=== PATIENT | male | born 1940 | race Caucasian/White ===

== ENCOUNTER 2021-06-11 15:38 | Inpatient (IN) | payer MEDICARE, OTHER ==
[~2021-06-11] VITALS: Ht 167.6 cm; Wt 88.3 kg
[~2021-06-11 15:38] MED LIST: ASPI-886 PO; ATOR40TA59 PO; CARV12.511 PO; FURO40TA4 PO; INSU100C4 SQ; INSU100I13 SQ; LEVO88TA4 PO; LISI5TAB15 PO; SPIR25TA5 PO
[2021-06-11 17:36] LABS: INFLUENZA A PATIENT NEGATIVE (NEGATIVE); INFLUENZA B PATIENT NEGATIVE (NEGATIVE)
--- NOTE | 2021-06-11 18:02 | PHYS DOC ---
Past Medical History Past Medical History: CAD, Diabetes-Type II Additional Past Medical Histor: POOR HISTORIAN (SOULEYMANE MONTERO) Past Surgical History: Coronary Bypass Surgery, Tonsillectomy, Other Additional Past Surgical Histo: OPEN HEART SURGERY (CABG) (SOULEYMANE MONTERO) Smoking Status: Never Smoker Alcohol Use: None (SOULEYMANE MONTERO) General Adult EDM: Chief Complaint: WEAKNESS/GENERALIZED HPI: HPI: Patient is a 81 year old male who presents with 4-day history of weakness, nausea, vomiting and confusion. Patient is a poor historian, but his family member at bedside aids in providing history. Patient has reportedly fallen twice today without any head trauma or loss of consciousness. He fell once earlier today and was able to get up on his own, but the second time he was unable to get up and family had to help him. Patient is not vaccinated against COVID-19. Patient and family member deny fever, chills, chest pain, palpitations, shortness of breath, cough, constipation, abdominal pain, diarrh ea. Patient has no other complaints at this time. (SOULEYMANE MONTERO) Review of Systems: Review of Systems: Unable to obtain secondary to patient mental status. (SOULEYMANE MONTERO) Heart Score: C/O Chest Pain: N/A (SOULEYMANE MONTERO) Allergies: Allergies: Allergies Coded Allergies Type Severity Reaction Last Updated Verified Sulfa (Sulfonamide Antibiotics) Adverse Reaction Intermediate UNKNOWN 06/01/20 Yes Penicillins Adverse Reaction Unknown UNKNOWN 06/01/20 Yes (SOULEYMANE MONTERO) Physical Exam: PE: Constitutional: Well developed, well nourished. Patient appears to have increased work of breathing and is somnolent. HENT: Normocephalic, atraumatic, bilateral external ears normal, oropharynx moist, nose normal. Eyes: Conjunctiva normal, no discharge. Neck: Normal range of motion, no tenderness, supple, no stridor. Cardiovascular: Heart rate regular rhythm, no murmur. Lungs & Thorax: Diminished breath sounds diffusely, increased work of breathing with mild retraction. Abdomen: Bowel sounds normal, soft, no tenderness, no masses, no pulsatile masses. Skin: Warm, dry, no erythema, no rash. Back: No step-offs, no tenderness, no CVA tenderness. Extremities: No tenderness, no cyanosis, no clubbing, ROM intact, no edema. Neurologic: Alert and oriented x3 but extremely fatigued, no focal deficits noted. (SOULEYMANE MONTERO) Current Patient Data: Labs: Laboratory Tests Test 06/11/21 16:55 Influenza Type A Antigen Negative (NEGATIVE) Influenza Type B Antigen Negative (NEGATIVE) SARS-CoV-2 Antigen (Rapid) Positive (NEGATIVE) *A Vital Signs: Vital Signs Date Time Temp Pulse Resp B/P (MAP) Pulse Ox O2 Delivery O2 Flow Rate FiO2 06/11/21 18:37 73 18 102/51 (68) 98 Nasal Cannula 4.0 06/11/21 17:02 99.1 78 16 124/59 (80) 83 Room Air 99.1 (SOULEYMANE MONTERO) EKG: EKG: EKG Interpreted by Dr. Boswell at 1733: Regular rate 71 bpm with first-degree AV block and nonspecific intraventricular conduction delay. No ectopic beats. No STEMI. (SOULEYMANE MONTERO) Radiology/Procedures: Radiology/Procedures: PROCEDURE: PORTABLE CHEST 1V XR CHEST 1V CLINICAL INDICATIONS: Reason: confusion, fall / Spl. Instructions: / History: COMPARISON: None available. Findings: Bilateral perihilar lung infiltrates or pulmonary edema are seen. There is a peripheral lung infiltrate within the lateral left midlung zone. No pleural effusion or pneumothorax is seen. Heart size is enlarged. Sternotomy is evident. Pulmonary vasculature is unremarkable. IMPRESSION: Bilateral lung infiltrates or pulmonary edema. Cardiomegaly. Electronically signed by: Terrence Fong MD (06/11/2021 6:12 PM) [id number] (SOULEYMANE MONTERO) Course & Med Decision Making: Course & Med Decision Making Pertinent Labs and Imaging studies reviewed. (See chart for details) Patient's rapid Covid swab came back positive. Patient has new oxygen requirement of 4 L NC. Chest x-ray shows significant pneumonia. Patient will be admitted to Dr. Nice. He has requested to start 6 dexamethasone, an albuterol inhaler as well as remdesivir. (SOULEYMANE MONTERO) Course & Med Decision Making I have participated in the care of this patient and I have reviewed and agree with all pertinent clinical information above including history, exam, and recommendations. Kenrick Delatorre DO (KENRICK DELATORRE DO) Vanessa Disclaimer: Vanessa Disclaimer: This electronic medical record was generated, in whole or in part, using a voice recognition dictation system. (SOULEYMANE MONTERO) Departure Departure Impression: Primary Impression: Pneumonia due to COVID-19 virus Additional Impression: Fall in elderly patient Disposition: 09 ADMITTED INPATIENT Admitting Physician: SEAN Sethi) (SOULEYMANE MONTERO) Condition: GUARDED Referrals: NO PCP (PCP) SOULEYMANE MONTERO Jun 11, 2021 18:02 KENRICK DELATORRE DO Jun 11, 2021 21:15
--- NOTE | 2021-06-11 18:15 | RAD ---
XR CHEST 1V CLINICAL INDICATIONS: Reason: confusion, fall / Spl. Instructions: / History: COMPARISON: None available. Findings: Bilateral perihilar lung infiltrates or pulmonary edema are seen. There is a peripheral misael g infiltrate within the lateral left midlung zone. No pleural effusion or pneumothorax is seen. Heart size is enlarged. Sternotomy is evident. Pulmonary vasculature is unremarkable. IMPRESSION: Bilateral lung infiltrates or pulmonary edema. Cardiomegaly. Electronically signed by: Terrence Fong MD (06/11/2021 6:12 PM) [id number]
[2021-06-11 18:17] LABS: BASO % 0 % (0-3); EOS % 0 % (0-3); HEMOGLOBIN 12.1 g/dL (13.0-17.5); LYMPH # 1.1 x10^3/uL (1.0-4.8); LYMPH % 20 % (24-48); MEAN CORPUSCULAR HEMOGLOBIN 32 pg (25-35); MEAN CORPUSCULAR HGB CONC 34 g/dL (31-37); MEAN CORPUSCULAR VOLUME 94 fL (79-100); MONO # 0.4 x10^3/uL (0.0-1.1); MONO % 7 % (0-9); NEUT # 4.1 x10^3/uL (1.8-7.7); NEUT % 73 % (31-73); PLATELET COUNT 109 x10^3/uL (140-400); RED BLOOD COUNT 3.81 x10^6/uL (4.30-5.70); RED CELL DISTRIBUTION WIDTH 14.4 % (11.5-14.5); WHITE BLOOD COUNT 5.7 x10^3/uL (4.0-11.0)
[2021-06-11 18:26] LABS: CALCIUM 8.1 mg/dL (8.5-10.1); CREATININE 3.1 mg/dL (0.7-1.3); GFR 19.5; POTASSIUM 4.5 mmol/L (3.5-5.1)
[2021-06-11 18:31] LABS: ALBUMIN 3.2 g/dL (3.4-5.0); ALBUMIN/GLOBULIN RATIO 0.8 (1.0-1.7); TOTAL BILIRUBIN 0.4 mg/dL (0.2-1.0)
[2021-06-11 18:52] LABS: BILIRUBIN,URINE NEGATIVE (NEG); CLARITY,URINE CLOUDY; COLOR,URINE YELLOW; NITRITE,URINE NEGATIVE (NEG); PROTEIN,URINE 30 mg/dL (NEG-TRACE); UROBILINOGEN,URINE 0.2 mg/dL (0.2 mg/dL)
[2021-06-11 19:00] LABS: AMORPHOUS SEDIMENT,UR PRESENT /HPF; BACTERIA,URINE 0 /HPF (0-FEW); GRANULAR CASTS,URINE MODERATE /HPF; HYALINE CASTS, URINE OCCASIONAL /HPF; RBC,URINE 0 /HPF (0-2)
[2021-06-11] MEDS ORDERED: DEXAMETHASONE SOD PHOS 4 MG/ML VIAL IVP ONE (19:00)
[2021-06-11] MEDS ORDERED: ALBUTEROL SULFATE 8GM INHALER. INH PRN (19:00)
[2021-06-11 19:50] VITALS: BP 110/48
[2021-06-11] MEDS ORDERED: REMDESIVIR LOAD in IV NORMAL SALINE 250ML TV IV ONE (20:00)
[2021-06-11] MEDS ORDERED: DEXTROSE 50% 25 GM / 50ML DISP.SYRIN. IV PRN (20:00)
[2021-06-11] MEDS ORDERED: guaiFENesin/CODEINE 100mg/10mg 5 ML LIQUID PO PRN (20:00)
[2021-06-11] MEDS ORDERED: ACETAMINOPHEN 325 MG TABLET. PO PRN (20:30)
[2021-06-11] MEDS ORDERED: ONDANSETRON PF 4 MG/2 ML VIAL. IVP PRN (20:30)
[2021-06-11] MEDS ORDERED: oxyCODONE IR 5 MG TABLET PO PRN (20:30)
[2021-06-11] MEDS ORDERED: oxyCODONE/APAP 5/325 1 TAB TABLET PO PRN ×2 (20:30)
[2021-06-11] MEDS ORDERED: CALCIUM CARBONATE 500 MG TAB.CHEW PO PRN (20:30)
[2021-06-11] MEDS ORDERED: ELECTROLYTE (NON-ICU) PROTOCOL. MC PRN (20:30)
[2021-06-11] MEDS: DOXYCYCLINE HYCLATE 100 MG TABLET PO SCH (20:31)
[2021-06-11] MEDS: ATORVASTATIN CALCIUM 40 MG TABLET. PO SCH (20:31)
--- NOTE | 2021-06-11 20:31 | PDOC1 ---
History and Physical Date of Service: DOS: DATE: 06/11/21 TIME: 20:31 Chief Complaint: Problems: (1) Pneumonia due to COVID-19 virus Chief Complain: Shortness of breath, confusion History of Present Illness: HPI: Patient really too altered to obtain history H&P from emergency room below Patient is a 81 year old male who presents with 4-day history of weakness, nausea, vomiting and confusion. Patient is a poor historian, but his family member at bedside aids in providing history. Patient has reportedly fallen twice today without any head trauma or loss of consciousness. He fell once earlier today and was able to get up on his own, but the second time he was unable to get up and family had to help him. Patient is not vaccinated against COVID-19. Patient and family member deny fever, chills, chest pain, palpitations, shortness of breath, cough, constipation, abdominal pain, diarrhea. Patient has no other complaints at this time Allergies: Allergies: Coded Allergies: No Known Medication Allergies (Verified Allergy, Unknown, 06/11/21) Sulfa (Sulfonamide Antibiotics) (Verified Adverse Reaction, Intermediate, UNKNOWN, 06/01/20) Penicillins (Verified Adverse Reaction, Unknown, UNKNOWN, 06/01/20) Family History: Family History: Reviewed from chart review none none Social History: Social History: No alcohol tobacco or drug use Current Medications: Current Medications Current Medications Albuterol Sulfate (Ventolin Hfa) 2 puff PRN Q4HRS PRN INH SHORTNESS OF BREATH; Start 06/11/21 at 19:00 Remdesivir 200 mg/ Sodium Chloride 210 ml @ 210 mls/hr 1X ONCE IV ; Start 06/11/21 at 20:00; Stop 06/11/21 at 20:59 Remdesivir 100 mg/ Sodium Chloride 230 ml @ 460 mls/hr Q24H IV ; Start 06/12/21 at 20:00; Stop 06/15/21 at 20:29 Dexamethasone Sodium Phosphate (Decadron) 6 mg 1X ONCE IVP ; Start 06/11/21 at 19:00; Stop 06/11/21 at 19:01; Status DC Dexamethasone Sodium Phosphate (Decadron) 6 mg DAILY IVP ; Start 06/12/21 at 09:00 Guaifenesin/ Codeine Phosphate (Robitussin Ac) 5 ml PRN Q6HRS PRN PO COUGH; Start 06/11/21 at 20:00 Ceftriaxone Sodium (Rocephin) 1 gm Q24H IVP ; Start 06/11/21 at 21:00 Doxycycline Hyclate (Vibra-Tab) 100 mg BID PO ; Start 06/11/21 at 21:00 Furosemide (Lasix) 40 mg 1X ONCE IVP ; Start 06/11/21 at 21:00; Stop 06/11/21 at 21:01 Aspirin (Ecotrin) 81 mg DAILYWBKFT PO ; Start 06/12/21 at 08:00 Atorvastatin Calcium (Lipitor) 40 mg QHS PO ; Start 06/11/21 at 21:00 Levothyroxine Sodium (Synthroid) 88 mcg DAILY06 PO ; Start 06/12/21 at 06:00 Insulin Glargine (Lantus Syringe) 10 unit QHS SQ ; Start 06/11/21 at 21:00 Insulin Human Lispro (HumaLOG) 0-7 UNITS TIDWMEALS SQ ; Start 06/11/21 at 21:00 Dextrose (Dextrose 50%-Water Syringe) 12.5 gm PRN Q15MIN PRN IV SEE COMMENTS; Start 06/11/21 at 20:00 Ondansetron HCl (Zofran) 4 mg PRN Q6HRS PRN IVP NAUSEA/VOMITING; Start 06/11/21 at 20:30; Status UNV Calcium Carbonate/ Glycine (Tums) 500 mg PRN Q3HRS PRN PO UPSET STOMACH; Start 06/11/21 at 20:30; Status UNV Info (Non-Icu Electrolyte Protocol) 1 ea PRN DAILY PRN MC SEE COMMENTS; Start 06/11/21 at 20:30; Status UNV Oxycodone HCl (Roxicodone) 5 mg PRN Q3HRS PRN PO BREAKTHROUGH PAIN; Start 06/11/21 at 20:30; Status UNV Oxycodone/ Acetaminophen (Percocet 5/325) 1 tab PRN Q4HRS PRN PO MILD PAIN, 1ST CHOICE; Start 06/11/21 at 20:30; Status UNV Oxycodone/ Acetaminophen (Percocet 5/325) 2 tab PRN Q4HRS PRN PO MODERATE PAIN, SEVERE PAIN; Start 06/11/21 at 20:30; Status UNV Acetaminophen (Tylenol) 650 mg PRN Q6HRS PRN PO Headaches, Temp > 101.5F; Start 06/11/21 at 20:30; Status UNV Senna/Docusate Sodium (Senna Plus) 1 tab BID PO ; Start 06/11/21 at 21:00; Status UNV Active Scripts Active Lantus Solostar (Insulin Glargine,Hum.rec.anlog) 100 Unit/1 Ml Insuln.pen 15 Unit SQ QHS 30 Days If glucose > 200 on 2 or more readings, can add 2u for the night Aspirin Ec (Aspirin) 81 Mg Tablet. 81 Mg PO DAILYWBKFT 90 Days Atorvastatin Calcium 40 Mg Tablet 40 Mg PO QHS 90 Days Novolog (Insulin Aspart) 100 Unit/1 Ml Cartridge 0-9 Unit SQ QID 30 Days Glucose - Insulin >150mg/dL - 3u 151-200 - 5u 201-250 - 6u 251-300 - 7u 301-350 - 9u >350 - Contact MD Reported Furosemide 40 Mg Tablet 1 Tab PO DAILY Spironolactone 25 Mg Tablet 1 Tab PO DAILY Levothyroxine Sodium 88 Mcg Tablet 1 Tab PO DAILY Lisinopril 5 Mg Tablet 1 Tab PO DAILY Carvedilol (Carvedilol) 12.5 Mg Tablet 12.5 Mg PO BIDWMEALS ROS: Review of Systems Review of System Cannot obtain due to mental status Physical Exam: Vital Signs: Vital Signs Date Time Temp Pulse Resp B/P (MAP) Pulse Ox O2 Delivery O2 Flow Rate FiO2 06/11/21 19:30 80 18 105/68 (80) 98 Nasal Cannula 4.0 06/11/21 17:02 99.1 99.1 Physcial Exam: GEN: No apparent distress. Altered HEENT: Normal cephalic, atraumatic, external auditory canals are patent EYES: Extraocular muscles are intact, pupil are equally round and reactive to light and accommodation MUSCULOSKELETAL: Very limited range of motion pretty frail ENDOCRINE: No thyromegaly was palpated LYMPHATICS: No cervical chain or axillary nodes were noted HEMATOPOIETIC: No bruising NECK: Supple, no JVD, no thyromegaly was noted LUNGS: Decreased air entry throughout HEART: RRR, S1, S2 present. Peripheral pulses intact, no obvious murmurs noted ABDOMEN: Soft, nontender. Positive bowel sounds, no organomegaly, normal bowel sounds EXTREMITIES: Without clubbing, cyanosis, or edema. Pedal pulses intact. Negative Homans sign NEUROLOGIC: Altered PSYCHIATRIC: Normal affect, normal mood. Stable SKIN: No ulcerations or rashes, good skin turgor, no jaundice VASCULAR: Good capillary refill, neurovascular bundle appears to be intact Labs: Labs: Laboratory Tests Test 06/11/21 16:55 06/11/21 17:50 06/11/21 18:45 Influenza Type A Antigen Negative (NEGATIVE) Influenza Type B Antigen Negative (NEGATIVE) SARS-CoV-2 Antigen (Rapid) Positive (NEGATIVE) White Blood Count 5.7 x10^3/uL (4.0-11.0) Red Blood Count 3.81 x10^6/uL (4.30-5.70) Hemoglobin 12.1 g/dL (13.0-17.5) Hematocrit 36.0 % (39.0-53.0) Mean Corpuscular Volume 94 fL (79-100) Mean Corpuscular Hemoglobin 32 pg (25-35) Mean Corpuscular Hemoglobin Concent 34 g/dL (31-37) Red Cell Distribution Width 14.4 % (11.5-14.5) Platelet Count 109 x10^3/uL (140-400) Neutrophils (%) (Auto) 73 % (31-73) Lymphocytes (%) (Auto) 20 % (24-48) Monocytes (%) (Auto) 7 % (0-9) Eosinophils (%) (Auto) 0 % (0-3) Basophils (%) (Auto) 0 % (0-3) Neutrophils # (Auto) 4.1 x10^3/uL (1.8-7.7) Lymphocytes # (Auto) 1.1 x10^3/uL (1.0-4.8) Monocytes # (Auto) 0.4 x10^3/uL (0.0-1.1) Eosinophils # (Auto) 0.0 x10^3/uL (0.0-0.7) Basophils # (Auto) 0.0 x10^3/uL (0.0-0.2) Sodium Level 131 mmol/L (136-145) Potassium Level 4.5 mmol/L (3.5-5.1) Chloride Level 96 mmol/L (98-107) Carbon Dioxide Level 24 mmol/L (21-32) Anion Gap 11 (6-14) Blood Urea Nitrogen 62 mg/dL (8-26) Creatinine 3.1 mg/dL (0.7-1.3) Estimated GFR (Cockcroft-Gault) 19.5 BUN/Creatinine Ratio 20 (6-20) Glucose Level 209 mg/dL (70-99) Lactic Acid Level 0.7 mmol/L (0.4-2.0) Calcium Level 8.1 mg/dL (8.5-10.1) Total Bilirubin 0.4 mg/dL (0.2-1.0) Aspartate Amino Transf (AST/SGOT) 46 U/L (15-37) Alanine Aminotransferase (ALT/SGPT) 18 U/L (16-63) Alkaline Phosphatase 64 U/L (46-116) Total Protein 7.0 g/dL (6.4-8.2) Albumin 3.2 g/dL (3.4-5.0) Albumin/Globulin Ratio 0.8 (1.0-1.7) Urine Collection Type U cath Urine Color Yellow Urine Clarity Cloudy Urine pH 5.0 (<5.0-8.0) Urine Specific Bridger 1.020 (1.000-1.030) Urine Protein 30 mg/dL (NEG-TRACE) Urine Glucose (UA) >=1000 mg/dL (NEG) Urine Ketones (Stick) Negative mg/dL (NEG) Urine Blood Negative (NEG) Urine Nitrite Negative (NEG) Urine Bilirubin Negative (NEG) Urine Urobilinogen Dipstick 0.2 mg/dL (0.2 mg/dL) Urine Leukocyte Esterase Negative (NEG) Urine RBC 0 /HPF (0-2) Urine WBC 5-10 /HPF (0-4) Urine Squamous Epithelial Cells Mod /LPF Urine Amorphous Sediment Present /HPF Urine Bacteria 0 /HPF (0-FEW) Urine Hyaline Casts Occasional /HPF Urine Granular Casts Moderate /HPF Urine Mucus Mod /LPF Laboratory Tests Test 06/11/21 16:55 06/11/21 17:50 06/11/21 18:45 Influenza Type A Antigen Negative (NEGATIVE) Influenza Type B Antigen Negative (NEGATIVE) SARS-CoV-2 Antigen (Rapid) Positive (NEGATIVE) White Blood Count 5.7 x10^3/uL (4.0-11.0) Red Blood Count 3.81 x10^6/uL (4.30-5.70) Hemoglobin 12.1 g/dL (13.0-17.5) Hematocrit 36.0 % (39.0-53.0) Mean Corpuscular Volume 94 fL (79-100) Mean Corpuscular Hemoglobin 32 pg (25-35) Mean Corpuscular Hemoglobin Concent 34 g/dL (31-37) Red Cell Distribution Width 14.4 % (11.5-14.5) Platelet Count 109 x10^3/uL (140-400) Neutrophils (%) (Auto) 73 % (31-73) Lymphocytes (%) (Auto) 20 % (24-48) Monocytes (%) (Auto) 7 % (0-9) Eosinophils (%) (Auto) 0 % (0-3) Basophils (%) (Auto) 0 % (0-3) Neutrophils # (Auto) 4.1 x10^3/uL (1.8-7.7) Lymphocytes # (Auto) 1.1 x10^3/uL (1.0-4.8) Monocytes # (Auto) 0.4 x10^3/uL (0.0-1.1) Eosinophils # (Auto) 0.0 x10^3/uL (0.0-0.7) Basophils # (Auto) 0.0 x10^3/uL (0.0-0.2) Sodium Level 131 mmol/L (136-145) Potassium Level 4.5 mmol/L (3.5-5.1) Chloride Level 96 mmol/L (98-107) Carbon Dioxide Level 24 mmol/L (21-32) Anion Gap 11 (6-14) Blood Urea Nitrogen 62 mg/dL (8-26) Creatinine 3.1 mg/dL (0.7-1.3) Estimated GFR (Cockcroft-Gault) 19.5 BUN/Creatinine Ratio 20 (6-20) Glucose Level 209 mg/dL (70-99) Lactic Acid Level 0.7 mmol/L (0.4-2.0) Calcium Level 8.1 mg/dL (8.5-10.1) Total Bilirubin 0.4 mg/dL (0.2-1.0) Aspartate Amino Transf (AST/SGOT) 46 U/L (15-37) Alanine Aminotransferase (ALT/SGPT) 18 U/L (16-63) Alkaline Phosphatase 64 U/L (46-116) Total Protein 7.0 g/dL (6.4-8.2) Albumin 3.2 g/dL (3.4-5.0) Albumin/Globulin Ratio 0.8 (1.0-1.7) Urine Collection Type U cath Urine Color Yellow Urine Clarity Cloudy Urine pH 5.0 (<5.0-8.0) Urine Specific Bridger 1.020 (1.000-1.030) Urine Protein 30 mg/dL (NEG-TRACE) Urine Glucose (UA) >=1000 mg/dL (NEG) Urine Ketones (Stick) Negative mg/dL (NEG) Urine Blood Negative (NEG) Urine Nitrite Negative (NEG) Urine Bilirubin Negative (NEG) Urine Urobilinogen Dipstick 0.2 mg/dL (0.2 mg/dL) Urine Leukocyte Esterase Negative (NEG) Urine RBC 0 /HPF (0-2) Urine WBC 5-10 /HPF (0-4) Urine Squamous Epithelial Cells Mod /LPF Urine Amorphous Sediment Present /HPF Urine Bacteria 0 /HPF (0-FEW) Urine Hyaline Casts Occasional /HPF Urine Granular Casts Moderate /HPF Urine Mucus Mod /LPF Assessment/Plan Assessment/Plan Acute hypoxic respiratory failure secondary to COVID-19 pneumonia, history of hypertension and hyperlipidemia -4 to 5-day history of worsening shortness of breath nausea vomiting confusion. Not Covid vaccinated presented emergency room with Covid positive oxygen requirement as well -Start remdesivir dexamethasone -Penicillin allergy. We will do Rocephin doxy -As needed inhaler and cough medicine -DVT prophylaxis -Home meds resumed as indicated -Cardiac diet Justifications for Admission Other Justification ROSALIA LIN MD Jun 11, 2021 20:31
[2021-06-11] MEDS: cefTRIAXone IV Push 1 GM VIAL. IVP SCH (20:33)
[2021-06-11] MEDS: INSULIN LISPRO 300 UNITS/3 ML VIAL. SQ SCH (20:58)
[2021-06-11] MEDS ORDERED: FUROSEMIDE 40 MG/4 ML VIAL. IVP ONE (21:00)
[2021-06-11] MEDS: SENNOSIDES/DOCUSATE 8.6/50MG TABLET. PO SCH (21:00)
[2021-06-11] MEDS: INSULIN GLARGINE SYRINGE. SQ SCH (21:04)
[2021-06-11 21:23] VITALS: BP 107/51
[2021-06-11 23:36] VITALS: BP 99/47
[2021-06-12] VITALS (41 sets, daily range): BP systolic 65–139; BP diastolic 30–87
--- NOTE | 2021-06-12 01:09 | EKG ---
[facility] [address] [place] [address] Test Date: 2021-06-11 Test Time: 17:31:54 Pat Name: KAYLA QUESADA Department: Room: [facility] [place] Gender: M Architect Marine: : 1940 Requested By: SOULEYMANE MONTERO Order Number: [id number] Reading MD: Donny Mckenzie MD Measurements Intervals [place] Rate: 71 P: -7 MD: 232 QRS: -45 QRSD: 148 T: 128 QT: 380 QTc: 413 Interpretive Statements SINUS RHYTHM PROLONGED MD INTERVAL LBBB POOR R WAVE PROGRESSION LVH Electronically Signed On 06-12-2021 8:47:06 CDT by Donny Mckenzie MD
[2021-06-12] MEDS: LEVOTHYROXINE 88 MCG TABLET PO SCH ×2 (06:00→06:19)
[2021-06-12] MEDS: DOXYCYCLINE HYCLATE 100 MG TABLET PO SCH ×2 (09:05→20:37)
[2021-06-12] MEDS: THIAMINE 100 MG TABLET. PO SCH (09:05)
[2021-06-12] MEDS: SENNOSIDES/DOCUSATE 8.6/50MG TABLET. PO SCH ×2 (09:05→20:37)
[2021-06-12] MEDS: ZINC SULFATE 220 MG CAPSULE. PO SCH (09:05)
[2021-06-12] MEDS: ASCORBIC ACID 500 MG TABLET PO SCH (09:05)
[2021-06-12] MEDS: ASPIRIN ENTERIC COATED 81 MG TABLET.DR. PO SCH (09:05)
[2021-06-12] MEDS: DEXAMETHASONE SOD PHOS 4 MG/ML VIAL IVP SCH (09:06)
[2021-06-12] MEDS: INSULIN LISPRO 300 UNITS/3 ML VIAL. SQ SCH ×3 (09:09→18:05)
[2021-06-12 09:39] LABS: ALBUMIN 2.8 g/dL (3.4-5.0); ALBUMIN/GLOBULIN RATIO 0.7 (1.0-1.7); C-REACTIVE PROTEIN 155.1 mg/L (0-3.3); CALCIUM 7.8 mg/dL (8.5-10.1); GFR 20.3; POTASSIUM 4.9 mmol/L (3.5-5.1); TOTAL BILIRUBIN 0.3 mg/dL (0.2-1.0); TOTAL PROTEIN 6.7 g/dL (6.4-8.2)
--- NOTE | 2021-06-12 09:52 | PDOC2 ---
SALONI DAVIS [employer] 06/12/21 0952: CARDIAC CONSULT DATE OF CONSULT Date of Consult DATE: 06/12/21 TIME: 09:33 REASON FOR CONSULT Reason for Consult: CHF REFERRING PHYSICIAN Referring Physician: Dr. Nice SOURCE Source: Chart review, Patient HISTORY OF PRESENT ILLNESS HISTORY OF PRESENT ILLNESS This is a 81 yo male who presented secondary to nausea/vomiting and altered mental status. Has been more weak recently and had two falls the day of arrival. He did not hit hit head or lose consciousness. No reports of chest pain, palpitations, dizziness, diaphoresis, or shortness of breath. CXR with bilateral infiltrates, which prompted this consult. Rapid COVID is +. Patient is not vaccinated against COVID 19. PAST MEDICAL HISTORY Past Medical History Cardiovascular: CAD, CHF, ICM. HTN, [place] (1986 and 2008), Hyperlipidemia Pulmonary: Other (REFUGIO) CENTRAL NERVOUS SYSTEM: Other (No pertinent history) GI: GERD Heme/Onc: No pertinent hx Hepatobiliary: No pertinent hx Psych: No pertinent hx Musculoskeletal: Osteoarthritis Rheumatologic: No pertinent hx Infectious disease: No pertinent hx ENT: Allergic Rhinitis Renal/: Benign prostatic enlarg., Other (testicular hypofunction) Endocrine: Diabetes (2), Hypothyroidism Dermatology: No pertinent hx PAST SURGICAL HISTORY Past Surgical History: CABG FAMILY HISTORY Family History: Heart Disease SOCIAL HISTORY Social History Smoke: Quit ALCOHOL: none Drugs: None Lives: with Family CURRENT MEDICATIONS CURRENT MEDICATIONS Current Medications Medications (Trade) Dose Ordered Sig/Raj Route PRN Reason Start Time Stop Time Status Last Admin Dose Admin Albuterol Sulfate (Ventolin Hfa) 2 puff PRN Q4HRS PRN INH SHORTNESS OF BREATH 06/11/21 19:00 06/11/21 21:22 Remdesivir 200 mg/ Sodium Chloride 210 ml @ 210 mls/hr 1X ONCE IV 06/11/21 20:00 06/11/21 20:59 DC 06/11/21 20:33 Dexamethasone Sodium Phosphate (Decadron) 6 mg 1X ONCE IVP 06/11/21 19:00 06/11/21 19:01 DC 06/11/21 20:32 Dexamethasone Sodium Phosphate (Decadron) 6 mg DAILY IVP 06/12/21 09:00 06/12/21 09:06 Ceftriaxone Sodium (Rocephin) 1 gm Q24H IVP 06/11/21 21:00 06/11/21 20:33 Doxycycline Hyclate (Vibra-Tab) 100 mg BID PO 06/11/21 21:00 06/12/21 09:05 Furosemide (Lasix) 40 mg 1X ONCE IVP 06/11/21 21:00 06/11/21 21:01 DC 06/11/21 21:23 Aspirin (Ecotrin) 81 mg DAILYWBKFT PO 06/12/21 08:00 06/12/21 09:05 Atorvastatin Calcium (Lipitor) 40 mg QHS PO 06/11/21 21:00 06/11/21 20:31 Insulin Glargine (Lantus Syringe) 10 unit QHS SQ 06/11/21 21:00 06/11/21 21:04 Insulin Human Lispro (HumaLOG) 0-7 UNITS TIDWMEALS SQ 06/11/21 21:00 06/12/21 09:09 Acetaminophen (Tylenol) 650 mg PRN Q6HRS PRN PO Headaches, Temp > 101.5F 06/11/21 20:30 06/12/21 09:04 Senna/Docusate Sodium (Senna Plus) 1 tab BID PO 06/11/21 21:00 06/12/21 09:05 Zinc Sulfate (Orazinc) 220 mg DAILY PO 06/12/21 09:00 06/12/21 09:05 Thiamine Mononitrate (Vitamin B-1) 100 mg DAILY PO 06/12/21 09:00 06/12/21 09:05 Ascorbic Acid (Vitamin C) 500 mg DAILY PO 06/12/21 09:00 06/12/21 09:05 ALLERGIES ALLERGIES: Coded Allergies: Penicillins (Verified Adverse Reaction, Intermediate, 06/12/21) Sulfa (Sulfonamide Antibiotics) (Verified Adverse Reaction, Intermediate, 06/12/21) ROS Review of System 14 point ROS conducted, although limited due to current condition PHYSICAL EXAM General: Alert, No acute distress HEENT: Atraumatic Lungs: Other (on NRB) Heart: Regular rate (with LBBB) Extremities: No edema Skin: No significant lesion Neuro: Other (calm, cooperative ) MUSCULOSKELETAL: Osteoarthritic changes both hands VITALS/I&O VITALS/I&O: Vital Signs Date Time Temp Pulse Resp B/P (MAP) Pulse Ox O2 Delivery O2 Flow Rate FiO2 06/12/21 07:00 101.3 77 20 92/44 (60) 92 NonRebreather Mask 12.0 101.3 I & O 06/11/21 06/11/21 06/12/21 15:00 23:00 07:00 Intake Total 120 ml Output Total 1200 ml Balance -1080 ml LABS Lab: Laboratory Tests Test 06/11/21 16:55 06/11/21 17:50 06/11/21 18:45 06/11/21 20:43 Influenza Type A Antigen Negative (NEGATIVE) Influenza Type B Antigen Negative (NEGATIVE) SARS-CoV-2 Antigen (Rapid) Positive (NEGATIVE) *A White Blood Count 5.7 x10^3/uL (4.0-11.0) Red Blood Count 3.81 x10^6/uL (4.30-5.70) L Hemoglobin 12.1 g/dL (13.0-17.5) L Hematocrit 36.0 % (39.0-53.0) L Mean Corpuscular Volume 94 fL (79-100) Mean Corpuscular Hemoglobin 32 pg (25-35) Mean Corpuscular Hemoglobin Concent 34 g/dL (31-37) Red Cell Distribution Width 14.4 % (11.5-14.5) Platelet Count 109 x10^3/uL (140-400) L Neutrophils (%) (Auto) 73 % (31-73) Lymphocytes (%) (Auto) 20 % (24-48) L Monocytes (%) (Auto) 7 % (0-9) Eosinophils (%) (Auto) 0 % (0-3) Basophils (%) (Auto) 0 % (0-3) Neutrophils # (Auto) 4.1 x10^3/uL (1.8-7.7) Lymphocytes # (Auto) 1.1 x10^3/uL (1.0-4.8) Monocytes # (Auto) 0.4 x10^3/uL (0.0-1.1) Eosinophils # (Auto) 0.0 x10^3/uL (0.0-0.7) Basophils # (Auto) 0.0 x10^3/uL (0.0-0.2) Sodium Level 131 mmol/L (136-145) L Potassium Level 4.5 mmol/L (3.5-5.1) Chloride Level 96 mmol/L (98-107) L Carbon Dioxide Level 24 mmol/L (21-32) Anion Gap 11 (6-14) Blood Urea Nitrogen 62 mg/dL (8-26) H Creatinine 3.1 mg/dL (0.7-1.3) H Estimated GFR (Cockcroft-Gault) 19.5 BUN/Creatinine Ratio 20 (6-20) Glucose Level 209 mg/dL (70-99) H Lactic Acid Level 0.7 mmol/L (0.4-2.0) Calcium Level 8.1 mg/dL (8.5-10.1) L Total Bilirubin 0.4 mg/dL (0.2-1.0) Aspartate Amino Transferase (AST) 46 U/L (15-37) H Alanine Aminotransferase (ALT) 18 U/L (16-63) Alkaline Phosphatase 64 U/L (46-116) Total Protein 7.0 g/dL (6.4-8.2) Albumin 3.2 g/dL (3.4-5.0) L Albumin/Globulin Ratio 0.8 (1.0-1.7) L Urine Collection Type U cath Urine Color Yellow Urine Clarity Cloudy Urine pH 5.0 (<5.0-8.0) Urine Specific [place] 1.020 (1.000-1.030) Urine Protein 30 mg/dL (NEG-TRACE) Urine Glucose (UA) >=1000 mg/dL (NEG) Urine Ketones (Stick) Negative mg/dL (NEG) Urine Blood Negative (NEG) Urine Nitrite Negative (NEG) Urine Bilirubin Negative (NEG) Urine Urobilinogen Dipstick 0.2 mg/dL (0.2 mg/dL) Urine Leukocyte Esterase Negative (NEG) Urine RBC 0 /HPF (0-2) Urine WBC 5-10 /HPF (0-4) Urine Squamous Epithelial Cells Mod /LPF Urine Amorphous Sediment Present /HPF Urine Bacteria 0 /HPF (0-FEW) Urine Hyaline Casts Occasional /HPF Urine Granular Casts Moderate /HPF Urine Mucus Mod /LPF Glucose (Fingerstick) 161 mg/dL (70-99) H Test 06/12/21 08:00 Glucose (Fingerstick) 245 mg/dL (70-99) H Laboratory Tests 06/11/21 17:50 Laboratory Tests 06/11/21 17:50 ECHOCARDIOGRAM ECHOCARDIOGRAM <Conclusion> The Left Ventricle is borderline dilated. The systolic function is severely impaired. The Ejection Fraction is 25-30%. There is global hypokinesis of the left ventricle. The mid to distal septal wall through the apex is akinetic. Doppler and Color Flow revealed trace aortic regurgitation. There is no significant aortic valvular stenosis. Doppler and Color-flow revealed mild mitral regurgitation. Doppler and Color Flow revealed trace tricuspid regurgitation with an estimated PAP of 33 mmHg. DATE: 06/02/20 1404 ASSESSMENT/PLAN ASSESSMENT/PLAN 1. Weakness, falls 2. Acute respiratory failure secondary to COVID PNA, CHF. Febrile. 3. Acute on chronic systolic CHF; s/p IV Lasix 4. Ischemic cardiomyopathy; Echo 06/07 with LVEF 25-30% 5. Chronic LBBB 6. CAD s/p CABG 2008 7. H/o hypertension with present hypotension. on low dose Levophed 8. Hyperlipidemia 9. Diabetes, II 10. LUCÍA; Cr 3.0 11. Hypothyroidism 12. Thrombocytopenia Recommendations Secondary prevention as able Hold Coreg, lisinopril Will start inotropic support with dobutamine infusion given severe CMP and renal failure Avoid nephrotoxins Lung optimization as per pulmonary Supportive care REGINALD MAGALLON MD 06/13/21 1150: CARDIAC CONSULT ASSESSMENT/PLAN ASSESSMENT/PLAN Patient seen and examined 06/12/2021. Agree with MERCHANDISE APPRAISER's assessment and plan. Acute respiratory failure secondary to combination of Covid pneumonia and acute on chronic systolic heart failure 2D echo showed LVEF 35% Agree with dobutamine infusion for inotropic support and continue gentle diuresis CAD status clinically stable Continue treatment of Covid pneumonia per pulmonary team Thank you for your consultation SALONI DAVIS APRN Jun 12, 2021 09:52 REGINALD MAGALLON MD Jun 13, 2021 11:50
--- NOTE | 2021-06-12 10:00 | PDOC2 ---
CONSULT Date of Consult Date of Consult DATE: 06/12/21 TIME: 09:59 Reason for Consult Reason for Consult: LUCÍA Source Source: Chart review History of Present Illness Reason for Visit: Patient is a 81 year old male who presents with 4-day history of weakness, nausea, vomiting and confusion. Patient is a poor historian, Oriented x 2 , still confused , history Obtained from Chart Review and NURSING He reportedly had fallen twice yesterday without any head trauma or loss of consciousness. He was able to get up on his own the 1 st time but the second time he was unable to get up and family had to help him. No reported fever, chills, chest pain, palpitations, shortness of breath, cough, constipation, abdominal pain, diarrhea. No urinary complaints Currently Up to 12 L facemask O2 overnight with O2 saturations 91% . C/O some nausea and diarrhea. No vomiting currently. Rapid COVID 19 Positive , he is not Vaccinated . BP's Low . Plan to transfer to ICU . He spiked temp today. Has Jonas in place . Recd Lasix in the ER Past Medical History Cardiovascular: CAD, CHF, HTN, Hyperlipidemia Pulmonary: Other CENTRAL NERVOUS SYSTEM: Other GI: GERD Heme/Onc: No pertinent hx Hepatobiliary: No pertinent hx Psych: No pertinent hx Musculoskeletal: Osteoarthritis Rheumatologic: No pertinent hx Infectious disease: No pertinent hx Renal/: Benign prostatic enlarg., Other Endocrine: Diabetes Past Surgical History Past Surgical History: CABG Family History Family History: Heart Disease Social History ALCOHOL: none Drugs: None Lives: with Family Current Problem List Problem List Problems Medical Problems: (1) Fall in elderly patient Status: Acute (2) Pneumonia due to COVID-19 virus Status: Acute Current Medications Current Medications Current Medications Albuterol Sulfate (Ventolin Hfa) 2 puff PRN Q4HRS PRN INH SHORTNESS OF BREATH Last administered on 06/11/21at 21:22; Start 06/11/21 at 19:00 Remdesivir 200 mg/ Sodium Chloride 210 ml @ 210 mls/hr 1X ONCE IV Last administered on 06/11/21at 20:33; Start 06/11/21 at 20:00; Stop 06/11/21 at 20:59; Status DC Remdesivir 100 mg/ Sodium Chloride 230 ml @ 460 mls/hr Q24H IV ; Start 06/12/21 at 20:00; Stop 06/15/21 at 20:29 Dexamethasone Sodium Phosphate (Decadron) 6 mg 1X ONCE IVP Last administered on 06/11/21at 20:32; Start 06/11/21 at 19:00; Stop 06/11/21 at 19:01; Status DC Dexamethasone Sodium Phosphate (Decadron) 6 mg DAILY IVP Last administered on 06/12/21at 09:06; Start 06/12/21 at 09:00 Guaifenesin/ Codeine Phosphate (Robitussin Ac) 5 ml PRN Q6HRS PRN PO COUGH; Start 06/11/21 at 20:00 Ceftriaxone Sodium (Rocephin) 1 gm Q24H IVP Last administered on 06/11/21at 20:33; Start 06/11/21 at 21:00 Doxycycline Hyclate (Vibra-Tab) 100 mg BID PO Last administered on 06/12/21at 09:05; Start 06/11/21 at 21:00 Furosemide (Lasix) 40 mg 1X ONCE IVP Last administered on 06/11/21at 21:23; Start 06/11/21 at 21:00; Stop 06/11/21 at 21:01; Status DC Aspirin (Ecotrin) 81 mg DAILYWBKFT PO Last administered on 06/12/21at 09:05; Start 06/12/21 at 08:00 Atorvastatin Calcium (Lipitor) 40 mg QHS PO Last administered on 06/11/21at 20:31; Start 06/11/21 at 21:00 Levothyroxine Sodium (Synthroid) 88 mcg DAILY06 PO ; Start 06/12/21 at 06:00 Insulin Glargine (Lantus Syringe) 10 unit QHS SQ Last administered on at 21:04; Start 06/11/21 at 21:00 Insulin Human Lispro (HumaLOG) 0-7 UNITS TIDWMEALS SQ Last administered on 06/12/21at 09:09; Start 06/11/21 at 21:00 Dextrose (Dextrose 50%-Water Syringe) 12.5 gm PRN Q15MIN PRN IV SEE COMMENTS; Start 06/11/21 at 20:00 Ondansetron HCl (Zofran) 4 mg PRN Q6HRS PRN IVP NAUSEA/VOMITING; Start 06/11/21 at 20:30 Calcium Carbonate/ Glycine (Tums) 500 mg PRN Q3HRS PRN PO UPSET STOMACH; Start 06/11/21 at 20:30 Info (Non-Icu Electrolyte Protocol) 1 ea PRN DAILY PRN MC SEE COMMENTS; Start 06/11/21 at 20:30 Oxycodone HCl (Roxicodone) 5 mg PRN Q3HRS PRN PO BREAKTHROUGH PAIN; Start 06/11/21 at 20:30 Oxycodone/ Acetaminophen (Percocet 5/325) 1 tab PRN Q4HRS PRN PO MILD PAIN, 1ST CHOICE; Start 06/11/21 at 20:30 Oxycodone/ Acetaminophen (Percocet 5/325) 2 tab PRN Q4HRS PRN PO MODERATE PAIN, SEVERE PAIN; Start 06/11/21 at 20:30 Acetaminophen (Tylenol) 650 mg PRN Q6HRS PRN PO Headaches, Temp > 101.5F Last administered on 06/12/21at 09:04; Start 06/11/21 at 20:30 Senna/Docusate Sodium (Senna Plus) 1 tab BID PO Last administered on 06/12/21at 09:05; Start 06/11/21 at 21:00 Zinc Sulfate (Orazinc) 220 mg DAILY PO Last administered on 06/12/21at 09:05; Start 06/12/21 at 09:00 Thiamine Mononitrate (Vitamin B-1) 100 mg DAILY PO Last administered on 06/12/21at 09:05; Start 06/12/21 at 09:00 Ascorbic Acid (Vitamin C) 500 mg DAILY PO Last administered on 06/12/21at 09:05; Start 06/12/21 at 09:00 Active Scripts Active Lantus Solostar (Insulin Glargine,Hum.rec.anlog) 100 Unit/1 Ml Insuln.pen 15 Unit SQ QHS 30 Days If glucose > 200 on 2 or more readings, can add 2u for the night Aspirin Ec (Aspirin) 81 Mg Tablet.dr 81 Mg PO DAILYWBKFT 90 Days Atorvastatin Calcium 40 Mg Tablet 40 Mg PO QHS 90 Days Novolog (Insulin Aspart) 100 Unit/1 Ml Cartridge 0-9 Unit SQ QID 30 Days Glucose - Insulin >150mg/dL - 3u 151-200 - 5u 201-250 - 6u 251-300 - 7u 301-350 - 9u >350 - Contact Reported Furosemide 40 Mg Tablet 1 Tab PO DAILY Spironolactone 25 Mg Tablet 1 Tab PO DAILY Levothyroxine Sodium 88 Mcg Tablet 1 Tab PO DAILY Lisinopril 5 Mg Tablet 1 Tab PO DAILY Carvedilol (Carvedilol) 12.5 Mg Tablet 12.5 Mg PO BIDWMEALS Allergies Allergies: Coded Allergies: No Known Medication Allergies (Verified Allergy, Unknown, 06/11/21) Penicillins (Verified Adverse Reaction, Intermediate, 06/12/21) Sulfa (Sulfonamide Antibiotics) (Verified Adverse Reaction, Intermediate, 06/12/21) ROS Review of System As per HPI, rest of the ROS is negative. Unable to Obtain details 2/2 his MS Physical Exam Physical Exam General NAD, HEEN On Non Rebreather Neck Supple Lungs Decreased at bases, Heart S1S2 Abd Soft, NT, BS + Neuro AXO x2 , confused some,No focal deficit Ext No LE edema Jonas + Derm No Rash Vital Signs Vital Signs Date Time Temp Pulse Resp B/P (MAP) Pulse Ox O2 Delivery O2 Flow Rate FiO2 06/12/21 07:00 101.3 77 20 92/44 (60) 92 NonRebreather Mask 12.0 101.3 Assessment & Plan LUCÍA - ATN , Non Oliguric . Currently Not on IVF , Recd Lasix IV x1 , BP's low . E-Lytes stable, UA Glucosuria . No imaging done . Check CK with Hx of falls . Currently No emergent indication for dialysis . Supportive care, Maintain fluid balance (Per cardiology/ Pulmonary) , Avoid Nephrotoxins, Strict I/O HypoNatremia Na normal after Correcting for HyperGlycemia CKD stage 2 - Baseline Creat 0.9-1.May per [facility] records, No interval labs available to me Acute respiratory failure with hypoxia - secondary to COVID PNA Febrile. COVID 19 Pneumonia - Rapid positive ; He is Unvaccinated Falls at home Chronic systolic CHF Cardiology consulted H/o Ischemic cardiomyopathy LBBB - chronic CAD s/p CABG 2009 Diabetes, II Thrombocytopenia Labs Labs Laboratory Tests Test 06/11/21 16:55 06/11/21 17:50 06/11/21 18:45 06/11/21 20:43 Influenza Type A Antigen Negative (NEGATIVE) Influenza Type B Antigen Negative (NEGATIVE) SARS-CoV-2 Antigen (Rapid) Positive (NEGATIVE) White Blood Count 5.7 x10^3/uL (4.0-11.0) Red Blood Count 3.81 x10^6/uL (4.30-5.70) Hemoglobin 12.1 g/dL (13.0-17.5) Hematocrit 36.0 % (39.0-53.0) Mean Corpuscular Volume 94 fL (79-100) Mean Corpuscular Hemoglobin 32 pg (25-35) Mean Corpuscular Hemoglobin Concent 34 g/dL (31-37) Red Cell Distribution Width 14.4 % (11.5-14.5) Platelet Count 109 x10^3/uL (140-400) Neutrophils (%) (Auto) 73 % (31-73) Lymphocytes (%) (Auto) 20 % (24-48) Monocytes (%) (Auto) 7 % (0-9) Eosinophils (%) (Auto) 0 % (0-3) Basophils (%) (Auto) 0 % (0-3) Neutrophils # (Auto) 4.1 x10^3/uL (1.8-7.7) Lymphocytes # (Auto) 1.1 x10^3/uL (1.0-4.8) Monocytes # (Auto) 0.4 x10^3/uL (0.0-1.1) Eosinophils # (Auto) 0.0 x10^3/uL (0.0-0.7) Basophils # (Auto) 0.0 x10^3/uL (0.0-0.2) Sodium Level 131 mmol/L (136-145) Potassium Level 4.5 mmol/L (3.5-5.1) Chloride Level 96 mmol/L (98-107) Carbon Dioxide Level 24 mmol/L (21-32) Anion Gap 11 (6-14) Blood Urea Nitrogen 62 mg/dL (8-26) Creatinine 3.1 mg/dL (0.7-1.3) Estimated GFR (Cockcroft-Gault) 19.5 BUN/Creatinine Ratio 20 (6-20) Glucose Level 209 mg/dL (70-99) Lactic Acid Level 0.7 mmol/L (0.4-2.0) Calcium Level 8.1 mg/dL (8.5-10.1) Total Bilirubin 0.4 mg/dL (0.2-1.0) Aspartate Amino Transf (AST/SGOT) 46 U/L (15-37) Alanine Aminotransferase (ALT/SGPT) 18 U/L (16-63) Alkaline Phosphatase 64 U/L (46-116) Total Protein 7.0 g/dL (6.4-8.2) Albumin 3.2 g/dL (3.4-5.0) Albumin/Globulin Ratio 0.8 (1.0-1.7) Urine Collection Type U cath Urine Color Yellow Urine Clarity Cloudy Urine pH 5.0 (<5.0-8.0) Urine Specific [place] 1.020 (1.000-1.030) Urine Protein 30 mg/dL (NEG-TRACE) Urine Glucose (UA) >=1000 mg/dL (NEG) Urine Ketones (Stick) Negative mg/dL (NEG) Urine Blood Negative (NEG) Urine Nitrite Negative (NEG) Urine Bilirubin Negative (NEG) Urine Urobilinogen Dipstick 0.2 mg/dL (0.2 mg/dL) Urine Leukocyte Esterase Negative (NEG) Urine RBC 0 /HPF (0-2) Urine WBC 5-10 /HPF (0-4) Urine Squamous Epithelial Cells Mod /LPF Urine Amorphous Sediment Present /HPF Urine Bacteria 0 /HPF (0-FEW) Urine Hyaline Casts Occasional /HPF Urine Granular Casts Moderate /HPF Urine Mucus Mod /LPF Glucose (Fingerstick) 161 mg/dL (70-99) Test 06/12/21 08:00 06/12/21 08:40 Glucose (Fingerstick) 245 mg/dL (70-99) Sodium Level 133 mmol/L (136-145) Potassium Level 4.9 mmol/L (3.5-5.1) Chloride Level 97 mmol/L (98-107) Carbon Dioxide Level 21 mmol/L (21-32) Anion Gap 15 (6-14) Blood Urea Nitrogen 71 mg/dL (8-26) Creatinine 3.0 mg/dL (0.7-1.3) Estimated GFR (Cockcroft-Gault) 20.3 BUN/Creatinine Ratio 24 (6-20) Glucose Level 263 mg/dL (70-99) Calcium Level 7.8 mg/dL (8.5-10.1) Total Bilirubin 0.3 mg/dL (0.2-1.0) Aspartate Amino Transf (AST/SGOT) 60 U/L (15-37) Alanine Aminotransferase (ALT/SGPT) 30 U/L (16-63) Alkaline Phosphatase 60 U/L (46-116) C-Reactive Protein, Quantitative 155.1 mg/L (0-3.3) Total Protein 6.7 g/dL (6.4-8.2) Albumin 2.8 g/dL (3.4-5.0) Albumin/Globulin Ratio 0.7 (1.0-1.7) Laboratory Tests Test 06/11/21 16:55 06/11/21 17:50 06/11/21 18:45 06/11/21 20:43 Influenza Type A Antigen Negative (NEGATIVE) Influenza Type B Antigen Negative (NEGATIVE) SARS-CoV-2 Antigen (Rapid) Positive (NEGATIVE) White Blood Count 5.7 x10^3/uL (4.0-11.0) Red Blood Count 3.81 x10^6/uL (4.30-5.70) Hemoglobin 12.1 g/dL (13.0-17.5) Hematocrit 36.0 % (39.0-53.0) Mean Corpuscular Volume 94 fL (79-100) Mean Corpuscular Hemoglobin 32 pg (25-35) Mean Corpuscular Hemoglobin Concent 34 g/dL (31-37) Red Cell Distribution Width 14.4 % (11.5-14.5) Platelet Count 109 x10^3/uL (140-400) Neutrophils (%) (Auto) 73 % (31-73) Lymphocytes (%) (Auto) 20 % (24-48) Monocytes (%) (Auto) 7 % (0-9) Eosinophils (%) (Auto) 0 % (0-3) Basophils (%) (Auto) 0 % (0-3) Neutrophils # (Auto) 4.1 x10^3/uL (1.8-7.7) Lymphocytes # (Auto) 1.1 x10^3/uL (1.0-4.8) Monocytes # (Auto) 0.4 x10^3/uL (0.0-1.1) Eosinophils # (Auto) 0.0 x10^3/uL (0.0-0.7) Basophils # (Auto) 0.0 x10^3/uL (0.0-0.2) Sodium Level 131 mmol/L (136-145) Potassium Level 4.5 mmol/L (3.5-5.1) Chloride Level 96 mmol/L (98-107) Carbon Dioxide Level 24 mmol/L (21-32) Anion Gap 11 (6-14) Blood Urea Nitrogen 62 mg/dL (8-26) Creatinine 3.1 mg/dL (0.7-1.3) Estimated GFR (Cockcroft-Gault) 19.5 BUN/Creatinine Ratio 20 (6-20) Glucose Level 209 mg/dL (70-99) Lactic Acid Level 0.7 mmol/L (0.4-2.0) Calcium Level 8.1 mg/dL (8.5-10.1) Total Bilirubin 0.4 mg/dL (0.2-1.0) Aspartate Amino Transf (AST/SGOT) 46 U/L (15-37) Alanine Aminotransferase (ALT/SGPT) 18 U/L (16-63) Alkaline Phosphatase 64 U/L (46-116) Total Protein 7.0 g/dL (6.4-8.2) Albumin 3.2 g/dL (3.4-5.0) Albumin/Globulin Ratio 0.8 (1.0-1.7) Urine Collection Type U cath Urine Color Yellow Urine Clarity Cloudy Urine pH 5.0 (<5.0-8.0) Urine Specific [place] 1.020 (1.000-1.030) Urine Protein 30 mg/dL (NEG-TRACE) Urine Glucose (UA) >=1000 mg/dL (NEG) Urine Ketones (Stick) Negative mg/dL (NEG) Urine Blood Negative (NEG) Urine Nitrite Negative (NEG) Urine Bilirubin Negative (NEG) Urine Urobilinogen Dipstick 0.2 mg/dL (0.2 mg/dL) Urine Leukocyte Esterase Negative (NEG) Urine RBC 0 /HPF (0-2) Urine WBC 5-10 /HPF (0-4) Urine Squamous Epithelial Cells Mod /LPF Urine Amorphous Sediment Present /HPF Urine Bacteria 0 /HPF (0-FEW) Urine Hyaline Casts Occasional /HPF Urine Granular Casts Moderate /HPF Urine Mucus Mod /LPF Glucose (Fingerstick) 161 mg/dL (70-99) Test 06/12/21 08:00 06/12/21 08:40 Glucose (Fingerstick) 245 mg/dL (70-99) Sodium Level 133 mmol/L (136-145) Potassium Level 4.9 mmol/L (3.5-5.1) Chloride Level 97 mmol/L (98-107) Carbon Dioxide Level 21 mmol/L (21-32) Anion Gap 15 (6-14) Blood Urea Nitrogen 71 mg/dL (8-26) Creatinine 3.0 mg/dL (0.7-1.3) Estimated GFR (Cockcroft-Gault) 20.3 BUN/Creatinine Ratio 24 (6-20) Glucose Level 263 mg/dL (70-99) Calcium Level 7.8 mg/dL (8.5-10.1) Total Bilirubin 0.3 mg/dL (0.2-1.0) Aspartate Amino Transf (AST/SGOT) 60 U/L (15-37) Alanine Aminotransferase (ALT/SGPT) 30 U/L (16-63) Alkaline Phosphatase 60 U/L (46-116) C-Reactive Protein, Quantitative 155.1 mg/L (0-3.3) Total Protein 6.7 g/dL (6.4-8.2) Albumin 2.8 g/dL (3.4-5.0) Albumin/Globulin Ratio 0.7 (1.0-1.7) Review All relevant outside records, renal labs, imaging studies, telemetry/EKG's were reviewed. Images Images PORTABLE CHEST 1V XR CHEST 1V CLINICAL INDICATIONS: Reason: confusion, fall / Spl. Instructions: / History: COMPARISON: None available. Findings: Bilateral perihilar lung infiltrates or pulmonary edema are seen. There is a peripheral lung infiltrate within the lateral left midlung zone. No pleural effusion or pneumothorax is seen. Heart size is enlarged. Sternotomy is evident. Pulmonary vasculature is unremarkable. IMPRESSION: Bilateral lung infiltrates or pulmonary edema. Cardiomegaly. LUDIVINA MEDLEY MD Jun 12, 2021 10:00
--- NOTE | 2021-06-12 10:41 | CARD ---
MR#: [id number] Date of Study: 06/12/2021 Ordering Physician: ROSALIA LIN, Referring Physician: ROSALIA LIN, Tech: Eduardo Herman [facility] APPROVED REPORT EXAM: Two-dimensional and M-mode echocardiogram with Doppler and color Doppler. Other Information Quality : FairHR: 70bpm Rhythm : NSRTechnically limited study due to body habitus and smoking. INDICATION Congestive Heart Failure Covid Pneumonia RISK FACTORS Covid pneumonia 2D DIMENSIONS Left Atrium(2D)4.6 (1.6-4.0cm)IVSd1.1 (0.7-1.1cm) Aortic Root(2D)3.5 (2.0-3.7cm)LVDd6.0 (3.9-5.9cm) LVOT Diameter2.6 (1.8-2.4cm)PWd1.1 (0.7-1.1cm) LVDs4.4 (2.5-4.0cm)FS (%) 19.0 % SV95.8 mlLVEF(%)38.1 (>50%) Aortic Valve AoV Peak Tigre.104.4cm/sAoV VTI19.7cm AO Peak GR.4.4mmHgLVOT VTI 14.67cm AO Mean GR.3mmHgAI P 1/2 [id number] Mitral Valve MV E Lcpbdqis04.3cm/sMV E Peak Gr.3mmHg MV DECEL [id number] A Rsdkwgwx93.8cm/s MV E Mean Gr.1mmHgE/A Ratio0.8 TDI Lateral E' P. V6.05cm/sMedial E' P. V4.51cm/s E/Lateral E'10.6E/Medial E'14.3 Tricuspid Valve TR P. [id number]/sTR Peak Gr.17mmHg LEFT VENTRICLE The Left Ventricle is mildly dilated. There is normal left ventricular wall thickness. The ejection f raction is moderately to severely impaired. EF 25% The distal half of the LV is severely akinetic to hypokinetic. There is global hypokinesis. Transmitral Doppler flow pattern is Grade I-abnormal relaxa tion pattern. No left ventricle thrombus noted on this study. There is no ventricular septal defect v isualized. There is no left ventricular aneurysm. There is no mass noted in the left ventricle. RIGHT VENTRICLE The right ventricle is normal size. There is normal right ventricular wall thickness. The right ventr icular systolic function is normal. ATRIA The left atrium is moderately dilated. The right atrium is mildly dilated. The interatrial septum is intact with no evidence for an atrial septal defect or patent foramen ovale as noted on 2-D or Dopple r imaging. AORTIC VALVE The aortic valve is not well visualized. Doppler and Color Flow revealed trace aortic regurgitation. There is no significant aortic valvular stenosis. There is no aortic valvular vegetation. MITRAL VALVE The mitral valve is normal in structure and function. There is no evidence of mitral valve prolapse. There is no mitral valve stenosis. Doppler and Color-flow revealed trace mitral regurgitation. TRICUSPID VALVE The tricuspid valve is normal in structure and function. Doppler and Color Flow revealed no tricuspid valve regurgitation noted. There is no tricuspid valve prolapse or vegetation. There is no tricuspid valve stenosis. PULMONIC VALVE The pulmonic valve is not well visualized. Doppler and Color Flow revealed no pulmonic valvular regur gitation. There is no pulmonic valvular stenosis. GREAT VESSELS The aortic root is normal in size. The ascending aorta is normal in size. The IVC is normal in size a nd collapses >50% with inspiration. PERICARDIAL EFFUSION There is no pleural effusion. There is no evidence of significant pericardial effusion. Critical Notification Critical Value: No <Conclusion> The ejection fraction is moderately to severely impaired. EF 25% The distal half of the LV is severely akinetic to hypokinetic. There is global hypokinesis. Signed by : Donny Mckenzie, Electronically Approved : 06/12/2021 10:41:00
--- NOTE | 2021-06-12 10:56 | PDOC ---
[employer] PROGRESS NOTE Date of Service DOS: DATE: 06/12/21 TIME: 10:39 Chief Complaint Chief Complaint A/P: Acute respiratory failure with hypoxia - secondary to COVID PNA. Febrile. Weakness, falls at home - due to hypoxia from COVID 19 Chronic systolic CHF - NT Pro BNP WNL. Cardiology consulted H/o Ischemic cardiomyopathy LBBB - chronic CAD s/p CABG 2008 Hypertension Hyperlipidemia Diabetes, II - sliding scale LUCÍA - likely vasomotor nephropathy. Consulted nephrology Hypothyroidism Thrombocytopenia - likely due to viral illness, will monitor Hyponatremia - likely nutritional FEN - ADA cardiac diet PPX - heparin FULL CODE Dispo - inpatient History of Present Illness History of Present Illness Patient is a 81 year old male w/ PMHx DM2, HTN, CAD s/p CABG, chronic systolic CHF who presents with 4-day history of weakness, nausea, vomiting and confusion. Patient is a poor historian, but his family member at bedside aids in providing history. For 4 days prior to admission has had weakness nausea and vomiting and is followed for twice without strength has had no injury but has been getting more confused. In ED was noted with pulse oximetry 83% on room air. Rapid COVID-19 returned positive. Patient is not vaccinated against COVID-19. Patient and family member deny fever, chills, chest pain, palpitations, shortness of breath, cough, constipation, abdominal pain, diarrhea. Patient has no other complaints at this time Initiated on remdesivir and admitted for further care. Up to 12 L facemask O2 overnight still little confused. O2 saturations 91% on this O2. Na133, Cr 3. Having some nausea and diarrhea. No vomiting currently. Plan: Given deteriorating condition will need higher level of care, transfer to ICU for likely vapotherm therapy, consult Pulm Vitals/I&O Vitals/I&O: Vital Signs Date Time Temp Pulse Resp B/P (MAP) Pulse Ox O2 Delivery O2 Flow Rate FiO2 06/12/21 07:00 101.3 77 20 92/44 (60) 92 NonRebreather Mask 12.0 101.3 I & O 06/11/21 06/11/21 06/12/21 14:59 22:59 06:59 Intake Total 120 ml Output Total 1200 ml Balance -1080 ml Physical Exam General: Alert, Cooperative, moderate distress Heart: Regular rate, Normal S1, Normal S2 Lungs: Crackles Abdomen: Normal bowel sounds, Soft Extremities: No clubbing, No cyanosis Skin: No rashes, No breakdown Labs Labs: Laboratory Tests Test 06/11/21 16:55 06/11/21 17:50 06/11/21 18:45 06/11/21 20:43 Influenza Type A Antigen Negative (NEGATIVE) Influenza Type B Antigen Negative (NEGATIVE) SARS-CoV-2 Antigen (Rapid) Positive (NEGATIVE) White Blood Count 5.7 x10^3/uL (4.0-11.0) Red Blood Count 3.81 x10^6/uL (4.30-5.70) Hemoglobin 12.1 g/dL (13.0-17.5) Hematocrit 36.0 % (39.0-53.0) Mean Corpuscular Volume 94 fL (79-100) Mean Corpuscular Hemoglobin 32 pg (25-35) Mean Corpuscular Hemoglobin Concent 34 g/dL (31-37) Red Cell Distribution Width 14.4 % (11.5-14.5) Platelet Count 109 x10^3/uL (140-400) Neutrophils (%) (Auto) 73 % (31-73) Lymphocytes (%) (Auto) 20 % (24-48) Monocytes (%) (Auto) 7 % (0-9) Eosinophils (%) (Auto) 0 % (0-3) Basophils (%) (Auto) 0 % (0-3) Neutrophils # (Auto) 4.1 x10^3/uL (1.8-7.7) Lymphocytes # (Auto) 1.1 x10^3/uL (1.0-4.8) Monocytes # (Auto) 0.4 x10^3/uL (0.0-1.1) Eosinophils # (Auto) 0.0 x10^3/uL (0.0-0.7) Basophils # (Auto) 0.0 x10^3/uL (0.0-0.2) Sodium Level 131 mmol/L (136-145) Potassium Level 4.5 mmol/L (3.5-5.1) Chloride Level 96 mmol/L (98-107) Carbon Dioxide Level 24 mmol/L (21-32) Anion Gap 11 (6-14) Blood Urea Nitrogen 62 mg/dL (8-26) Creatinine 3.1 mg/dL (0.7-1.3) Estimated GFR (Cockcroft-Gault) 19.5 BUN/Creatinine Ratio 20 (6-20) Glucose Level 209 mg/dL (70-99) Lactic Acid Level 0.7 mmol/L (0.4-2.0) Calcium Level 8.1 mg/dL (8.5-10.1) Total Bilirubin 0.4 mg/dL (0.2-1.0) Aspartate Amino Transf (AST/SGOT) 46 U/L (15-37) Alanine Aminotransferase (ALT/SGPT) 18 U/L (16-63) Alkaline Phosphatase 64 U/L (46-116) Total Protein 7.0 g/dL (6.4-8.2) Albumin 3.2 g/dL (3.4-5.0) Albumin/Globulin Ratio 0.8 (1.0-1.7) Urine Collection Type U cath Urine Color Yellow Urine Clarity Cloudy Urine pH 5.0 (<5.0-8.0) Urine Specific [place] 1.020 (1.000-1.030) Urine Protein 30 mg/dL (NEG-TRACE) Urine Glucose (UA) >=1000 mg/dL (NEG) Urine Ketones (Stick) Negative mg/dL (NEG) Urine Blood Negative (NEG) Urine Nitrite Negative (NEG) Urine Bilirubin Negative (NEG) Urine Urobilinogen Dipstick 0.2 mg/dL (0.2 mg/dL) Urine Leukocyte Esterase Negative (NEG) Urine RBC 0 /HPF (0-2) Urine WBC 5-10 /HPF (0-4) Urine Squamous Epithelial Cells Mod /LPF Urine Amorphous Sediment Present /HPF Urine Bacteria 0 /HPF (0-FEW) Urine Hyaline Casts Occasional /HPF Urine Granular Casts Moderate /HPF Urine Mucus Mod /LPF Glucose (Fingerstick) 161 mg/dL (70-99) Test 06/12/21 08:00 06/12/21 08:40 Glucose (Fingerstick) 245 mg/dL (70-99) Sodium Level 133 mmol/L (136-145) Potassium Level 4.9 mmol/L (3.5-5.1) Chloride Level 97 mmol/L (98-107) Carbon Dioxide Level 21 mmol/L (21-32) Anion Gap 15 (6-14) Blood Urea Nitrogen 71 mg/dL (8-26) Creatinine 3.0 mg/dL (0.7-1.3) Estimated GFR (Cockcroft-Gault) 20.3 BUN/Creatinine Ratio 24 (6-20) Glucose Level 263 mg/dL (70-99) Calcium Level 7.8 mg/dL (8.5-10.1) Total Bilirubin 0.3 mg/dL (0.2-1.0) Aspartate Amino Transf (AST/SGOT) 60 U/L (15-37) Alanine Aminotransferase (ALT/SGPT) 30 U/L (16-63) Alkaline Phosphatase 60 U/L (46-116) C-Reactive Protein, Quantitative 155.1 mg/L (0-3.3) Total Protein 6.7 g/dL (6.4-8.2) Albumin 2.8 g/dL (3.4-5.0) Albumin/Globulin Ratio 0.7 (1.0-1.7) Assessment and Plan Assessmemt and Plan Problems Medical Problems: (1) Fall in elderly patient Status: Acute (2) Pneumonia due to COVID-19 virus Status: Acute Comment Review of Relevant I have reviewed the following items [place] (where applicable) has been applied. Medications: Current Medications Medications (Trade) Dose Ordered Sig/Raj Route PRN Reason Start Time Stop Time Status Last Admin Dose Admin Albuterol Sulfate (Ventolin Hfa) 2 puff PRN Q4HRS PRN INH SHORTNESS OF BREATH 06/11/21 19:00 06/11/21 21:22 Remdesivir 200 mg/ Sodium Chloride 210 ml @ 210 mls/hr 1X ONCE IV 06/11/21 20:00 06/11/21 20:59 DC 06/11/21 20:33 Dexamethasone Sodium Phosphate (Decadron) 6 mg 1X ONCE IVP 06/11/21 19:00 06/11/21 19:01 DC 06/11/21 20:32 Dexamethasone Sodium Phosphate (Decadron) 6 mg DAILY IVP 06/12/21 09:00 06/12/21 09:06 Ceftriaxone Sodium (Rocephin) 1 gm Q24H IVP 06/11/21 21:00 06/11/21 20:33 Doxycycline Hyclate (Vibra-Tab) 100 mg BID PO 06/11/21 21:00 06/12/21 09:05 Furosemide (Lasix) 40 mg 1X ONCE IVP 06/11/21 21:00 06/11/21 21:01 DC 06/11/21 21:23 Aspirin (Ecotrin) 81 mg DAILYWBKFT PO 06/12/21 08:00 06/12/21 09:05 Atorvastatin Calcium (Lipitor) 40 mg QHS PO 06/11/21 21:00 06/11/21 20:31 Insulin Glargine (Lantus Syringe) 10 unit QHS SQ 06/11/21 21:00 06/11/21 21:04 Insulin Human Lispro (HumaLOG) 0-7 UNITS TIDWMEALS SQ 06/11/21 21:00 06/12/21 09:09 Acetaminophen (Tylenol) 650 mg PRN Q6HRS PRN PO Headaches, Temp > 101.5F 06/11/21 20:30 06/12/21 09:04 Senna/Docusate Sodium (Senna Plus) 1 tab BID PO 06/11/21 21:00 06/12/21 09:05 Zinc Sulfate (Orazinc) 220 mg DAILY PO 06/12/21 09:00 06/12/21 09:05 Thiamine Mononitrate (Vitamin B-1) 100 mg DAILY PO 06/12/21 09:00 06/12/21 09:05 Ascorbic Acid (Vitamin C) 500 mg DAILY PO 06/12/21 09:00 06/12/21 09:05 Justifications for Admission Other Justification ROSALIA ROSAS MD Jun 12, 2021 10:56
--- NOTE | 2021-06-12 11:05 | NUR ---
PATIENT SLEEPING BUT EASILY AROUSED, ANSWERS QUESTIONS READILY, COMFORT MEASURES GIVEN, HOB ELEVATED FOR EASIER BREATHING, PATIENT ON NON REBREATHER AT 12 LITERS AT THIS TIME, 02 SATS 90-93%, PATIENT DESATS WHEN O2 REMOVED FOR MEDS OR MEALS.
--- NOTE | 2021-06-12 11:42 | NUR ---
PATIENT TRANSFERRED TO THE ICU PER DR. ROSAS REQUEST, SUGGESTING THAT PATIENT WILL NEED HIGHER LEVEL OF CARE AND LIKELY VAPOTHERM THERAPY.
--- NOTE | 2021-06-12 11:49 | NUR ---
INFORMED PATIENTS' THAT HE WAS TRANSFERRED TO . [facility] FOR HIGHER LEVEL OF CARE, QUESTIONS AND CONCERNS ANSWERED.
[2021-06-12] MEDS ORDERED: IV NORMAL SALINE 500ML BAG 500 ML IV ONE (12:00)
--- NOTE | 2021-06-12 12:18 | PDOC ---
PULMONARY PROGRESS NOTES DATE: 06/12/21 TIME: 12:14 Vitals Vital Signs Date Time Temp Pulse Resp B/P (MAP) Pulse Ox O2 Delivery O2 Flow Rate FiO2 06/12/21 12:00 97.9 64 30 65/32 (43) 96 NonRebreather Mask 12.0 97.9 Lungs: Crackles Labs Laboratory Tests Test 06/11/21 16:55 06/11/21 17:50 06/11/21 18:45 06/11/21 20:43 Influenza Type A Antigen Negative (NEGATIVE) Influenza Type B Antigen Negative (NEGATIVE) SARS-CoV-2 Antigen (Rapid) Positive (NEGATIVE) White Blood Count 5.7 x10^3/uL (4.0-11.0) Red Blood Count 3.81 x10^6/uL (4.30-5.70) Hemoglobin 12.1 g/dL (13.0-17.5) Hematocrit 36.0 % (39.0-53.0) Mean Corpuscular Volume 94 fL (79-100) Mean Corpuscular Hemoglobin 32 pg (25-35) Mean Corpuscular Hemoglobin Concent 34 g/dL (31-37) Red Cell Distribution Width 14.4 % (11.5-14.5) Platelet Count 109 x10^3/uL (140-400) Neutrophils (%) (Auto) 73 % (31-73) Lymphocytes (%) (Auto) 20 % (24-48) Monocytes (%) (Auto) 7 % (0-9) Eosinophils (%) (Auto) 0 % (0-3) Basophils (%) (Auto) 0 % (0-3) Neutrophils # (Auto) 4.1 x10^3/uL (1.8-7.7) Lymphocytes # (Auto) 1.1 x10^3/uL (1.0-4.8) Monocytes # (Auto) 0.4 x10^3/uL (0.0-1.1) Eosinophils # (Auto) 0.0 x10^3/uL (0.0-0.7) Basophils # (Auto) 0.0 x10^3/uL (0.0-0.2) Sodium Level 131 mmol/L (136-145) Potassium Level 4.5 mmol/L (3.5-5.1) Chloride Level 96 mmol/L (98-107) Carbon Dioxide Level 24 mmol/L (21-32) Anion Gap 11 (6-14) Blood Urea Nitrogen 62 mg/dL (8-26) Creatinine 3.1 mg/dL (0.7-1.3) Estimated GFR (Cockcroft-Gault) 19.5 BUN/Creatinine Ratio 20 (6-20) Glucose Level 209 mg/dL (70-99) Lactic Acid Level 0.7 mmol/L (0.4-2.0) Calcium Level 8.1 mg/dL (8.5-10.1) Total Bilirubin 0.4 mg/dL (0.2-1.0) Aspartate Amino Transf (AST/SGOT) 46 U/L (15-37) Alanine Aminotransferase (ALT/SGPT) 18 U/L (16-63) Alkaline Phosphatase 64 U/L (46-116) Total Protein 7.0 g/dL (6.4-8.2) Albumin 3.2 g/dL (3.4-5.0) Albumin/Globulin Ratio 0.8 (1.0-1.7) Urine Collection Type U cath Urine Color Yellow Urine Clarity Cloudy Urine pH 5.0 (<5.0-8.0) Urine Specific [place] 1.020 (1.000-1.030) Urine Protein 30 mg/dL (NEG-TRACE) Urine Glucose (UA) >=1000 mg/dL (NEG) Urine Ketones (Stick) Negative mg/dL (NEG) Urine Blood Negative (NEG) Urine Nitrite Negative (NEG) Urine Bilirubin Negative (NEG) Urine Urobilinogen Dipstick 0.2 mg/dL (0.2 mg/dL) Urine Leukocyte Esterase Negative (NEG) Urine RBC 0 /HPF (0-2) Urine WBC 5-10 /HPF (0-4) Urine Squamous Epithelial Cells Mod /LPF Urine Amorphous Sediment Present /HPF Urine Bacteria 0 /HPF (0-FEW) Urine Hyaline Casts Occasional /HPF Urine Granular Casts Moderate /HPF Urine Mucus Mod /LPF Glucose (Fingerstick) 161 mg/dL (70-99) Test 06/12/21 08:00 06/12/21 08:40 Glucose (Fingerstick) 245 mg/dL (70-99) Sodium Level 133 mmol/L (136-145) Potassium Level 4.9 mmol/L (3.5-5.1) Chloride Level 97 mmol/L (98-107) Carbon Dioxide Level 21 mmol/L (21-32) Anion Gap 15 (6-14) Blood Urea Nitrogen 71 mg/dL (8-26) Creatinine 3.0 mg/dL (0.7-1.3) Estimated GFR (Cockcroft-Gault) 20.3 BUN/Creatinine Ratio 24 (6-20) Glucose Level 263 mg/dL (70-99) Calcium Level 7.8 mg/dL (8.5-10.1) Total Bilirubin 0.3 mg/dL (0.2-1.0) Aspartate Amino Transf (AST/SGOT) 60 U/L (15-37) Alanine Aminotransferase (ALT/SGPT) 30 U/L (16-63) Alkaline Phosphatase 60 U/L (46-116) C-Reactive Protein, Quantitative 155.1 mg/L (0-3.3) Total Protein 6.7 g/dL (6.4-8.2) Albumin 2.8 g/dL (3.4-5.0) Albumin/Globulin Ratio 0.7 (1.0-1.7) Laboratory Tests Test 06/11/21 16:55 06/11/21 17:50 06/11/21 18:45 06/11/21 20:43 Influenza Type A Antigen Negative (NEGATIVE) Influenza Type B Antigen Negative (NEGATIVE) SARS-CoV-2 Antigen (Rapid) Positive (NEGATIVE) White Blood Count 5.7 x10^3/uL (4.0-11.0) Red Blood Count 3.81 x10^6/uL (4.30-5.70) Hemoglobin 12.1 g/dL (13.0-17.5) Hematocrit 36.0 % (39.0-53.0) Mean Corpuscular Volume 94 fL (79-100) Mean Corpuscular Hemoglobin 32 pg (25-35) Mean Corpuscular Hemoglobin Concent 34 g/dL (31-37) Red Cell Distribution Width 14.4 % (11.5-14.5) Platelet Count 109 x10^3/uL (140-400) Neutrophils (%) (Auto) 73 % (31-73) Lymphocytes (%) (Auto) 20 % (24-48) Monocytes (%) (Auto) 7 % (0-9) Eosinophils (%) (Auto) 0 % (0-3) Basophils (%) (Auto) 0 % (0-3) Neutrophils # (Auto) 4.1 x10^3/uL (1.8-7.7) Lymphocytes # (Auto) 1.1 x10^3/uL (1.0-4.8) Monocytes # (Auto) 0.4 x10^3/uL (0.0-1.1) Eosinophils # (Auto) 0.0 x10^3/uL (0.0-0.7) Basophils # (Auto) 0.0 x10^3/uL (0.0-0.2) Sodium Level 131 mmol/L (136-145) Potassium Level 4.5 mmol/L (3.5-5.1) Chloride Level 96 mmol/L (98-107) Carbon Dioxide Level 24 mmol/L (21-32) Anion Gap 11 (6-14) Blood Urea Nitrogen 62 mg/dL (8-26) Creatinine 3.1 mg/dL (0.7-1.3) Estimated GFR (Cockcroft-Gault) 19.5 BUN/Creatinine Ratio 20 (6-20) Glucose Level 209 mg/dL (70-99) Lactic Acid Level 0.7 mmol/L (0.4-2.0) Calcium Level 8.1 mg/dL (8.5-10.1) Total Bilirubin 0.4 mg/dL (0.2-1.0) Aspartate Amino Transf (AST/SGOT) 46 U/L (15-37) Alanine Aminotransferase (ALT/SGPT) 18 U/L (16-63) Alkaline Phosphatase 64 U/L (46-116) Total Protein 7.0 g/dL (6.4-8.2) Albumin 3.2 g/dL (3.4-5.0) Albumin/Globulin Ratio 0.8 (1.0-1.7) Urine Collection Type U cath Urine Color Yellow Urine Clarity Cloudy Urine pH 5.0 (<5.0-8.0) Urine Specific [place] 1.020 (1.000-1.030) Urine Protein 30 mg/dL (NEG-TRACE) Urine Glucose (UA) >=1000 mg/dL (NEG) Urine Ketones (Stick) Negative mg/dL (NEG) Urine Blood Negative (NEG) Urine Nitrite Negative (NEG) Urine Bilirubin Negative (NEG) Urine Urobilinogen Dipstick 0.2 mg/dL (0.2 mg/dL) Urine Leukocyte Esterase Negative (NEG) Urine RBC 0 /HPF (0-2) Urine WBC 5-10 /HPF (0-4) Urine Squamous Epithelial Cells Mod /LPF Urine Amorphous Sediment Present /HPF Urine Bacteria 0 /HPF (0-FEW) Urine Hyaline Casts Occasional /HPF Urine Granular Casts Moderate /HPF Urine Mucus Mod /LPF Glucose (Fingerstick) 161 mg/dL (70-99) Test 06/12/21 08:00 06/12/21 08:40 Glucose (Fingerstick) 245 mg/dL (70-99) Sodium Level 133 mmol/L (136-145) Potassium Level 4.9 mmol/L (3.5-5.1) Chloride Level 97 mmol/L (98-107) Carbon Dioxide Level 21 mmol/L (21-32) Anion Gap 15 (6-14) Blood Urea Nitrogen 71 mg/dL (8-26) Creatinine 3.0 mg/dL (0.7-1.3) Estimated GFR (Cockcroft-Gault) 20.3 BUN/Creatinine Ratio 24 (6-20) Glucose Level 263 mg/dL (70-99) Calcium Level 7.8 mg/dL (8.5-10.1) Total Bilirubin 0.3 mg/dL (0.2-1.0) Aspartate Amino Transf (AST/SGOT) 60 U/L (15-37) Alanine Aminotransferase (ALT/SGPT) 30 U/L (16-63) Alkaline Phosphatase 60 U/L (46-116) C-Reactive Protein, Quantitative 155.1 mg/L (0-3.3) Total Protein 6.7 g/dL (6.4-8.2) Albumin 2.8 g/dL (3.4-5.0) Albumin/Globulin Ratio 0.7 (1.0-1.7) Medications Active Scripts Medications Dose Route/Sig Max Daily Dose Days Date Category Dose Instructions Lantus Solostar (Insulin Glargine,Hum.rec.anlog) 100 Unit/1 Ml Insuln.pen 15 Unit SQ QHS 30 06/02/20 Rx If glucose > 200 on 2 or more readings, can add 2u for the night Aspirin Ec (Aspirin) 81 Mg Tablet.dr 81 Mg PO DAILYWBKFT 90 06/02/20 Rx Atorvastatin Calcium 40 Mg Tablet 40 Mg PO QHS 90 06/02/20 Rx Novolog (Insulin Aspart) 100 Unit/1 Ml Cartridge 0-9 Unit SQ QID 30 06/02/20 Rx Glucose - Insulin >150mg/dL - 3u 151-200 - 5u 201-250 - 6u 251-300 - 7u 301-350 - 9u >350 - Contact Furosemide 40 Mg Tablet 1 Tab PO DAILY 06/01/20 Reported Spironolactone 25 Mg Tablet 1 Tab PO DAILY 06/01/20 Reported Levothyroxine Sodium 88 Mcg Tablet 1 Tab PO DAILY 06/01/20 Reported Lisinopril 5 Mg Tablet 1 Tab PO DAILY 06/01/20 Reported Carvedilol (Carvedilol) 12.5 Mg Tablet 12.5 Mg PO BIDWMEALS 06/01/20 Reported Impression . Full consult dictated Acute hypoxemic respiratory failure, suspect mostly CHF COVID-19 positivity, possible pneumonia Hypotension, suspect cardiac in origin KAREN ARAYA MD Jun 12, 2021 12:18
[2021-06-12] MEDS: NOREPINEPHRINE VIAL 8 MG in IV DEXTROSE 5% 250 ML IV PRN ×2 (12:28→21:16)
--- NOTE | 2021-06-12 13:33 | NUR ---
SS following for discharge planning. SS reviewed pt chart and discussed with pt RN. Pt is from home with spouse and is currently requiring non rebreather mask at 12 liters. COVID19 positive. Pt transferred to ICU 105. Pt on IV Remdesivir, IV Decadron, IV Rocephin, and Levophed. SS will continue to follow for discharge planning.
--- NOTE | 2021-06-12 13:55 | NUR ---
Allergies and reactions PCN & Sulfa INR BUN 71 Cr 3 Platelets 109 Blood culture done none blood culture results Order Verified Y Consent signed Y Previous PICC placement N Past Medical/Surgical history and current diagnosis reviewed Y Patient Medical /Surgical History Related to PICC line placement Diabetes History of acute/chronic renal failure Infectious Disease consult Renal consult Special considerations for PICC line placement Infections PICC placement indication Caustic medication class drug usage, watermaster antibiotic usage, Multiple/ Frequent blood draws, Debo Buenrostro RN name of PICC Nurse
--- NOTE | 2021-06-12 14:15 | NUR ---
1245 - Rapid titration of Levophed performed due to hemodynamic instability. Started at 0.1, increased to 0.2.
--- NOTE | 2021-06-12 14:45 | NUR ---
Procedure: Following complete explanation of the PICC procedure including the indications, risks, and potential complications, informed consent was obtained. The possibility for infection was discussed along with signs, symptoms, and prevention. All the questions were answered. Written and verbal patient education was provided. Hand hygiene performed. Standardized central line checklist was utilized. The patient was placed in the supine position, the arm was prepped with chlorhexidine and patient draped with maximum sterile barrier. 5 mL 1% lidocaine was infiltrated into the skin to provide local anesthesia. A thorough assessment of left upper extremity completed. Using real-time ultrasound guidance and standardized micro puncture set, the basilic vein was punctured and a peel away sheath was placed using the modified Seldinger technique. A tip location device was used to ensure adequate catheter placement. The catheter was secured using a securement device and an antimicrobial patch was applied directly on the insertion site followed by a transparent dressing. All ports withdraw blood and flush without resistance. Patient tolerated the procedure without apparent complication(s). Triple Lumen Power PICC placement successful and uncomplicated. Placement verified by EKG tip confirmation system and/or chest x-ray. Tip located in the CAJ Complications: None
--- NOTE | 2021-06-12 15:57 | CONS ---
DATE OF CONSULTATION: 06/12/2021 ATTENDING PHYSICIAN: Mau Nice MD REASON FOR CONSULTATION: The patient is seen in pulmonary consultation at the request of Dr. Houston for acute hypoxemic respiratory failure. HISTORY OF PRESENT ILLNESS: The patient is a 81-year-old that is a very poor historian, came in with a prior history of hypertension, diabetes, coronary artery disease, status post coronary artery bypass grafting, chronic systolic heart failure, presented with a 4-day history of weakness, nausea, vomiting, confusion. Apparently, the patient 4 days prior to admission, had weakness, nausea, vomiting followed by fell twice without any significant injuries. in the Emergency Department, he was found to have an oxygen saturation of 83%. Rapid COVID test was positive. The patient has not been vaccinated for COVID-19. He was admitted. This morning, he required increasing oxygen requirements. He was also hypotensive. He was transferred to the intensive care unit. Upon my evaluation, the patient was on 100% nonrebreather. His systolic pressure was anywhere between 70-80. I gave him 500 bolus of NS, started him on Levophed. The patient was knew his name and date of . He knew he was in the hospital, but outside of that, he was otherwise not oriented. PAST MEDICAL HISTORY: Coronary artery disease, chronic heart failure, ischemic cardiomyopathy, prior myocardial infarction in 1986 and 2008 and has a history of hyperlipidemia, gastroesophageal reflux, osteoarthritis, allergic rhinitis, type 2 diabetes, hypothyroidism, BPH. PAST SURGICAL HISTORY: He has had previous coronary artery bypass grafting. REVIEW OF SYSTEMS: As indicated above, otherwise other systems were reviewed and negative. His echocardiogram last checked his EF was 25-30%. He had a pulmonary artery pressure of 33. ALLERGIES: PENICILLIN AND SULFA. CURRENT MEDICATIONS: List was reviewed. Home medication list was likewise reviewed. On the current medication list, the patient was receiving remdesivir, nebulized treatments, vitamin C, atorvastatin, calcium supplement, ceftriaxone, dexamethasone, doxycycline, furosemide. He was given once yesterday. PHYSICAL EXAMINATION: GENERAL: The patient appeared to be of stated age. He was in no respiratory distress, currently on nonrebreather, saturations were above 90%, blood pressure was low. HEENT: Eyes: The sclerae were nonicteric. NECK: Jugular venous distention was not elevated. No lymphadenopathy. CHEST: Full expansion. LUNGS: He has scattered rhonchi. CARDIOVASCULAR: Regular rate and rhythm with S1, S2, no S3. ABDOMEN: Soft, nontender. EXTREMITIES: No clubbing, cyanosis. Minimal edema. LABORATORY DATA: Chest x-ray was reviewed compatible more with CHF and COVID-19. There was cardiomegaly. White count was normal. He did have a lymphopenia. Electrolytes were noted this morning. Sodium was low. BUN was elevated, creatinine was elevated. AST was elevated. C-reactive protein was markedly elevated. IMPRESSION: 1. Acute hypoxemic respiratory failure secondary to acute on chronic systolic heart failure. 2. Abnormal x-ray, compatible more with congestive heart failure and COVID-19. 3. Tested positive for COVID-19. 4. Possible COVID-19 viral pneumonia. 5. Acute on chronic kidney failure. 6. Elevated liver function tests. 7. Severe protein malnutrition, present upon admission. 9. Hypotension, suspect cardiogenic in nature. PLAN: 1. We will continue support with oxygen supplementation. 2. Continue remdesivir and dexamethasone. 3. The patient is more than likely intravascularly depleted. We will give boluses of NS slowly, reevaluate blood pressure. 4. May require pressors for mean arterial pressure above 60. 5. May require dobutamine, will defer to Cardiology. 6. Noted the patient is a full code, need to address advanced directive, it appears the patient may do poorly. I do appreciate the privilege in sharing the patient's care. KLARISSA/HILARY/LENORA POLLOCK: Valorie TID: [id number]
[2021-06-12] MEDS ORDERED: INSULIN LISPRO 300 UNITS/3 ML VIAL. SQ SCH (18:00)
[2021-06-12] MEDS: ALBUMIN HUMAN 5% 250 ML IV PRN (18:08)
[2021-06-12] MEDS ORDERED: INSULIN LISPRO 300 UNITS/3 ML VIAL. SQ ONE (18:15)
[2021-06-12] MEDS: ATORVASTATIN CALCIUM 40 MG TABLET. PO SCH (20:37)
[2021-06-12] MEDS: cefTRIAXone IV Push 1 GM VIAL. IVP SCH (20:37)
[2021-06-12] MEDS: INSULIN GLARGINE SYRINGE. SQ SCH (20:41)
[2021-06-12] MEDS: REMDESIVIR 100mg in NORMAL SALINE 250ML X 4 DAYS IV SCH (21:13)
[2021-06-13] VITALS (44 sets, daily range): BP systolic 78–120; BP diastolic 51–69
[2021-06-13] MEDS: LEVOTHYROXINE 88 MCG TABLET PO SCH (04:51)
[2021-06-13] MEDS: ALBUMIN HUMAN 5% 250 ML IV PRN (04:52)
[2021-06-13 05:54] LABS: BASO # 0.1 x10^3/uL (0.0-0.2); BASO % 0 % (0-3); EOS % 0 % (0-3); HEMATOCRIT 39.7 % (39.0-53.0); LYMPH # 0.6 x10^3/uL (1.0-4.8); LYMPH % 4 % (24-48); MEAN CORPUSCULAR HEMOGLOBIN 31 pg (25-35); MEAN CORPUSCULAR HGB CONC 33 g/dL (31-37); MEAN CORPUSCULAR VOLUME 95 fL (79-100); MONO # 0.4 x10^3/uL (0.0-1.1); MONO % 3 % (0-9); NEUT # 14.5 x10^3/uL (1.8-7.7); NEUT % 93 % (31-73); PLATELET COUNT 105 x10^3/uL (140-400); RED BLOOD COUNT 4.18 x10^6/uL (4.30-5.70); RED CELL DISTRIBUTION WIDTH 14.8 % (11.5-14.5); WHITE BLOOD COUNT 15.5 x10^3/uL (4.0-11.0)
[2021-06-13 06:13] LABS: ALBUMIN 2.7 g/dL (3.4-5.0); ALBUMIN/GLOBULIN RATIO 0.8 (1.0-1.7); CALCIUM 7.7 mg/dL (8.5-10.1); GFR 20.3; POTASSIUM 4.9 mmol/L (3.5-5.1); TOTAL BILIRUBIN 0.3 mg/dL (0.2-1.0); TOTAL PROTEIN 6.3 g/dL (6.4-8.2)
--- NOTE | 2021-06-13 07:26 | PDOC ---
[employer] PROGRESS NOTE Date of Service DOS: DATE: 06/13/21 TIME: 07:09 Chief Complaint Chief Complaint A/P: Acute respiratory failure with hypoxia - secondary to COVID PNA. Febrile. Weakness, falls at home - due to hypoxia from COVID 19 Chronic systolic CHF - NT Pro BNP WNL. Cardiology consulted H/o Ischemic cardiomyopathy LBBB - chronic CAD s/p CABG 2008 Hypertension Hyperlipidemia Diabetes, II - sliding scale LUCÍA - likely vasomotor nephropathy. Consulted nephrology Hypothyroidism Thrombocytopenia - likely due to viral illness, will monitor Hyponatremia - likely nutritional FEN - ADA cardiac diet PPX - heparin FULL CODE Dispo - inpatient History of Present Illness History of Present Illness Patient is a 81 year old male w/ PMHx DM2, HTN, CAD s/p CABG, chronic systolic CHF who presents with 4-day history of weakness, nausea, vomiting and confusion. Patient is a poor historian, but his family member at bedside aids in providing history. For 4 days prior to admission has had weakness nausea and vomiting and is followed for twice without strength has had no injury but has been getting more confused. In ED was noted with pulse oximetry 83% on room air. Rapid COVID-19 returned positive. Patient is not vaccinated against COVID-19. Patient and family member deny fever, chills, chest pain, palpitations, shortness of breath, cough, constipation, abdominal pain, diarrhea. Patient has no other complaints at this time Initiated on remdesivir and admitted for further care. 06/12: Up to 12 L facemask O2 overnight still little confused. O2 saturations 91% on this O2. Na133, Cr 3. Having some nausea and diarrhea. No vomiting currently. Plan: Given deteriorating condition will need higher level of care, transfer to ICU for likely vapotherm therapy, consult Pulm 06/13: Afebrile. On 15 L nonrebreather. Transferred to ICU overnight due to hypotension and bradycardia. Currently requiring Levophed and dobutamine. Echocardiogram yesterday showed global hypokinesis severely impaired EF 25%. Continue to hold heart failure medications until stable. Continue remdesivir steroids, empiric antibiotics. Critical care time 30 minutes spent reviewing charts, reviewing labs, reviewing imaging, discussion with RN. Vitals/I&O Vitals/I&O: Vital Signs Date Time Temp Pulse Resp B/P (MAP) Pulse Ox O2 Delivery O2 Flow Rate FiO2 06/13/21 06:15 86 18 105/51 91 NonRebreather Mask 15.0 06/13/21 04:00 98.1 98.1 I & O 06/12/21 06/12/21 06/13/21 15:00 23:00 07:00 Intake Total 1301.9 ml 644 ml Output Total 210 ml 625 ml 600 ml Balance -210 ml 676.9 ml 44 ml Physical Exam General: Alert, No acute distress Heart: Regular rate (with LBBB) Lungs: Crackles Abdomen: Normal bowel sounds, Soft Extremities: No edema Skin: No significant lesion Labs Labs: Laboratory Tests Test 06/12/21 08:00 06/12/21 08:40 06/12/21 12:15 06/12/21 17:34 Glucose (Fingerstick) 245 mg/dL (70-99) 281 mg/dL (70-99) 369 mg/dL (70-99) Sodium Level 133 mmol/L (136-145) Potassium Level 4.9 mmol/L (3.5-5.1) Chloride Level 97 mmol/L (98-107) Carbon Dioxide Level 21 mmol/L (21-32) Anion Gap 15 (6-14) Blood Urea Nitrogen 71 mg/dL (8-26) Creatinine 3.0 mg/dL (0.7-1.3) Estimated GFR (Cockcroft-Gault) 20.3 BUN/Creatinine Ratio 24 (6-20) Glucose Level 263 mg/dL (70-99) Calcium Level 7.8 mg/dL (8.5-10.1) Total Bilirubin 0.3 mg/dL (0.2-1.0) Aspartate Amino Transf (AST/SGOT) 60 U/L (15-37) Alanine Aminotransferase (ALT/SGPT) 30 U/L (16-63) Alkaline Phosphatase 60 U/L (46-116) Creatine Kinase 560 U/L (39-308) C-Reactive Protein, Quantitative 155.1 mg/L (0-3.3) HN-Imn-P-Type Natriuretic Peptide 1146 pg/mL (0-449) Total Protein 6.7 g/dL (6.4-8.2) Albumin 2.8 g/dL (3.4-5.0) Albumin/Globulin Ratio 0.7 (1.0-1.7) Test 06/13/21 05:47 White Blood Count 15.5 x10^3/uL (4.0-11.0) Red Blood Count 4.18 x10^6/uL (4.30-5.70) Hemoglobin 13.0 g/dL (13.0-17.5) Hematocrit 39.7 % (39.0-53.0) Mean Corpuscular Volume 95 fL (79-100) Mean Corpuscular Hemoglobin 31 pg (25-35) Mean Corpuscular Hemoglobin Concent 33 g/dL (31-37) Red Cell Distribution Width 14.8 % (11.5-14.5) Platelet Count 105 x10^3/uL (140-400) Neutrophils (%) (Auto) 93 % (31-73) Lymphocytes (%) (Auto) 4 % (24-48) Monocytes (%) (Auto) 3 % (0-9) Eosinophils (%) (Auto) 0 % (0-3) Basophils (%) (Auto) 0 % (0-3) Neutrophils # (Auto) 14.5 x10^3/uL (1.8-7.7) Lymphocytes # (Auto) 0.6 x10^3/uL (1.0-4.8) Monocytes # (Auto) 0.4 x10^3/uL (0.0-1.1) Eosinophils # (Auto) 0.0 x10^3/uL (0.0-0.7) Basophils # (Auto) 0.1 x10^3/uL (0.0-0.2) Sodium Level 134 mmol/L (136-145) Potassium Level 4.9 mmol/L (3.5-5.1) Chloride Level 100 mmol/L (98-107) Carbon Dioxide Level 21 mmol/L (21-32) Anion Gap 13 (6-14) Blood Urea Nitrogen 75 mg/dL (8-26) Creatinine 3.0 mg/dL (0.7-1.3) Estimated GFR (Cockcroft-Gault) 20.3 BUN/Creatinine Ratio 25 (6-20) Glucose Level 289 mg/dL (70-99) Calcium Level 7.7 mg/dL (8.5-10.1) Total Bilirubin 0.3 mg/dL (0.2-1.0) Aspartate Amino Transf (AST/SGOT) 49 U/L (15-37) Alanine Aminotransferase (ALT/SGPT) 24 U/L (16-63) Alkaline Phosphatase 52 U/L (46-116) Total Protein 6.3 g/dL (6.4-8.2) Albumin 2.7 g/dL (3.4-5.0) Albumin/Globulin Ratio 0.8 (1.0-1.7) Assessment and Plan Assessmemt and Plan Problems Medical Problems: (1) Fall in elderly patient Status: Acute (2) Pneumonia due to COVID-19 virus Status: Acute Comment Review of Relevant I have reviewed the following items [place] (where applicable) has been applied. Medications: Current Medications Medications (Trade) Dose Ordered Sig/Raj Route PRN Reason Start Time Stop Time Status Last Admin Dose Admin Remdesivir 100 mg/ Sodium Chloride 230 ml @ 460 mls/hr Q24H IV 06/12/21 20:00 06/15/21 20:29 06/12/21 21:13 Dexamethasone Sodium Phosphate (Decadron) 6 mg DAILY IVP 06/12/21 09:00 06/12/21 09:06 Aspirin (Ecotrin) 81 mg DAILYWBKFT PO 06/12/21 08:00 06/12/21 09:05 Zinc Sulfate (Orazinc) 220 mg DAILY PO 06/12/21 09:00 06/12/21 09:05 Thiamine Mononitrate (Vitamin B-1) 100 mg DAILY PO 06/12/21 09:00 06/12/21 09:05 Ascorbic Acid (Vitamin C) 500 mg DAILY PO 06/12/21 09:00 06/12/21 09:05 Sodium Chloride 500 ml @ 500 mls/hr 1X ONCE IV 06/12/21 12:00 06/12/21 12:59 DC 06/12/21 12:27 Norepinephrine Bitartrate 8 mg/ Dextrose 258 ml @ 17.105 mls/ hr CONT PRN IV PER PROTOCOL 06/12/21 12:00 06/12/21 21:16 Dobutamine HCl/ Dextrose 250 ml @ 13.26 mls/ hr CONT PRN IV SEE I/O RECORD 06/12/21 13:00 06/12/21 13:38 Albumin Human 250 ml @ 62.5 mls/hr PRN DAILY PRN IV hypotension SPB < 90 06/12/21 17:45 06/13/21 04:52 Insulin Human Lispro (HumaLOG) 3 units 1X ONCE SQ 06/12/21 18:15 06/12/21 18:16 DC 06/12/21 18:07 Justifications for Admission Other Justification NANY PARRA MD Jun 13, 2021 07:26
[2021-06-13] MEDS: DOXYCYCLINE HYCLATE 100 MG TABLET PO SCH ×2 (08:06→20:53)
[2021-06-13] MEDS: ZINC SULFATE 220 MG CAPSULE. PO SCH (08:06)
[2021-06-13] MEDS: SENNOSIDES/DOCUSATE 8.6/50MG TABLET. PO SCH ×2 (08:06→21:00)
[2021-06-13] MEDS: ASPIRIN ENTERIC COATED 81 MG TABLET.DR. PO SCH (08:06)
[2021-06-13] MEDS: THIAMINE 100 MG TABLET. PO SCH (08:06)
[2021-06-13] MEDS: ASCORBIC ACID 500 MG TABLET PO SCH (08:06)
[2021-06-13] MEDS: INSULIN LISPRO 300 UNITS/3 ML VIAL. SQ SCH ×3 (08:09→18:00)
--- NOTE | 2021-06-13 08:21 | PDOC ---
PULMONARY PROGRESS NOTES DATE: 06/13/21 TIME: 08:21 Subjective Patient more awake today, no complaints of chest pain no pressure not short of air Vitals Vital Signs Date Time Temp Pulse Resp B/P (MAP) Pulse Ox O2 Delivery O2 Flow Rate FiO2 06/13/21 06:15 86 18 105/51 91 NonRebreather Mask 15.0 06/13/21 04:00 98.1 98.1 ROS: No Nausea, No Abdominal Pain, No Increase Cough General: Alert Lungs: Clear Cardiovascular: S1, S2 Abdomen: Soft Neuro Exam: Alert Extremities: Other (Some edema) Skin: Warm Labs Laboratory Tests Test 06/11/21 16:55 06/11/21 17:50 06/11/21 18:45 06/11/21 20:43 Influenza Type A Antigen Negative (NEGATIVE) Influenza Type B Antigen Negative (NEGATIVE) SARS-CoV-2 Antigen (Rapid) Positive (NEGATIVE) White Blood Count 5.7 x10^3/uL (4.0-11.0) Red Blood Count 3.81 x10^6/uL (4.30-5.70) Hemoglobin 12.1 g/dL (13.0-17.5) Hematocrit 36.0 % (39.0-53.0) Mean Corpuscular Volume 94 fL (79-100) Mean Corpuscular Hemoglobin 32 pg (25-35) Mean Corpuscular Hemoglobin Concent 34 g/dL (31-37) Red Cell Distribution Width 14.4 % (11.5-14.5) Platelet Count 109 x10^3/uL (140-400) Neutrophils (%) (Auto) 73 % (31-73) Lymphocytes (%) (Auto) 20 % (24-48) Monocytes (%) (Auto) 7 % (0-9) Eosinophils (%) (Auto) 0 % (0-3) Basophils (%) (Auto) 0 % (0-3) Neutrophils # (Auto) 4.1 x10^3/uL (1.8-7.7) Lymphocytes # (Auto) 1.1 x10^3/uL (1.0-4.8) Monocytes # (Auto) 0.4 x10^3/uL (0.0-1.1) Eosinophils # (Auto) 0.0 x10^3/uL (0.0-0.7) Basophils # (Auto) 0.0 x10^3/uL (0.0-0.2) Sodium Level 131 mmol/L (136-145) Potassium Level 4.5 mmol/L (3.5-5.1) Chloride Level 96 mmol/L (98-107) Carbon Dioxide Level 24 mmol/L (21-32) Anion Gap 11 (6-14) Blood Urea Nitrogen 62 mg/dL (8-26) Creatinine 3.1 mg/dL (0.7-1.3) Estimated GFR (Cockcroft-Gault) 19.5 BUN/Creatinine Ratio 20 (6-20) Glucose Level 209 mg/dL (70-99) Lactic Acid Level 0.7 mmol/L (0.4-2.0) Calcium Level 8.1 mg/dL (8.5-10.1) Total Bilirubin 0.4 mg/dL (0.2-1.0) Aspartate Amino Transf (AST/SGOT) 46 U/L (15-37) Alanine Aminotransferase (ALT/SGPT) 18 U/L (16-63) Alkaline Phosphatase 64 U/L (46-116) Total Protein 7.0 g/dL (6.4-8.2) Albumin 3.2 g/dL (3.4-5.0) Albumin/Globulin Ratio 0.8 (1.0-1.7) Urine Collection Type U cath Urine Color Yellow Urine Clarity Cloudy Urine pH 5.0 (<5.0-8.0) Urine Specific Urich 1.020 (1.000-1.030) Urine Protein 30 mg/dL (NEG-TRACE) Urine Glucose (UA) >=1000 mg/dL (NEG) Urine Ketones (Stick) Negative mg/dL (NEG) Urine Blood Negative (NEG) Urine Nitrite Negative (NEG) Urine Bilirubin Negative (NEG) Urine Urobilinogen Dipstick 0.2 mg/dL (0.2 mg/dL) Urine Leukocyte Esterase Negative (NEG) Urine RBC 0 /HPF (0-2) Urine WBC 5-10 /HPF (0-4) Urine Squamous Epithelial Cells Mod /LPF Urine Amorphous Sediment Present /HPF Urine Bacteria 0 /HPF (0-FEW) Urine Hyaline Casts Occasional /HPF Urine Granular Casts Moderate /HPF Urine Mucus Mod /LPF Glucose (Fingerstick) 161 mg/dL (70-99) Test 06/12/21 08:00 06/12/21 08:40 06/12/21 12:15 06/12/21 17:34 Glucose (Fingerstick) 245 mg/dL (70-99) 281 mg/dL (70-99) 369 mg/dL (70-99) Sodium Level 133 mmol/L (136-145) Potassium Level 4.9 mmol/L (3.5-5.1) Chloride Level 97 mmol/L (98-107) Carbon Dioxide Level 21 mmol/L (21-32) Anion Gap 15 (6-14) Blood Urea Nitrogen 71 mg/dL (8-26) Creatinine 3.0 mg/dL (0.7-1.3) Estimated GFR (Cockcroft-Gault) 20.3 BUN/Creatinine Ratio 24 (6-20) Glucose Level 263 mg/dL (70-99) Calcium Level 7.8 mg/dL (8.5-10.1) Total Bilirubin 0.3 mg/dL (0.2-1.0) Aspartate Amino Transf (AST/SGOT) 60 U/L (15-37) Alanine Aminotransferase (ALT/SGPT) 30 U/L (16-63) Alkaline Phosphatase 60 U/L (46-116) Creatine Kinase 560 U/L (39-308) C-Reactive Protein, Quantitative 155.1 mg/L (0-3.3) FI-Qby-E-Type Natriuretic Peptide 1146 pg/mL (0-449) Total Protein 6.7 g/dL (6.4-8.2) Albumin 2.8 g/dL (3.4-5.0) Albumin/Globulin Ratio 0.7 (1.0-1.7) Test 06/13/21 05:47 White Blood Count 15.5 x10^3/uL (4.0-11.0) Red Blood Count 4.18 x10^6/uL (4.30-5.70) Hemoglobin 13.0 g/dL (13.0-17.5) Hematocrit 39.7 % (39.0-53.0) Mean Corpuscular Volume 95 fL (79-100) Mean Corpuscular Hemoglobin 31 pg (25-35) Mean Corpuscular Hemoglobin Concent 33 g/dL (31-37) Red Cell Distribution Width 14.8 % (11.5-14.5) Platelet Count 105 x10^3/uL (140-400) Neutrophils (%) (Auto) 93 % (31-73) Lymphocytes (%) (Auto) 4 % (24-48) Monocytes (%) (Auto) 3 % (0-9) Eosinophils (%) (Auto) 0 % (0-3) Basophils (%) (Auto) 0 % (0-3) Neutrophils # (Auto) 14.5 x10^3/uL (1.8-7.7) Lymphocytes # (Auto) 0.6 x10^3/uL (1.0-4.8) Monocytes # (Auto) 0.4 x10^3/uL (0.0-1.1) Eosinophils # (Auto) 0.0 x10^3/uL (0.0-0.7) Basophils # (Auto) 0.1 x10^3/uL (0.0-0.2) Sodium Level 134 mmol/L (136-145) Potassium Level 4.9 mmol/L (3.5-5.1) Chloride Level 100 mmol/L (98-107) Carbon Dioxide Level 21 mmol/L (21-32) Anion Gap 13 (6-14) Blood Urea Nitrogen 75 mg/dL (8-26) Creatinine 3.0 mg/dL (0.7-1.3) Estimated GFR (Cockcroft-Gault) 20.3 BUN/Creatinine Ratio 25 (6-20) Glucose Level 289 mg/dL (70-99) Calcium Level 7.7 mg/dL (8.5-10.1) Total Bilirubin 0.3 mg/dL (0.2-1.0) Aspartate Amino Transf (AST/SGOT) 49 U/L (15-37) Alanine Aminotransferase (ALT/SGPT) 24 U/L (16-63) Alkaline Phosphatase 52 U/L (46-116) Total Protein 6.3 g/dL (6.4-8.2) Albumin 2.7 g/dL (3.4-5.0) Albumin/Globulin Ratio 0.8 (1.0-1.7) Laboratory Tests Test 06/12/21 08:40 06/12/21 12:15 06/12/21 17:34 06/13/21 05:47 Sodium Level 133 mmol/L (136-145) 134 mmol/L (136-145) Potassium Level 4.9 mmol/L (3.5-5.1) 4.9 mmol/L (3.5-5.1) Chloride Level 97 mmol/L (98-107) 100 mmol/L (98-107) Carbon Dioxide Level 21 mmol/L (21-32) 21 mmol/L (21-32) Anion Gap 15 (6-14) 13 (6-14) Blood Urea Nitrogen 71 mg/dL (8-26) 75 mg/dL (8-26) Creatinine 3.0 mg/dL (0.7-1.3) 3.0 mg/dL (0.7-1.3) Estimated GFR (Cockcroft-Gault) 20.3 20.3 BUN/Creatinine Ratio 24 (6-20) 25 (6-20) Glucose Level 263 mg/dL (70-99) 289 mg/dL (70-99) Calcium Level 7.8 mg/dL (8.5-10.1) 7.7 mg/dL (8.5-10.1) Total Bilirubin 0.3 mg/dL (0.2-1.0) 0.3 mg/dL (0.2-1.0) Aspartate Amino Transf (AST/SGOT) 60 U/L (15-37) 49 U/L (15-37) Alanine Aminotransferase (ALT/SGPT) 30 U/L (16-63) 24 U/L (16-63) Alkaline Phosphatase 60 U/L (46-116) 52 U/L (46-116) Creatine Kinase 560 U/L (39-308) C-Reactive Protein, Quantitative 155.1 mg/L (0-3.3) QG-Azr-V-Type Natriuretic Peptide 1146 pg/mL (0-449) Total Protein 6.7 g/dL (6.4-8.2) 6.3 g/dL (6.4-8.2) Albumin 2.8 g/dL (3.4-5.0) 2.7 g/dL (3.4-5.0) Albumin/Globulin Ratio 0.7 (1.0-1.7) 0.8 (1.0-1.7) Glucose (Fingerstick) 281 mg/dL (70-99) 369 mg/dL (70-99) White Blood Count 15.5 x10^3/uL (4.0-11.0) Red Blood Count 4.18 x10^6/uL (4.30-5.70) Hemoglobin 13.0 g/dL (13.0-17.5) Hematocrit 39.7 % (39.0-53.0) Mean Corpuscular Volume 95 fL (79-100) Mean Corpuscular Hemoglobin 31 pg (25-35) Mean Corpuscular Hemoglobin Concent 33 g/dL (31-37) Red Cell Distribution Width 14.8 % (11.5-14.5) Platelet Count 105 x10^3/uL (140-400) Neutrophils (%) (Auto) 93 % (31-73) Lymphocytes (%) (Auto) 4 % (24-48) Monocytes (%) (Auto) 3 % (0-9) Eosinophils (%) (Auto) 0 % (0-3) Basophils (%) (Auto) 0 % (0-3) Neutrophils # (Auto) 14.5 x10^3/uL (1.8-7.7) Lymphocytes # (Auto) 0.6 x10^3/uL (1.0-4.8) Monocytes # (Auto) 0.4 x10^3/uL (0.0-1.1) Eosinophils # (Auto) 0.0 x10^3/uL (0.0-0.7) Basophils # (Auto) 0.1 x10^3/uL (0.0-0.2) Medications Active Scripts Medications Dose Route/Sig Max Daily Dose Days Date Category Dose Instructions Lantus Solostar (Insulin Glargine,Hum.rec.anlog) 100 Unit/1 Ml Insuln.pen 15 Unit SQ QHS 30 06/02/20 Rx If glucose > 200 on 2 or more readings, can add 2u for the night Aspirin Ec (Aspirin) 81 Mg Tablet.dr 81 Mg PO DAILYWBKFT 06/02/20 Rx Atorvastatin Calcium 40 Mg Tablet 40 Mg PO QHS 90 06/02/20 Rx Novolog (Insulin Aspart) 100 Unit/1 Ml Cartridge 0-9 Unit SQ QID 30 06/02/20 Rx Glucose - Insulin >150mg/dL - 3u 151-200 - 5u 201-250 - 6u 251-300 - 7u 301-350 - 9u >350 - Contact Furosemide 40 Mg Tablet 1 Tab PO DAILY 06/01/20 Reported Spironolactone 25 Mg Tablet 1 Tab PO DAILY 06/01/20 Reported Levothyroxine Sodium 88 Mcg Tablet 1 Tab PO DAILY 06/01/20 Reported Lisinopril 5 Mg Tablet 1 Tab PO DAILY 06/01/20 Reported Carvedilol (Carvedilol) 12.5 Mg Tablet 12.5 Mg PO BIDWMEALS 06/01/20 Reported Impression . IMPRESSION: 1. Acute hypoxemic respiratory failure secondary to acute on chronic systolic heart failure. 2. Abnormal x-ray, compatible more with congestive heart failure and COVID-19. 3. Tested positive for COVID-19. 4. Possible COVID-19 viral pneumonia. 5. Acute on chronic kidney failure. 6. Elevated liver function tests. 7. Severe protein malnutrition, present upon admission. 9. Hypotension, suspect cardiogenic in nature. Echo report <Conclusion> The ejection fraction is moderately to severely impaired. EF 25% The distal half of the LV is severely akinetic to hypokinetic. There is global hypokinesis. Plan . Updated 06/13 continue current support On pressors Follow cardiology input Monitor labs Continue remdesivir dexamethasone Nutritional support Anticoagulation 06/12 PLAN: 1. We will continue support with oxygen supplementation. 2. Continue remdesivir and dexamethasone. 3. The patient is more than likely intravascularly depleted. We will give boluses of NS slowly, reevaluate blood pressure. 4. May require pressors for mean arterial pressure above 60. 5. May require dobutamine, will defer to Cardiology. 6. Noted the patient is a full code, need to address advanced directive, it appears the patient may do poorly. I do appreciate the privilege in sharing the patient's care. KAREN ARAYA MD Jun 13, 2021 08:21
[2021-06-13 08:46] LABS: % BANDS 25 % (0-9); % SEGS 67 % (35-66)
[2021-06-13 08:47] LABS: % LYMPHS 5 % (24-48); % MONOS 3 % (0-10)
[2021-06-13 08:49] LABS: OVALOCYTES FEW; PLT ESTIMATE DECREASED (ADEQUATE)
--- NOTE | 2021-06-13 09:04 | NUR ---
SS following up with discharge planning. SS reviewed pt chart and discussed with pt RN. Pt is currently on 15 liters non-rebreather. COVID19 positive. Pt on IV Remdesivir, IV Decadron, IV Rocephin, and PO Doxycycline. Pt on Levophed. SS will continue to follow for discharge planning.
--- NOTE | 2021-06-13 09:34 | PDOC ---
DATE OF SERVICE DATE: 06/13/21 TIME: 09:24 SUBJECTIVE ROS Remains on Non- Rebreather and Pressor support (Levaphed) . Some improvement in MS Dopamine/Dobutamine dced 2/2 Increased heart rate OBJECTIVE Vital Signs Vital Signs Date Time Temp Pulse Resp B/P (MAP) Pulse Ox O2 Delivery O2 Flow Rate FiO2 06/13/21 08:00 Non-Rebreather 15.0 06/13/21 06:15 86 18 105/51 91 06/13/21 04:00 98.1 98.1 I & 0 Intake and Output 06/13/21 07:00 Intake Total 1945.9 ml Output Total 1435 ml Balance 510.9 ml Intake Oral 150 ml IV Total 1795.9 ml Output Urine Total 1435 ml # Bowel Movements 1 PHYSICAL EXAM Physical Exam General NAD, HEEN On Non Rebreather Neck Supple Lungs Decreased at bases, Non labored Heart S1S2 Abd Soft, NT, BS + Neuro AXO x2 , confused some,No focal deficit Ext No LE edema Jonas + Derm No Rash DIAGNOSIS/ASSESSMENT Assessment & Plan LUCÍA - ATN , Non Oliguric . On pressor support E-Lytes stable, UA Glucosuria . CK mildly elevated ; Renal Function stable . Currently No emergent indication for dialysis . Supportive care, Maintain fluid balance , Avoid Nephrotoxins, Strict I/O HypoNatremia Na normal after Correcting for HyperGlycemia Rhabdomyolysis- Mildly elevated CK CKD stage 2 - Baseline Creat 0.9-1.May per [facility] records, No interval labs available to me Acute respiratory failure with hypoxia - secondary to COVID PNA . On Non Rebreather COVID 19 Pneumonia - Rapid positive ; He is Unvaccinated [place] at home Chronic systolic CHF Cardiology consulted H/o Ischemic cardiomyopathy LBBB - chronic CAD s/p CABG 2009 Diabetes, II Thrombocytopenia COMMENT/RELEVANT DATA Meds Current Medications Medications (Trade) Dose Ordered Sig/Raj Start Time Stop Time Status Last Admin Dose Admin Acetaminophen (Tylenol) 650 mg PRN Q6HRS PRN 06/11/21 20:30 06/12/21 09:04 650 MG Albumin Human 250 ml @ 62.5 mls/hr PRN DAILY PRN 06/12/21 17:45 06/13/21 04:52 62.5 MLS/HR Albuterol Sulfate (Ventolin Hfa) 2 puff PRN Q4HRS PRN 06/11/21 19:00 06/11/21 21:22 2 PUFF Ascorbic Acid (Vitamin C) 500 mg DAILY 06/12/21 09:00 06/13/21 08:06 500 MG Aspirin (Ecotrin) 81 mg [id number] 06/12/21 08:00 06/13/21 08:06 81 MG Atorvastatin Calcium (Lipitor) 40 mg QHS 06/11/21 21:00 06/12/21 20:37 40 MG Calcium Carbonate/ Glycine (Tums) 500 mg PRN Q3HRS PRN 06/11/21 20:30 Ceftriaxone Sodium (Rocephin) 1 gm Q24H 06/11/21 21:00 06/12/21 20:37 1 GM Dexamethasone Sodium Phosphate (Decadron) 6 mg DAILY 06/12/21 09:00 06/12/21 09:06 6 MG Dextrose (Dextrose 50%-Water Syringe) 12.5 gm PRN Q15MIN PRN 06/11/21 20:00 Dobutamine HCl/ Dextrose 250 ml @ 13.26 mls/ hr CONT PRN 06/12/21 13:00 06/12/21 13:38 13.26 MLS/HR Doxycycline Hyclate (Vibra-Tab) 100 mg BID 06/11/21 21:00 06/13/21 08:06 100 MG Furosemide (Lasix) 40 mg 1X ONCE 06/11/21 21:00 06/11/21 21:01 DC 06/11/21 21:23 40 MG Guaifenesin/ Codeine Phosphate (Robitussin Ac) 5 ml PRN Q6HRS PRN 06/11/21 20:00 Info (Non-Icu Electrolyte Protocol) 1 ea PRN DAILY PRN 06/11/21 20:30 Insulin Glargine (Lantus Syringe) 15 unit QHS 06/13/21 21:00 Insulin Human Lispro (HumaLOG) 3 units 1X ONCE 06/12/21 18:15 06/12/21 18:16 DC 06/12/21 18:07 3 UNITS Lactobacillus Rhamnosus (Culturelle) 1 cap BID 06/13/21 09:00 Levothyroxine Sodium (Synthroid) 88 mcg DAILY06 06/12/21 06:00 06/13/21 04:51 88 MCG Norepinephrine Bitartrate 8 mg/ Dextrose 258 ml @ 17.105 mls/ hr CONT PRN 06/12/21 12:00 06/12/21 21:16 17.105 MLS/HR Ondansetron HCl (Zofran) 4 mg PRN Q6HRS PRN 06/11/21 20:30 Oxycodone HCl (Roxicodone) 5 mg PRN Q3HRS PRN 06/11/21 20:30 Oxycodone/ Acetaminophen (Percocet 5/325) 2 tab PRN Q4HRS PRN 06/11/21 20:30 Remdesivir 100 mg/ Sodium Chloride 230 ml @ 460 mls/hr Q24H 06/12/21 20:00 06/15/21 20:29 06/12/21 21:13 460 MLS/HR Remdesivir 200 mg/ Sodium Chloride 210 ml @ 210 mls/hr 1X ONCE 06/11/21 20:00 06/11/21 20:59 DC 06/11/21 20:33 210 MLS/HR Senna/Docusate Sodium (Senna Plus) 1 tab BID 06/11/21 21:00 06/13/21 08:06 1 TAB Sodium Chloride 500 ml @ 500 mls/hr 1X ONCE 06/12/21 12:00 06/12/21 12:59 DC 06/12/21 12:27 500 MLS/HR Thiamine Mononitrate (Vitamin B-1) 100 mg DAILY 06/12/21 09:00 06/13/21 08:06 100 MG Zinc Sulfate (Orazinc) 220 mg DAILY 06/12/21 09:00 06/13/21 08:06 220 MG Lab Laboratory Tests Test 06/12/21 12:15 06/12/21 17:34 06/13/21 05:47 Glucose (Fingerstick) 281 mg/dL (70-99) 369 mg/dL (70-99) White Blood Count 15.5 x10^3/uL (4.0-11.0) Red Blood Count 4.18 x10^6/uL (4.30-5.70) Hemoglobin 13.0 g/dL (13.0-17.5) Hematocrit 39.7 % (39.0-53.0) Mean Corpuscular Volume 95 fL (79-100) Mean Corpuscular Hemoglobin 31 pg (25-35) Mean Corpuscular Hemoglobin Concent 33 g/dL (31-37) Red Cell Distribution Width 14.8 % (11.5-14.5) Platelet Count 105 x10^3/uL (140-400) Neutrophils (%) (Auto) 93 % (31-73) Lymphocytes (%) (Auto) 4 % (24-48) Monocytes (%) (Auto) 3 % (0-9) Eosinophils (%) (Auto) 0 % (0-3) Basophils (%) (Auto) 0 % (0-3) Neutrophils # (Auto) 14.5 x10^3/uL (1.8-7.7) Lymphocytes # (Auto) 0.6 x10^3/uL (1.0-4.8) Monocytes # (Auto) 0.4 x10^3/uL (0.0-1.1) Eosinophils # (Auto) 0.0 x10^3/uL (0.0-0.7) Basophils # (Auto) 0.1 x10^3/uL (0.0-0.2) Segmented Neutrophils % 67 % (35-66) Band Neutrophils % 25 % (0-9) Lymphocytes % 5 % (24-48) Monocytes % 3 % (0-10) Platelet Estimate Decreased (ADEQUATE) Ovalocytes Few Crenated Cell Present Sodium Level 134 mmol/L (136-145) Potassium Level 4.9 mmol/L (3.5-5.1) Chloride Level 100 mmol/L (98-107) Carbon Dioxide Level 21 mmol/L (21-32) Anion Gap 13 (6-14) Blood Urea Nitrogen 75 mg/dL (8-26) Creatinine 3.0 mg/dL (0.7-1.3) Estimated GFR (Cockcroft-Gault) 20.3 BUN/Creatinine Ratio 25 (6-20) Glucose Level 289 mg/dL (70-99) Calcium Level 7.7 mg/dL (8.5-10.1) Total Bilirubin 0.3 mg/dL (0.2-1.0) Aspartate Amino Transf (AST/SGOT) 49 U/L (15-37) Alanine Aminotransferase (ALT/SGPT) 24 U/L (16-63) Alkaline Phosphatase 52 U/L (46-116) Total Protein 6.3 g/dL (6.4-8.2) Albumin 2.7 g/dL (3.4-5.0) Albumin/Globulin Ratio 0.8 (1.0-1.7) Results All relevant outside records, renal labs, imaging studies, telemetry/EKG's were reviewed. Justicifation of Admission Dx: Justifications for Admission: Justification of Admission Dx: Yes Altered Mental Status: Altered Mental Status LUDIVINA MEDLEY MD Jun 13, 2021 09:34
[2021-06-13] MEDS: DEXAMETHASONE SOD PHOS 4 MG/ML VIAL IVP SCH (10:16)
[2021-06-13] MEDS: LACTOBACILLUS RHAMNOSUS GG 1 CAPSULE. PO SCH ×2 (10:18→20:53)
[2021-06-13] MEDS: NOREPINEPHRINE VIAL 8 MG in IV DEXTROSE 5% 250 ML IV PRN (11:44)
--- NOTE | 2021-06-13 13:44 | PDOC ---
PROGRESS NOTES Date of Service: DATE: 06/13/21 TIME: 13:44 Subjective Subjective c/o dyspnea Objective Objective Vital Signs Date Time Temp Pulse Resp B/P (MAP) Pulse Ox O2 Delivery O2 Flow Rate FiO2 06/13/21 13:00 108 20 98/65 93 100% NRB + 15L N/C 15.0 06/13/21 11:00 98.7 98.7 Intake and Output 06/13/21 07:00 Intake Total 1945.9 ml Output Total 1435 ml Balance 510.9 ml Intake Oral 150 ml IV Total 1795.9 ml Output Urine Total 1435 ml # Bowel Movements 1 Physical Exam Abdomen: Normal bowel sounds, Soft Heart: Other (tachycardic) Extremities: No edema General: Alert, No acute distress HEENT: Atraumatic Lungs: Other (on NRB) Neuro: Other (calm, cooperative ) Skin: No significant lesion Assessment Assessment 1. Weakness, falls 2. Acute respiratory failure secondary to COVID PNA, CHF. Febrile. 3. Acute on chronic systolic CHF; better compensated s/p IV Lasix. Dobutamine gtt stopped due to tachycardia 4. Ischemic cardiomyopathy; Echo LVEF 25% 5. Chronic LBBB 6. CAD s/p CABG 2008, clinically stable, continue current secondary prevention measures 7. H/o hypertension with present hypotension. on low dose Levophed 8. Hyperlipidemia 9. Diabetes, II: per IM 10. LUCÍA; 11. Hypothyroidism 12. Thrombocytopenia Plan Plan of Care Problems Medical Problems: (1) Fall in elderly patient Status: Acute (2) Pneumonia due to COVID-19 virus Status: Acute Comment Review of Relevant I have reviewed the following items [place] (where applicable) has been applied. Labs Laboratory Tests Test 06/12/21 17:34 06/13/21 05:47 06/13/21 11:50 Glucose (Fingerstick) 369 mg/dL (70-99) 296 mg/dL (70-99) White Blood Count 15.5 x10^3/uL (4.0-11.0) Red Blood Count 4.18 x10^6/uL (4.30-5.70) Hemoglobin 13.0 g/dL (13.0-17.5) Hematocrit 39.7 % (39.0-53.0) Mean Corpuscular Volume 95 fL (79-100) Mean Corpuscular Hemoglobin 31 pg (25-35) Mean Corpuscular Hemoglobin Concent 33 g/dL (31-37) Red Cell Distribution Width 14.8 % (11.5-14.5) Platelet Count 105 x10^3/uL (140-400) Neutrophils (%) (Auto) 93 % (31-73) Lymphocytes (%) (Auto) 4 % (24-48) Monocytes (%) (Auto) 3 % (0-9) Eosinophils (%) (Auto) 0 % (0-3) Basophils (%) (Auto) 0 % (0-3) Neutrophils # (Auto) 14.5 x10^3/uL (1.8-7.7) Lymphocytes # (Auto) 0.6 x10^3/uL (1.0-4.8) Monocytes # (Auto) 0.4 x10^3/uL (0.0-1.1) Eosinophils # (Auto) 0.0 x10^3/uL (0.0-0.7) Basophils # (Auto) 0.1 x10^3/uL (0.0-0.2) Segmented Neutrophils % 67 % (35-66) Band Neutrophils % 25 % (0-9) Lymphocytes % 5 % (24-48) Monocytes % 3 % (0-10) Platelet Estimate Decreased (ADEQUATE) Ovalocytes Few Crenated Cell Present Sodium Level 134 mmol/L (136-145) Potassium Level 4.9 mmol/L (3.5-5.1) Chloride Level 100 mmol/L (98-107) Carbon Dioxide Level 21 mmol/L (21-32) Anion Gap 13 (6-14) Blood Urea Nitrogen 75 mg/dL (8-26) Creatinine 3.0 mg/dL (0.7-1.3) Estimated GFR (Cockcroft-Gault) 20.3 BUN/Creatinine Ratio 25 (6-20) Glucose Level 289 mg/dL (70-99) Calcium Level 7.7 mg/dL (8.5-10.1) Total Bilirubin 0.3 mg/dL (0.2-1.0) Aspartate Amino Transf (AST/SGOT) 49 U/L (15-37) Alanine Aminotransferase (ALT/SGPT) 24 U/L (16-63) Alkaline Phosphatase 52 U/L (46-116) Total Protein 6.3 g/dL (6.4-8.2) Albumin 2.7 g/dL (3.4-5.0) Albumin/Globulin Ratio 0.8 (1.0-1.7) Microbiology 06/11/21 Urine Culture - Final, Complete 06/11/21 Blood Culture - Preliminary, Resulted NO GROWTH AFTER 1 DAY Medications Current Medications Albumin Human 250 ml @ 62.5 mls/hr PRN DAILY PRN IV hypotension SPB < 90 Last administered on 06/13/21at 04:52; Start 06/12/21 at 17:45 Heparin Sodium (Porcine) (Heparin Sodium) 5,000 unit Q12HR SQ ; Start 06/13/21 at 21:00 Insulin Glargine (Lantus Syringe) 15 unit QHS SQ ; Start 06/13/21 at 21:00 Insulin Human Lispro (HumaLOG) 3 units 1X SQ ; Start 06/12/21 at 18:00; Stop 06/12/21 at 18:03; Status DC Insulin Human Lispro (HumaLOG) 3 units 1X ONCE SQ Last administered on 06/12/21at 18:07; Start 06/12/21 at 18:15; Stop 06/12/21 at 18:16; Status DC Lactobacillus Rhamnosus (Culturelle) 1 cap BID PO Last administered on 06/13/21at 10:18; Start 06/13/21 at 09:00 Remdesivir 100 mg/ Sodium Chloride 230 ml @ 460 mls/hr Q24H IV Last administered on 06/12/21at 21:13; Start 06/12/21 at 20:00; Stop 06/15/21 at 20:29 Vitals/I & O Vital Sign - Last 24 Hours 06/12/21 06/12/21 06/12/21 06/12/21 13:45 14:00 14:15 15:00 Pulse 58 60 76 82 Resp 18 20 22 20 B/P (MAP) 135/55 136/63 118/58 93/50 Pulse Ox 95 94 93 90 O2 Delivery NonRebreather Mask NonRebreather Mask NonRebreather Mask NonRebreather Mask O2 Flow Rate 12.0 12.0 12.0 12.0 06/12/21 06/12/21 06/12/21 06/12/21 15:15 15:30 15:45 16:00 Temp 97.6 97.6 Pulse 84 100 90 88 Resp 20 18 18 16 B/P (MAP) 89/46 86/48 115/87 137/62 Pulse Ox 90 92 95 96 O2 Delivery NonRebreather Mask NonRebreather Mask NonRebreather Mask NonRebreather Mask O2 Flow Rate 12.0 12.0 12.0 12.0 06/12/21 06/12/21 06/12/21 06/12/21 16:00 17:00 17:30 17:45 Pulse 110 112 92 Resp 18 20 18 B/P (MAP) 94/58 91/56 139/65 Pulse Ox 97 95 97 O2 Delivery Non-Rebreather NonRebreather Mask NonRebreather Mask NonRebreather Mask O2 Flow Rate 12.0 12.0 12.0 12.0 06/12/21 06/12/21 06/12/21 06/12/21 19:00 19:15 19:30 19:45 Pulse 78 82 84 90 Resp 18 18 18 20 B/P (MAP) 113/56 100/54 112/50 105/53 Pulse Ox 97 98 95 94 O2 Delivery NonRebreather Mask NonRebreather Mask NonRebreather Mask NonRebreather Mask O2 Flow Rate 12.0 12.0 12.0 12.0 06/12/21 06/12/21 06/12/21 06/12/21 20:00 20:00 20:15 20:30 Temp 98.0 98.0 Pulse 94 84 86 Resp 22 20 20 B/P (MAP) 137/68 99/61 108/50 Pulse Ox 92 97 96 O2 Delivery NonRebreather Mask Non-Rebreather NonRebreather Mask NonRebreather Mask O2 Flow Rate 12.0 12.0 12.0 12.0 06/12/21 06/12/21 06/12/21 06/12/21 20:45 21:00 21:15 21:30 Pulse 86 94 116 110 Resp 20 18 18 18 B/P (MAP) 97/54 137/67 105/68 86/56 Pulse Ox 95 91 94 94 O2 Delivery NonRebreather Mask NonRebreather Mask NonRebreather Mask NonRebreather Mask O2 Flow Rate 12.0 12.0 12.0 12.0 06/12/21 06/12/21 06/12/21 06/12/21 21:45 22:00 22:15 22:30 Pulse 102 108 112 112 Resp 18 18 18 20 B/P (MAP) 112/55 99/63 82/57 85/54 Pulse Ox 94 95 96 94 O2 Delivery NonRebreather Mask NonRebreather Mask NonRebreather Mask NonRebreather Mask O2 Flow Rate 12.0 12.0 12.0 12.0 06/12/21 06/12/21 06/12/21 06/12/21 22:45 23:00 23:15 23:30 Pulse 112 112 110 110 Resp 20 20 18 18 B/P (MAP) 87/59 77/54 97/62 106/63 Pulse Ox 94 94 94 94 O2 Delivery NonRebreather Mask NonRebreather Mask NonRebreather Mask NonRebreather Mask O2 Flow Rate 12.0 12.0 12.0 12.0 06/12/21 06/13/21 06/13/21 06/13/21 23:45 00:00 00:00 00:15 Temp 97.8 97.8 Pulse 110 114 116 Resp 18 20 20 B/P (MAP) 113/62 119/61 108/63 Pulse Ox 93 94 92 O2 Delivery NonRebreather Mask Non-Rebreather NonRebreather Mask NonRebreather Mask O2 Flow Rate 12.0 12.0 12.0 12.0 06/13/21 06/13/21 06/13/21 06/13/21 00:30 00:45 01:00 01:15 Pulse 118 118 116 120 Resp 20 20 20 20 B/P (MAP) 101/62 94/62 106/62 100/64 Pulse Ox 92 92 92 91 O2 Delivery NonRebreather Mask NonRebreather Mask NonRebreather Mask NonRebreather Mask O2 Flow Rate 12.0 12.0 12.0 15.0 06/13/21 06/13/21 06/13/21 06/13/21 01:30 01:45 02:00 02:15 Pulse 118 114 112 110 Resp 20 20 20 20 B/P (MAP) 84/53 82/61 90/54 89/57 Pulse Ox 91 91 91 91 O2 Delivery NonRebreather Mask NonRebreather Mask NonRebreather Mask NonRebreather Mask O2 Flow Rate 15.0 15.0 15.0 15.0 06/13/21 06/13/21 06/13/21 06/13/21 02:30 02:45 03:00 03:15 Pulse 108 104 106 116 Resp 20 20 20 20 B/P (MAP) 90/59 85/55 78/53 82/57 Pulse Ox 91 93 92 94 O2 Delivery NonRebreather Mask NonRebreather Mask NonRebreather Mask NonRebreather Mask O2 Flow Rate 15.0 15.0 15.0 15.0 06/13/21 06/13/21 06/13/21 06/13/21 03:30 03:45 04:00 04:00 Temp 98.1 98.1 Pulse 114 112 100 Resp 20 20 20 B/P (MAP) 101/58 97/62 106/57 Pulse Ox 94 93 92 O2 Delivery NonRebreather Mask NonRebreather Mask NonRebreather Mask Non- Rebreather O2 Flow Rate 15.0 15.0 15.0 15.0 06/13/21 06/13/21 06/13/21 06/13/21 04:15 04:30 04:45 05:00 Pulse 112 110 114 112 Resp 20 20 20 20 B/P (MAP) 102/58 84/65 98/58 96/61 Pulse Ox 93 91 87 92 O2 Delivery NonRebreather Mask NonRebreather Mask NonRebreather Mask NonRebreat her Mask O2 Flow Rate 15.0 15.0 15.0 15.0 06/13/21 06/13/21 06/13/21 06/13/21 05:15 05:30 05:45 06:00 Pulse 106 110 98 114 Resp 20 18 18 18 B/P (MAP) 102/55 97/58 93/62 97/56 Pulse Ox 93 95 93 94 O2 Delivery NonRebreather Mask NonRebreather Mask NonRebreather Mask NonRebreather Mask O2 Flow Rate 15.0 15.0 15.0 15.0 06/13/21 06/13/21 06/13/21 06/13/21 06:15 07:00 08:00 08:00 Temp 99.0 99.0 Pulse 86 126 119 Resp 18 20 24 B/P (MAP) 105/51 100/56 91/53 Pulse Ox 91 93 93 O2 Delivery NonRebreather Mask NonRebreather Mask Non-Rebreather NonRebreather Mask O2 Flow Rate 15.0 15.0 15.0 06/13/21 06/13/21 06/13/21 06/13/21 09:00 10:00 11:00 12:00 Temp 98.7 98.7 Pulse 98 98 100 Resp 28 20 20 B/P (MAP) 83/54 109/65 92/62 Pulse Ox 93 95 94 O2 Delivery 100% NRB + 15L N/C 100% NRB + 15L N/C 100% NRB + 15L N/C Non- Rebreather O2 Flow Rate 15.0 15.0 15.0 15.0 06/13/21 06/13/21 12:00 13:00 Pulse 106 108 Resp 20 20 B/P (MAP) 102/59 98/65 Pulse Ox 95 93 O2 Delivery 100% NRB + 15L N/C 100% NRB + 15L N/C O2 Flow Rate 15.0 15.0 Intake and Output 06/12/21 06/12/21 06/13/21 15:00 23:00 07:00 Intake Total 1301.9 ml 644 ml Output Total 210 ml 625 ml 600 ml Balance -210 ml 676.9 ml 44 ml REGINALD MAGALLON MD Jun 13, 2021 13:44
--- NOTE | 2021-06-13 15:45 | NUR ---
Ekg obtained pt in SVT HR 150, Dr Mckenzie paged orders to give IV dig and fluid bolus, pt may need cardioversion if not controlled after.
[2021-06-13] MEDS ORDERED: DIGOXIN IV 500 MCG/2 ML AMPUL. IV ONE (16:00)
[2021-06-13] MEDS ORDERED: IV NORMAL SALINE 500ML BAG 500 ML IV ONE (16:00)
--- NOTE | 2021-06-13 17:16 | NUR ---
Pt HR sustaining regular rate at 120's, BP controlled with Levophed infusing.
[2021-06-13] MEDS ORDERED: ATROPINE 0.5 MG/5 ML DISP.SYRINGE. IV PRN (18:30)
[2021-06-13] MEDS: DEXMEDETOMIDINE 400 MCG in IV NORMAL SALINE 100ML 96 ML IV PRN (19:34)
[2021-06-13] MEDS: REMDESIVIR 100mg in NORMAL SALINE 250ML X 4 DAYS IV SCH (19:34)
[2021-06-13] MEDS: HEPARIN for SUB-Q USE 5,000 UNIT/ML VIAL. SQ SCH (20:52)
[2021-06-13] MEDS: INSULIN GLARGINE SYRINGE. SQ SCH (20:53)
[2021-06-13] MEDS: ATORVASTATIN CALCIUM 40 MG TABLET. PO SCH (20:53)
[2021-06-13] MEDS: cefTRIAXone IV Push 1 GM VIAL. IVP SCH (20:54)
--- NOTE | 2021-06-13 21:19 | NUR ---
patient is very restless- pulling off O@ causing O2 sates to decrease into the 70's. also cont to pull of bp cuff. Started precedex at .2
[2021-06-13] MEDS ORDERED: INSULIN LISPRO 300 UNITS/3 ML VIAL. SQ ONE (22:30)
[2021-06-14] VITALS (41 sets, daily range): BP systolic 86–146; BP diastolic 50–85
[2021-06-14] MEDS: DEXMEDETOMIDINE 400 MCG in IV NORMAL SALINE 100ML 96 ML IV PRN ×2 (00:44→20:07)
[2021-06-14] MEDS: NOREPINEPHRINE VIAL 8 MG in IV DEXTROSE 5% 250 ML IV PRN ×2 (00:44→15:25)
[2021-06-14] MEDS: LEVOTHYROXINE 88 MCG TABLET PO SCH (06:00)
[2021-06-14 06:54] LABS: ALBUMIN 2.3 g/dL (3.4-5.0); ALBUMIN/GLOBULIN RATIO 0.6 (1.0-1.7); CALCIUM 7.8 mg/dL (8.5-10.1); CREATININE 2.5 mg/dL (0.7-1.3); TOTAL BILIRUBIN 0.3 mg/dL (0.2-1.0); TOTAL PROTEIN 6.1 g/dL (6.4-8.2)
--- NOTE | 2021-06-14 07:41 | PDOC ---
[facility] [facility] PROGRESS NOTE Date of Service DOS: DATE: 06/14/21 TIME: 07:35 Chief Complaint Chief Complaint A/P: Acute respiratory failure with hypoxia - secondary to COVID PNA. Febrile. Weakness, falls at home - due to hypoxia from COVID 19 Chronic systolic CHF - NT Pro BNP WNL. Cardiology consulted H/o Ischemic cardiomyopathy LBBB - chronic CAD s/p CABG 2008 Hypertension Hyperlipidemia Diabetes, II - sliding scale LUCÍA - likely vasomotor nephropathy. Consulted nephrology Hypothyroidism Thrombocytopenia - likely due to viral illness, will monitor Hyponatremia - likely nutritional FEN - ADA cardiac diet PPX - heparin FULL CODE Dispo - inpatient History of Present Illness History of Present Illness Patient is a 81 year old male w/ PMHx DM2, HTN, CAD s/p CABG, chronic systolic CHF who presents with 4-day history of weakness, nausea, vomiting and confusion. Patient is a poor historian, but his family member at bedside aids in providing history. For 4 days prior to admission has had weakness nausea and vomiting and is followed for twice without strength has had no injury but has been getting more confused. In ED was noted with pulse oximetry 83% on room air. Rapid COVID-19 returned positive. Patient is not vaccinated against COVID-19. Patient and family member deny fever, chills, chest pain, palpitations, shortness of breath, cough, constipation, abdominal pain, diarrhea. Patient has no other complaints at this time Initiated on remdesivir and admitted for further care. 06/12: Up to 12 L facemask O2 overnight still little confused. O2 saturations 91% on this O2. Na133, Cr 3. Having some nausea and diarrhea. No vomiting currently. Plan: Given deteriorating condition will need higher level of care, transfer to ICU for likely vapotherm therapy, consult Pulm 06/13: Afebrile. On 15 L nonrebreather. Transferred to ICU overnight due to hypotension and bradycardia. Currently requiring Levophed and dobutamine. Echocardiogram yesterday showed global hypokinesis severely impaired EF 25%. Continue to hold heart failure medications until stable. Continue remdesivir steroids, empiric antibiotics. Critical care time 30 minutes spent reviewing charts, reviewing labs, reviewing imaging, discussion with RN. 06/14: Afebrile. 15 L nonrebreather and still hypoxic and mid 80s. Discussed with patient if he would be okay with intubation if necessary, he says that would be fine with him. I have some concerns about underlying dementia; reached out to patient's to confirm if she would be okay with intubation, but no answer x2. Remains on pressor support; dobutamine discontinued due to tachycardia. Continue remdesivir; last dose should be tomorrow. Continue st eroids and empiric antibiotics. Critical care time 30 minutes spent reviewing charts, reviewing labs, reviewing imaging, discussion with RN. Vitals/I&O Vitals/I&O: Vital Signs Date Time Temp Pulse Resp B/P (MAP) Pulse Ox O2 Delivery O2 Flow Rate FiO2 06/14/21 06:00 102 23 117/65 94 NonRebreather Mask 15.0 06/14/21 05:00 99.1 99.1 I & O 06/13/21 06/13/21 06/14/21 14:59 22:59 06:59 Intake Total 400 ml 250 ml 668 ml Output Total 465 ml 325 ml 700 ml Balance -65 ml -75 ml -32 ml Physical Exam General: Alert, Cooperative, No acute distress Heart: Other (tachycardic) Lungs: Clear Abdomen: Normal bowel sounds, Soft Extremities: No edema Skin: No significant lesion Labs Labs: Laboratory Tests Test 06/13/21 11:50 06/13/21 17:57 06/13/21 20:58 06/13/21 23:37 Glucose (Fingerstick) 296 mg/dL (70-99) 329 mg/dL (70-99) 402 mg/dL (70-99) 271 mg/dL (70-99) Test 06/14/21 05:30 Sodium Level 138 mmol/L (136-145) Potassium Level 5.0 mmol/L (3.5-5.1) Chloride Level 107 mmol/L (98-107) Carbon Dioxide Level 20 mmol/L (21-32) Anion Gap 11 (6-14) Blood Urea Nitrogen 78 mg/dL (8-26) Creatinine 2.5 mg/dL (0.7-1.3) Estimated GFR (Cockcroft-Gault) 25.0 BUN/Creatinine Ratio 31 (6-20) Glucose Level 164 mg/dL (70-99) Calcium Level 7.8 mg/dL (8.5-10.1) Total Bilirubin 0.3 mg/dL (0.2-1.0) Aspartate Amino Transf (AST/SGOT) 60 U/L (15-37) Alanine Aminotransferase (ALT/SGPT) 27 U/L (16-63) Alkaline Phosphatase 60 U/L (46-116) Total Protein 6.1 g/dL (6.4-8.2) Albumin 2.3 g/dL (3.4-5.0) Albumin/Globulin Ratio 0.6 (1.0-1.7) Assessment and Plan Assessmemt and Plan Problems Medical Problems: (1) Fall in elderly patient Status: Acute (2) Pneumonia due to COVID-19 virus Status: Acute Comment Review of Relevant I have reviewed the following items [place] (where applicable) has been applied. Medications: Current Medications Medications (Trade) Dose Ordered Sig/Raj Route PRN Reason Start Time Stop Time Status Last Admin Dose Admin Insulin Glargine (Lantus Syringe) 15 unit QHS SQ 06/13/21 21:00 06/13/21 20:53 Lactobacillus Rhamnosus (Culturelle) 1 cap BID PO 06/13/21 09:00 06/13/21 20:53 Heparin Sodium (Porcine) (Heparin Sodium) 5,000 unit Q12HR SQ 06/13/21 21:00 06/13/21 20:52 Digoxin (Lanoxin) 500 mcg 1X ONCE IV 06/13/21 16:00 06/13/21 16:02 DC 06/13/21 16:26 Sodium Chloride 500 ml @ 500 mls/hr 1X ONCE IV 06/13/21 16:00 06/13/21 16:59 DC 06/13/21 16:00 Dexmedetomidine HCl 400 mcg/ Sodium Chloride 100 ml @ 4.555 mls/ hr CONT PRN IV PER PROTOCOL 06/13/21 18:30 06/14/21 00:44 Insulin Human Lispro (HumaLOG) 20 units 1X ONCE SQ 06/13/21 22:30 06/13/21 22:31 DC 06/13/21 22:09 Justifications for Admission Other Justification NANY PARRA MD Jun 14, 2021 07:41
--- NOTE | 2021-06-14 08:07 | PDOC ---
DATE OF SERVICE DATE: 06/14/21 TIME: 08:07 SUBJECTIVE ROS Remains on Non- Rebreather and Pressor support (Levaphed) Still confused some OBJECTIVE Vital Signs Vital Signs Date Time Temp Pulse Resp B/P (MAP) Pulse Ox O2 Delivery O2 Flow Rate FiO2 06/14/21 06:00 102 23 117/65 94 NonRebreather Mask 15.0 06/14/21 05:00 99.1 99.1 I & 0 Intake and Output 06/14/21 07:00 Intake Total 1318 ml Output Total 1490 ml Balance -172 ml Intake Oral 650 ml IV Total 668 ml Output Urine Total 1490 ml PHYSICAL EXAM Physical Exam General NAD, HEEN On Non Rebreather Neck Supple Lungs Decreased at bases, Non labored Heart S1S2 Abd Soft, NT, BS + Neuro AXO x2 , confused some,No focal deficit Ext No LE edema Jonas + Derm No Rash DIAGNOSIS/ASSESSMENT Assessment & Plan LUCÍA - ATN , Non Oliguric . On pressor support E-Lytes stable, UA Glucosuria . CK mildly elevated ; Renal Function stable . Currently No emergent indication for dialysis . Supportive care, Maintain fluid balance , Avoid Nephrotoxins, Strict I/O Rhabdomyolysis- Mildly elevated CK POA CKD stage 2 - Baseline Creat 0.9-1.May per [facility] records, No interval labs available to me Acute hypoxemic respiratory failure - Abnormal x-ray, Tested positive for C OVID-19.On remdesivir dexamethasone, and O2 Support COVID 19 Pneumonia - Rapid positive ; He is Unvaccinated [place] at [place] Chronic systolic CHF- ejection fraction is moderately to severely impaired. EF 25%.The distal half of the LV is severely akinetic to hypokinetic. There is global hypokinesis. H/o Ischemic cardiomyopathy LBBB - chronic CAD s/p CABG 2008 Diabetes, II Thrombocytopenia Patient is a full code COMMENT/RELEVANT DATA Meds Current Medications Medications (Trade) Dose Ordered Sig/Raj Start Time Stop Time Status Last Admin Dose Admin Acetaminophen (Tylenol) 650 mg PRN Q6HRS PRN 06/11/21 20:30 06/12/21 09:04 650 MG Albumin Human 250 ml @ 62.5 mls/hr PRN DAILY PRN 06/12/21 17:45 06/13/21 04:52 62.5 MLS/HR Albuterol Sulfate (Ventolin Hfa) 2 puff PRN Q4HRS PRN 06/11/21 19:00 06/11/21 21:22 2 PUFF Ascorbic Acid (Vitamin C) 500 mg DAILY 06/12/21 09:00 06/13/21 08:06 500 MG Aspirin (Ecotrin) 81 mg DAILYWBKFT 06/12/21 08:00 06/13/21 08:06 81 MG Atorvastatin Calcium (Lipitor) 40 mg QHS 06/11/21 21:00 06/13/21 20:53 40 MG Atropine Sulfate (ATROPINE 0.5mg SYRINGE) 0.5 mg PRN Q5MIN PRN 06/13/21 18:30 Calcium Carbonate/ Glycine (Tums) 500 mg PRN Q3HRS PRN 06/11/21 20:30 Ceftriaxone Sodium (Rocephin) 1 gm Q24H 06/11/21 21:00 06/13/21 20:54 1 GM Dexamethasone Sodium Phosphate (Decadron) 6 mg DAILY 06/12/21 09:00 06/13/21 10:16 6 MG Dexmedetomidine HCl 400 mcg/ Sodium Chloride 100 ml @ 4.555 mls/ hr CONT PRN 06/13/21 18:30 06/14/21 00:44 4.555 MLS/HR Dextrose (Dextrose 50%-Water Syringe) 12.5 gm PRN Q15MIN PRN 06/11/21 20:00 Digoxin (Lanoxin) 500 mcg 1X ONCE 06/13/21 16:00 06/13/21 16:02 DC 06/13/21 16:26 500 MCG Dobutamine HCl/ Dextrose 250 ml @ 13.26 mls/ hr CONT PRN 06/12/21 13:00 06/12/21 13:38 13.26 MLS/HR Doxycycline Hyclate (Vibra-Tab) 100 mg BID 06/11/21 21:00 06/13/21 20:53 100 MG Furosemide (Lasix) 40 mg 1X ONCE 06/11/21 21:00 06/11/21 21:01 DC 06/11/21 21:23 40 MG Guaifenesin/ Codeine Phosphate (Robitussin Ac) 5 ml PRN Q6HRS PRN 06/11/21 20:00 Heparin Sodium (Porcine) (Heparin Sodium) 5,000 unit Q12HR 06/13/21 21:00 06/13/21 20:52 5,000 UNIT Info (Non-Icu Electrolyte Protocol) 1 ea PRN DAILY PRN 06/11/21 20:30 Insulin Glargine (Lantus Syringe) 15 unit QHS 06/13/21 21:00 06/13/21 20:53 15 UNIT Insulin Human Lispro (HumaLOG) 20 units 1X ONCE 06/13/21 22:30 06/13/21 22:31 DC 06/13/21 22:09 20 UNITS Lactobacillus Rhamnosus (Culturelle) 1 cap BID 06/13/21 09:00 06/13/21 20:53 1 CAP Levothyroxine Sodium (Synthroid) 88 mcg DAILY06 06/12/21 06:00 06/14/21 06:00 88 MCG Norepinephrine Bitartrate 8 mg/ Dextrose 258 ml @ 17.105 mls/ hr CONT PRN 06/12/21 12:00 06/14/21 00:44 22.237 MLS/HR Ondansetron HCl (Zofran) 4 mg PRN Q6HRS PRN 06/11/21 20:30 Oxycodone HCl (Roxicodone) 5 mg PRN Q3HRS PRN 06/11/21 20:30 Oxycodone/ Acetaminophen (Percocet 5/325) 2 tab PRN Q4HRS PRN 06/11/21 20:30 Remdesivir 100 mg/ Sodium Chloride 230 ml @ 460 mls/hr Q24H 06/12/21 20:00 06/15/21 20:29 06/13/21 19:34 460 MLS/HR Remdesivir 200 mg/ Sodium Chloride 210 ml @ 210 mls/hr 1X ONCE 06/11/21 20:00 06/11/21 20:59 DC 06/11/21 20:33 210 MLS/HR Senna/Docusate Sodium (Senna Plus) 1 tab BID 06/11/21 21:00 06/13/21 21:00 1 TAB Sodium Chloride 500 ml @ 500 mls/hr 1X PRN PRN 06/13/21 18:30 Thiamine Mononitrate (Vitamin B-1) 100 mg DAILY 06/12/21 09:00 06/13/21 08:06 100 MG Zinc Sulfate (Orazinc) 220 mg DAILY 06/12/21 09:00 06/13/21 08:06 220 MG Lab Laboratory Tests Test 06/13/21 11:50 06/13/21 17:57 06/13/21 20:58 06/13/21 23:37 Glucose (Fingerstick) 296 mg/dL (70-99) 329 mg/dL (70-99) 402 mg/dL (70-99) 271 mg/dL (70-99) Test 06/14/21 05:30 Sodium Level 138 mmol/L (136-145) Potassium Level 5.0 mmol/L (3.5-5.1) Chloride Level 107 mmol/L (98-107) Carbon Dioxide Level 20 mmol/L (21-32) Anion Gap 11 (6-14) Blood Urea Nitrogen 78 mg/dL (8-26) Creatinine 2.5 mg/dL (0.7-1.3) Estimated GFR (Cockcroft-Gault) 25.0 BUN/Creatinine Ratio 31 (6-20) Glucose Level 164 mg/dL (70-99) Calcium Level 7.8 mg/dL (8.5-10.1) Total Bilirubin 0.3 mg/dL (0.2-1.0) Aspartate Amino Transf (AST/SGOT) 60 U/L (15-37) Alanine Aminotransferase (ALT/SGPT) 27 U/L (16-63) Alkaline Phosphatase 60 U/L (46-116) Total Protein 6.1 g/dL (6.4-8.2) Albumin 2.3 g/dL (3.4-5.0) Albumin/Globulin Ratio 0.6 (1.0-1.7) Results All relevant outside records, renal labs, imaging studies, telemetry/EKG's were reviewed. Justicifation of Admission Dx: Justifications for Admission: Justification of Admission Dx: Yes Altered Mental Status: Altered Mental Status LUDIVINA MEDLEY MD Jun 14, 2021 08:07
[2021-06-14] MEDS: DEXAMETHASONE SOD PHOS 4 MG/ML VIAL IVP SCH (08:42)
[2021-06-14] MEDS: ASPIRIN ENTERIC COATED 81 MG TABLET.DR. PO SCH (08:42)
[2021-06-14] MEDS: LACTOBACILLUS RHAMNOSUS GG 1 CAPSULE. PO SCH ×2 (08:43→20:44)
[2021-06-14] MEDS: SENNOSIDES/DOCUSATE 8.6/50MG TABLET. PO SCH ×2 (08:43→20:43)
[2021-06-14] MEDS: ZINC SULFATE 220 MG CAPSULE. PO SCH (08:43)
[2021-06-14] MEDS: DOXYCYCLINE HYCLATE 100 MG TABLET PO SCH ×2 (08:43→20:44)
[2021-06-14] MEDS: THIAMINE 100 MG TABLET. PO SCH (08:43)
[2021-06-14] MEDS: ASCORBIC ACID 500 MG TABLET PO SCH (08:43)
[2021-06-14] MEDS: HEPARIN for SUB-Q USE 5,000 UNIT/ML VIAL. SQ SCH ×2 (08:45→20:45)
[2021-06-14] MEDS: INSULIN LISPRO 300 UNITS/3 ML VIAL. SQ SCH ×3 (08:45→18:01)
[2021-06-14 09:03] LABS: BASE EXCESS ABG -7 mmol/L (-3-3); HCO3 ABG 18 mmol/L (21-28); PCO2 ABG 34 mmHg (35-46); PO2 ABG 51 mmHg (65-108); SAT O2 ABG 83 % (92-99)
[2021-06-14] MEDS ORDERED: STERILE WATER for RESP 2,000 ML BAG. INH PRN (09:15)
--- NOTE | 2021-06-14 09:51 | PDOC ---
PULMONARY PROGRESS NOTES DATE: 06/14/21 TIME: 09:51 Subjective Patient awake alert following commands, Not more short of air Currently on 40 L flow, 100% FiO2 Vitals Vital Signs Date Time Temp Pulse Resp B/P (MAP) Pulse Ox O2 Delivery O2 Flow Rate FiO2 06/14/21 09:34 87 Vapotherm 40.0 06/14/21 06:00 102 23 117/65 06/14/21 05:00 99.1 99.1 ROS: No Nausea, No Abdominal Pain, No Increase Cough General: Alert Lungs: Clear Cardiovascular: S1, S2 Abdomen: Soft Neuro Exam: Alert Extremities: Other (Some edema) Skin: Warm Labs Laboratory Tests Test 06/12/21 12:15 06/12/21 17:34 06/13/21 05:47 06/13/21 11:50 Glucose (Fingerstick) 281 mg/dL (70-99) 369 mg/dL (70-99) 296 mg/dL (70-99) White Blood Count 15.5 x10^3/uL (4.0-11.0) Red Blood Count 4.18 x10^6/uL (4.30-5.70) Hemoglobin 13.0 g/dL (13.0-17.5) Hematocrit 39.7 % (39.0-53.0) Mean Corpuscular Volume 95 fL (79-100) Mean Corpuscular Hemoglobin 31 pg (25-35) Mean Corpuscular Hemoglobin Concent 33 g/dL (31-37) Red Cell Distribution Width 14.8 % (11.5-14.5) Platelet Count 105 x10^3/uL (140-400) Neutrophils (%) (Auto) 93 % (31-73) Lymphocytes (%) (Auto) 4 % (24-48) Monocytes (%) (Auto) 3 % (0-9) Eosinophils (%) (Auto) 0 % (0-3) Basophils (%) (Auto) 0 % (0-3) Neutrophils # (Auto) 14.5 x10^3/uL (1.8-7.7) Lymphocytes # (Auto) 0.6 x10^3/uL (1.0-4.8) Monocytes # (Auto) 0.4 x10^3/uL (0.0-1.1) Eosinophils # (Auto) 0.0 x10^3/uL (0.0-0.7) Basophils # (Auto) 0.1 x10^3/uL (0.0-0.2) Segmented Neutrophils % 67 % (35-66) Band Neutrophils % 25 % (0-9) Lymphocytes % 5 % (24-48) Monocytes % 3 % (0-10) Platelet Estimate Decreased (ADEQUATE) Ovalocytes Few Crenated Cell Present Sodium Level 134 mmol/L (136-145) Potassium Level 4.9 mmol/L (3.5-5.1) Chloride Level 100 mmol/L (98-107) Carbon Dioxide Level 21 mmol/L (21-32) Anion Gap 13 (6-14) Blood Urea Nitrogen 75 mg/dL (8-26) Creatinine 3.0 mg/dL (0.7-1.3) Estimated GFR (Cockcroft-Gault) 20.3 BUN/Creatinine Ratio 25 (6-20) Glucose Level 289 mg/dL (70-99) Calcium Level 7.7 mg/dL (8.5-10.1) Total Bilirubin 0.3 mg/dL (0.2-1.0) Aspartate Amino Transf (AST/SGOT) 49 U/L (15-37) Alanine Aminotransferase (ALT/SGPT) 24 U/L (16-63) Alkaline Phosphatase 52 U/L (46-116) Total Protein 6.3 g/dL (6.4-8.2) Albumin 2.7 g/dL (3.4-5.0) Albumin/Globulin Ratio 0.8 (1.0-1.7) Test 06/13/21 17:57 06/13/21 20:58 06/13/21 23:37 06/14/21 05:30 Glucose (Fingerstick) 329 mg/dL (70-99) 402 mg/dL (70-99) 271 mg/dL (70-99) Sodium Level 138 mmol/L (136-145) Potassium Level 5.0 mmol/L (3.5-5.1) Chloride Level 107 mmol/L (98-107) Carbon Dioxide Level 20 mmol/L (21-32) Anion Gap 11 (6-14) Blood Urea Nitrogen 78 mg/dL (8-26) Creatinine 2.5 mg/dL (0.7-1.3) Estimated GFR (Cockcroft-Gault) 25.0 BUN/Creatinine Ratio 31 (6-20) Glucose Level 164 mg/dL (70-99) Calcium Level 7.8 mg/dL (8.5-10.1) Total Bilirubin 0.3 mg/dL (0.2-1.0) Aspartate Amino Transf (AST/SGOT) 60 U/L (15-37) Alanine Aminotransferase (ALT/SGPT) 27 U/L (16-63) Alkaline Phosphatase 60 U/L (46-116) Total Protein 6.1 g/dL (6.4-8.2) Albumin 2.3 g/dL (3.4-5.0) Albumin/Globulin Ratio 0.6 (1.0-1.7) Laboratory Tests Test 06/13/21 11:50 06/13/21 17:57 06/13/21 20:58 06/13/21 23:37 Glucose (Fingerstick) 296 mg/dL (70-99) 329 mg/dL (70-99) 402 mg/dL (70-99) 271 mg/dL (70-99) Test 06/14/21 05:30 Sodium Level 138 mmol/L (136-145) Potassium Level 5.0 mmol/L (3.5-5.1) Chloride Level 107 mmol/L (98-107) Carbon Dioxide Level 20 mmol/L (21-32) Anion Gap 11 (6-14) Blood Urea Nitrogen 78 mg/dL (8-26) Creatinine 2.5 mg/dL (0.7-1.3) Estimated GFR (Cockcroft-Gault) 25.0 BUN/Creatinine Ratio 31 (6-20) Glucose Level 164 mg/dL (70-99) Calcium Level 7.8 mg/dL (8.5-10.1) Total Bilirubin 0.3 mg/dL (0.2-1.0) Aspartate Amino Transf (AST/SGOT) 60 U/L (15-37) Alanine Aminotransferase (ALT/SGPT) 27 U/L (16-63) Alkaline Phosphatase 60 U/L (46-116) Total Protein 6.1 g/dL (6.4-8.2) Albumin 2.3 g/dL (3.4-5.0) Albumin/Globulin Ratio 0.6 (1.0-1.7) Medications Active Scripts Medications Dose Route/Sig Max Daily Dose Days Date Category Dose Instructions Lantus Solostar (Insulin Glargine,Hum.rec.anlog) 100 Unit/1 Ml Insuln.pen 15 Unit SQ QHS 30 06/02/20 Rx If glucose > 200 on 2 or more readings, can add 2u for the night Aspirin Ec (Aspirin) 81 Mg Tablet. 81 Mg PO DAILYWBKFT 90 06/02/20 Rx Atorvastatin Calcium 40 Mg Tablet 40 Mg PO QHS 90 06/02/20 Rx Novolog (Insulin Aspart) 100 Unit/1 Ml Cartridge 0-9 Unit SQ QID 30 06/02/20 Rx Glucose - Insulin >150mg/dL - 3u 151-200 - 5u 201-250 - 6u 251-300 - 7u 301-350 - 9u >350 - Contact Furosemide 40 Mg Tablet 1 Tab PO DAILY 06/01/20 Reported Spironolactone 25 Mg Tablet 1 Tab PO DAILY 06/01/20 Reported Levothyroxine Sodium 88 Mcg Tablet 1 Tab PO DAILY 06/01/20 Reported Lisinopril 5 Mg Tablet 1 Tab PO DAILY 06/01/20 Reported Carvedilol (Carvedilol) 12.5 Mg Tablet 12.5 Mg PO BIDWMEALS 06/01/20 Reported Impression . IMPRESSION: 1. Acute hypoxemic respiratory failure secondary to acute on chronic systolic heart failure. 2. Abnormal x-ray, compatible more with congestive heart failure and COVID-19. 3. Tested positive for COVID-19. 4. Possible COVID-19 viral pneumonia. 5. Acute on chronic kidney failure. 6. Elevated liver function tests. 7. Severe protein malnutrition, present upon admission. 9. Hypotension, suspect cardiogenic in nature. Echo report <Conclusion> The ejection fraction is moderately to severely impaired. EF 25% The distal half of the LV is severely akinetic to hypokinetic. There is global hypokinesis. Plan . Updated 06/14 Continue oxygen support I discussed CODE STATUS with the patient, patient wishes to be full code, he wis hes to be intubated if things do not improve Discussed with RN and RT Continue remdesivir dexamethasone updated 06/13 continue current support On pressors Follow cardiology input Monitor labs Continue remdesivir dexamethasone Nutritional support Anticoagulation KAREN ARAYA MD Jun 14, 2021 09:51
[2021-06-14 09:58] LABS: FIO2 ABG 15L NC + NRB
--- NOTE | 2021-06-14 10:58 | PDOC ---
SALONI DAVIS RN POSTPARTUM 06/14/21 1058: CARDIO Progress Notes Date and Time Date of Service 06/14/21 Time of Evaluation 1100 Subjective Subjective: Other (on Vapotherm, NRB) Vitals Vitals Vital Signs Date Time Temp Pulse Resp B/P (MAP) Pulse Ox O2 Delivery O2 Flow Rate FiO2 06/14/21 09:34 87 Vapotherm 40.0 06/14/21 06:00 102 23 117/65 06/14/21 05:00 99.1 99.1 Weight Weight [ ] Input and Output Intake and Output Intake and Output 06/14/21 07:00 Intake Total 1318 ml Output Total 1490 ml Balance -172 ml Intake Oral 650 ml IV Total 668 ml Output Urine Total 1490 ml Laboratory Labs Laboratory Tests Test 06/13/21 11:50 06/13/21 17:57 06/13/21 20:58 06/13/21 23:37 Glucose (Fingerstick) 296 mg/dL (70-99) 329 mg/dL (70-99) 402 mg/dL (70-99) 271 mg/dL (70-99) Test 06/14/21 05:30 06/14/21 08:59 Sodium Level 138 mmol/L (136-145) Potassium Level 5.0 mmol/L (3.5-5.1) Chloride Level 107 mmol/L (98-107) Carbon Dioxide Level 20 mmol/L (21-32) Anion Gap 11 (6-14) Blood Urea Nitrogen 78 mg/dL (8-26) Creatinine 2.5 mg/dL (0.7-1.3) Estimated GFR (Cockcroft-Gault) 25.0 BUN/Creatinine Ratio 31 (6-20) Glucose Level 164 mg/dL (70-99) Calcium Level 7.8 mg/dL (8.5-10.1) Total Bilirubin 0.3 mg/dL (0.2-1.0) Aspartate Amino Transf (AST/SGOT) 60 U/L (15-37) Alanine Aminotransferase (ALT/SGPT) 27 U/L (16-63) Alkaline Phosphatase 60 U/L (46-116) Total Protein 6.1 g/dL (6.4-8.2) Albumin 2.3 g/dL (3.4-5.0) Albumin/Globulin Ratio 0.6 (1.0-1.7) O2 Saturation 83 % (92-99) Arterial Blood pH 7.34 (7.35-7.45) Arterial Blood pCO2 at Patient Temp 34 mmHg (35-46) Arterial Blood pO2 at Patient Temp 51 mmHg (65-108) Arterial Blood HCO3 18 mmol/L (21-28) Arterial Blood Base Excess -7 mmol/L (-3-3) FiO2 15l nc + nrb Microbiology Micro Microbiology 06/11/21 Urine Culture - Final, Complete 06/11/21 Blood Culture - Preliminary, Resulted NO GROWTH AFTER 2 DAYS Physical Exam HEENT: Neck Supple W Full Motion Chest: Symmetric LUNGS: Other (on Vapotherm ) Heart: RRR (SR) Abdomen: Other (non-distended ) Extremities: No Edema Neurology: alert, follow commands Assessment Assessment 1. Weakness, falls 2. Acute respiratory failure secondary to COVID PNA, CHF. 3. Acute on chronic systolic CHF; better compensated s/p IV Lasix. Dobutamine gtt stopped due to tachycardia 4. Ischemic cardiomyopathy; Echo with LVEF 25% 5. Chronic LBBB 6. CAD s/p CABG 2008, clinically stable 7. H/o hypertension with present hypotension. on low dose Levophed 8. Hyperlipidemia 9. Diabetes, II: per IM 10. LUCÍA; Cr better at 2.5 11. Hypothyroidism 12. Thrombocytopenia Recommendations Secondary prevention as able Hold Coreg, lisinopril with hypotension Pressor support as warranted Avoid nephrotoxins Ongoing lung optimization, treatment of COVID as per pulmonary Additional Lasix PRN Supportive care Justicifation of Admission Dx: Justifications for Admission: Justification of Admission Dx: Yes Altered Mental Status: Altered Mental Status REGINALD MAGALLON MD 06/14/212031: CARDIO Progress Notes Assessment Assessment Patient seen and examined. Agree with LIFE COACH's assessment and plan. Acute on chr systolic HF better compensated Wean pressors off as tolerated Continue treatment of covid pneumonia per pulm team SALONI DAVIS APRN Jun 14, 2021 10:58 REGINALD MAGALLON MD Jun 14, 2021 20:32
[2021-06-14] MEDS: REMDESIVIR 100mg in NORMAL SALINE 250ML X 4 DAYS IV SCH (20:07)
[2021-06-14] MEDS: cefTRIAXone IV Push 1 GM VIAL. IVP SCH (20:43)
[2021-06-14] MEDS: ATORVASTATIN CALCIUM 40 MG TABLET. PO SCH (20:44)
[2021-06-14] MEDS: INSULIN GLARGINE SYRINGE. SQ SCH (20:46)
[2021-06-15] VITALS (49 sets, daily range): BP systolic 75–156; BP diastolic 49–84
[2021-06-15 04:58] LABS: BASO % 0 % (0-3); EOS % 0 % (0-3); HEMATOCRIT 39.2 % (39.0-53.0); HEMOGLOBIN 13.1 g/dL (13.0-17.5); LYMPH # 0.5 x10^3/uL (1.0-4.8); LYMPH % 5 % (24-48); MEAN CORPUSCULAR HEMOGLOBIN 32 pg (25-35); MEAN CORPUSCULAR HGB CONC 34 g/dL (31-37); MEAN CORPUSCULAR VOLUME 94 fL (79-100); MONO # 0.8 x10^3/uL (0.0-1.1); MONO % 7 % (0-9); NEUT # 9.9 x10^3/uL (1.8-7.7); NEUT % 88 % (31-73); PLATELET COUNT 116 x10^3/uL (140-400); RED BLOOD COUNT 4.17 x10^6/uL (4.30-5.70); WHITE BLOOD COUNT 11.2 x10^3/uL (4.0-11.0)
[2021-06-15 05:17] LABS: ALBUMIN 2.4 g/dL (3.4-5.0); ALBUMIN/GLOBULIN RATIO 0.6 (1.0-1.7); CALCIUM 8.1 mg/dL (8.5-10.1); CREATININE 1.7 mg/dL (0.7-1.3); GFR 39.1; POTASSIUM 4.7 mmol/L (3.5-5.1); TOTAL BILIRUBIN 0.3 mg/dL (0.2-1.0); TOTAL PROTEIN 6.1 g/dL (6.4-8.2)
[2021-06-15] MEDS: LEVOTHYROXINE 88 MCG TABLET PO SCH (05:45)
[2021-06-15 07:49] LABS: BASE EXCESS ABG -3 mmol/L (-3-3); HCO3 ABG 22 mmol/L (21-28); PCO2 ABG 36 mmHg (35-46); PO2 ABG 79 mmHg (65-108); SAT O2 ABG 94 % (92-99)
[2021-06-15 07:52] LABS: FIO2 ABG 100
[2021-06-15] MEDS: INSULIN LISPRO 300 UNITS/3 ML VIAL. SQ SCH ×3 (08:00→16:44)
--- NOTE | 2021-06-15 08:08 | RAD ---
EXAM: Chest, single view. HISTORY: Infiltrate. COMPARISON: 06/11/2021 FINDINGS: A frontal view of the chest is obtained. There has been no significant change in multifocal interstitial infiltrate and suspected small pleural effusions. There is stable cardiomegaly. There i s evidence of prior CABG. There is no pneumothorax. IMPRESSION: Stable multifocal interstitial infiltrate and cardiomegaly with suspected small pleural e ffusions. Electronically signed by: Larissa Vanessa MD (06/15/2021 8:05 AM) [id number]
--- NOTE | 2021-06-15 08:35 | PDOC ---
DATE OF SERVICE DATE: 06/15/21 TIME: 08:33 SUBJECTIVE ROS Stable OBJECTIVE Vital Signs Vital Signs Date Time Temp Pulse Resp B/P (MAP) Pulse Ox O2 Delivery O2 Flow Rate FiO2 06/15/21 07:27 94 BiPAP/CPAP 06/15/21 06:15 60 21 104/57 06/15/21 04:30 40.0 06/15/21 04:00 97.9 97.9 I & 0 Intake and Output 06/15/21 07:00 Intake Total 1104 ml Output Total 3175 ml Balance -2071 ml Intake Oral 450 ml IV Total 654 ml Output Urine Total 3175 ml PHYSICAL EXAM Physical Exam GGeneral NAD, HEEN On BiPap Neck Supple Lungs Decreased at bases, Heart S1S2 Abd Soft, NT, BS + Neuro AXO x2 , confused some,No focal deficit Ext No LE edema Jonas + Derm No Rash DIAGNOSIS/ASSESSMENT Assessment & Plan LUCÍA - ATN , Non Oliguric . E-Lytes stable, UA Glucosuria . ; Renal Function improving Supportive care, Maintain fluid balance , Avoid Nephrotoxins, Strict I/O Rhabdomyolysis- Mildly elevated CK POA CKD stage 2 - Baseline Creat 0.9-1.May per [facility] records, No interval labs available to me Acute hypoxemic respiratory failure - Abnormal x-ray, Tested positive for COVID-19.On remdesivir dexamethasone, and O2 Support COVID 19 Pneumonia - Rapid positive ; He is Unvaccinated [place] at home Chronic systolic CHF- ejection fraction is moderately to severely impaired. EF 25%.The distal half of the LV is severely akinetic to hypokinetic. There is global hypokinesis. H/o Ischemic cardiomyopathy LBBB - chronic CAD s/p CABG 2009 Diabetes, II Thrombocytopenia COMMENT/RELEVANT DATA Meds Current Medications Medications (Trade) Dose Ordered Sig/Raj Start Time Stop Time Status Last Admin Dose Admin Acetaminophen (Tylenol) 650 mg PRN Q6HRS PRN 06/11/21 20:30 06/12/21 09:04 650 MG Albumin Human 250 ml @ 62.5 mls/hr PRN DAILY PRN 06/12/21 17:45 06/13/21 04:52 62.5 MLS/HR Albuterol Sulfate (Ventolin Hfa) 2 puff PRN Q4HRS PRN 06/11/21 19:00 06/11/21 21:22 2 PUFF Ascorbic Acid (Vitamin C) 500 mg DAILY 06/12/21 09:00 06/14/21 08:43 500 MG Aspirin (Ecotrin) 81 mg DAILYWBKFT 06/12/21 08:00 06/14/21 08:42 81 MG Atorvastatin Calcium (Lipitor) 40 mg QHS 06/11/21 21:00 06/14/21 20:44 40 MG Atropine Sulfate (ATROPINE 0.5mg SYRINGE) 0.5 mg PRN Q5MIN PRN 06/13/21 18:30 Calcium Carbonate/ Glycine (Tums) 500 mg PRN Q3HRS PRN 06/11/21 20:30 Ceftriaxone Sodium (Rocephin) 1 gm Q24H 06/11/21 21:00 06/14/21 20:43 1 GM Dexamethasone Sodium Phosphate (Decadron) 6 mg DAILY 06/12/21 09:00 06/14/21 08:42 6 MG Dexmedetomidine HCl 400 mcg/ Sodium Chloride 100 ml @ 4.555 mls/ hr CONT PRN 06/13/21 18:30 06/14/21 20:07 4.555 MLS/HR Dextrose (Dextrose 50%-Water Syringe) 12.5 gm PRN Q15MIN PRN 06/11/21 20:00 Digoxin (Lanoxin) 500 mcg 1X ONCE 06/13/21 16:00 06/13/21 16:02 DC 06/13/21 16:26 500 MCG Dobutamine HCl/ Dextrose 250 ml @ 13.26 mls/ hr CONT PRN 06/12/21 13:00 06/12/21 13:38 13.26 MLS/HR Doxycycline Hyclate (Vibra-Tab) 100 mg BID 06/11/21 21:00 06/14/21 20:44 100 MG Furosemide (Lasix) 40 mg 1X ONCE 06/11/21 21:00 06/11/21 21:01 DC 06/11/21 21:23 40 MG Guaifenesin/ Codeine Phosphate (Robitussin Ac) 5 ml PRN Q6HRS PRN 06/11/21 20:00 06/14/21 08:43 5 ML Heparin Sodium (Porcine) (Heparin Sodium) 5,000 unit Q12HR 06/13/21 21:00 06/14/21 20:45 5,000 UNIT Info (Non-Icu Electrolyte Protocol) 1 ea PRN DAILY PRN 06/11/21 20:30 Insulin Glargine (Lantus Syringe) 15 unit QHS 06/13/21 21:00 06/14/21 20:46 15 UNIT Insulin Human Lispro (HumaLOG) 20 units 1X ONCE 06/13/21 22:30 06/13/21 22:31 DC 06/13/21 22:09 20 UNITS Lactobacillus Rhamnosus (Culturelle) 1 cap BID 06/13/21 09:00 06/14/21 20:44 1 CAP Levothyroxine Sodium (Synthroid) 88 mcg DAILY06 06/12/21 06:00 06/15/21 05:45 88 MCG Norepinephrine Bitartrate 8 mg/ Dextrose 258 ml @ 17.105 mls/ hr CONT PRN 06/12/21 12:00 06/14/21 15:25 13.684 MLS/HR Ondansetron HCl (Zofran) 4 mg PRN Q6HRS PRN 06/11/21 20:30 Oxycodone HCl (Roxicodone) 5 mg PRN Q3HRS PRN 06/11/21 20:30 Oxycodone/ Acetaminophen (Percocet 5/325) 2 tab PRN Q4HRS PRN 06/11/21 20:30 Remdesivir 100 mg/ Sodium Chloride 230 ml @ 460 mls/hr Q24H 06/12/21 20:00 06/15/21 20:29 06/14/21 20:07 460 MLS/HR Remdesivir 200 mg/ Sodium Chloride 210 ml @ 210 mls/hr 1X ONCE 06/11/21 20:00 06/11/21 20:59 DC 06/11/21 20:33 210 MLS/HR Senna/Docusate Sodium (Senna Plus) 1 tab BID 06/11/21 21:00 06/14/21 08:43 1 TAB Sodium Chloride 500 ml @ 500 mls/hr 1X PRN PRN 06/13/21 18:30 Sterile Water (WATER for RESP) 2,000 ml CONT PRN 06/14/21 09:15 06/14/21 09:42 2,000 ML Thiamine Mononitrate (Vitamin B-1) 100 mg DAILY 06/12/21 09:00 06/14/21 08:43 100 MG Zinc Sulfate (Orazinc) 220 mg DAILY 06/12/21 09:00 06/14/21 08:43 220 MG Lab Laboratory Tests Test 06/14/21 08:59 06/14/21 12:16 06/14/21 17:54 06/15/21 04:30 O2 Saturation 83 % (92-99) Arterial Blood pH 7.34 (7.35-7.45) Arterial Blood pCO2 at Patient Temp 34 mmHg (35-46) Arterial Blood pO2 at Patient Temp 51 mmHg (65-108) Arterial Blood HCO3 18 mmol/L (21-28) Arterial Blood Base Excess -7 mmol/L (-3-3) FiO2 15l nc + nrb Glucose (Fingerstick) 269 mg/dL (70-99) 239 mg/dL (70-99) White Blood Count 11.2 x10^3/uL (4.0-11.0) Red Blood Count 4.17 x10^6/uL (4.30-5.70) Hemoglobin 13.1 g/dL (13.0-17.5) Hematocrit 39.2 % (39.0-53.0) Mean Corpuscular Volume 94 fL (79-100) Mean Corpuscular Hemoglobin 32 pg (25-35) Mean Corpuscular Hemoglobin Concent 34 g/dL (31-37) Red Cell Distribution Width 15.0 % (11.5-14.5) Platelet Count 116 x10^3/uL (140-400) Neutrophils (%) (Auto) 88 % (31-73) Lymphocytes (%) (Auto) 5 % (24-48) Monocytes (%) (Auto) 7 % (0-9) Eosinophils (%) (Auto) 0 % (0-3) Basophils (%) (Auto) 0 % (0-3) Neutrophils # (Auto) 9.9 x10^3/uL (1.8-7.7) Lymphocytes # (Auto) 0.5 x10^3/uL (1.0-4.8) Monocytes # (Auto) 0.8 x10^3/uL (0.0-1.1) Eosinophils # (Auto) 0.0 x10^3/uL (0.0-0.7) Basophils # (Auto) 0.0 x10^3/uL (0.0-0.2) Sodium Level 142 mmol/L (136-145) Potassium Level 4.7 mmol/L (3.5-5.1) Chloride Level 110 mmol/L (98-107) Carbon Dioxide Level 21 mmol/L (21-32) Anion Gap 11 (6-14) Blood Urea Nitrogen 58 mg/dL (8-26) Creatinine 1.7 mg/dL (0.7-1.3) Estimated GFR (Cockcroft-Gault) 39.1 BUN/Creatinine Ratio 34 (6-20) Glucose Level 203 mg/dL (70-99) Calcium Level 8.1 mg/dL (8.5-10.1) Total Bilirubin 0.3 mg/dL (0.2-1.0) Aspartate Amino Transf (AST/SGOT) 52 U/L (15-37) Alanine Aminotransferase (ALT/SGPT) 30 U/L (16-63) Alkaline Phosphatase 61 U/L (46-116) Total Protein 6.1 g/dL (6.4-8.2) Albumin 2.4 g/dL (3.4-5.0) Albumin/Globulin Ratio 0.6 (1.0-1.7) Test 06/15/21 07:35 O2 Saturation 94 % (92-99) Arterial Blood pH 7.40 (7.35-7.45) Arterial Blood pCO2 at Patient Temp 36 mmHg (35-46) Arterial Blood pO2 at Patient Temp 79 mmHg (65-108) Arterial Blood HCO3 22 mmol/L (21-28) Arterial Blood Base Excess -3 mmol/L (-3-3) FiO2 100 Results All relevant outside records, renal labs, imaging studies, telemetry/EKG's were reviewed. Justicifation of Admission Dx: Justifications for Admission: Justification of Admission Dx: Yes Altered Mental Status: Altered Mental Status LUDIVINA MEDLEY MD Jun 15, 2021 08:35
--- NOTE | 2021-06-15 08:38 | PDOC ---
[employer] PROGRESS NOTE Date of Service DOS: DATE: 06/15/21 TIME: 08:27 Chief Complaint Chief Complaint A/P: Acute respiratory failure with hypoxia - secondary to COVID PNA. Febrile. Weakness, falls at home - due to hypoxia from COVID 19 Chronic systolic CHF - NT Pro BNP WNL. Cardiology consulted H/o Ischemic cardiomyopathy LBBB - chronic CAD s/p CABG 2008 Hypertension Hyperlipidemia Diabetes, II - sliding scale LUCÍA - likely vasomotor nephropathy. Consulted nephrology Hypothyroidism Thrombocytopenia - likely due to viral illness, will monitor Hyponatremia - likely nutritional FEN - ADA cardiac diet PPX - heparin FULL CODE Dispo - inpatient History of Present Illness History of Present Illness Patient is a 81 year old male w/ PMHx DM2, HTN, CAD s/p CABG, chronic systolic CHF who presents with 4-day history of weakness, nausea, vomiting and confusion. Patient is a poor historian, but his family member at bedside aids in providing history. For 4 days prior to admission has had weakness nausea and vomiting and is followed for twice without strength has had no injury but has been getting more confused. In ED was noted with pulse oximetry 83% on room air. Rapid COVID-19 returned positive. Patient is not vaccinated against COVID-19. Patient and family member deny fever, chills, chest pain, palpitations, shortness of breath, cough, constipation, abdominal pain, diarrhea. Patient has no other complaints at this time Initiated on remdesivir and admitted for further care. 06/12: Up to 12 L facemask O2 overnight still little confused. O2 saturations 91% on this O2. Na133, Cr 3. Having some nausea and diarrhea. No vomiting currently. Plan: Given deteriorating condition will need higher level of care, transfer to ICU for likely vapotherm therapy, consult Pulm 06/13: Afebrile. On 15 L nonrebreather. Transferred to ICU overnight due to hypotension and bradycardia. Currently requiring Levophed and dobutamine. Echocardiogram yesterday showed global hypokinesis severely impaired EF 25%. Continue to hold heart failure medications until stable. Continue remdesivir steroids, empiric antibiotics. Critical care time 30 minutes spent reviewing charts, reviewing labs, reviewing imaging, discussion with RN. 06/14: Afebrile. 15 L nonrebreather and still hypoxic and mid 80s. Discussed with patient if he would be okay with intubation if necessary, he says that would be fine with him. I have some concerns about underlying dementia; reached out to patient's to confirm if she would be okay with intubation, but no answer x2. Remains on pressor support; dobutamine discontinued due to tachycardia. Continue remdesivir; last dose should be tomorrow. Continue st eroids and empiric antibiotics. Critical care time 30 minutes spent reviewing charts, reviewing labs, reviewing imaging, discussion with RN. 06/15: Afebrile, breathing on BiPAP with improvement in oxygen saturation. Yesterday after patient agreed to full code, RN spoke with ; due to concerns for dementia patient's reiterated that patient would want DNR; CODE STATUS was changed. Last day remdesivir today. Chest x-ray today showed stable multifocal interstitial infiltrate and cardiomegaly with suspected small pleural effusions. We will continue empiric antibiotics. Continue steroids and supportive care. Will follow cardiology recommendations; secondary prevention as able, hold coreg, lisinopril. Critical care time 30 minutes spent reviewing charts, reviewing labs, reviewing imaging, discussion with RN. Vitals/I&O Vitals/I&O: Vital Signs Date Time Temp Pulse Resp B/P (MAP) Pulse Ox O2 Delivery O2 Flow Rate FiO2 06/15/21 07:27 94 BiPAP/CPAP 06/15/21 06:15 60 21 104/57 06/15/21 04:30 40.0 06/15/21 04:00 97.9 97.9 I & O 0 06/14/21 06/14/21 06/15/21 15:00 23:00 07:00 Intake Total 350 ml 563 ml 191 ml Output Total 1175 ml 1100 ml 900 ml Balance -825 ml -537 ml -709 ml Physical Exam General: Alert, Cooperative, No acute distress Heart: Other (tachycardic) Lungs: Clear Abdomen: Normal bowel sounds, Soft Extremities: No edema Skin: No significant lesion Labs Labs: Laboratory Tests Test 06/14/21 08:59 06/14/21 12:16 06/14/21 17:54 06/15/21 04:30 O2 Saturation 83 % (92-99) Arterial Blood pH 7.34 (7.35-7.45) Arterial Blood pCO2 at Patient Temp 34 mmHg (35-46) Arterial Blood pO2 at Patient Temp 51 mmHg (65-108) Arterial Blood HCO3 18 mmol/L (21-28) Arterial Blood Base Excess -7 mmol/L (-3-3) FiO2 15l nc + nrb Glucose (Fingerstick) 269 mg/dL (70-99) 239 mg/dL (70-99) White Blood Count 11.2 x10^3/uL (4.0-11.0) Red Blood Count 4.17 x10^6/uL (4.30-5.70) Hemoglobin 13.1 g/dL (13.0-17.5) Hematocrit 39.2 % (39.0-53.0) Mean Corpuscular Volume 94 fL (79-100) Mean Corpuscular Hemoglobin 32 pg (25-35) Mean Corpuscular Hemoglobin Concent 34 g/dL (31-37) Red Cell Distribution Width 15.0 % (11.5-14.5) Platelet Count 116 x10^3/uL (140-400) Neutrophils (%) (Auto) 88 % (31-73) Lymphocytes (%) (Auto) 5 % (24-48) Monocytes (%) (Auto) 7 % (0-9) Eosinophils (%) (Auto) 0 % (0-3) Basophils (%) (Auto) 0 % (0-3) Neutrophils # (Auto) 9.9 x10^3/uL (1.8-7.7) Lymphocytes # (Auto) 0.5 x10^3/uL (1.0-4.8) Monocytes # (Auto) 0.8 x10^3/uL (0.0-1.1) Eosinophils # (Auto) 0.0 x10^3/uL (0.0-0.7) Basophils # (Auto) 0.0 x10^3/uL (0.0-0.2) Sodium Level 142 mmol/L (136-145) Potassium Level 4.7 mmol/L (3.5-5.1) Chloride Level 110 mmol/L (98-107) Carbon Dioxide Level 21 mmol/L (21-32) Anion Gap 11 (6-14) Blood Urea Nitrogen 58 mg/dL (8-26) Creatinine 1.7 mg/dL (0.7-1.3) Estimated GFR (Cockcroft-Gault) 39.1 BUN/Creatinine Ratio 34 (6-20) Glucose Level 203 mg/dL (70-99) Calcium Level 8.1 mg/dL (8.5-10.1) Total Bilirubin 0.3 mg/dL (0.2-1.0) Aspartate Amino Transf (AST/SGOT) 52 U/L (15-37) Alanine Aminotransferase (ALT/SGPT) 30 U/L (16-63) Alkaline Phosphatase 61 U/L (46-116) Total Protein 6.1 g/dL (6.4-8.2) Albumin 2.4 g/dL (3.4-5.0) Albumin/Globulin Ratio 0.6 (1.0-1.7) Test 06/15/21 07:35 O2 Saturation 94 % (92-99) Arterial Blood pH 7.40 (7.35-7.45) Arterial Blood pCO2 at Patient Temp 36 mmHg (35-46) Arterial Blood pO2 at Patient Temp 79 mmHg (65-108) Arterial Blood HCO3 22 mmol/L (21-28) Arterial Blood Base Excess -3 mmol/L (-3-3) FiO2 100 Assessment and Plan Assessmemt and Plan Problems Medical Problems: (1) Fall in elderly patient Status: Acute (2) Pneumonia due to COVID-19 virus Status: Acute Comment Review of Relevant I have reviewed the following items [place] (where applicable) has been applied. Medications: Current Medications Medications (Trade) Dose Ordered Sig/Raj Route PRN Reason Start Time Stop Time Status Last Admin Dose Admin Sterile Water (WATER for RESP) 2,000 ml CONT PRN INH VIA VAPOTHERM DEVICE 06/14/21 09:15 06/14/21 09:42 Justifications for Admission Other Justification NANY PARRA MD Jun 15, 2021 08:38
[2021-06-15] MEDS: ASPIRIN ENTERIC COATED 81 MG TABLET.DR. PO SCH (08:46)
[2021-06-15] MEDS: DOXYCYCLINE HYCLATE 100 MG TABLET PO SCH ×2 (08:46→20:50)
[2021-06-15] MEDS: ZINC SULFATE 220 MG CAPSULE. PO SCH (08:46)
[2021-06-15] MEDS: LACTOBACILLUS RHAMNOSUS GG 1 CAPSULE. PO SCH ×2 (08:46→20:50)
[2021-06-15] MEDS: ASCORBIC ACID 500 MG TABLET PO SCH (08:46)
[2021-06-15] MEDS: THIAMINE 100 MG TABLET. PO SCH (08:46)
[2021-06-15] MEDS: DEXAMETHASONE SOD PHOS 4 MG/ML VIAL IVP SCH (08:47)
[2021-06-15] MEDS: HEPARIN for SUB-Q USE 5,000 UNIT/ML VIAL. SQ SCH ×2 (08:51→20:53)
[2021-06-15] MEDS: SENNOSIDES/DOCUSATE 8.6/50MG TABLET. PO SCH ×2 (08:53→20:50)
--- NOTE | 2021-06-15 09:20 | PDOC ---
PULMONARY PROGRESS NOTES DATE: 06/15/21 TIME: 09:20 Subjective Patient currently on BiPAP " Hanging in there" patient awake alert following commands, Vitals Vital Signs Date Time Temp Pulse Resp B/P (MAP) Pulse Ox O2 Delivery O2 Flow Rate FiO2 06/15/21 07:27 94 BiPAP/CPAP 06/15/21 06:15 60 21 104/57 06/15/21 04:30 40.0 06/15/21 04:00 97.9 97.9 ROS: No Nausea, No Abdominal Pain, No Increase Cough General: Alert Lungs: Clear Cardiovascular: S1, S2 Abdomen: Soft Neuro Exam: Alert Extremities: Other (Some edema) Skin: Warm Labs Laboratory Tests Test 06/13/21 11:50 06/13/21 17:57 06/13/21 20:58 06/13/21 23:37 Glucose (Fingerstick) 296 mg/dL (70-99) 329 mg/dL (70-99) 402 mg/dL (70-99) 271 mg/dL (70-99) Test 06/14/21 05:30 06/14/21 08:59 06/14/21 12:16 06/14/21 17:54 Sodium Level 138 mmol/L (136-145) Potassium Level 5.0 mmol/L (3.5-5.1) Chloride Level 107 mmol/L (98-107) Carbon Dioxide Level 20 mmol/L (21-32) Anion Gap 11 (6-14) Blood Urea Nitrogen 78 mg/dL (8-26) Creatinine 2.5 mg/dL (0.7-1.3) Estimated GFR (Cockcroft-Gault) 25.0 BUN/Creatinine Ratio 31 (6-20) Glucose Level 164 mg/dL (70-99) Calcium Level 7.8 mg/dL (8.5-10.1) Total Bilirubin 0.3 mg/dL (0.2-1.0) Aspartate Amino Transf (AST/SGOT) 60 U/L (15-37) Alanine Aminotransferase (ALT/SGPT) 27 U/L (16-63) Alkaline Phosphatase 60 U/L (46-116) Total Protein 6.1 g/dL (6.4-8.2) Albumin 2.3 g/dL (3.4-5.0) Albumin/Globulin Ratio 0.6 (1.0-1.7) O2 Saturation 83 % (92-99) Arterial Blood pH 7.34 (7.35-7.45) Arterial Blood pCO2 at Patient Temp 34 mmHg (35-46) Arterial Blood pO2 at Patient Temp 51 mmHg (65-108) Arterial Blood HCO3 18 mmol/L (21-28) Arterial Blood Base Excess -7 mmol/L (-3-3) FiO2 15l nc + nrb Glucose (Fingerstick) 269 mg/dL (70-99) 239 mg/dL (70-99) Test 06/15/21 04:30 06/15/21 07:35 White Blood Count 11.2 x10^3/uL (4.0-11.0) Red Blood Count 4.17 x10^6/uL (4.30-5.70) Hemoglobin 13.1 g/dL (13.0-17.5) Hematocrit 39.2 % (39.0-53.0) Mean Corpuscular Volume 94 fL (79-100) Mean Corpuscular Hemoglobin 32 pg (25-35) Mean Corpuscular Hemoglobin Concent 34 g/dL (31-37) Red Cell Distribution Width 15.0 % (11.5-14.5) Platelet Count 116 x10^3/uL (140-400) Neutrophils (%) (Auto) 88 % (31-73) Lymphocytes (%) (Auto) 5 % (24-48) Monocytes (%) (Auto) 7 % (0-9) Eosinophils (%) (Auto) 0 % (0-3) Basophils (%) (Auto) 0 % (0-3) Neutrophils # (Auto) 9.9 x10^3/uL (1.8-7.7) Lymphocytes # (Auto) 0.5 x10^3/uL (1.0-4.8) Monocytes # (Auto) 0.8 x10^3/uL (0.0-1.1) Eosinophils # (Auto) 0.0 x10^3/uL (0.0-0.7) Basophils # (Auto) 0.0 x10^3/uL (0.0-0.2) Sodium Level 142 mmol/L (136-145) Potassium Level 4.7 mmol/L (3.5-5.1) Chloride Level 110 mmol/L (98-107) Carbon Dioxide Level 21 mmol/L (21-32) Anion Gap 11 (6-14) Blood Urea Nitrogen 58 mg/dL (8-26) Creatinine 1.7 mg/dL (0.7-1.3) Estimated GFR (Cockcroft-Gault) 39.1 BUN/Creatinine Ratio 34 (6-20) Glucose Level 203 mg/dL (70-99) Calcium Level 8.1 mg/dL (8.5-10.1) Total Bilirubin 0.3 mg/dL (0.2-1.0) Aspartate Amino Transf (AST/SGOT) 52 U/L (15-37) Alanine Aminotransferase (ALT/SGPT) 30 U/L (16-63) Alkaline Phosphatase 61 U/L (46-116) Total Protein 6.1 g/dL (6.4-8.2) Albumin 2.4 g/dL (3.4-5.0) Albumin/Globulin Ratio 0.6 (1.0-1.7) O2 Saturation 94 % (92-99) Arterial Blood pH 7.40 (7.35-7.45) Arterial Blood pCO2 at Patient Temp 36 mmHg (35-46) Arterial Blood pO2 at Patient Temp 79 mmHg (65-108) Arterial Blood HCO3 22 mmol/L (21-28) Arterial Blood Base Excess -3 mmol/L (-3-3) FiO2 100 Laboratory Tests Test 06/14/21 12:16 06/14/21 17:54 06/15/21 04:30 06/15/21 07:35 Glucose (Fingerstick) 269 mg/dL (70-99) 239 mg/dL (70-99) White Blood Count 11.2 x10^3/uL (4.0-11.0) Red Blood Count 4.17 x10^6/uL (4.30-5.70) Hemoglobin 13.1 g/dL (13.0-17.5) Hematocrit 39.2 % (39.0-53.0) Mean Corpuscular Volume 94 fL (79-100) Mean Corpuscular Hemoglobin 32 pg (25-35) Mean Corpuscular Hemoglobin Concent 34 g/dL (31-37) Red Cell Distribution Width 15.0 % (11.5-14.5) Platelet Count 116 x10^3/uL (140-400) Neutrophils (%) (Auto) 88 % (31-73) Lymphocytes (%) (Auto) 5 % (24-48) Monocytes (%) (Auto) 7 % (0-9) Eosinophils (%) (Auto) 0 % (0-3) Basophils (%) (Auto) 0 % (0-3) Neutrophils # (Auto) 9.9 x10^3/uL (1.8-7.7) Lymphocytes # (Auto) 0.5 x10^3/uL (1.0-4.8) Monocytes # (Auto) 0.8 x10^3/uL (0.0-1.1) Eosinophils # (Auto) 0.0 x10^3/uL (0.0-0.7) Basophils # (Auto) 0.0 x10^3/uL (0.0-0.2) Sodium Level 142 mmol/L (136-145) Potassium Level 4.7 mmol/L (3.5-5.1) Chloride Level 110 mmol/L (98-107) Carbon Dioxide Level 21 mmol/L (21-32) Anion Gap 11 (6-14) Blood Urea Nitrogen 58 mg/dL (8-26) Creatinine 1.7 mg/dL (0.7-1.3) Estimated GFR (Cockcroft-Gault) 39.1 BUN/Creatinine Ratio 34 (6-20) Glucose Level 203 mg/dL (70-99) Calcium Level 8.1 mg/dL (8.5-10.1) Total Bilirubin 0.3 mg/dL (0.2-1.0) Aspartate Amino Transf (AST/SGOT) 52 U/L (15-37) Alanine Aminotransferase (ALT/SGPT) 30 U/L (16-63) Alkaline Phosphatase 61 U/L (46-116) Total Protein 6.1 g/dL (6.4-8.2) Albumin 2.4 g/dL (3.4-5.0) Albumin/Globulin Ratio 0.6 (1.0-1.7) O2 Saturation 94 % (92-99) Arterial Blood pH 7.40 (7.35-7.45) Arterial Blood pCO2 at Patient Temp 36 mmHg (35-46) Arterial Blood pO2 at Patient Temp 79 mmHg (65-108) Arterial Blood HCO3 22 mmol/L (21-28) Arterial Blood Base Excess -3 mmol/L (-3-3) FiO2 100 Medications Active Scripts Medications Dose Route/Sig Max Daily Dose Days Date Category Dose Instructions Lantus Solostar (Insulin Glargine,Hum.rec.anlog) 100 Unit/1 Ml Insuln.pen 15 Unit SQ QHS 30 06/02/20 Rx If glucose > 200 on 2 or more readings, can add 2u for the night Aspirin Ec (Aspirin) 81 Mg Tablet.dr 81 Mg PO [id number] 06/02/20 Rx Atorvastatin Calcium 40 Mg Tablet 40 Mg PO QHS 90 06/02/20 Rx Novolog (Insulin Aspart) 100 Unit/1 Ml Cartridge 0-9 Unit SQ QID 30 06/02/20 Rx Glucose - Insulin >150mg/dL - 3u 151-200 - 5u 201-250 - 6u 251-300 - 7u 301-350 - 9u >350 - Contact Furosemide 40 Mg Tablet 1 Tab PO DAILY 06/01/20 Reported Spironolactone 25 Mg Tablet 1 Tab PO DAILY 06/01/20 Reported Levothyroxine Sodium 88 Mcg Tablet 1 Tab PO DAILY 06/01/20 Reported Lisinopril 5 Mg Tablet 1 Tab PO DAILY 06/01/20 Reported Carvedilol (Carvedilol) 12.5 Mg Tablet 12.5 Mg PO BIDWMEALS 06/01/20 Reported Impression . IMPRESSION: 1. Acute hypoxemic respiratory failure secondary to acute on chronic systolic heart failure. 2. Abnormal x-ray, compatible more with congestive heart failure and COVID-19. 3. Tested positive for COVID-19. 4. Possible COVID-19 viral pneumonia. 5. Acute on chronic kidney failure. 6. Elevated liver function tests. 7. Severe protein malnutrition, present upon admission. 9. Hypotension, suspect cardiogenic in nature. Echo report <Conclusion> The ejection fraction is moderately to severely impaired. EF 25% The distal half of the LV is severely akinetic to hypokinetic. There is global hypokinesis. Plan . Updated 06/[address] Hopkins Patient currently DO NOT RESUSCITATE Continue current support Remdesivir dexamethasone Nutritional support DVT GI prophylaxis updated 06/14 Continue oxygen support I discussed CODE STATUS with the patient, patient wishes to be full code, he wishes to be intubated if things do not improve Discussed with RN and RT Continue remdesivir dexamethasone updated 06/13 continue current support On pressors Follow cardiology input Monitor labs Continue remdesivir dexamethasone Nutritional support Anticoagulation KAREN ARAYA MD Jun 15, 2021 09:20
--- NOTE | 2021-06-15 10:08 | NUR ---
SS following up with discharge planning. SS reviewed pt chart and discussed with pt RN. Pt is currently on BIPAP at 100%. COVID19 positive. Pt on IV Remdesivir, IV Decadron, IV Rocephin, and Precedex. DNR. Not stable. SS will continue to follow for discharge planning.
--- NOTE | 2021-06-15 13:58 | PDOC ---
SALONI DAVIS MOTORBOAT MECHANIC HELPER 06/15/21 1358: CARDIO Progress Notes Date and Time Date of Service 06/15/21 Time of Evaluation 1215 Subjective Subjective: Other (unable to obtain ) Vitals Vitals Vital Signs Date Time Temp Pulse Resp B/P (MAP) Pulse Ox O2 Delivery O2 Flow Rate FiO2 06/15/21 13:48 93 BiPAP/CPAP 06/15/21 11:00 86 26 126/68 06/15/21 08:00 98.6 98.6 06/15/21 04:30 40.0 Weight Weight [ ] Input and Output Intake and Output Intake and Output 06/15/21 07:00 Intake Total 1104 ml Output Total 3175 ml Balance -2071 ml Intake Oral 450 ml IV Total 654 ml Output Urine Total 3175 ml Laboratory Labs Laboratory Tests Test 06/14/21 17:54 06/15/21 04:30 06/15/21 07:35 06/15/21 12:58 Glucose (Fingerstick) 239 mg/dL (70-99) 205 mg/dL (70-99) White Blood Count 11.2 x10^3/uL (4.0-11.0) Red Blood Count 4.17 x10^6/uL (4.30-5.70) Hemoglobin 13.1 g/dL (13.0-17.5) Hematocrit 39.2 % (39.0-53.0) Mean Corpuscular Volume 94 fL (79-100) Mean Corpuscular Hemoglobin 32 pg (25-35) Mean Corpuscular Hemoglobin Concent 34 g/dL (31-37) Red Cell Distribution Width 15.0 % (11.5-14.5) Platelet Count 116 x10^3/uL (140-400) Neutrophils (%) (Auto) 88 % (31-73) Lymphocytes (%) (Auto) 5 % (24-48) Monocytes (%) (Auto) 7 % (0-9) Eosinophils (%) (Auto) 0 % (0-3) Basophils (%) (Auto) 0 % (0-3) Neutrophils # (Auto) 9.9 x10^3/uL (1.8-7.7) Lymphocytes # (Auto) 0.5 x10^3/uL (1.0-4.8) Monocytes # (Auto) 0.8 x10^3/uL (0.0-1.1) Eosinophils # (Auto) 0.0 x10^3/uL (0.0-0.7) Basophils # (Auto) 0.0 x10^3/uL (0.0-0.2) Sodium Level 142 mmol/L (136-145) Potassium Level 4.7 mmol/L (3.5-5.1) Chloride Level 110 mmol/L (98-107) Carbon Dioxide Level 21 mmol/L (21-32) Anion Gap 11 (6-14) Blood Urea Nitrogen 58 mg/dL (8-26) Creatinine 1.7 mg/dL (0.7-1.3) Estimated GFR (Cockcroft-Gault) 39.1 BUN/Creatinine Ratio 34 (6-20) Glucose Level 203 mg/dL (70-99) Calcium Level 8.1 mg/dL (8.5-10.1) Total Bilirubin 0.3 mg/dL (0.2-1.0) Aspartate Amino Transf (AST/SGOT) 52 U/L (15-37) Alanine Aminotransferase (ALT/SGPT) 30 U/L (16-63) Alkaline Phosphatase 61 U/L (46-116) Total Protein 6.1 g/dL (6.4-8.2) Albumin 2.4 g/dL (3.4-5.0) Albumin/Globulin Ratio 0.6 (1.0-1.7) O2 Saturation 94 % (92-99) Arterial Blood pH 7.40 (7.35-7.45) Arterial Blood pCO2 at Patient Temp 36 mmHg (35-46) Arterial Blood pO2 at Patient Temp 79 mmHg (65-108) Arterial Blood HCO3 22 mmol/L (21-28) Arterial Blood Base Excess -3 mmol/L (-3-3) FiO2 100 Microbiology Micro Microbiology 06/11/21 Urine Culture - Final, Complete 06/11/21 Blood Culture - Preliminary, Resulted NO GROWTH AFTER 3 DAYS Physical Exam HEENT: Neck Supple W Full Motion Chest: Symmetric LUNGS: Other (on BiPAP) Heart: RRR (SR) Abdomen: Other (non-distended ) Extremities: No Edema Neurology: alert, other Assessment Assessment 1. Weakness, falls 2. Acute respiratory failure secondary to COVID PNA, CHF. 3. Acute on chronic systolic CHF; better compensated s/p IV Lasix. 4. Ischemic cardiomyopathy; Echo with LVEF 25% 5. Chronic LBBB 6. CAD s/p CABG 2008, clinically stable 7. H/o hypertension with present hypotension. on low dose Levophed 8. Hyperlipidemia 9. Diabetes, II: per IM 10. LUCÍA; Cr better 11. Hypothyroidism 12. Thrombocytopenia; PLTs stable Recommendations Secondary prevention as able Hold Coreg, lisinopril with hypotension Pressor support; wean as tolerated Avoid nephrotoxins Ongoing lung optimization, treatment of COVID as per pulmonary Additional Lasix PRN Supportive care Justicifation of Admission Dx: Justifications for Admission: Justification of Admission Dx: Yes Altered Mental Status: Altered Mental Status REGINALD MAGALLON MD 06/15/212101: CARDIO Progress Notes Assessment Assessment Patient seen and examined. Agree with ORE BRIDGE OPERATOR's assessment and plan. Acute on chr systolic HF better compensated Wean pressors off as tolerated Tele did not show any significant arrhythmias Continue treatment of covid pneumonia per pulm team SALONI DAVIS APRN Jun 15, 2021 13:58 REGINALD MAGALLON MD Jun 15, 2021 21:02
[2021-06-15] MEDS: DEXMEDETOMIDINE 400 MCG in IV NORMAL SALINE 100ML 96 ML IV PRN (15:45)
[2021-06-15] MEDS: REMDESIVIR 100mg in NORMAL SALINE 250ML X 4 DAYS IV SCH (20:07)
[2021-06-15] MEDS: cefTRIAXone IV Push 1 GM VIAL. IVP SCH (20:50)
[2021-06-15] MEDS: ATORVASTATIN CALCIUM 40 MG TABLET. PO SCH (20:51)
[2021-06-15] MEDS: INSULIN GLARGINE SYRINGE. SQ SCH (20:51)
[2021-06-16] VITALS (23 sets, daily range): BP systolic 93–150; BP diastolic 57–76
[2021-06-16] MEDS: DEXMEDETOMIDINE 400 MCG in IV NORMAL SALINE 100ML 96 ML IV PRN ×2 (03:11→19:59)
[2021-06-16 05:38] LABS: BASO % 0 % (0-3); EOS % 0 % (0-3); HEMATOCRIT 38.4 % (39.0-53.0); HEMOGLOBIN 12.6 g/dL (13.0-17.5); LYMPH # 0.6 x10^3/uL (1.0-4.8); LYMPH % 7 % (24-48); MEAN CORPUSCULAR HEMOGLOBIN 31 pg (25-35); MEAN CORPUSCULAR HGB CONC 33 g/dL (31-37); MEAN CORPUSCULAR VOLUME 95 fL (79-100); MONO # 0.8 x10^3/uL (0.0-1.1); MONO % 9 % (0-9); NEUT # 7.4 x10^3/uL (1.8-7.7); NEUT % 85 % (31-73); PLATELET COUNT 111 x10^3/uL (140-400); RED BLOOD COUNT 4.06 x10^6/uL (4.30-5.70); RED CELL DISTRIBUTION WIDTH 15.1 % (11.5-14.5); WHITE BLOOD COUNT 8.8 x10^3/uL (4.0-11.0)
[2021-06-16] MEDS: LEVOTHYROXINE 88 MCG TABLET PO SCH (06:00)
--- NOTE | 2021-06-16 06:59 | PDOC ---
[employer] PROGRESS NOTE Date of Service DOS: DATE: 06/16/21 TIME: 06:51 Chief Complaint Chief Complaint A/P: Acute respiratory failure with hypoxia - secondary to COVID PNA. Febrile. Weakness, falls at home - due to hypoxia from COVID 19 Chronic systolic CHF - NT Pro BNP WNL. Cardiology consulted H/o Ischemic cardiomyopathy LBBB - chronic CAD s/p CABG 2008 Hypertension Hyperlipidemia Diabetes, II - sliding scale LUCÍA - likely vasomotor nephropathy. Consulted nephrology Hypothyroidism Thrombocytopenia - likely due to viral illness, will monitor Hyponatremia - likely nutritional FEN - ADA cardiac diet PPX - heparin FULL CODE Dispo - inpatient History of Present Illness History of Present Illness Patient is a 81 year old male w/ PMHx DM2, HTN, CAD s/p CABG, chronic systolic CHF who presents with 4-day history of weakness, nausea, vomiting and confusion. Patient is a poor historian, but his family member at bedside aids in providing history. For 4 days prior to admission has had weakness nausea and vomiting and is followed for twice without strength has had no injury but has been getting more confused. In ED was noted with pulse oximetry 83% on room air. Rapid COVID-19 returned positive. Patient is not vaccinated against COVID-19. Patient and family member deny fever, chills, chest pain, palpitations, shortness of breath, cough, constipation, abdominal pain, diarrhea. Patient has no other complaints at this time Initiated on remdesivir and admitted for further care. 06/12: Up to 12 L facemask O2 overnight still little confused. O2 saturations 91% on this O2. Na133, Cr 3. Having some nausea and diarrhea. No vomiting currently. Plan: Given deteriorating condition will need higher level of care, transfer to ICU for likely vapotherm therapy, consult Pulm 06/13: Afebrile. On 15 L nonrebreather. Transferred to ICU overnight due to hypotension and bradycardia. Currently requiring Levophed and dobutamine. Echocardiogram yesterday showed global hypokinesis severely impaired EF 25%. Continue to hold heart failure medications until stable. Continue remdesivir steroids, empiric antibiotics. Critical care time 30 minutes spent reviewing charts, reviewing labs, reviewing imaging, discussion with RN. 06/14: Afebrile. 15 L nonrebreather and still hypoxic and mid 80s. Discussed with patient if he would be okay with intubation if necessary, he says that would be fine with him. I have some concerns about underlying dementia; reached out to patient's to confirm if she would be okay with intubation, but no answer x2. Remains on pressor support; dobutamine discontinued due to tachycardia. Continue remdesivir; last dose should be tomorrow. Continue st eroids and empiric antibiotics. Critical care time 30 minutes spent reviewing charts, reviewing labs, reviewing imaging, discussion with RN. 06/15: Afebrile, breathing on BiPAP with improvement in oxygen saturation. Yesterday after patient agreed to full code, RN spoke with ; due to concerns for dementia patient's reiterated that patient would want DNR; CODE STATUS was changed. Last day remdesivir today. Chest x-ray today showed stable multifocal interstitial infiltrate and cardiomegaly with suspected small pleural effusions. We will continue empiric antibiotics. Continue steroids and supportive care. Will follow cardiology recommendations; secondary prevention as able, hold coreg, lisinopril. Critical care time 30 minutes spent reviewing charts, reviewing labs, reviewing imaging, discussion with RN. 06/16: Afebrile, still breathing on BiPAP. S/P remdesivir. Continue empiric antibiotics and Decadron to complete 10-day course. Renal function improving, will try to maintain fluid balance. Follow cardiology recommendations. Continue Levophed as needed. Critical care time 30 minutes spent reviewing charts, reviewing labs, reviewing imaging, discussion with RN. Vitals/I&O Vitals/I&O: Vital Signs Date Time Temp Pulse Resp B/P (MAP) Pulse Ox O2 Delivery O2 Flow Rate FiO2 06/16/21 06:00 82 28 98/58 93 BiPAP/CPAP 06/16/21 04:00 98.9 98.9 I & O 06/15/21 06/15/21 06/16/21 15:00 23:00 07:00 Intake Total 707 ml 258 ml Output Total 700 ml 775 ml 550 ml Balance -700 ml -68 ml -292 ml Physical Exam General: Alert, Cooperative, No acute distress Heart: Other (tachycardic) Lungs: Clear Abdomen: Normal bowel sounds, Soft Extremities: No edema Skin: No significant lesion Labs Labs: Laboratory Tests Test 06/15/21 07:35 06/15/21 12:58 06/15/21 16:37 06/16/21 04:30 O2 Saturation 94 % (92-99) Arterial Blood pH 7.40 (7.35-7.45) Arterial Blood pCO2 at Patient Temp 36 mmHg (35-46) Arterial Blood pO2 at Patient Temp 79 mmHg (65-108) Arterial Blood HCO3 22 mmol/L (21-28) Arterial Blood Base Excess -3 mmol/L (-3-3) FiO2 100 Glucose (Fingerstick) 205 mg/dL (70-99) 173 mg/dL (70-99) White Blood Count 8.8 x10^3/uL (4.0-11.0) Red Blood Count 4.06 x10^6/uL (4.30-5.70) Hemoglobin 12.6 g/dL (13.0-17.5) Hematocrit 38.4 % (39.0-53.0) Mean Corpuscular Volume 95 fL (79-100) Mean Corpuscular Hemoglobin 31 pg (25-35) Mean Corpuscular Hemoglobin Concent 33 g/dL (31-37) Red Cell Distribution Width 15.1 % (11.5-14.5) Platelet Count 111 x10^3/uL (140-400) Neutrophils (%) (Auto) 85 % (31-73) Lymphocytes (%) (Auto) 7 % (24-48) Monocytes (%) (Auto) 9 % (0-9) Eosinophils (%) (Auto) 0 % (0-3) Basophils (%) (Auto) 0 % (0-3) Neutrophils # (Auto) 7.4 x10^3/uL (1.8-7.7) Lymphocytes # (Auto) 0.6 x10^3/uL (1.0-4.8) Monocytes # (Auto) 0.8 x10^3/uL (0.0-1.1) Eosinophils # (Auto) 0.0 x10^3/uL (0.0-0.7) Basophils # (Auto) 0.0 x10^3/uL (0.0-0.2) Assessment and Plan Assessmemt and Plan Problems Medical Problems: (1) Fall in elderly patient Status: Acute (2) Pneumonia due to COVID-19 virus Status: Acute Comment Review of Relevant I have reviewed the following items [place] (where applicable) has been applied. Justifications for Admission Other Justification NANY PARRA MD Jun 16, 2021 06:59
[2021-06-16] MEDS: ASCORBIC ACID 500 MG TABLET PO SCH (07:34)
[2021-06-16] MEDS: THIAMINE 100 MG TABLET. PO SCH (07:34)
[2021-06-16] MEDS: ZINC SULFATE 220 MG CAPSULE. PO SCH (07:34)
[2021-06-16] MEDS: ASPIRIN ENTERIC COATED 81 MG TABLET.DR. PO SCH (07:34)
[2021-06-16] MEDS: DEXAMETHASONE SOD PHOS 4 MG/ML VIAL IVP SCH (07:34)
[2021-06-16] MEDS: LACTOBACILLUS RHAMNOSUS GG 1 CAPSULE. PO SCH ×2 (07:34→21:00)
[2021-06-16] MEDS: HEPARIN for SUB-Q USE 5,000 UNIT/ML VIAL. SQ SCH ×2 (07:35→22:40)
[2021-06-16] MEDS: SENNOSIDES/DOCUSATE 8.6/50MG TABLET. PO SCH ×2 (07:35→21:00)
[2021-06-16] MEDS: DOXYCYCLINE HYCLATE 100 MG TABLET PO SCH ×2 (07:35→21:00)
[2021-06-16] MEDS: INSULIN LISPRO 300 UNITS/3 ML VIAL. SQ SCH ×4 (08:00→18:43)
--- NOTE | 2021-06-16 08:40 | PDOC ---
PULMONARY PROGRESS NOTES DATE: 06/16/21 TIME: 08:40 Subjective Patient less responsive today, on BiPAP, appears to be uncomfortable Vitals Vital Signs Date Time Temp Pulse Resp B/P (MAP) Pulse Ox O2 Delivery O2 Flow Rate FiO2 06/16/21 07:20 93 BiPAP/CPAP 06/16/21 06:00 82 28 98/58 06/16/21 04:00 98.9 98.9 Comments Unable to review systems, currently on BiPAP General: Alert Lungs: Clear Cardiovascular: S1, S2 Abdomen: Soft Neuro Exam: Alert Extremities: Other (Some edema) Skin: Warm Labs Laboratory Tests Test 06/14/21 08:59 06/14/21 12:16 06/14/21 17:54 06/15/21 04:30 O2 Saturation 83 % (92-99) Arterial Blood pH 7.34 (7.35-7.45) Arterial Blood pCO2 at Patient Temp 34 mmHg (35-46) Arterial Blood pO2 at Patient Temp 51 mmHg (65-108) Arterial Blood HCO3 18 mmol/L (21-28) Arterial Blood Base Excess -7 mmol/L (-3-3) FiO2 15l nc + nrb Glucose (Fingerstick) 269 mg/dL (70-99) 239 mg/dL (70-99) White Blood Count 11.2 x10^3/uL (4.0-11.0) Red Blood Count 4.17 x10^6/uL (4.30-5.70) Hemoglobin 13.1 g/dL (13.0-17.5) Hematocrit 39.2 % (39.0-53.0) Mean Corpuscular Volume 94 fL (79-100) Mean Corpuscular Hemoglobin 32 pg (25-35) Mean Corpuscular Hemoglobin Concent 34 g/dL (31-37) Red Cell Distribution Width 15.0 % (11.5-14.5) Platelet Count 116 x10^3/uL (140-400) Neutrophils (%) (Auto) 88 % (31-73) Lymphocytes (%) (Auto) 5 % (24-48) Monocytes (%) (Auto) 7 % (0-9) Eosinophils (%) (Auto) 0 % (0-3) Basophils (%) (Auto) 0 % (0-3) Neutrophils # (Auto) 9.9 x10^3/uL (1.8-7.7) Lymphocytes # (Auto) 0.5 x10^3/uL (1.0-4.8) Monocytes # (Auto) 0.8 x10^3/uL (0.0-1.1) Eosinophils # (Auto) 0.0 x10^3/uL (0.0-0.7) Basophils # (Auto) 0.0 x10^3/uL (0.0-0.2) Sodium Level 142 mmol/L (136-145) Potassium Level 4.7 mmol/L (3.5-5.1) Chloride Level 110 mmol/L (98-107) Carbon Dioxide Level 21 mmol/L (21-32) Anion Gap 11 (6-14) Blood Urea Nitrogen 58 mg/dL (8-26) Creatinine 1.7 mg/dL (0.7-1.3) Estimated GFR (Cockcroft-Gault) 39.1 BUN/Creatinine Ratio 34 (6-20) Glucose Level 203 mg/dL (70-99) Calcium Level 8.1 mg/dL (8.5-10.1) Total Bilirubin 0.3 mg/dL (0.2-1.0) Aspartate Amino Transf (AST/SGOT) 52 U/L (15-37) Alanine Aminotransferase (ALT/SGPT) 30 U/L (16-63) Alkaline Phosphatase 61 U/L (46-116) Total Protein 6.1 g/dL (6.4-8.2) Albumin 2.4 g/dL (3.4-5.0) Albumin/Globulin Ratio 0.6 (1.0-1.7) Test 06/15/21 07:35 06/15/21 12:58 06/15/21 16:37 06/16/21 04:30 O2 Saturation 94 % (92-99) Arterial Blood pH 7.40 (7.35-7.45) Arterial Blood pCO2 at Patient Temp 36 mmHg (35-46) Arterial Blood pO2 at Patient Temp 79 mmHg (65-108) Arterial Blood HCO3 22 mmol/L (21-28) Arterial Blood Base Excess -3 mmol/L (-3-3) FiO2 100 Glucose (Fingerstick) 205 mg/dL (70-99) 173 mg/dL (70-99) White Blood Count 8.8 x10^3/uL (4.0-11.0) Red Blood Count 4.06 x10^6/uL (4.30-5.70) Hemoglobin 12.6 g/dL (13.0-17.5) Hematocrit 38.4 % (39.0-53.0) Mean Corpuscular Volume 95 fL (79-100) Mean Corpuscular Hemoglobin 31 pg (25-35) Mean Corpuscular Hemoglobin Concent 33 g/dL (31-37) Red Cell Distribution Width 15.1 % (11.5-14.5) Platelet Count 111 x10^3/uL (140-400) Neutrophils (%) (Auto) 85 % (31-73) Lymphocytes (%) (Auto) 7 % (24-48) Monocytes (%) (Auto) 9 % (0-9) Eosinophils (%) (Auto) 0 % (0-3) Basophils (%) (Auto) 0 % (0-3) Neutrophils # (Auto) 7.4 x10^3/uL (1.8-7.7) Lymphocytes # (Auto) 0.6 x10^3/uL (1.0-4.8) Monocytes # (Auto) 0.8 x10^3/uL (0.0-1.1) Eosinophils # (Auto) 0.0 x10^3/uL (0.0-0.7) Basophils # (Auto) 0.0 x10^3/uL (0.0-0.2) Procalcitonin 0.15 ng/mL (0.00-0.10) Test 06/16/21 07:42 Glucose (Fingerstick) 152 mg/dL (70-99) Laboratory Tests Test 06/15/21 12:58 06/15/21 16:37 06/16/21 04:30 06/16/21 07:42 Glucose (Fingerstick) 205 mg/dL (70-99) 173 mg/dL (70-99) 152 mg/dL (70-99) White Blood Count 8.8 x10^3/uL (4.0-11.0) Red Blood Count 4.06 x10^6/uL (4.30-5.70) Hemoglobin 12.6 g/dL (13.0-17.5) Hematocrit 38.4 % (39.0-53.0) Mean Corpuscular Volume 95 fL (79-100) Mean Corpuscular Hemoglobin 31 pg (25-35) Mean Corpuscular Hemoglobin Concent 33 g/dL (31-37) Red Cell Distribution Width 15.1 % (11.5-14.5) Platelet Count 111 x10^3/uL (140-400) Neutrophils (%) (Auto) 85 % (31-73) Lymphocytes (%) (Auto) 7 % (24-48) Monocytes (%) (Auto) 9 % (0-9) Eosinophils (%) (Auto) 0 % (0-3) Basophils (%) (Auto) 0 % (0-3) Neutrophils # (Auto) 7.4 x10^3/uL (1.8-7.7) Lymphocytes # (Auto) 0.6 x10^3/uL (1.0-4.8) Monocytes # (Auto) 0.8 x10^3/uL (0.0-1.1) Eosinophils # (Auto) 0.0 x10^3/uL (0.0-0.7) Basophils # (Auto) 0.0 x10^3/uL (0.0-0.2) Procalcitonin 0.15 ng/mL (0.00-0.10) Medications Active Scripts Medications Dose Route/Sig Max Daily Dose Days Date Category Dose Instructions Lantus Solostar (Insulin Glargine,Hum.rec.anlog) 100 Unit/1 Ml Insuln.pen 15 Unit SQ QHS 30 06/02/20 Rx If glucose > 200 on 2 or more readings, can add 2u for the night Aspirin Ec (Aspirin) 81 Mg Tablet.dr 81 Mg PO DAILYWBKFT 06/02/20 Rx Atorvastatin Calcium 40 Mg Tablet 40 Mg PO QHS 90 06/02/20 Rx Novolog (Insulin Aspart) 100 Unit/1 Ml Cartridge 0-9 Unit SQ QID 30 06/02/20 Rx Glucose - Insulin >150mg/dL - 3u 151-200 - 5u 201-250 - 6u 251-300 - 7u 301-350 - 9u >350 - Contact Furosemide 40 Mg Tablet 1 Tab PO DAILY 06/01/20 Reported Spironolactone 25 Mg Tablet 1 Tab PO DAILY 06/01/20 Reported Levothyroxine Sodium 88 Mcg Tablet 1 Tab PO DAILY 06/01/20 Reported Lisinopril 5 Mg Tablet 1 Tab PO DAILY 06/01/20 Reported Carvedilol (Carvedilol) 12.5 Mg Tablet 12.5 Mg PO BIDWMEALS 06/01/20 Reported Impression . IMPRESSION: 1. Acute hypoxemic respiratory failure secondary to acute on chronic systolic heart failure. 2. Abnormal x-ray, compatible more with congestive heart failure and COVID-19. 3. Tested positive for COVID-19. 4. Possible COVID-19 viral pneumonia. 5. Acute on chronic kidney failure. 6. Elevated liver function tests. 7. Severe protein malnutrition, present upon admission. 9. Hypotension, multifactorial, Echo report <Conclusion> The ejection fraction is moderately to severely impaired. EF 25% The distal half of the LV is severely akinetic to hypokinetic. There is global hypokinesis. Plan . Updated 06/16 Patient uncomfortable on BiPAP, air hunger, will initiate morphine drip 2 mg/h with titrate up DVT prophylaxis Patient DNR status Discussed with RN and RT We will continue current support Updated 06/15 Remdesivir dexamethasone updated 06/[address] Hopkins Patient currently DO NOT RESUSCITATE Continue current support Remdesivir dexamethasone Nutritional support DVT GI prophylaxis KAREN ARAYA MD Jun 16, 2021 08:40
--- NOTE | 2021-06-16 12:35 | PDOC ---
CHELO ESCOBAR [employer]CH[employer]ICIAN 06/16/21 1235: CARDIO Progress Notes Date and Time Date of Service 06/16/2021 Time of Evaluation 1210 Subjective Subjective: Other (unable to obtain ) Vitals Vitals Vital Signs Date Time Temp Pulse Resp B/P (MAP) Pulse Ox O2 Delivery O2 Flow Rate FiO2 06/16/21 11:20 96 BiPAP/CPAP 06/16/21 09:00 94 23 150/71 06/16/21 08:00 98.2 98.2 Weight Weight [ ] Input and Output Intake and Output Intake and Output 06/16/21 07:00 Intake Total 965 ml Output Total 2025 ml Balance -1060 ml Intake Oral 500 ml IV Total 465 ml Output Urine Total 2025 ml Laboratory Labs Laboratory Tests Test 06/15/21 12:58 06/15/21 16:37 06/16/21 04:30 06/16/21 07:42 Glucose (Fingerstick) 205 mg/dL (70-99) 173 mg/dL (70-99) 152 mg/dL (70-99) White Blood Count 8.8 x10^3/uL (4.0-11.0) Red Blood Count 4.06 x10^6/uL (4.30-5.70) Hemoglobin 12.6 g/dL (13.0-17.5) Hematocrit 38.4 % (39.0-53.0) Mean Corpuscular Volume 95 fL (79-100) Mean Corpuscular Hemoglobin 31 pg (25-35) Mean Corpuscular Hemoglobin Concent 33 g/dL (31-37) Red Cell Distribution Width 15.1 % (11.5-14.5) Platelet Count 111 x10^3/uL (140-400) Neutrophils (%) (Auto) 85 % (31-73) Lymphocytes (%) (Auto) 7 % (24-48) Monocytes (%) (Auto) 9 % (0-9) Eosinophils (%) (Auto) 0 % (0-3) Basophils (%) (Auto) 0 % (0-3) Neutrophils # (Auto) 7.4 x10^3/uL (1.8-7.7) Lymphocytes # (Auto) 0.6 x10^3/uL (1.0-4.8) Monocytes # (Auto) 0.8 x10^3/uL (0.0-1.1) Eosinophils # (Auto) 0.0 x10^3/uL (0.0-0.7) Basophils # (Auto) 0.0 x10^3/uL (0.0-0.2) Procalcitonin 0.15 ng/mL (0.00-0.10) Microbiology Micro Microbiology 06/11/21 Urine Culture - Final, Complete 06/11/21 Blood Culture - Preliminary, Resulted NO GROWTH AFTER 4 DAYS Physical Exam HEENT: Neck Supple W Full Motion Chest: Symmetric LUNGS: Other (on BiPAP) Heart: RRR (SR) Abdomen: Other (non-distended ) Extremities: No Edema Neurology: alert, other (sedated) Assessment Assessment 1. Weakness, falls 2. Acute respiratory failure secondary to COVID PNA, CHF. 3. Acute on chronic systolic CHF; better compensated s/p IV Lasix. 4. Ischemic cardiomyopathy; Echo with LVEF 25% 5. Chronic LBBB 6. CAD s/p CABG 2008, clinically stable 7. H/o hypertension with present hypotension. on low dose Levophed 8. Hyperlipidemia 9. Diabetes, II: per IM 10. LUCÍA; Cr better 11. Hypothyroidism 12. Thrombocytopenia; PLTs stable 85 13. Encephalopathy: sedated Recommendations Lasix therapy Secondary prevention when able to take PO Resume Coreg when BP consistently adequate. Will consider resuming lisinopril pending renal lab trend Avoid nephrotoxins Ongoing lung optimization, treatment of COVID as per pulmonary Supportive care Justicifation of Admission Dx: Justifications for Admission: Justification of Admission Dx: Yes Altered Mental Status: Altered Mental Status REGINALD MAGALLON MD 06/16/21 1356: CARDIO Progress Notes Assessment Assessment Patient seen and examined. Agree with PATIENT REGISTRAR's assessment and plan. Acute on chr systolic HF better compensated Tele did not show any significant arrhythmias Continue treatment of covid pneumonia per pulm team CHELO ESCOBAR APRN Jun 16, 2021 12:35 REGINALD MAGALLON MD Jun 16, 2021 13:56
[2021-06-16 12:50] LABS: CALCIUM 8.2 mg/dL (8.5-10.1); CREATININE 1.4 mg/dL (0.7-1.3); GFR 48.9; POTASSIUM 4.6 mmol/L (3.5-5.1)
--- NOTE | 2021-06-16 12:57 | PDOC ---
DATE OF SERVICE: DOS: DATE: 06/16/21 TIME: 12:56 SUBJECTIVE ROS Follow-up for LUCÍA OBJECTIVE Vital Signs Vital Signs Date Time Temp Pulse Resp B/P (MAP) Pulse Ox O2 Delivery O2 Flow Rate FiO2 06/16/21 12:00 Bi-pap 06/16/21 12:00 98.4 80 22 115/63 93 98.4 06/15/21 04:30 40.0 I & 0 Intake and Output 06/16/21 07:00 Intake Total 965 ml Output Total 2025 ml Balance -1060 ml Intake Oral 500 ml IV Total 465 ml Output Urine Total 2025 ml PHYSICAL EXAM Physical Exam General Appearance: Remains on BiPAP Full physical exam was unable to be conducted due to COVID-19 respiratory isolation. I have reviewed physical exam as documented by other providers and corroborated this with the nurse caring for the patient DIAGNOSIS/ASSESSMENT Assessment & Plan Acute kidney injury: No labs today. Urine output is good. Anticipate improvement soon We will be available over the weekend please call with questions concerns. Dr. Philip will follow up on Saturday COMMENT/RELEVANT DATA Meds Current Medications Medications (Trade) Dose Ordered Sig/Raj Start Time Stop Time Status Last Admin Dose Admin Acetaminophen (Tylenol) 650 mg PRN Q6HRS PRN 06/11/21 20:30 06/12/21 09:04 Albumin Human 250 ml @ 62.5 mls/hr PRN DAILY PRN 06/12/21 17:45 06/13/21 04:52 Albuterol Sulfate (Ventolin Hfa) 2 puff PRN Q4HRS PRN 06/11/21 19:00 06/11/21 21:22 Ascorbic Acid (Vitamin C) 500 mg DAILY 06/12/21 09:00 06/16/21 07:34 Aspirin (Ecotrin) 81 mg DAILYWBKFT 06/12/21 08:00 06/16/21 07:34 Atorvastatin Calcium (Lipitor) 40 mg QHS 06/11/21 21:00 06/15/21 20:51 Atropine Sulfate (ATROPINE 0.5mg SYRINGE) 0.5 mg PRN Q5MIN PRN 06/13/21 18:30 Calcium Carbonate/ Glycine (Tums) 500 mg PRN Q3HRS PRN 06/11/21 20:30 Ceftriaxone Sodium (Rocephin) 1 gm Q24H 06/11/21 21:00 06/15/21 20:50 Dexamethasone Sodium Phosphate (Decadron) 6 mg DAILY 06/12/21 09:00 06/16/21 07:34 Dexmedetomidine HCl 400 mcg/ Sodium Chloride 100 ml @ 0 mls/hr CONT PRN 06/13/21 18:30 06/16/21 03:11 Dextrose (Dextrose 50%-Water Syringe) 12.5 gm PRN Q15MIN PRN 06/11/21 20:00 Digoxin (Lanoxin) 500 mcg 1X ONCE 06/13/21 16:00 06/13/21 16:02 DC 06/13/21 16:26 Dobutamine HCl/ Dextrose 250 ml @ 13.26 mls/ hr CONT PRN 06/12/21 13:00 06/12/21 13:38 Doxycycline Hyclate (Vibra-Tab) 100 mg BID 06/11/21 21:00 06/16/21 07:35 Furosemide (Lasix) 40 mg DAILY 06/16/21 13:00 Guaifenesin/ Codeine Phosphate (Robitussin Ac) 5 ml PRN Q6HRS PRN 06/11/21 20:00 06/14/21 08:43 Heparin Sodium (Porcine) (Heparin Sodium) 5,000 unit Q12HR 06/13/21 21:00 06/16/21 07:35 Info (Non-Icu Electrolyte Protocol) 1 ea PRN DAILY PRN 06/11/21 20:30 Insulin Glargine (Lantus Syringe) 15 unit QHS 06/13/21 21:00 06/15/21 20:51 Insulin Human Lispro (HumaLOG) 20 units 1X ONCE 06/13/21 22:30 06/13/21 22:31 DC 06/13/21 22:09 Lactobacillus Rhamnosus (Culturelle) 1 cap BID 06/13/21 09:00 06/16/21 07:34 Levothyroxine Sodium (Synthroid) 88 mcg DAILY06 06/12/21 06:00 06/15/21 05:45 Norepinephrine Bitartrate 8 mg/ Dextrose 258 ml @ 17.105 mls/ hr CONT PRN 06/12/21 12:00 06/14/21 15:25 Ondansetron HCl (Zofran) 4 mg PRN Q6HRS PRN 06/11/21 20:30 Oxycodone HCl (Roxicodone) 5 mg PRN Q3HRS PRN 06/11/21 20:30 Oxycodone/ Acetaminophen (Percocet 5/325) 2 tab PRN Q4HRS PRN 06/11/21 20:30 Remdesivir 100 mg/ Sodium Chloride 230 ml @ 460 mls/hr Q24H 06/12/21 20:00 06/15/21 20:29 DC 06/15/21 20:07 Remdesivir 200 mg/ Sodium Chloride 210 ml @ 210 mls/hr 1X ONCE 06/11/21 20:00 06/11/21 20:59 DC 06/11/21 20:33 Senna/Docusate Sodium (Senna Plus) 1 tab BID 06/11/21 21:00 06/14/21 08:43 Sodium Chloride 500 ml @ 500 mls/hr 1X PRN PRN 06/13/21 18:30 Sterile Water (WATER for RESP) 2,000 ml CONT PRN 06/14/21 09:15 06/14/21 09:42 Thiamine Mononitrate (Vitamin B-1) 100 mg DAILY 06/12/21 09:00 06/16/21 07:34 Zinc Sulfate (Orazinc) 220 mg DAILY 06/12/21 09:00 06/16/21 07:34 Lab Laboratory Tests Test 06/15/21 12:58 06/15/21 16:37 06/16/21 04:30 06/16/21 07:42 Glucose (Fingerstick) 205 mg/dL (70-99) 173 mg/dL (70-99) 152 mg/dL (70-99) White Blood Count 8.8 x10^3/uL (4.0-11.0) Red Blood Count 4.06 x10^6/uL (4.30-5.70) Hemoglobin 12.6 g/dL (13.0-17.5) Hematocrit 38.4 % (39.0-53.0) Mean Corpuscular Volume 95 fL (79-100) Mean Corpuscular Hemoglobin 31 pg (25-35) Mean Corpuscular Hemoglobin Concent 33 g/dL (31-37) Red Cell Distribution Width 15.1 % (11.5-14.5) Platelet Count 111 x10^3/uL (140-400) Neutrophils (%) (Auto) 85 % (31-73) Lymphocytes (%) (Auto) 7 % (24-48) Monocytes (%) (Auto) 9 % (0-9) Eosinophils (%) (Auto) 0 % (0-3) Basophils (%) (Auto) 0 % (0-3) Neutrophils # (Auto) 7.4 x10^3/uL (1.8-7.7) Lymphocytes # (Auto) 0.6 x10^3/uL (1.0-4.8) Monocytes # (Auto) 0.8 x10^3/uL (0.0-1.1) Eosinophils # (Auto) 0.0 x10^3/uL (0.0-0.7) Basophils # (Auto) 0.0 x10^3/uL (0.0-0.2) Procalcitonin 0.15 ng/mL (0.00-0.10) Results All relevant outside records, renal labs, imaging studies, telemetry/EKG's were reviewed. Justicifation of Admission Dx: Justifications for Admission: Justification of Admission Dx: Yes Altered Mental Status: Altered Mental Status VINNY RENNER MD Jun 16, 2021 12:57
[2021-06-16] MEDS: FUROSEMIDE 40 MG/4 ML VIAL. IVP SCH (14:22)
[2021-06-16] MEDS: AA 4.25 %/CALCIUM/LYTES/D5W 1,000 ML IV SCH (18:21)
[2021-06-16] MEDS: ATORVASTATIN CALCIUM 40 MG TABLET. PO SCH (21:00)
[2021-06-16] MEDS: cefTRIAXone IV Push 1 GM VIAL. IVP SCH (22:08)
[2021-06-16] MEDS: INSULIN GLARGINE SYRINGE. SQ SCH (22:39)
[2021-06-17] VITALS (24 sets, daily range): BP systolic 103–173; BP diastolic 56–85
[2021-06-17 04:48] LABS: BASO % 0 % (0-3); EOS % 0 % (0-3); HEMATOCRIT 40.7 % (39.0-53.0); HEMOGLOBIN 13.3 g/dL (13.0-17.5); LYMPH # 0.7 x10^3/uL (1.0-4.8); LYMPH % 6 % (24-48); MEAN CORPUSCULAR HEMOGLOBIN 31 pg (25-35); MEAN CORPUSCULAR HGB CONC 33 g/dL (31-37); MEAN CORPUSCULAR VOLUME 95 fL (79-100); MONO # 0.7 x10^3/uL (0.0-1.1); MONO % 7 % (0-9); NEUT # 9.1 x10^3/uL (1.8-7.7); NEUT % 87 % (31-73); PLATELET COUNT 135 x10^3/uL (140-400); RED BLOOD COUNT 4.27 x10^6/uL (4.30-5.70); WHITE BLOOD COUNT 10.5 x10^3/uL (4.0-11.0)
[2021-06-17] MEDS: LEVOTHYROXINE 88 MCG TABLET PO SCH (06:00)
--- NOTE | 2021-06-17 06:16 | PDOC ---
PULMONARY PROGRESS NOTES DATE: 06/17/21 TIME: 06:15 Subjective on bipap precedex sat 96% Vitals Vital Signs Date Time Temp Pulse Resp B/P (MAP) Pulse Ox O2 Delivery O2 Flow Rate FiO2 06/17/21 04:00 Bi-pap 06/17/21 03:00 90 22 154/75 92 06/17/21 00:00 99.1 99.1 Comments Unable to review systems, currently on BiPAP Lungs: Other (no accessory muscle use) Cardiovascular: S1, S2 Abdomen: Soft Neuro Exam: Alert Extremities: Other (Some edema) Skin: No Rashes Labs Laboratory Tests Test 06/15/21 07:35 06/15/21 12:58 06/15/21 16:37 06/16/21 04:30 O2 Saturation 94 % (92-99) Arterial Blood pH 7.40 (7.35-7.45) Arterial Blood pCO2 at Patient Temp 36 mmHg (35-46) Arterial Blood pO2 at Patient Temp 79 mmHg (65-108) Arterial Blood HCO3 22 mmol/L (21-28) Arterial Blood Base Excess -3 mmol/L (-3-3) FiO2 100 Glucose (Fingerstick) 205 mg/dL (70-99) 173 mg/dL (70-99) White Blood Count 8.8 x10^3/uL (4.0-11.0) Red Blood Count 4.06 x10^6/uL (4.30-5.70) Hemoglobin 12.6 g/dL (13.0-17.5) Hematocrit 38.4 % (39.0-53.0) Mean Corpuscular Volume 95 fL (79-100) Mean Corpuscular Hemoglobin 31 pg (25-35) Mean Corpuscular Hemoglobin Concent 33 g/dL (31-37) Red Cell Distribution Width 15.1 % (11.5-14.5) Platelet Count 111 x10^3/uL (140-400) Neutrophils (%) (Auto) 85 % (31-73) Lymphocytes (%) (Auto) 7 % (24-48) Monocytes (%) (Auto) 9 % (0-9) Eosinophils (%) (Auto) 0 % (0-3) Basophils (%) (Auto) 0 % (0-3) Neutrophils # (Auto) 7.4 x10^3/uL (1.8-7.7) Lymphocytes # (Auto) 0.6 x10^3/uL (1.0-4.8) Monocytes # (Auto) 0.8 x10^3/uL (0.0-1.1) Eosinophils # (Auto) 0.0 x10^3/uL (0.0-0.7) Basophils # (Auto) 0.0 x10^3/uL (0.0-0.2) Sodium Level 147 mmol/L (136-145) Potassium Level 4.6 mmol/L (3.5-5.1) Chloride Level 114 mmol/L (98-107) Carbon Dioxide Level 24 mmol/L (21-32) Anion Gap 9 (6-14) Blood Urea Nitrogen 44 mg/dL (8-26) Creatinine 1.4 mg/dL (0.7-1.3) Estimated GFR (Cockcroft-Gault) 48.9 Glucose Level 154 mg/dL (70-99) Calcium Level 8.2 mg/dL (8.5-10.1) Procalcitonin 0.15 ng/mL (0.00-0.10) Test 06/16/21 07:42 06/16/21 18:41 06/17/21 04:00 Glucose (Fingerstick) 152 mg/dL (70-99) 247 mg/dL (70-99) White Blood Count 10.5 x10^3/uL (4.0-11.0) Red Blood Count 4.27 x10^6/uL (4.30-5.70) Hemoglobin 13.3 g/dL (13.0-17.5) Hematocrit 40.7 % (39.0-53.0) Mean Corpuscular Volume 95 fL (79-100) Mean Corpuscular Hemoglobin 31 pg (25-35) Mean Corpuscular Hemoglobin Concent 33 g/dL (31-37) Red Cell Distribution Width 15.0 % (11.5-14.5) Platelet Count 135 x10^3/uL (140-400) Neutrophils (%) (Auto) 87 % (31-73) Lymphocytes (%) (Auto) 6 % (24-48) Monocytes (%) (Auto) 7 % (0-9) Eosinophils (%) (Auto) 0 % (0-3) Basophils (%) (Auto) 0 % (0-3) Neutrophils # (Auto) 9.1 x10^3/uL (1.8-7.7) Lymphocytes # (Auto) 0.7 x10^3/uL (1.0-4.8) Monocytes # (Auto) 0.7 x10^3/uL (0.0-1.1) Eosinophils # (Auto) 0.0 x10^3/uL (0.0-0.7) Basophils # (Auto) 0.0 x10^3/uL (0.0-0.2) Laboratory Tests Test 06/16/21 07:42 06/16/21 18:41 06/17/21 04:00 Glucose (Fingerstick) 152 mg/dL (70-99) 247 mg/dL (70-99) White Blood Count 10.5 x10^3/uL (4.0-11.0) Red Blood Count 4.27 x10^6/uL (4.30-5.70) Hemoglobin 13.3 g/dL (13.0-17.5) Hematocrit 40.7 % (39.0-53.0) Mean Corpuscular Volume 95 fL (79-100) Mean Corpuscular Hemoglobin 31 pg (25-35) Mean Corpuscular Hemoglobin Concent 33 g/dL (31-37) Red Cell Distribution Width 15.0 % (11.5-14.5) Platelet Count 135 x10^3/uL (140-400) Neutrophils (%) (Auto) 87 % (31-73) Lymphocytes (%) (Auto) 6 % (24-48) Monocytes (%) (Auto) 7 % (0-9) Eosinophils (%) (Auto) 0 % (0-3) Basophils (%) (Auto) 0 % (0-3) Neutrophils # (Auto) 9.1 x10^3/uL (1.8-7.7) Lymphocytes # (Auto) 0.7 x10^3/uL (1.0-4.8) Monocytes # (Auto) 0.7 x10^3/uL (0.0-1.1) Eosinophils # (Auto) 0.0 x10^3/uL (0.0-0.7) Basophils # (Auto) 0.0 x10^3/uL (0.0-0.2) Medications Active Scripts Medications Dose Route/Sig Max Daily Dose Days Date Category Dose Instructions Lantus Solostar (Insulin Glargine,Hum.rec.anlog) 100 Unit/1 Ml Insuln.pen 15 Unit SQ QHS 30 06/02/20 Rx If glucose > 200 on 2 or more readings, can add 2u for the night Aspirin Ec (Aspirin) 81 Mg Tablet.dr 81 Mg PO [id number] 06/02/20 Rx Atorvastatin Calcium 40 Mg Tablet 40 Mg PO QHS 90 06/02/20 Rx Novolog (Insulin Aspart) 100 Unit/1 Ml Cartridge 0-9 Unit SQ QID 30 06/02/20 Rx Glucose - Insulin >150mg/dL - 3u 151-200 - 5u 201-250 - 6u 251-300 - 7u 301-350 - 9u >350 - Contact Furosemide 40 Mg Tablet 1 Tab PO DAILY 06/01/20 Reported Spironolactone 25 Mg Tablet 1 Tab PO DAILY 06/01/20 Reported Levothyroxine Sodium 88 Mcg Tablet 1 Tab PO DAILY 06/01/20 Reported Lisinopril 5 Mg Tablet 1 Tab PO DAILY 06/01/20 Reported Carvedilol (Carvedilol) 12.5 Mg Tablet 12.5 Mg PO BIDWMEALS 06/01/20 Reported Comments cxr reviewed Stable multifocal interstitial infiltrate and cardiomegaly with suspected small pleural effusions. Impression . IMPRESSION: 1. Acute hypoxemic respiratory failure secondary to acute on chronic systolic heart failure. 2. Abnormal x-ray, compatible more with congestive heart failure and COVID-19. 3. Tested positive for COVID-19. 4. Possible COVID-19 viral pneumonia. 5. Acute on chronic kidney failure. 6. Elevated liver function tests. 7. Severe protein malnutrition, present upon admission. 9. Hypotension, multifactorial, Echo report <Conclusion> The ejection fraction is moderately to severely impaired. EF 25% The distal half of the LV is severely akinetic to hypokinetic. There is global hypokinesis. Plan . Updated 06/17 cont BiPAP, titrate fio2 to keep sat 90% on morphine drip avoid oversedation DVT prophylaxis Patient DNR status Discussed with RN and RT We will continue current support Updated 06/16 Patient uncomfortable on BiPAP, air hunger, will initiate morphine drip 2 mg/h with titrate up DVT prophylaxis Patient DNR status Discussed with RN and RT We will continue current support Updated 06/15 Remdesivir dexamethasone updated 06/[address] Hopkins Patient currently DO NOT RESUSCITATE Continue current support Remdesivir dexamethasone Nutritional support DVT GI prophylaxis FRANCY CLARKE MD Jun 17, 2021 06:16
[2021-06-17] MEDS: AA 4.25 %/CALCIUM/LYTES/D5W 1,000 ML IV SCH ×2 (06:40→18:48)
[2021-06-17] MEDS: INSULIN LISPRO 300 UNITS/3 ML VIAL. SQ SCH ×3 (08:00→18:41)
[2021-06-17] MEDS: ASPIRIN ENTERIC COATED 81 MG TABLET.DR. PO SCH (08:00)
[2021-06-17] MEDS: DOXYCYCLINE HYCLATE 100 MG TABLET PO SCH ×2 (09:00→21:00)
[2021-06-17] MEDS: LACTOBACILLUS RHAMNOSUS GG 1 CAPSULE. PO SCH ×2 (09:00→21:00)
[2021-06-17] MEDS: SENNOSIDES/DOCUSATE 8.6/50MG TABLET. PO SCH ×2 (09:00→21:00)
[2021-06-17] MEDS: ASCORBIC ACID 500 MG TABLET PO SCH (09:00)
[2021-06-17] MEDS: THIAMINE 100 MG TABLET. PO SCH (09:00)
[2021-06-17] MEDS: ZINC SULFATE 220 MG CAPSULE. PO SCH (09:00)
--- NOTE | 2021-06-17 09:31 | PDOC ---
[facility] PROGRESS NOTE Date of Service DOS: DATE: 06/17/21 TIME: 09:23 Chief Complaint Chief Complaint A/P: Acute respiratory failure with hypoxia - secondary to COVID PNA. Febrile. Weakness, falls at home - due to hypoxia from COVID 19 Chronic systolic CHF - NT Pro BNP WNL. Cardiology consulted H/o Ischemic cardiomyopathy LBBB - chronic CAD s/p CABG 2008 Hypertension Hyperlipidemia Diabetes, II - sliding scale LUCÍA - likely vasomotor nephropathy. Consulted nephrology Hypothyroidism Thrombocytopenia - likely due to viral illness, will monitor Hyponatremia - likely nutritional FEN - ADA cardiac diet PPX - heparin FULL CODE Dispo - inpatient History of Present Illness History of Present Illness Patient is a 81 year old male w/ PMHx DM2, HTN, CAD s/p CABG, chronic systolic CHF who presents with 4-day history of weakness, nausea, vomiting and confusion. Patient is a poor historian, but his family member at bedside aids in providing history. For 4 days prior to admission has had weakness nausea and vomiting and is followed for twice without strength has had no injury but has been getting more confused. In ED was noted with pulse oximetry 83% on room air. Rapid COVID-19 returned positive. Patient is not vaccinated against COVID-19. Patient and family member deny fever, chills, chest pain, palpitations, shortness of breath, cough, constipation, abdominal pain, diarrhea. Patient has no other complaints at this time Initiated on remdesivir and admitted for further care. 06/12: Up to 12 L facemask O2 overnight still little confused. O2 saturations 91% on this O2. Na133, Cr 3. Having some nausea and diarrhea. No vomiting currently. Plan: Given deteriorating condition will need higher level of care, transfer to ICU for likely vapotherm therapy, consult Pulm 06/13: Afebrile. On 15 L nonrebreather. Transferred to ICU overnight due to hypotension and bradycardia. Currently requiring Levophed and dobutamine. Echocardiogram yesterday showed global hypokinesis severely impaired EF 25%. Continue to hold heart failure medications until stable. Continue remdesivir steroids, empiric antibiotics. Critical care time 30 minutes spent reviewing charts, reviewing labs, reviewing imaging, discussion with RN. 06/14: Afebrile. 15 L nonrebreather and still hypoxic and mid 80s. Discussed with patient if he would be okay with intubation if necessary, he says that would be fine with him. I have some concerns about underlying dementia; reached out to patient's to confirm if she would be okay with intubation, but no answer x2. Remains on pressor support; dobutamine discontinued due to tachycardia. Continue remdesivir; last dose should be tomorrow. Continue st eroids and empiric antibiotics. Critical care time 30 minutes spent reviewing charts, reviewing labs, reviewing imaging, discussion with RN. 06/15: Afebrile, breathing on BiPAP with improvement in oxygen saturation. Yesterday after patient agreed to full code, RN spoke with ; due to concerns for dementia patient's reiterated that patient would want DNR; CODE STATUS was changed. Last day remdesivir today. Chest x-ray today showed stable multifocal interstitial infiltrate and cardiomegaly with suspected small pleural effusions. We will continue empiric antibiotics. Continue steroids and supportive care. Will follow cardiology recommendations; secondary prevention as able, hold coreg, lisinopril. Critical care time 30 minutes spent reviewing charts, reviewing labs, reviewing imaging, discussion with RN. 06/16: Afebrile, still breathing on BiPAP. S/P remdesivir. Continue empiric antibiotics and Decadron to complete 10-day course. Renal function improving, will try to maintain fluid balance. Follow cardiology recommendations. Continue Levophed as needed. Critical care time 30 minutes spent reviewing charts, reviewing labs, reviewing imaging, discussion with RN. 06/17: Low-grade fever this morning, T-max 99.7 F. Breathing on BiPAP. S/P remdesivir. Continue steroids. Procalcitonin <0.10, will discontinue empiric antibiotics and monitor. Continue to follow cardiology and nephrology recommendations. Critical care time 30 minutes spent reviewing charts, reviewing labs, reviewing imaging, discussion with RN. Vitals/I&O Vitals/I&O: Vital Signs Date Time Temp Pulse Resp B/P (MAP) Pulse Ox O2 Delivery O2 Flow Rate FiO2 06/17/21 07:37 98 BiPAP/CPAP 06/17/21 06:00 96 22 127/72 06/17/21 04:00 99.7 99.7 I & O 06/16/21 06/16/21 06/17/21 15:00 23:00 07:00 Intake Total 82 ml Output Total 535 ml 1990 ml 350 ml Balance -535 ml -1908 ml -350 ml Physical Exam General: Alert, Cooperative, No acute distress Heart: Other (tachycardic) Lungs: Other (no accessory muscle use) Abdomen: Normal bowel sounds, Soft Extremities: No edema Skin: No significant lesion Labs Labs: Laboratory Tests Test 06/16/21 18:41 06/17/21 04:00 Glucose (Fingerstick) 247 mg/dL (70-99) White Blood Count 10.5 x10^3/uL (4.0-11.0) Red Blood Count 4.27 x10^6/uL (4.30-5.70) Hemoglobin 13.3 g/dL (13.0-17.5) Hematocrit 40.7 % (39.0-53.0) Mean Corpuscular Volume 95 fL (79-100) Mean Corpuscular Hemoglobin 31 pg (25-35) Mean Corpuscular Hemoglobin Concent 33 g/dL (31-37) Red Cell Distribution Width 15.0 % (11.5-14.5) Platelet Count 135 x10^3/uL (140-400) Neutrophils (%) (Auto) 87 % (31-73) Lymphocytes (%) (Auto) 6 % (24-48) Monocytes (%) (Auto) 7 % (0-9) Eosinophils (%) (Auto) 0 % (0-3) Basophils (%) (Auto) 0 % (0-3) Neutrophils # (Auto) 9.1 x10^3/uL (1.8-7.7) Lymphocytes # (Auto) 0.7 x10^3/uL (1.0-4.8) Monocytes # (Auto) 0.7 x10^3/uL (0.0-1.1) Eosinophils # (Auto) 0.0 x10^3/uL (0.0-0.7) Basophils # (Auto) 0.0 x10^3/uL (0.0-0.2) Procalcitonin < 0.10 ng/mL (0.00-0.10) Assessment and Plan Assessmemt and Plan Problems Medical Problems: (1) Fall in elderly patient Status: Acute (2) Pneumonia due to COVID-19 virus Status: Acute Comment Review of Relevant I have reviewed the following items [place] (where applicable) has been applied. Medications: Current Medications Medications (Trade) Dose Ordered Sig/Raj Route PRN Reason Start Time Stop Time Status Last Admin Dose Admin Furosemide (Lasix) 40 mg DAILY IVP 06/16/21 13:00 06/16/21 14:22 Amino Acids/ Electrolytes/ Dextrose 1,000 ml @ 80 mls/hr [id number] IV 06/16/21 17:30 06/17/21 06:40 Justifications for Admission Other Justification NANY PARRA MD Jun 17, 2021 09:31
[2021-06-17] MEDS: DEXAMETHASONE SOD PHOS 4 MG/ML VIAL IVP SCH (11:16)
[2021-06-17] MEDS: FUROSEMIDE 40 MG/4 ML VIAL. IVP SCH (11:16)
[2021-06-17] MEDS: DEXMEDETOMIDINE 400 MCG in IV NORMAL SALINE 100ML 96 ML IV PRN (11:17)
[2021-06-17] MEDS: HEPARIN for SUB-Q USE 5,000 UNIT/ML VIAL. SQ SCH ×2 (11:18→21:43)
--- NOTE | 2021-06-17 12:11 | PDOC ---
PROGRESS NOTES Date of Service DATE: 06/17/21 TIME: 12:09 Subjective Subjective Patient seen and evaluated Objective Objective Vital Signs Date Time Temp Pulse Resp B/P (MAP) Pulse Ox O2 Delivery O2 Flow Rate FiO2 06/17/21 11:00 95 28 140/71 92 BiPAP/CPAP 06/17/21 08:00 99.3 99.3 06/15/21 04:30 40.0 Intake and Output 06/17/21 07:00 Intake Total 82 ml Output Total 2875 ml Balance -2793 ml IV Total 82 ml Output Urine Total 2875 ml Physical Exam Physical Exam Visual examination as per Covid guidelines. Assessment Assessment Problems Medical Problems: (1) Fall in elderly patient Status: Acute (2) Pneumonia due to COVID-19 virus Status: Acute Acute respiratory failure secondary to COVID PNA, CHF. On BiPAP. Followed by pulmonary. Acute on chronic systolic CHF; better compensated s/p IV Lasix. Ischemic cardiomyopathy; Echo with LVEF 25% Chronic LBBB CAD s/p CABG 2008, no reported chest pain. H/o hypertension with present hypotension. on low dose Levophed Hyperlipidemia Diabetes, II: per IM LUCÍA; Cr better Hypothyroidism Thrombocytopenia; PLTs stable Encephalopathy: sedated Comment Review of Relevant I have reviewed the following items [place] (where applicable) has been applied. Labs Laboratory Tests Test 06/15/21 12:58 06/15/21 16:37 06/16/21 04:30 06/16/21 07:42 Glucose (Fingerstick) 205 mg/dL (70-99) 173 mg/dL (70-99) 152 mg/dL (70-99) White Blood Count 8.8 x10^3/uL (4.0-11.0) Red Blood Count 4.06 x10^6/uL (4.30-5.70) Hemoglobin 12.6 g/dL (13.0-17.5) Hematocrit 38.4 % (39.0-53.0) Mean Corpuscular Volume 95 fL (79-100) Mean Corpuscular Hemoglobin 31 pg (25-35) Mean Corpuscular Hemoglobin Concent 33 g/dL (31-37) Red Cell Distribution Width 15.1 % (11.5-14.5) Platelet Count 111 x10^3/uL (140-400) Neutrophils (%) (Auto) 85 % (31-73) Lymphocytes (%) (Auto) 7 % (24-48) Monocytes (%) (Auto) 9 % (0-9) Eosinophils (%) (Auto) 0 % (0-3) Basophils (%) (Auto) 0 % (0-3) Neutrophils # (Auto) 7.4 x10^3/uL (1.8-7.7) Lymphocytes # (Auto) 0.6 x10^3/uL (1.0-4.8) Monocytes # (Auto) 0.8 x10^3/uL (0.0-1.1) Eosinophils # (Auto) 0.0 x10^3/uL (0.0-0.7) Basophils # (Auto) 0.0 x10^3/uL (0.0-0.2) Sodium Level 147 mmol/L (136-145) Potassium Level 4.6 mmol/L (3.5-5.1) Chloride Level 114 mmol/L (98-107) Carbon Dioxide Level 24 mmol/L (21-32) Anion Gap 9 (6-14) Blood Urea Nitrogen 44 mg/dL (8-26) Creatinine 1.4 mg/dL (0.7-1.3) Estimated GFR (Cockcroft-Gault) 48.9 Glucose Level 154 mg/dL (70-99) Calcium Level 8.2 mg/dL (8.5-10.1) Procalcitonin 0.15 ng/mL (0.00-0.10) Test 06/16/21 18:41 06/17/21 04:00 Glucose (Fingerstick) 247 mg/dL (70-99) White Blood Count 10.5 x10^3/uL (4.0-11.0) Red Blood Count 4.27 x10^6/uL (4.30-5.70) Hemoglobin 13.3 g/dL (13.0-17.5) Hematocrit 40.7 % (39.0-53.0) Mean Corpuscular Volume 95 fL (79-100) Mean Corpuscular Hemoglobin 31 pg (25-35) Mean Corpuscular Hemoglobin Concent 33 g/dL (31-37) Red Cell Distribution Width 15.0 % (11.5-14.5) Platelet Count 135 x10^3/uL (140-400) Neutrophils (%) (Auto) 87 % (31-73) Lymphocytes (%) (Auto) 6 % (24-48) Monocytes (%) (Auto) 7 % (0-9) Eosinophils (%) (Auto) 0 % (0-3) Basophils (%) (Auto) 0 % (0-3) Neutrophils # (Auto) 9.1 x10^3/uL (1.8-7.7) Lymphocytes # (Auto) 0.7 x10^3/uL (1.0-4.8) Monocytes # (Auto) 0.7 x10^3/uL (0.0-1.1) Eosinophils # (Auto) 0.0 x10^3/uL (0.0-0.7) Basophils # (Auto) 0.0 x10^3/uL (0.0-0.2) Procalcitonin < 0.10 ng/mL (0.00-0.10) Laboratory Tests Test 06/16/21 18:41 06/17/21 04:00 Glucose (Fingerstick) 247 mg/dL (70-99) White Blood Count 10.5 x10^3/uL (4.0-11.0) Red Blood Count 4.27 x10^6/uL (4.30-5.70) Hemoglobin 13.3 g/dL (13.0-17.5) Hematocrit 40.7 % (39.0-53.0) Mean Corpuscular Volume 95 fL (79-100) Mean Corpuscular Hemoglobin 31 pg (25-35) Mean Corpuscular Hemoglobin Concent 33 g/dL (31-37) Red Cell Distribution Width 15.0 % (11.5-14.5) Platelet Count 135 x10^3/uL (140-400) Neutrophils (%) (Auto) 87 % (31-73) Lymphocytes (%) (Auto) 6 % (24-48) Monocytes (%) (Auto) 7 % (0-9) Eosinophils (%) (Auto) 0 % (0-3) Basophils (%) (Auto) 0 % (0-3) Neutrophils # (Auto) 9.1 x10^3/uL (1.8-7.7) Lymphocytes # (Auto) 0.7 x10^3/uL (1.0-4.8) Monocytes # (Auto) 0.7 x10^3/uL (0.0-1.1) Eosinophils # (Auto) 0.0 x10^3/uL (0.0-0.7) Basophils # (Auto) 0.0 x10^3/uL (0.0-0.2) Procalcitonin < 0.10 ng/mL (0.00-0.10) Microbiology 06/11/21 Urine Culture - Final, Complete 06/11/21 Blood Culture - Final, Complete NO GROWTH AFTER 5 DAYS Medications Current Medications Albuterol Sulfate (Ventolin Hfa) 2 puff PRN Q4HRS PRN INH SHORTNESS OF BREATH Last administered on 06/11/21at 21:22; Start 06/11/21 at 19:00 Remdesivir 200 mg/ Sodium Chloride 210 ml @ 210 mls/hr 1X ONCE IV Last administered on 06/11/21at 20:33; Start 06/11/21 at 20:00; Stop 06/11/21 at 20:59; Status DC Remdesivir 100 mg/ Sodium Chloride 230 ml @ 460 mls/hr Q24H IV Last administered on 06/15/21at 20:07; Start 06/12/21 at 20:00; Stop 06/15/21 at 20:29; Status DC Dexamethasone Sodium Phosphate (Decadron) 6 mg 1X ONCE IVP Last administered on 06/11/21at 20:32; Start 06/11/21 at 19:00; Stop 06/11/21 at 19:01; Status DC Dexamethasone Sodium Phosphate (Decadron) 6 mg DAILY IVP Last administered on 06/17/21at 11:16; Start 06/12/21 at 09:00 Guaifenesin/ Codeine Phosphate (Robitussin Ac) 5 ml PRN Q6HRS PRN PO COUGH Last administered on 06/14/21at 08:43; Start 06/11/21 at 20:00 Ceftriaxone Sodium (Rocephin) 1 gm Q24H IVP Last administered on 06/16/21at 22:08; Start 06/11/21 at 21:00; Stop 06/17/21 at 09:27; Status DC Doxycycline Hyclate (Vibra-Tab) 100 mg BID PO Last administered on 06/16/21at 07:35; Start 06/11/21 at 21:00 Furosemide (Lasix) 40 mg 1X ONCE IVP Last administered on 06/11/21at 21:23; Start 06/11/21 at 21:00; Stop 06/11/21 at 21:01; Status DC Aspirin (Ecotrin) 81 mg DAILYWBKFT PO Last administered on 06/16/21at 07:34; Start 06/12/21 at 08:00 Atorvastatin Calcium (Lipitor) 40 mg QHS PO Last administered on 06/15/21at 20:51; Start 06/11/21 at 21:00 Levothyroxine Sodium (Synthroid) 88 mcg DAILY06 PO Last administered on 06/15/21at 05:45; Start 06/12/21 at 06:00 Insulin Glargine (Lantus Syringe) 10 unit QHS SQ Last administered on 06/12/21at 20:41; Start 06/11/21 at 21:00; Stop 06/13/21 at 07:08; Status DC Insulin Human Lispro (HumaLOG) 0-7 UNITS TIDWMEALS SQ Last administered on 06/16/21at 18:43; Start 06/11/21 at 21:00 Dextrose (Dextrose 50%-Water Syringe) 12.5 gm PRN Q15MIN PRN IV SEE COMMENTS; Start 06/11/21 at 20:00 Ondansetron HCl (Zofran) 4 mg PRN Q6HRS PRN IVP NAUSEA/VOMITING; Start 06/11/21 at 20:30 Calcium Carbonate/ Glycine (Tums) 500 mg PRN Q3HRS PRN PO UPSET STOMACH; Start 06/11/21 at 20:30 Info (Non-Icu Electrolyte Protocol) 1 ea PRN DAILY PRN MC SEE COMMENTS; Start 06/11/21 at 20:30 Oxycodone HCl (Roxicodone) 5 mg PRN Q3HRS PRN PO BREAKTHROUGH PAIN; Start 06/11/21 at 20:30 Oxycodone/ Acetaminophen (Percocet 5/325) 1 tab PRN Q4HRS PRN PO MILD PAIN, 1ST CHOICE; Start 06/11/21 at 20:30 Oxycodone/ Acetaminophen (Percocet 5/325) 2 tab PRN Q4HRS PRN PO MODERATE PAIN, SEVERE PAIN; Start 06/11/21 at 20:30 Acetaminophen (Tylenol) 650 mg PRN Q6HRS PRN PO Headaches, Temp > 101.5F Last administered on 06/12/21at 09:04; Start 06/11/21 at 20:30 Senna/Docusate Sodium (Senna Plus) 1 tab BID PO Last administered on 06/14/21at 08:43; Start 06/11/21 at 21:00 Zinc Sulfate (Orazinc) 220 mg DAILY PO Last administered on 06/16/21at 07:34; Start 06/12/21 at 09:00 Thiamine Mononitrate (Vitamin B-1) 100 mg DAILY PO Last administered on 06/16/21 07:34; Start 06/12/21 at 09:00 Ascorbic Acid (Vitamin C) 500 mg DAILY PO Last administered on 06/16/21at 07:34; Start 06/12/21 at 09:00 Sodium Chloride 500 ml @ 500 mls/hr 1X ONCE IV Last administered on 06/12/21at 12:27; Start 06/12/21 at 12:00; Stop 06/12/21 at 12:59; Status DC Norepinephrine Bitartrate 8 mg/ Dextrose 258 ml @ 17.105 mls/ hr CONT PRN IV PER PROTOCOL Last administered on 06/14/21at 15:25; Start 06/12/21 at 12:00 Dobutamine HCl/ Dextrose 250 ml @ 13.26 mls/ hr CONT PRN IV SEE I/O RECORD Last administered on 06/12/21at 13:38; Start 06/12/21 at 13:00 Albumin Human 250 ml @ 62.5 mls/hr PRN DAILY PRN IV hypotension SPB < 90 Last administered on 06/13/21at 04:52; Start 06/12/21 at 17:45 Insulin Human Lispro (HumaLOG) 3 units 1X SQ ; Start 06/12/21 at 18:00; Stop 06/12/21 at 18:03; Status DC Insulin Human Lispro (HumaLOG) 3 units 1X ONCE SQ Last administered on 06/12/21at 18:07; Start 06/12/21 at 18:15; Stop 06/12/21 at 18:16; Status DC Insulin Glargine (Lantus Syringe) 15 unit QHS SQ Last administered on 06/16/21at 22:39; Start 06/13/21 at 21:00 Lactobacillus Rhamnosus (Culturelle) 1 cap BID PO Last administered on 06/16/21at 07:34; Start 06/13/21 at 09:00 Heparin Sodium (Porcine) (Heparin Sodium) 5,000 unit Q12HR SQ Last administered on 06/17/21at 11:18; Start 06/13/21 at 21:00 Digoxin (Lanoxin) 500 mcg 1X ONCE IV Last administered on 06/13/21at 16:26; Start 06/13/21 at 16:00; Stop 06/13/21 at 16:02; Status DC Sodium Chloride 500 ml @ 500 mls/hr 1X ONCE IV Last administered on 06/13/21at 16:00; Start 06/13/21 at 16:00; Stop 06/13/21 at 16:59; Status DC Dexmedetomidine HCl 400 mcg/ Sodium Chloride 100 ml @ 0 mls/hr CONT PRN IV PER PROTOCOL Last administered on 06/17/21at 11:17; Start 06/13/21 at 18:30 Sodium Chloride 500 ml @ 500 mls/hr 1X PRN PRN IV SEE COMMENTS; Start 06/13/21 at 18:30 Atropine Sulfate (ATROPINE 0.5mg SYRINGE) 0.5 mg PRN Q5MIN PRN IV SEE COMMENTS; Start 06/13/21 at 18:30 Insulin Human Lispro (HumaLOG) 20 units 1X ONCE SQ Last administered on 06/13/21at 22:09; Start 06/13/21 at 22:30; Stop 06/13/21 at 22:31; Status DC Sterile Water (WATER for RESP) 2,000 ml CONT PRN INH VIA VAPOTHERM DEVICE Last administered on 06/14/21at 09:42; Start 06/14/21 at 09:15 Furosemide (Lasix) 40 mg DAILY IVP Last administered on 06/17/21at 11:16; Start 06/16/21 at 13:00 Amino Acids/ Electrolytes/ Dextrose 1,000 ml @ 80 mls/hr [id number] IV Last administered on 06/17/21at 06:40; Start 06/16/21 at 17:30 Active Scripts Active Lantus Solostar (Insulin Glargine,Hum.rec.anlog) 100 Unit/1 Ml Insuln.pen 15 Unit SQ QHS 30 Days If glucose > 200 on 2 or more readings, can add 2u for the night Aspirin Ec (Aspirin) 81 Mg Tablet. 81 Mg PO DAILYWBKFT 90 Days Atorvastatin Calcium 40 Mg Tablet 40 Mg PO QHS 90 Days Novolog (Insulin Aspart) 100 Unit/1 Ml Cartridge 0-9 Unit SQ QID 30 Days Glucose - Insulin >150mg/dL - 3u 151-200 - 5u 201-250 - 6u 251-300 - 7u 301-350 - 9u >350 - Contact MD Reported Furosemide 40 Mg Tablet 1 Tab PO DAILY Spironolactone 25 Mg Tablet 1 Tab PO DAILY Levothyroxine Sodium 88 Mcg Tablet 1 Tab PO DAILY Lisinopril 5 Mg Tablet 1 Tab PO DAILY Carvedilol (Carvedilol) 12.5 Mg Tablet 12.5 Mg PO BIDWMEALS Vitals/I & O Vital Sign - Last 24 Hours 06/16/21 06/16/21 06/16/21 06/16/21 13:00 14:00 15:00 15:25 Pulse 84 80 80 Resp 28 34 22 B/P (MAP) 125/67 127/64 145/76 Pulse Ox 94 94 93 94 O2 Delivery BiPAP/CPAP BiPAP/CPAP BiPAP/CPAP BiPAP/CPAP 06/16/21 06/16/21 06/16/21 06/16/21 16:00 16:00 17:00 17:30 Temp 98.2 98.2 Pulse 86 88 Resp 27 23 B/P (MAP) 122/73 113/70 Pulse Ox 95 92 94 O2 Delivery Bi-pap BiPAP/CPAP BiPAP/CPAP BiPAP/CPAP 06/16/21 06/16/21 06/16/21 06/16/21 18:00 19:00 20:00 20:00 Temp 98.4 98.4 Pulse 68 80 81 Resp 20 18 20 B/P (MAP) 97/61 124/66 119/64 Pulse Ox 92 93 96 O2 Delivery BiPAP/CPAP BiPAP/CPAP Bi-pap BiPAP/CPAP 06/16/21 06/16/21 06/16/21 06/16/21 20:12 21:00 22:00 22:00 Pulse 84 82 Resp 22 18 B/P (MAP) 138/71 130/71 Pulse Ox 96 93 96 95 O2 Delivery BiPAP/CPAP BiPAP/CPAP BiPAP/CPAP BiPAP/CPAP 06/16/21 06/17/21 06/17/21 06/17/21 23:00 00:00 00:00 00:00 Temp 99.1 99.1 Pulse 84 89 Resp 20 20 B/P (MAP) 131/71 132/73 Pulse Ox 94 97 95 O2 Delivery BiPAP/CPAP BiPAP/CPAP BiPAP/CPAP Bi-pap 06/17/21 06/17/21 06/17/21 06/17/21 01:00 02:00 02:30 03:00 Pulse 95 94 90 Resp 18 18 22 B/P (MAP) 146/82 164/85 154/75 Pulse Ox 94 94 92 92 O2 Delivery BiPAP/CPAP BiPAP/CPAP BiPAP/CPAP BiPAP/CPAP 06/17/21 06/17/21 06/17/21 06/17/21 04:00 04:00 05:00 05:00 Temp 99.7 99.7 Pulse 90 86 Resp 24 24 B/P (MAP) 109/65 134/75 Pulse Ox 98 96 97 O2 Delivery Bi-pap BiPAP/CPAP BiPAP/CPAP BiPAP/CPAP 06/17/21 06/17/21 06/17/21 06/17/21 06:00 07:00 07:37 08:00 Temp 99.3 99.3 Pulse 96 93 92 Resp 22 25 26 B/P (MAP) 127/72 141/78 139/74 Pulse Ox 96 95 98 96 O2 Delivery BiPAP/CPAP BiPAP/CPAP BiPAP/CPAP BiPAP/CPAP 06/17/21 06/17/21 06/17/21 06/17/21 08:00 09:00 10:00 10:05 Pulse 91 98 Resp 25 25 B/P (MAP) 138/73 117/63 Pulse Ox 94 95 94 O2 Delivery Bi-pap BiPAP/CPAP BiPAP/CPAP BiPAP/CPAP 06/17/21 11:00 Pulse 95 Resp 28 B/P (MAP) 140/71 Pulse Ox 92 O2 Delivery BiPAP/CPAP Intake and Output 06/16/21 06/16/21 06/17/21 15:00 23:00 07:00 Intake Total 82 ml Output Total 535 ml 1990 ml 350 ml Balance -535 ml -1908 ml -350 ml Justifications for Admission Other Justification Nutrition Consultation Dietary Evaluation: Recommendations by RD: Dietary education by RD, Increase Calorie Intake, Protein supplementation, PPN/TPN Comments: diet changed and liberlized to Mech soft, regular for ease in eating, improve po intake glucerna tid pt with PICC: for TPN rec;295 g Dextrose, 85 g AA, 40 g lipid Expected Outcomes/Goals: to meet >75% est nutrition needs via po intake/ nutrition support Malnutrition Findings: Body Fat Depletion (Non Severe: Mod to Severe Weight Status: Obese ОЛЕГ SALAZAR MD Jun 17, 2021 12:11
[2021-06-17] MEDS: ATORVASTATIN CALCIUM 40 MG TABLET. PO SCH (21:00)
[2021-06-17] MEDS: INSULIN GLARGINE SYRINGE. SQ SCH (21:42)
[2021-06-18] VITALS (24 sets, daily range): BP systolic 78–161; BP diastolic 43–85
--- NOTE | 2021-06-18 05:49 | PDOC ---
PULMONARY PROGRESS NOTES DATE: 06/18/21 TIME: 05:49 Subjective on bipap precedex sat 95% appears comfortable Vitals Vital Signs Date Time Temp Pulse Resp B/P (MAP) Pulse Ox O2 Delivery O2 Flow Rate FiO2 06/18/21 05:00 83 20 119/69 89 BiPAP/CPAP 06/18/21 04:00 98.4 98.4 Comments Unable to review systems, currently on BiPAP Lungs: Other (no accessory muscle use) Cardiovascular: S1, S2 Abdomen: Soft Neuro Exam: Alert Extremities: Other (Some edema) Skin: No Rashes Labs Laboratory Tests Test 06/16/21 07:42 06/16/21 18:41 06/17/21 04:00 06/17/21 13:40 Glucose (Fingerstick) 152 mg/dL (70-99) 247 mg/dL (70-99) 326 mg/dL (70-99) White Blood Count 10.5 x10^3/uL (4.0-11.0) Red Blood Count 4.27 x10^6/uL (4.30-5.70) Hemoglobin 13.3 g/dL (13.0-17.5) Hematocrit 40.7 % (39.0-53.0) Mean Corpuscular Volume 95 fL (79-100) Mean Corpuscular Hemoglobin 31 pg (25-35) Mean Corpuscular Hemoglobin Concent 33 g/dL (31-37) Red Cell Distribution Width 15.0 % (11.5-14.5) Platelet Count 135 x10^3/uL (140-400) Neutrophils (%) (Auto) 87 % (31-73) Lymphocytes (%) (Auto) 6 % (24-48) Monocytes (%) (Auto) 7 % (0-9) Eosinophils (%) (Auto) 0 % (0-3) Basophils (%) (Auto) 0 % (0-3) Neutrophils # (Auto) 9.1 x10^3/uL (1.8-7.7) Lymphocytes # (Auto) 0.7 x10^3/uL (1.0-4.8) Monocytes # (Auto) 0.7 x10^3/uL (0.0-1.1) Eosinophils # (Auto) 0.0 x10^3/uL (0.0-0.7) Basophils # (Auto) 0.0 x10^3/uL (0.0-0.2) Procalcitonin < 0.10 ng/mL (0.00-0.10) Test 06/17/21 18:37 Glucose (Fingerstick) 318 mg/dL (70-99) Laboratory Tests Test 06/17/21 13:40 06/17/21 18:37 Glucose (Fingerstick) 326 mg/dL (70-99) 318 mg/dL (70-99) Medications Active Scripts Medications Dose Route/Sig Max Daily Dose Days Date Category Dose Instructions Lantus Solostar (Insulin Glargine,Hum.rec.anlog) 100 Unit/1 Ml Insuln.pen 15 Unit SQ QHS 30 06/02/20 Rx If glucose > 200 on 2 or more readings, can add 2u for the night Aspirin Ec (Aspirin) 81 Mg Tablet.dr 81 Mg PO DAILYWBKFT 06/02/20 Rx Atorvastatin Calcium 40 Mg Tablet 40 Mg PO QHS 90 06/02/20 Rx Novolog (Insulin Aspart) 100 Unit/1 Ml Cartridge 0-9 Unit SQ QID 30 06/02/20 Rx Glucose - Insulin >150mg/dL - 3u 151-200 - 5u 201-250 - 6u 251-300 - 7u 301-350 - 9u >350 - Contact Furosemide 40 Mg Tablet 1 Tab PO DAILY 06/01/20 Reported Spironolactone 25 Mg Tablet 1 Tab PO DAILY 06/01/20 Reported Levothyroxine Sodium 88 Mcg Tablet 1 Tab PO DAILY 06/01/20 Reported Lisinopril 5 Mg Tablet 1 Tab PO DAILY 06/01/20 Reported Carvedilol (Carvedilol) 12.5 Mg Tablet 12.5 Mg PO BIDWMEALS 06/01/20 Reported Comments cxr reviewed Stable multifocal interstitial infiltrate and cardiomegaly with suspected small pleural effusions. Impression . IMPRESSION: 1. Acute hypoxemic respiratory failure secondary to acute on chronic systolic heart failure. 2. Abnormal x-ray, compatible more with congestive heart failure and COVID-19. 3. Tested positive for COVID-19. 4. Possible COVID-19 viral pneumonia. 5. Acute on chronic kidney failure. 6. Elevated liver function tests. 7. Severe protein malnutrition, present upon admission. 9. Hypotension, multifactorial, Echo report <Conclusion> The ejection fraction is moderately to severely impaired. EF 25% The distal half of the LV is severely akinetic to hypokinetic. There is global hypokinesis. Plan . Updated 06/18 cont BiPAP, setting reviewed titrate fio2 to keep sat 90% on precedex avoid oversedation elevate hob DVT prophylaxis Patient DNR status prognosis poor Discussed with RN and RT We will continue current support Updated 06/17 cont BiPAP, titrate fio2 to keep sat 90% on morphine drip avoid oversedation DVT prophylaxis Patient DNR status Discussed with RN and RT We will continue current support Updated 06/16 Patient uncomfortable on BiPAP, air hunger, will initiate morphine drip 2 mg/h with titrate up DVT prophylaxis Patient DNR status Discussed with RN and RT We will continue current support Updated 06/15 Remdesivir dexamethasone updated 06/[address] Hopkins Patient currently DO NOT RESUSCITATE Continue current support Remdesivir dexamethasone Nutritional support DVT GI prophylaxis FRANCY CLARKE MD Jun 18, 2021 05:49
[2021-06-18] MEDS: LEVOTHYROXINE 88 MCG TABLET PO SCH (05:56)
--- NOTE | 2021-06-18 07:35 | PDOC ---
[employer] PROGRESS NOTE Date of Service DOS: DATE: 06/18/21 TIME: 07:30 Chief Complaint Chief Complaint A/P: Acute respiratory failure with hypoxia - secondary to COVID PNA. Febrile. Weakness, falls at home - due to hypoxia from COVID 19 Chronic systolic CHF - NT Pro BNP WNL. Cardiology consulted H/o Ischemic cardiomyopathy LBBB - chronic CAD s/p CABG 2008 Hypertension Hyperlipidemia Diabetes, II - sliding scale LUCÍA - likely vasomotor nephropathy. Consulted nephrology Hypothyroidism Thrombocytopenia - likely due to viral illness, will monitor Hyponatremia - likely nutritional FEN - ADA cardiac diet PPX - heparin FULL CODE Dispo - inpatient History of Present Illness History of Present Illness Patient is a 81 year old male w/ PMHx DM2, HTN, CAD s/p CABG, chronic systolic CHF who presents with 4-day history of weakness, nausea, vomiting and confusion. Patient is a poor historian, but his family member at bedside aids in providing history. For 4 days prior to admission has had weakness nausea and vomiting and is followed for twice without strength has had no injury but has been getting more confused. In ED was noted with pulse oximetry 83% on room air. Rapid COVID-19 returned positive. Patient is not vaccinated against COVID-19. Patient and family member deny fever, chills, chest pain, palpitations, shortness of breath, cough, constipation, abdominal pain, diarrhea. Patient has no other complaints at this time Initiated on remdesivir and admitted for further care. 06/12: Up to 12 L facemask O2 overnight still little confused. O2 saturations 91% on this O2. Na133, Cr 3. Having some nausea and diarrhea. No vomiting currently. Plan: Given deteriorating condition will need higher level of care, transfer to ICU for likely vapotherm therapy, consult Pulm 06/13: Afebrile. On 15 L nonrebreather. Transferred to ICU overnight due to hypotension and bradycardia. Currently requiring Levophed and dobutamine. Echocardiogram yesterday showed global hypokinesis severely impaired EF 25%. Continue to hold heart failure medications until stable. Continue remdesivir steroids, empiric antibiotics. Critical care time 30 minutes spent reviewing charts, reviewing labs, reviewing imaging, discussion with RN. 06/14: Afebrile. 15 L nonrebreather and still hypoxic and mid 80s. Discussed with patient if he would be okay with intubation if necessary, he says that would be fine with him. I have some concerns about underlying dementia; reached out to patient's to confirm if she would be okay with intubation, but no answer x2. Remains on pressor support; dobutamine discontinued due to tachycardia. Continue remdesivir; last dose should be tomorrow. Continue st eroids and empiric antibiotics. Critical care time 30 minutes spent reviewing charts, reviewing labs, reviewing imaging, discussion with RN. 06/15: Afebrile, breathing on BiPAP with improvement in oxygen saturation. Yesterday after patient agreed to full code, RN spoke with ; due to concerns for dementia patient's reiterated that patient would want DNR; CODE STATUS was changed. Last day remdesivir today. Chest x-ray today showed stable multifocal interstitial infiltrate and cardiomegaly with suspected small pleural effusions. We will continue empiric antibiotics. Continue steroids and supportive care. Will follow cardiology recommendations; secondary prevention as able, hold coreg, lisinopril. Critical care time 30 minutes spent reviewing charts, reviewing labs, reviewing imaging, discussion with RN. 06/16: Afebrile, still breathing on BiPAP. S/P remdesivir. Continue empiric antibiotics and Decadron to complete 10-day course. Renal function improving, will try to maintain fluid balance. Follow cardiology recommendations. Continue Levophed as needed. Critical care time 30 minutes spent reviewing charts, reviewing labs, reviewing imaging, discussion with RN. 06/17: Low-grade fever this morning, T-max 99.7 F. Breathing on BiPAP. S/P remdesivir. Continue steroids. Procalcitonin <0.10, will discontinue empiric antibiotics and monitor. Continue to follow cardiology and nephrology recommendations. Critical care time 30 minutes spent reviewing charts, reviewing labs, reviewing imaging, discussion with RN. 06/18: Afebrile, tachypneic on BiPAP. S/P remdesivir. Empiric antibiotics have been held; continue steroids. Continue to follow cardiology recommendations. Donte continue to follow cardiology recommendations; echo with severely impaired EF 25% and global hypokinesis. Critical care time 30 minutes spent reviewing charts, reviewing labs, reviewing imaging, discussion with RN. Vitals/I&O Vitals/I&O: Vital Signs Date Time Temp Pulse Resp B/P (MAP) Pulse Ox O2 Delivery O2 Flow Rate FiO2 06/18/21 06:00 85 24 114/66 89 BiPAP/CPAP 06/18/21 04:00 98.4 98.4 I & O 06/17/21 06/17/21 06/18/21 14:59 22:59 06:59 Intake Total 1328 ml 1166 ml Output Total 845 ml 1805 ml 375 ml Balance -845 ml -477 ml 791 ml Physical Exam General: Alert, Cooperative, No acute distress Heart: Other (tachycardic) Lungs: Other (no accessory muscle use) Abdomen: Normal bowel sounds, Soft Extremities: No edema Skin: No significant lesion Labs Labs: Laboratory Tests Test 06/17/21 13:40 06/17/21 18:37 Glucose (Fingerstick) 326 mg/dL (70-99) 318 mg/dL (70-99) Assessment and Plan Assessmemt and Plan Problems Medical Problems: (1) Fall in elderly patient Status: Acute (2) Pneumonia due to COVID-19 virus Status: Acute Comment Review of Relevant I have reviewed the following items [place] (where applicable) has been applied. Justifications for Admission Other Justification NANY PARRA MD Jun 18, 2021 07:35
[2021-06-18] MEDS: ASPIRIN ENTERIC COATED 81 MG TABLET.DR. PO SCH (08:00)
[2021-06-18] MEDS: ASCORBIC ACID 500 MG TABLET PO SCH (09:00)
[2021-06-18] MEDS: LACTOBACILLUS RHAMNOSUS GG 1 CAPSULE. PO SCH ×2 (09:00→21:00)
[2021-06-18] MEDS: THIAMINE 100 MG TABLET. PO SCH (09:00)
[2021-06-18] MEDS: ZINC SULFATE 220 MG CAPSULE. PO SCH (09:00)
[2021-06-18] MEDS: SENNOSIDES/DOCUSATE 8.6/50MG TABLET. PO SCH ×2 (09:00→21:00)
[2021-06-18] MEDS: DOXYCYCLINE HYCLATE 100 MG TABLET PO SCH (09:00)
[2021-06-18] MEDS: FUROSEMIDE 40 MG/4 ML VIAL. IVP SCH (09:07)
[2021-06-18] MEDS: DEXAMETHASONE SOD PHOS 4 MG/ML VIAL IVP SCH (09:08)
[2021-06-18] MEDS: HEPARIN for SUB-Q USE 5,000 UNIT/ML VIAL. SQ SCH ×2 (09:08→21:10)
[2021-06-18] MEDS: AA 4.25 %/CALCIUM/LYTES/D5W 1,000 ML IV SCH ×2 (09:13→21:25)
[2021-06-18] MEDS: DEXMEDETOMIDINE 400 MCG in IV NORMAL SALINE 100ML 96 ML IV PRN ×2 (09:13→18:18)
[2021-06-18 10:19] LABS: BASO # 0.1 x10^3/uL (0.0-0.2); BASO % 1 % (0-3); EOS % 0 % (0-3); HEMATOCRIT 42.8 % (39.0-53.0); LYMPH # 0.7 x10^3/uL (1.0-4.8); LYMPH % 7 % (24-48); MEAN CORPUSCULAR HEMOGLOBIN 32 pg (25-35); MEAN CORPUSCULAR HGB CONC 33 g/dL (31-37); MEAN CORPUSCULAR VOLUME 96 fL (79-100); MONO # 0.5 x10^3/uL (0.0-1.1); MONO % 5 % (0-9); NEUT # 8.7 x10^3/uL (1.8-7.7); NEUT % 87 % (31-73); PLATELET COUNT 151 x10^3/uL (140-400); RED BLOOD COUNT 4.45 x10^6/uL (4.30-5.70); RED CELL DISTRIBUTION WIDTH 15.4 % (11.5-14.5); WHITE BLOOD COUNT 10.1 x10^3/uL (4.0-11.0)
[2021-06-18 10:34] LABS: CALCIUM 9.1 mg/dL (8.5-10.1); CREATININE 1.4 mg/dL (0.7-1.3); GFR 48.9; POTASSIUM 4.1 mmol/L (3.5-5.1)
[2021-06-18] MEDS ORDERED: DEXTROSE 50% 25 GM / 50ML DISP.SYRIN. IV PRN (11:15)
[2021-06-18] MEDS: INSULIN LISPRO 300 UNITS/3 ML VIAL. SQ SCH ×2 (12:34→17:31)
--- NOTE | 2021-06-18 15:51 | PDOC ---
PROGRESS NOTES Date of Service DATE: 06/18/21 TIME: 15:49 Subjective Subjective Patient seen and evaluated. Objective Objective Vital Signs Date Time Temp Pulse Resp B/P (MAP) Pulse Ox O2 Delivery O2 Flow Rate FiO2 06/18/21 15:36 96 BiPAP/CPAP 06/18/21 13:00 90 24 131/67 06/18/21 12:00 99.3 99.3 06/15/21 04:30 40.0 Intake and Output 06/18/21 07:00 Intake Total 2494 ml Output Total 3025 ml Balance -531 ml IV Total 2494 ml Output Urine Total 3025 ml Physical Exam Physical Exam Visual examination as per Covid guidelines. Assessment Assessment Problems Medical Problems: (1) Fall in elderly patient Status: Acute (2) Pneumonia due to COVID-19 virus Status: Acute Acute respiratory failure secondary to COVID PNA, CHF. On BiPAP. Followed by pulmonary. Acute on chronic systolic CHF; better compensated s/p IV Lasix. Continue present treatment. Lab testing including a creatinine of 1.4 and potassium of 4.1. Ischemic cardiomyopathy; Echo with LVEF 25%. Medications as above. Chronic LBBB CAD s/p CABG 2008, no reported chest pain. H/o hypertension blood pressure stabilized. Hyperlipidemia Diabetes, II: per IM LUCÍA; Cr better at 1.4. Hypothyroidism Thrombocytopenia Encephalopathy: sedated Comment Review of Relevant I have reviewed the following items [place] (where applicable) has been applied. Labs Laboratory Tests Test 06/16/21 18:41 06/17/21 04:00 06/17/21 13:40 06/17/21 18:37 Glucose (Fingerstick) 247 mg/dL (70-99) 326 mg/dL (70-99) 318 mg/dL (70-99) White Blood Count 10.5 x10^3/uL (4.0-11.0) Red Blood Count 4.27 x10^6/uL (4.30-5.70) Hemoglobin 13.3 g/dL (13.0-17.5) Hematocrit 40.7 % (39.0-53.0) Mean Corpuscular Volume 95 fL (79-100) Mean Corpuscular Hemoglobin 31 pg (25-35) Mean Corpuscular Hemoglobin Concent 33 g/dL (31-37) Red Cell Distribution Width 15.0 % (11.5-14.5) Platelet Count 135 x10^3/uL (140-400) Neutrophils (%) (Auto) 87 % (31-73) Lymphocytes (%) (Auto) 6 % (24-48) Monocytes (%) (Auto) 7 % (0-9) Eosinophils (%) (Auto) 0 % (0-3) Basophils (%) (Auto) 0 % (0-3) Neutrophils # (Auto) 9.1 x10^3/uL (1.8-7.7) Lymphocytes # (Auto) 0.7 x10^3/uL (1.0-4.8) Monocytes # (Auto) 0.7 x10^3/uL (0.0-1.1) Eosinophils # (Auto) 0.0 x10^3/uL (0.0-0.7) Basophils # (Auto) 0.0 x10^3/uL (0.0-0.2) Procalcitonin < 0.10 ng/mL (0.00-0.10) Test 06/18/21 10:05 06/18/21 12:31 White Blood Count 10.1 x10^3/uL (4.0-11.0) Red Blood Count 4.45 x10^6/uL (4.30-5.70) Hemoglobin 14.0 g/dL (13.0-17.5) Hematocrit 42.8 % (39.0-53.0) Mean Corpuscular Volume 96 fL (79-100) Mean Corpuscular Hemoglobin 32 pg (25-35) Mean Corpuscular Hemoglobin Concent 33 g/dL (31-37) Red Cell Distribution Width 15.4 % (11.5-14.5) Platelet Count 151 x10^3/uL (140-400) Neutrophils (%) (Auto) 87 % (31-73) Lymphocytes (%) (Auto) 7 % (24-48) Monocytes (%) (Auto) 5 % (0-9) Eosinophils (%) (Auto) 0 % (0-3) Basophils (%) (Auto) 1 % (0-3) Neutrophils # (Auto) 8.7 x10^3/uL (1.8-7.7) Lymphocytes # (Auto) 0.7 x10^3/uL (1.0-4.8) Monocytes # (Auto) 0.5 x10^3/uL (0.0-1.1) Eosinophils # (Auto) 0.0 x10^3/uL (0.0-0.7) Basophils # (Auto) 0.1 x10^3/uL (0.0-0.2) Sodium Level 151 mmol/L (136-145) Potassium Level 4.1 mmol/L (3.5-5.1) Chloride Level 113 mmol/L (98-107) Carbon Dioxide Level 28 mmol/L (21-32) Anion Gap 10 (6-14) Blood Urea Nitrogen 59 mg/dL (8-26) Creatinine 1.4 mg/dL (0.7-1.3) Estimated GFR (Cockcroft-Gault) 48.9 Glucose Level 315 mg/dL (70-99) Calcium Level 9.1 mg/dL (8.5-10.1) Glucose (Fingerstick) 337 mg/dL (70-99) Laboratory Tests Test 06/17/21 18:37 06/18/21 10:05 06/18/21 12:31 Glucose (Fingerstick) 318 mg/dL (70-99) 337 mg/dL (70-99) White Blood Count 10.1 x10^3/uL (4.0-11.0) Red Blood Count 4.45 x10^6/uL (4.30-5.70) Hemoglobin 14.0 g/dL (13.0-17.5) Hematocrit 42.8 % (39.0-53.0) Mean Corpuscular Volume 96 fL (79-100) Mean Corpuscular Hemoglobin 32 pg (25-35) Mean Corpuscular Hemoglobin Concent 33 g/dL (31-37) Red Cell Distribution Width 15.4 % (11.5-14.5) Platelet Count 151 x10^3/uL (140-400) Neutrophils (%) (Auto) 87 % (31-73) Lymphocytes (%) (Auto) 7 % (24-48) Monocytes (%) (Auto) 5 % (0-9) Eosinophils (%) (Auto) 0 % (0-3) Basophils (%) (Auto) 1 % (0-3) Neutrophils # (Auto) 8.7 x10^3/uL (1.8-7.7) Lymphocytes # (Auto) 0.7 x10^3/uL (1.0-4.8) Monocytes # (Auto) 0.5 x10^3/uL (0.0-1.1) Eosinophils # (Auto) 0.0 x10^3/uL (0.0-0.7) Basophils # (Auto) 0.1 x10^3/uL (0.0-0.2) Sodium Level 151 mmol/L (136-145) Potassium Level 4.1 mmol/L (3.5-5.1) Chloride Level 113 mmol/L (98-107) Carbon Dioxide Level 28 mmol/L (21-32) Anion Gap 10 (6-14) Blood Urea Nitrogen 59 mg/dL (8-26) Creatinine 1.4 mg/dL (0.7-1.3) Estimated GFR (Cockcroft-Gault) 48.9 Glucose Level 315 mg/dL (70-99) Calcium Level 9.1 mg/dL (8.5-10.1) Microbiology 06/11/21 Urine Culture - Final, Complete 06/11/21 Blood Culture - Final, Complete NO GROWTH AFTER 5 DAYS Medications Current Medications Albuterol Sulfate (Ventolin Hfa) 2 puff PRN Q4HRS PRN INH SHORTNESS OF BREATH Last administered on 06/11/21at 21:22; Start 06/11/21 at 19:00 Remdesivir 200 mg/ Sodium Chloride 210 ml @ 210 mls/hr 1X ONCE IV Last administered on 06/11/21at 20:33; Start 06/11/21 at 20:00; Stop 06/11/21 at 20:59; Status DC Remdesivir 100 mg/ Sodium Chloride 230 ml @ 460 mls/hr Q24H IV Last administered on 06/15/21at 20:07; Start 06/12/21 at 20:00; Stop 06/15/21 at 20:29; Status DC Dexamethasone Sodium Phosphate (Decadron) 6 mg 1X ONCE IVP Last administered on 06/11/21at 20:32; Start 06/11/21 at 19:00; Stop 06/11/21 at 19:01; Status DC Dexamethasone Sodium Phosphate (Decadron) 6 mg DAILY IVP Last administered on 06/18/21at 09:08; Start 06/12/21 at 09:00 Guaifenesin/ Codeine Phosphate (Robitussin Ac) 5 ml PRN Q6HRS PRN PO COUGH Last administered on 06/14/21at 08:43; Start 06/11/21 at 20:00 Ceftriaxone Sodium (Rocephin) 1 gm Q24H IVP Last administered on 06/16/21at 22:08; Start 06/11/21 at 21:00; Stop 06/17/21 at 09:27; Status DC Doxycycline Hyclate (Vibra-Tab) 100 mg BID PO Last administered on 06/16/21at 07:35; Start 06/11/21 at 21:00; Stop 06/18/21 at 11:05; Status DC Furosemide (Lasix) 40 mg 1X ONCE IVP Last administered on 06/11/21at 21:23; Start 06/11/21 at 21:00; Stop 06/11/21 at 21:01; Status DC Aspirin (Ecotrin) 81 mg DAILYWBKFT PO Last administered on 06/16/21at 07:34; Start 06/12/21 at 08:00 Atorvastatin Calcium (Lipitor) 40 mg QHS PO Last administered on 06/15/21at 20:51; Start 06/11/21 at 21:00 Levothyroxine Sodium (Synthroid) 88 mcg DAILY06 PO Last administered on 06/15/21at 05:45; Start 06/12/21 at 06:00 Insulin Glargine (Lantus Syringe) 10 unit QHS SQ Last administered on 06/12/21at 20:41; Start 06/11/21 at 21:00; Stop 06/13/21 at 07:08; Status DC Insulin Human Lispro (HumaLOG) 0-7 UNITS TIDWMEALS SQ Last administered on 06/17/21at 18:41; Start 06/11/21 at 21:00; Stop 06/18/21 at 11:05; Status DC Dextrose (Dextrose 50%-Water Syringe) 12.5 gm PRN Q15MIN PRN IV SEE COMMENTS; Start 06/11/21 at 20:00 Ondansetron HCl (Zofran) 4 mg PRN Q6HRS PRN IVP NAUSEA/VOMITING; Start 06/11 at 20:30 Calcium Carbonate/ Glycine (Tums) 500 mg PRN Q3HRS PRN PO UPSET STOMACH; Start 06/11/21 at 20:30 Info (Non-Icu Electrolyte Protocol) 1 ea PRN DAILY PRN MC SEE COMMENTS; Start 06/11/21 at 20:30 Oxycodone HCl (Roxicodone) 5 mg PRN Q3HRS PRN PO BREAKTHROUGH PAIN; Start 06/11/21 at 20:30 Oxycodone/ Acetaminophen (Percocet 5/325) 1 tab PRN Q4HRS PRN PO MILD PAIN, 1ST CHOICE; Start 06/11/21 at 20:30 Oxycodone/ Acetaminophen (Percocet 5/325) 2 tab PRN Q4HRS PRN PO MODERATE PAIN, SEVERE PAIN; Start 06/11/21 at 20:30 Acetaminophen (Tylenol) 650 mg PRN Q6HRS PRN PO Headaches, Temp > 101.5F Last administered on 06/12/21at 09:04; Start 06/11/21 at 20:30 Senna/Docusate Sodium (Senna Plus) 1 tab BID PO Last administered on 06/14/21at 08:43; Start 06/11/21 at 21:00 Zinc Sulfate (Orazinc) 220 mg DAILY PO Last administered on 06/16/21at 07:34; Start 06/12/21 at 09:00 Thiamine Mononitrate (Vitamin B-1) 100 mg DAILY PO Last administered on 06/16/21at 07:34; Start 06/12/21 at 09:00 Ascorbic Acid (Vitamin C) 500 mg DAILY PO Last administered on 06/16/21at 07:34; Start 06/12/21 at 09:00 Sodium Chloride 500 ml @ 500 mls/hr 1X ONCE IV Last administered on 06/12/21at 12:27; Start 06/12/21 at 12:00; Stop 06/12/21 at 12:59; Status DC Norepinephrine Bitartrate 8 mg/ Dextrose 258 ml @ 17.105 mls/ hr CONT PRN IV PER PROTOCOL Last administered on 06/14/21at 15:25; Start 06/12/21 at 12:00 Dobutamine HCl/ Dextrose 250 ml @ 13.26 mls/ hr CONT PRN IV SEE I/O RECORD Last administered on 06/12/21at 13:38; Start 06/12/21 at 13:00 Albumin Human 250 ml @ 62.5 mls/hr PRN DAILY PRN IV hypotension SPB < 90 Last administered on 06/13/21at 04:52; Start 06/12/21 at 17:45 Insulin Human Lispro (HumaLOG) 3 units 1X SQ ; Start 06/12/21 at 18:00; Stop 06/12/21 at 18:03; Status DC Insulin Human Lispro (HumaLOG) 3 units 1X ONCE SQ Last administered on 06/12/21at 18:07; Start 06/12/21 at 18:15; Stop 06/12/21 at 18:16; Status DC Insulin Glargine (Lantus Syringe) 15 unit QHS SQ Last administered on 06/17/21at 21:42; Start 06/13/21 at 21:00 Lactobacillus Rhamnosus (Culturelle) 1 cap BID PO Last administered on 06/16/21at 07:34; Start 06/13/21 at 09:00 Heparin Sodium (Porcine) (Heparin Sodium) 5,000 unit Q12HR SQ Last administered on 06/18/21at 09:08; Start 06/13/21 at 21:00 Digoxin (Lanoxin) 500 mcg 1X ONCE IV Last administered on 06/13/21at 16:26; Start 06/13/21 at 16:00; Stop 06/13/21 at 16:02; Status DC Sodium Chloride 500 ml @ 500 mls/hr 1X ONCE IV Last administered on 06/13/21at 16:00; Start 06/13/21 at 16:00; Stop 06/13/21 at 16:59; Status DC Dexmedetomidine HCl 400 mcg/ Sodium Chloride 100 ml @ 0 mls/hr CONT PRN IV PER PROTOCOL Last administered on 06/18/21at 09:13; Start 06/13/21 at 18:30 Sodium Chloride 500 ml @ 500 mls/hr 1X PRN PRN IV SEE COMMENTS; Start 06/13/21 at 18:30 Atropine Sulfate (ATROPINE 0.5mg SYRINGE) 0.5 mg PRN Q5MIN PRN IV SEE COMMENTS; Start 06/13/21 at 18:30 Insulin Human Lispro (HumaLOG) 20 units 1X ONCE SQ Last administered on 06/13/21at 22:09; Start 06/13/21 at 22:30; Stop 06/13/21 at 22:31; Status DC Sterile Water (WATER for RESP) 2,000 ml CONT PRN INH VIA VAPOTHERM DEVICE Last administered on 06/14/21at 09:42; Start 06/14/21 at 09:15 Furosemide (Lasix) 40 mg DAILY IVP Last administered on 06/18/21at 09:07; Start 06/16/21 at 13:00 Amino Acids/ Electrolytes/ Dextrose 1,000 ml @ 80 mls/hr [id number] IV Last administered on 06/18/21at 09:13; Start 06/16/21 at 17:30 Doxycycline Hyclate 100 mg/ Dextrose 100 ml @ 50 mls/hr Q12HR IV ; Start 06/18/21 at 21:00 Insulin Human Lispro (HumaLOG) 0-7 UNITS Q6HRS SQ Last administered on 06/18/21at 12:34; Start 06/18/21 at 12:00 Dextrose (Dextrose 50%-Water Syringe) 12.5 gm PRN Q15MIN PRN IV SEE COMMENTS; Start 06/18/21 at 11:15; Status UNV Active Scripts Active Lantus Solostar (Insulin Glargine,Hum.rec.anlog) 100 Unit/1 Ml Insuln.pen 15 Unit SQ QHS 30 Days If glucose > 200 on 2 or more readings, can add 2u for the night Aspirin Ec (Aspirin) 81 Mg Tablet. 81 Mg PO DAILYWBKFT 90 Days Atorvastatin Calcium 40 Mg Tablet 40 Mg PO QHS 90 Days Novolog (Insulin Aspart) 100 Unit/1 Ml Cartridge 0-9 Unit SQ QID 30 Days Glucose - Insulin >150mg/dL - 3u 151-200 - 5u 201-250 - 6u 251-300 - 7u 301-350 - 9u >350 - Contact MD Reported Furosemide 40 Mg Tablet 1 Tab PO DAILY Spironolactone 25 Mg Tablet 1 Tab PO DAILY Levothyroxine Sodium 88 Mcg Tablet 1 Tab PO DAILY Lisinopril 5 Mg Tablet 1 Tab PO DAILY Carvedilol (Carvedilol) 12.5 Mg Tablet 12.5 Mg PO BIDWMEALS Vitals/I & O Vital Sign - Last 24 Hours 06/17/21 06/17/21 06/17/21 06/17/21 16:00 16:00 17:00 17:21 Temp 99.7 99.7 Pulse 111 98 Resp 30 25 B/P (MAP) 117/72 104/60 Pulse Ox 96 92 91 O2 Delivery BiPAP/CPAP Bi-pap BiPAP/CPAP BiPAP/CPAP 06/17/21 06/17/21 06/17/21 06/17/21 18:00 19:00 20:00 20:00 Temp 100.2 100.2 Pulse 95 94 94 Resp 25 20 24 B/P (MAP) 114/66 110/65 115/63 Pulse Ox 95 94 96 O2 Delivery BiPAP/CPAP BiPAP/CPAP Bi-pap BiPAP/CPAP 06/17/21 06/17/21 06/17/21 06/17/21 20:18 21:00 22:00 23:00 Pulse 79 85 69 Resp 20 20 20 B/P (MAP) 103/60 104/62 104/56 Pulse Ox 94 91 91 92 O2 Delivery BiPAP/CPAP BiPAP/CPAP BiPAP/CPAP BiPAP/CPAP 06/17/21 06/18/21 06/18/21 06/18/21 23:23 00:00 00:00 01:00 Pulse 70 78 Resp 22 B/P (MAP) 102/58 112/61 Pulse Ox 92 94 91 O2 Delivery BiPAP/CPAP BiPAP/CPAP Bi-pap BiPAP/CPAP 06/18/21 06/18/21 06/18/21 06/18/21 02:00 02:08 03:00 04:00 Temp 98.4 98.4 Pulse 65 73 73 Resp 22 20 22 B/P (MAP) 137/73 105/62 105/61 Pulse Ox 91 90 96 92 O2 Delivery BiPAP/CPAP BiPAP/CPAP BiPAP/CPAP BiPAP/CPAP 06/18/21 06/18/21 06/18/21 06/18/21 04:00 05:00 05:13 06:00 Pulse 83 85 Resp 20 24 B/P (MAP) 119/69 114/66 Pulse Ox 89 89 89 O2 Delivery Bi-pap BiPAP/CPAP BiPAP/CPAP BiPAP/CPAP 06/18/21 06/18/21 06/18/21 06/18/21 07:00 08:00 08:22 09:00 Temp 99.0 99.0 Pulse 82 84 86 Resp 24 22 24 B/P (MAP) 123/61 125/68 127/69 Pulse Ox 91 91 90 90 O2 Delivery BiPAP/CPAP BiPAP/CPAP BiPAP/CPAP BiPAP/CPAP 06/18/21 06/18/21 06/18/21 06/18/21 10:00 10:14 10:20 11:00 Pulse 90 90 Resp 24 24 B/P (MAP) 119/70 115/63 Pulse Ox 92 93 92 O2 Delivery BiPAP/CPAP Bi-pap BiPAP/CPAP BiPAP/CPAP 06/18/21 06/18/21 06/18/21 06/18/21 11:14 12:00 12:00 13:00 Temp 99.3 99.3 Pulse 88 90 Resp 22 24 B/P (MAP) 110/67 131/67 Pulse Ox 94 93 95 O2 Delivery BiPAP/CPAP Bi-pap BiPAP/CPAP BiPAP/CPAP 06/18/21 06/18/21 13:09 15:36 Pulse Ox 93 96 O2 Delivery BiPAP/CPAP BiPAP/CPAP Intake and Output 06/17/21 06/17/21 06/18/21 15:00 23:00 07:00 Intake Total 1328 ml 1166 ml Output Total 845 ml 1805 ml 375 ml Balance -845 ml -477 ml 791 ml Justifications for Admission Other Justification Nutrition Consultation Dietary Evaluation: Recommendations by RD: Dietary education by RD, Increase Calorie Intake, Protein supplementation, PPN/TPN Comments: diet changed and liberlized to Mech soft, regular for ease in eating, improve po intake glucerna tid pt with PICC: for TPN rec;295 g Dextrose, 85 g AA, 40 g lipid Expected Outcomes/Goals: to meet >75% est nutrition needs via po intake/ nutrition support Malnutrition Findings: Body Fat Depletion (Non Severe: Mod to Severe Weight Status: Obese ОЛЕГ SALAZAR MD Jun 18, 2021 15:51
[2021-06-18] MEDS: ATORVASTATIN CALCIUM 40 MG TABLET. PO SCH (21:00)
[2021-06-18] MEDS: DOXYCYCLINE HYCLATE 100 MG in IV DEXTROSE 5% 100ML 100 ML IV SCH (21:09)
[2021-06-18] MEDS: INSULIN GLARGINE SYRINGE. SQ SCH (21:10)
[2021-06-19] VITALS (25 sets, daily range): BP systolic 69–140; BP diastolic 47–71
[2021-06-19] MEDS: DEXMEDETOMIDINE 400 MCG in IV NORMAL SALINE 100ML 96 ML IV PRN ×4 (03:32→23:17)
[2021-06-19] MEDS: LEVOTHYROXINE 88 MCG TABLET PO SCH (05:50)
[2021-06-19] MEDS: INSULIN LISPRO 300 UNITS/3 ML VIAL. SQ SCH ×5 (05:55→23:46)
[2021-06-19 05:56] LABS: BASO % 0 % (0-3); EOS % 0 % (0-3); HEMOGLOBIN 12.9 g/dL (13.0-17.5); LYMPH # 0.7 x10^3/uL (1.0-4.8); LYMPH % 7 % (24-48); MEAN CORPUSCULAR HEMOGLOBIN 31 pg (25-35); MEAN CORPUSCULAR HGB CONC 33 g/dL (31-37); MEAN CORPUSCULAR VOLUME 95 fL (79-100); MONO # 0.5 x10^3/uL (0.0-1.1); MONO % 5 % (0-9); NEUT # 8.4 x10^3/uL (1.8-7.7); NEUT % 88 % (31-73); PLATELET COUNT 170 x10^3/uL (140-400); RED BLOOD COUNT 4.11 x10^6/uL (4.30-5.70); RED CELL DISTRIBUTION WIDTH 14.8 % (11.5-14.5); WHITE BLOOD COUNT 9.5 x10^3/uL (4.0-11.0)
[2021-06-19 06:00] LABS: CALCIUM 8.9 mg/dL (8.5-10.1); CREATININE 1.2 mg/dL (0.7-1.3); GFR 58.4; POTASSIUM 4.2 mmol/L (3.5-5.1)
[2021-06-19] MEDS: ASPIRIN ENTERIC COATED 81 MG TABLET.DR. PO SCH (08:00)
--- NOTE | 2021-06-19 08:33 | PDOC ---
PULMONARY PROGRESS NOTES DATE: 06/19/21 TIME: 08:33 Subjective Patient appears to be uncomfortable currently on BiPAP On Precedex Vitals Vital Signs Date Time Temp Pulse Resp B/P (MAP) Pulse Ox O2 Delivery O2 Flow Rate FiO2 06/19/21 06:00 64 22 132/64 95 BiPAP/CPAP 06/19/21 04:00 97.6 97.6 Comments Unable to review systems, currently on BiPAP Lungs: Other (no accessory muscle use) Cardiovascular: S1, S2 Abdomen: Soft Neuro Exam: Alert Extremities: Other (Some edema) Skin: No Rashes Labs Laboratory Tests Test 06/17/21 13:40 06/17/21 18:37 06/18/21 10:05 06/18/21 12:31 Glucose (Fingerstick) 326 mg/dL (70-99) 318 mg/dL (70-99) 337 mg/dL (70-99) White Blood Count 10.1 x10^3/uL (4.0-11.0) Red Blood Count 4.45 x10^6/uL (4.30-5.70) Hemoglobin 14.0 g/dL (13.0-17.5) Hematocrit 42.8 % (39.0-53.0) Mean Corpuscular Volume 96 fL (79-100) Mean Corpuscular Hemoglobin 32 pg (25-35) Mean Corpuscular Hemoglobin Concent 33 g/dL (31-37) Red Cell Distribution Width 15.4 % (11.5-14.5) Platelet Count 151 x10^3/uL (140-400) Neutrophils (%) (Auto) 87 % (31-73) Lymphocytes (%) (Auto) 7 % (24-48) Monocytes (%) (Auto) 5 % (0-9) Eosinophils (%) (Auto) 0 % (0-3) Basophils (%) (Auto) 1 % (0-3) Neutrophils # (Auto) 8.7 x10^3/uL (1.8-7.7) Lymphocytes # (Auto) 0.7 x10^3/uL (1.0-4.8) Monocytes # (Auto) 0.5 x10^3/uL (0.0-1.1) Eosinophils # (Auto) 0.0 x10^3/uL (0.0-0.7) Basophils # (Auto) 0.1 x10^3/uL (0.0-0.2) Sodium Level 151 mmol/L (136-145) Potassium Level 4.1 mmol/L (3.5-5.1) Chloride Level 113 mmol/L (98-107) Carbon Dioxide Level 28 mmol/L (21-32) Anion Gap 10 (6-14) Blood Urea Nitrogen 59 mg/dL (8-26) Creatinine 1.4 mg/dL (0.7-1.3) Estimated GFR (Cockcroft-Gault) 48.9 Glucose Level 315 mg/dL (70-99) Calcium Level 9.1 mg/dL (8.5-10.1) Test 06/18/21 17:28 06/19/21 00:30 06/19/21 05:00 06/19/21 05:53 Glucose (Fingerstick) 363 mg/dL (70-99) 249 mg/dL (70-99) 237 mg/dL (70-99) White Blood Count 9.5 x10^3/uL (4.0-11.0) Red Blood Count 4.11 x10^6/uL (4.30-5.70) Hemoglobin 12.9 g/dL (13.0-17.5) Hematocrit 39.0 % (39.0-53.0) Mean Corpuscular Volume 95 fL (79-100) Mean Corpuscular Hemoglobin 31 pg (25-35) Mean Corpuscular Hemoglobin Concent 33 g/dL (31-37) Red Cell Distribution Width 14.8 % (11.5-14.5) Platelet Count 170 x10^3/uL (140-400) Neutrophils (%) (Auto) 88 % (31-73) Lymphocytes (%) (Auto) 7 % (24-48) Monocytes (%) (Auto) 5 % (0-9) Eosinophils (%) (Auto) 0 % (0-3) Basophils (%) (Auto) 0 % (0-3) Neutrophils # (Auto) 8.4 x10^3/uL (1.8-7.7) Lymphocytes # (Auto) 0.7 x10^3/uL (1.0-4.8) Monocytes # (Auto) 0.5 x10^3/uL (0.0-1.1) Eosinophils # (Auto) 0.0 x10^3/uL (0.0-0.7) Basophils # (Auto) 0.0 x10^3/uL (0.0-0.2) Sodium Level 154 mmol/L (136-145) Potassium Level 4.2 mmol/L (3.5-5.1) Chloride Level 117 mmol/L (98-107) Carbon Dioxide Level 24 mmol/L (21-32) Anion Gap 13 (6-14) Blood Urea Nitrogen 66 mg/dL (8-26) Creatinine 1.2 mg/dL (0.7-1.3) Estimated GFR (Cockcroft-Gault) 58.4 Glucose Level 272 mg/dL (70-99) Calcium Level 8.9 mg/dL (8.5-10.1) Laboratory Tests Test 06/18/21 10:05 06/18/21 12:31 06/18/21 17:28 06/19/21 00:30 White Blood Count 10.1 x10^3/uL (4.0-11.0) Red Blood Count 4.45 x10^6/uL (4.30-5.70) Hemoglobin 14.0 g/dL (13.0-17.5) Hematocrit 42.8 % (39.0-53.0) Mean Corpuscular Volume 96 fL (79-100) Mean Corpuscular Hemoglobin 32 pg (25-35) Mean Corpuscular Hemoglobin Concent 33 g/dL (31-37) Red Cell Distribution Width 15.4 % (11.5-14.5) Platelet Count 151 x10^3/uL (140-400) Neutrophils (%) (Auto) 87 % (31-73) Lymphocytes (%) (Auto) 7 % (24-48) Monocytes (%) (Auto) 5 % (0-9) Eosinophils (%) (Auto) 0 % (0-3) Basophils (%) (Auto) 1 % (0-3) Neutrophils # (Auto) 8.7 x10^3/uL (1.8-7.7) Lymphocytes # (Auto) 0.7 x10^3/uL (1.0-4.8) Monocytes # (Auto) 0.5 x10^3/uL (0.0-1.1) Eosinophils # (Auto) 0.0 x10^3/uL (0.0-0.7) Basophils # (Auto) 0.1 x10^3/uL (0.0-0.2) Sodium Level 151 mmol/L (136-145) Potassium Level 4.1 mmol/L (3.5-5.1) Chloride Level 113 mmol/L (98-107) Carbon Dioxide Level 28 mmol/L (21-32) Anion Gap 10 (6-14) Blood Urea Nitrogen 59 mg/dL (8-26) Creatinine 1.4 mg/dL (0.7-1.3) Estimated GFR (Cockcroft-Gault) 48.9 Glucose Level 315 mg/dL (70-99) Calcium Level 9.1 mg/dL (8.5-10.1) Glucose (Fingerstick) 337 mg/dL (70-99) 363 mg/dL (70-99) 249 mg/dL (70-99) Test 06/19/21 05:00 06/19/21 05:53 White Blood Count 9.5 x10^3/uL (4.0-11.0) Red Blood Count 4.11 x10^6/uL (4.30-5.70) Hemoglobin 12.9 g/dL (13.0-17.5) Hematocrit 39.0 % (39.0-53.0) Mean Corpuscular Volume 95 fL (79-100) Mean Corpuscular Hemoglobin 31 pg (25-35) Mean Corpuscular Hemoglobin Concent 33 g/dL (31-37) Red Cell Distribution Width 14.8 % (11.5-14.5) Platelet Count 170 x10^3/uL (140-400) Neutrophils (%) (Auto) 88 % (31-73) Lymphocytes (%) (Auto) 7 % (24-48) Monocytes (%) (Auto) 5 % (0-9) Eosinophils (%) (Auto) 0 % (0-3) Basophils (%) (Auto) 0 % (0-3) Neutrophils # (Auto) 8.4 x10^3/uL (1.8-7.7) Lymphocytes # (Auto) 0.7 x10^3/uL (1.0-4.8) Monocytes # (Auto) 0.5 x10^3/uL (0.0-1.1) Eosinophils # (Auto) 0.0 x10^3/uL (0.0-0.7) Basophils # (Auto) 0.0 x10^3/uL (0.0-0.2) Sodium Level 154 mmol/L (136-145) Potassium Level 4.2 mmol/L (3.5-5.1) Chloride Level 117 mmol/L (98-107) Carbon Dioxide Level 24 mmol/L (21-32) Anion Gap 13 (6-14) Blood Urea Nitrogen 66 mg/dL (8-26) Creatinine 1.2 mg/dL (0.7-1.3) Estimated GFR (Cockcroft-Gault) 58.4 Glucose Level 272 mg/dL (70-99) Calcium Level 8.9 mg/dL (8.5-10.1) Glucose (Fingerstick) 237 mg/dL (70-99) Medications Active Scripts Medications Dose Route/Sig Max Daily Dose Days Date Category Dose Instructions Lantus Solostar (Insulin Glargine,Hum.rec.anlog) 100 Unit/1 Ml Insuln.pen 15 Unit SQ QHS 30 06/02/20 Rx If glucose > 200 on 2 or more readings, can add 2u for the night Aspirin Ec (Aspirin) 81 Mg Tablet.dr 81 Mg PO DAILYWBKFT 06/02/20 Rx Atorvastatin Calcium 40 Mg Tablet 40 Mg PO QHS 90 06/02/20 Rx Novolog (Insulin Aspart) 100 Unit/1 Ml Cartridge 0-9 Unit SQ QID 30 06/02/20 Rx Glucose - Insulin >150mg/dL - 3u 151-200 - 5u 201-250 - 6u 251-300 - 7u 301-350 - 9u >350 - Contact Furosemide 40 Mg Tablet 1 Tab PO DAILY 06/01/20 Reported Spironolactone 25 Mg Tablet 1 Tab PO DAILY 06/01/20 Reported Levothyroxine Sodium 88 Mcg Tablet 1 Tab PO DAILY 06/01/20 Reported Lisinopril 5 Mg Tablet 1 Tab PO DAILY 06/01/20 Reported Carvedilol (Carvedilol) 12.5 Mg Tablet 12.5 Mg PO BIDWMEALS 06/01/20 Reported Impression . IMPRESSION: 1. Acute hypoxemic respiratory failure secondary to acute on chronic systolic heart failure. 2. Abnormal x-ray, compatible more with congestive heart failure and COVID-19. 3. Tested positive for COVID-19. 4. Possible COVID-19 viral pneumonia. 5. Acute on chronic kidney failure. 6. Elevated liver function tests. 7. Severe protein malnutrition, present upon admission. 9. Hypotension, multifactorial, Echo report <Conclusion> The ejection fraction is moderately to severely impaired. EF 25% The distal half of the LV is severely akinetic to hypokinetic. There is global hypokinesis. Plan . Updated 06/19 Discussed with RN Morphine drip Patient not expected to survive Not in sync with the BiPAP this morning Received remdesivir updated 06/18 cont BiPAP, setting reviewed titrate fio2 to keep sat 90% on precedex avoid oversedation elevate hob DVT prophylaxis Patient DNR status prognosis poor Discussed with RN and RT We will continue current support KAREN ARAYA MD Jun 19, 2021 08:33
[2021-06-19] MEDS: LACTOBACILLUS RHAMNOSUS GG 1 CAPSULE. PO SCH ×2 (09:00→21:00)
[2021-06-19] MEDS: SENNOSIDES/DOCUSATE 8.6/50MG TABLET. PO SCH ×2 (09:00→21:00)
[2021-06-19] MEDS: THIAMINE 100 MG TABLET. PO SCH (09:00)
[2021-06-19] MEDS: ASCORBIC ACID 500 MG TABLET PO SCH (09:00)
[2021-06-19] MEDS: ZINC SULFATE 220 MG CAPSULE. PO SCH (09:00)
[2021-06-19] MEDS: DEXAMETHASONE SOD PHOS 4 MG/ML VIAL IVP SCH (09:40)
[2021-06-19] MEDS: FUROSEMIDE 40 MG/4 ML VIAL. IVP SCH (09:40)
[2021-06-19] MEDS: DOXYCYCLINE HYCLATE 100 MG in IV DEXTROSE 5% 100ML 100 ML IV SCH ×2 (09:41→23:17)
[2021-06-19] MEDS: HEPARIN for SUB-Q USE 5,000 UNIT/ML VIAL. SQ SCH ×2 (09:47→23:24)
--- NOTE | 2021-06-19 11:45 | PDOC ---
[employer] PROGRESS NOTE Date of Service DOS: DATE: 06/19/21 TIME: 11:43 Chief Complaint Chief Complaint A/P: Acute respiratory failure with hypoxia - secondary to COVID PNA. Febrile. Weakness, falls at home - due to hypoxia from COVID 19 Chronic systolic CHF - NT Pro BNP WNL. Cardiology consulted H/o Ischemic cardiomyopathy LBBB - chronic CAD s/p CABG 2008 Hypertension Hyperlipidemia Diabetes, II - sliding scale LUCÍA - likely vasomotor nephropathy. Consulted nephrology Hypothyroidism Thrombocytopenia - likely due to viral illness, will monitor Hyponatremia - likely nutritional FEN - ADA cardiac diet PPX - heparin FULL CODE Dispo - inpatient History of Present Illness History of Present Illness Patient is a 81 year old male w/ PMHx DM2, HTN, CAD s/p CABG, chronic systolic CHF who presents with 4-day history of weakness, nausea, vomiting and confusion. Patient is a poor historian, but his family member at bedside aids in providing history. For 4 days prior to admission has had weakness nausea and vomiting and is followed for twice without strength has had no injury but has been getting more confused. In ED was noted with pulse oximetry 83% on room air. Rapid COVID-19 returned positive. Patient is not vaccinated against COVID-19. Patient and family member deny fever, chills, chest pain, palpitations, shortness of breath, cough, constipation, abdominal pain, diarrhea. Patient has no other complaints at this time Initiated on remdesivir and admitted for further care. 06/12: Up to 12 L facemask O2 overnight still little confused. O2 saturations 91% on this O2. Na133, Cr 3. Having some nausea and diarrhea. No vomiting currently. Plan: Given deteriorating condition will need higher level of care, transfer to ICU for likely vapotherm therapy, consult Pulm 06/13: Afebrile. On 15 L nonrebreather. Transferred to ICU overnight due to hypotension and bradycardia. Currently requiring Levophed and dobutamine. Echocardiogram yesterday showed global hypokinesis severely impaired EF 25%. Continue to hold heart failure medications until stable. Continue remdesivir steroids, empiric antibiotics. Critical care time 30 minutes spent reviewing charts, reviewing labs, reviewing imaging, discussion with RN. 06/14: Afebrile. 15 L nonrebreather and still hypoxic and mid 80s. Discussed with patient if he would be okay with intubation if necessary, he says that would be fine with him. I have some concerns about underlying dementia; reached out to patient's to confirm if she would be okay with intubation, but no answer x2. Remains on pressor support; dobutamine discontinued due to tachycardia. Continue remdesivir; last dose should be tomorrow. Continue sonal roids and empiric antibiotics. Critical care time 30 minutes spent reviewing charts, reviewing labs, reviewing imaging, discussion with RN. 06/15: Afebrile, breathing on BiPAP with improvement in oxygen saturation. Yesterday after patient agreed to full code, RN spoke with ; due to concerns for dementia patient's reiterated that patient would want DNR; CODE STATUS was changed. Last day remdesivir today. Chest x-ray today showed stable multifocal interstitial infiltrate and cardiomegaly with suspected small pleural effusions. We will continue empiric antibiotics. Continue steroids and supportive care. Will follow cardiology recommendations; secondary prevention as able, hold coreg, lisinopril. Critical care time 30 minutes spent reviewing charts, reviewing labs, reviewing imaging, discussion with RN. 06/16: Afebrile, still breathing on BiPAP. S/P remdesivir. Continue empiric antibiotics and Decadron to complete 10-day course. Renal function improving, will try to maintain fluid balance. Follow cardiology recommendations. Continue Levophed as needed. Critical care time 30 minutes spent reviewing charts, reviewing labs, reviewing imaging, discussion with RN. 06/17: Low-grade fever this morning, T-max 99.7 F. Breathing on BiPAP. S/P remdesivir. Continue steroids. Procalcitonin <0.10, will discontinue empiric antibiotics and monitor. Continue to follow cardiology and nephrology recommendations. Critical care time 30 minutes spent reviewing charts, reviewing labs, reviewing imaging, discussion with RN. 06/18: Afebrile, tachypneic on BiPAP. S/P remdesivir. Empiric antibiotics have been held; continue steroids. Continue to follow cardiology recommendations. Donte continue to follow cardiology recommendations; echo with severely impaired EF 25% and global hypokinesis. Critical care time 30 minutes spent reviewing charts, reviewing labs, reviewing imaging, discussion with RN. 06/19 Patient evaluated and examined at bedside. Remains on BiPAP does not awaken easily. Continuing Covid treatment. Continue Rocephin doxy continue O2 supplementation wean as tolerated. Continue to follow subspecialist recommendations. 30 minutes critical care time spent reviewing charts, reviewing labs, reviewing imaging, and discussion with RN Vitals/I&O Vitals/I&O: Vital Signs Date Time Temp Pulse Resp B/P (MAP) Pulse Ox O2 Delivery O2 Flow Rate FiO2 06/19/21 09:00 90 BiPAP/CPAP 06/19/21 06:00 64 22 132/64 06/19/21 04:00 97.6 97.6 I & O 06/18/21 06/18/21 06/19/21 15:00 23:00 07:00 Intake Total 1073 ml 609 ml Output Total 875 ml 975 ml 300 ml Balance -875 ml 98 ml 309 ml Physical Exam General: Alert, Cooperative, No acute distress Heart: Other (tachycardic) Lungs: Other (no accessory muscle use) Abdomen: Normal bowel sounds, Soft Extremities: No edema Skin: No significant lesion Labs Labs: Laboratory Tests Test 06/18/21 12:31 06/18/21 17:28 06/19/21 00:30 06/19/21 05:00 Glucose (Fingerstick) 337 mg/dL (70-99) 363 mg/dL (70-99) 249 mg/dL (70-99) White Blood Count 9.5 x10^3/uL (4.0-11.0) Red Blood Count 4.11 x10^6/uL (4.30-5.70) Hemoglobin 12.9 g/dL (13.0-17.5) Hematocrit 39.0 % (39.0-53.0) Mean Corpuscular Volume 95 fL (79-100) Mean Corpuscular Hemoglobin 31 pg (25-35) Mean Corpuscular Hemoglobin Concent 33 g/dL (31-37) Red Cell Distribution Width 14.8 % (11.5-14.5) Platelet Count 170 x10^3/uL (140-400) Neutrophils (%) (Auto) 88 % (31-73) Lymphocytes (%) (Auto) 7 % (24-48) Monocytes (%) (Auto) 5 % (0-9) Eosinophils (%) (Auto) 0 % (0-3) Basophils (%) (Auto) 0 % (0-3) Neutrophils # (Auto) 8.4 x10^3/uL (1.8-7.7) Lymphocytes # (Auto) 0.7 x10^3/uL (1.0-4.8) Monocytes # (Auto) 0.5 x10^3/uL (0.0-1.1) Eosinophils # (Auto) 0.0 x10^3/uL (0.0-0.7) Basophils # (Auto) 0.0 x10^3/uL (0.0-0.2) Sodium Level 154 mmol/L (136-145) Potassium Level 4.2 mmol/L (3.5-5.1) Chloride Level 117 mmol/L (98-107) Carbon Dioxide Level 24 mmol/L (21-32) Anion Gap 13 (6-14) Blood Urea Nitrogen 66 mg/dL (8-26) Creatinine 1.2 mg/dL (0.7-1.3) Estimated GFR (Cockcroft-Gault) 58.4 Glucose Level 272 mg/dL (70-99) Calcium Level 8.9 mg/dL (8.5-10.1) Test 06/19/21 05:53 Glucose (Fingerstick) 237 mg/dL (70-99) Assessment and Plan Assessmemt and Plan Problems Medical Problems: (1) Fall in elderly patient Status: Acute (2) Pneumonia due to COVID-19 virus Status: Acute Comment Review of Relevant I have reviewed the following items [place] (where applicable) has been applied. Medications: Current Medications Medications (Trade) Dose Ordered Sig/Raj Route PRN Reason Start Time Stop Time Status Last Admin Dose Admin Doxycycline Hyclate 100 mg/ Dextrose 100 ml @ 50 mls/hr Q12HR IV 06/18/21 21:00 06/19/21 09:41 Insulin Human Lispro (HumaLOG) 0-7 UNITS Q6HRS SQ 06/18/21 12:00 06/19/21 05:55 Justifications for Admission Other Justification ROSALIA LIN MD Jun 19, 2021 11:45
--- NOTE | 2021-06-19 13:03 | PDOC ---
Renal-Progress Notes Subjective Notes Notes ON THE VENT History of Present Illness Hx of present illness NOT ANY BETTER Vitals Vitals Vital Signs Date Time Temp Pulse Resp B/P (MAP) Pulse Ox O2 Delivery O2 Flow Rate FiO2 06/19/21 11:56 90 BiPAP/CPAP 06/19/21 06:00 64 22 132/64 06/19/21 04:00 97.6 97.6 Weight Weight [ ] I.O. Intake and Output Intake and Output 06/19/21 07:00 Intake Total 1682 ml Output Total 2150 ml Balance -468 ml IV Total 1682 ml Output Urine Total 2150 ml Labs Labs Laboratory Tests Test 06/18/21 17:28 06/19/21 00:30 06/19/21 05:00 06/19/21 05:53 Glucose (Fingerstick) 363 mg/dL (70-99) 249 mg/dL (70-99) 237 mg/dL (70-99) White Blood Count 9.5 x10^3/uL (4.0-11.0) Red Blood Count 4.11 x10^6/uL (4.30-5.70) Hemoglobin 12.9 g/dL (13.0-17.5) Hematocrit 39.0 % (39.0-53.0) Mean Corpuscular Volume 95 fL (79-100) Mean Corpuscular Hemoglobin 31 pg (25-35) Mean Corpuscular Hemoglobin Concent 33 g/dL (31-37) Red Cell Distribution Width 14.8 % (11.5-14.5) Platelet Count 170 x10^3/uL (140-400) Neutrophils (%) (Auto) 88 % (31-73) Lymphocytes (%) (Auto) 7 % (24-48) Monocytes (%) (Auto) 5 % (0-9) Eosinophils (%) (Auto) 0 % (0-3) Basophils (%) (Auto) 0 % (0-3) Neutrophils # (Auto) 8.4 x10^3/uL (1.8-7.7) Lymphocytes # (Auto) 0.7 x10^3/uL (1.0-4.8) Monocytes # (Auto) 0.5 x10^3/uL (0.0-1.1) Eosinophils # (Auto) 0.0 x10^3/uL (0.0-0.7) Basophils # (Auto) 0.0 x10^3/uL (0.0-0.2) Sodium Level 154 mmol/L (136-145) Potassium Level 4.2 mmol/L (3.5-5.1) Chloride Level 117 mmol/L (98-107) Carbon Dioxide Level 24 mmol/L (21-32) Anion Gap 13 (6-14) Blood Urea Nitrogen 66 mg/dL (8-26) Creatinine 1.2 mg/dL (0.7-1.3) Estimated GFR (Cockcroft-Gault) 58.4 Glucose Level 272 mg/dL (70-99) Calcium Level 8.9 mg/dL (8.5-10.1) Test 06/19/21 12:39 Glucose (Fingerstick) 221 mg/dL (70-99) Micro Micro Microbiology 06/11/21 Urine Culture - Final, Complete 06/11/21 Blood Culture - Final, Complete NO GROWTH AFTER 5 DAYS Review of Systems Constitutional: yes: unresponsive Physical Exam General Appearance: no apparent distress Skin: warm Respiratory: decreased breath sounds Heart: S1S2 Abdomen: soft, bowel sounds present Genitourinary: bladder flat Extremities: pulses present Neurology: other (sedated) Assessment Assessment IMP LUCÍA-ATN-CR IMPROVED TO 1.2 HYPERNATREMIA ACUTE RESP FAILURE PROB COVID 19 PNEUMONIA HYPOTENSION CM WITH EF OF 25% DM II PLAN POOR PROGNOSIS CONT PPN CONT IV LASIX ON DOG GTT PRESSORS NEEDED NOT A GOOD CANDIDATE FOR DIALYSIS FLIP MORA MD Jun 19, 2021 13:02
--- NOTE | 2021-06-19 13:37 | PDOC ---
SALONI DAVIS BRIDGE BUILDER 06/19/21 1337: CARDIO Progress Notes Date and Time Date of Service 06/19/21 Time of Evaluation 1315 Subjective Subjective: Other (unable to obtain ) Vitals Vitals Vital Signs Date Time Temp Pulse Resp B/P (MAP) Pulse Ox O2 Delivery O2 Flow Rate FiO2 06/19/21 11:56 90 BiPAP/CPAP 06/19/21 06:00 64 22 132/64 06/19/21 04:00 97.6 97.6 Weight Weight [ ] Input and Output Intake and Output Intake and Output 06/19/21 07:00 Intake Total 1682 ml Output Total 2150 ml Balance -468 ml IV Total 1682 ml Output Urine Total 2150 ml Laboratory Labs Laboratory Tests Test 06/18/21 17:28 06/19/21 00:30 06/19/21 05:00 06/19/21 05:53 Glucose (Fingerstick) 363 mg/dL (70-99) 249 mg/dL (70-99) 237 mg/dL (70-99) White Blood Count 9.5 x10^3/uL (4.0-11.0) Red Blood Count 4.11 x10^6/uL (4.30-5.70) Hemoglobin 12.9 g/dL (13.0-17.5) Hematocrit 39.0 % (39.0-53.0) Mean Corpuscular Volume 95 fL (79-100) Mean Corpuscular Hemoglobin 31 pg (25-35) Mean Corpuscular Hemoglobin Concent 33 g/dL (31-37) Red Cell Distribution Width 14.8 % (11.5-14.5) Platelet Count 170 x10^3/uL (140-400) Neutrophils (%) (Auto) 88 % (31-73) Lymphocytes (%) (Auto) 7 % (24-48) Monocytes (%) (Auto) 5 % (0-9) Eosinophils (%) (Auto) 0 % (0-3) Basophils (%) (Auto) 0 % (0-3) Neutrophils # (Auto) 8.4 x10^3/uL (1.8-7.7) Lymphocytes # (Auto) 0.7 x10^3/uL (1.0-4.8) Monocytes # (Auto) 0.5 x10^3/uL (0.0-1.1) Eosinophils # (Auto) 0.0 x10^3/uL (0.0-0.7) Basophils # (Auto) 0.0 x10^3/uL (0.0-0.2) Sodium Level 154 mmol/L (136-145) Potassium Level 4.2 mmol/L (3.5-5.1) Chloride Level 117 mmol/L (98-107) Carbon Dioxide Level 24 mmol/L (21-32) Anion Gap 13 (6-14) Blood Urea Nitrogen 66 mg/dL (8-26) Creatinine 1.2 mg/dL (0.7-1.3) Estimated GFR (Cockcroft-Gault) 58.4 Glucose Level 272 mg/dL (70-99) Calcium Level 8.9 mg/dL (8.5-10.1) Test 06/19/21 12:39 Glucose (Fingerstick) 221 mg/dL (70-99) Microbiology Micro Microbiology 06/11/21 Urine Culture - Final, Complete 06/11/21 Blood Culture - Final, Complete NO GROWTH AFTER 5 DAYS Review of Systems Constitutional: yes: unresponsive Physical Exam HEENT: Neck Supple W Full Motion Chest: Symmetric LUNGS: Other (on BiPAP) Heart: RRR (SR) Abdomen: Other (non-distended ) Extremities: No Edema Neurology: other (on sedation) Assessment Assessment 1. Weakness, falls 2. Acute respiratory failure secondary to COVID PNA, CHF. 3. Acute on chronic systolic CHF; better compensated s/p IV Lasix. 4. Ischemic cardiomyopathy; Echo with LVEF 25% 5. Chronic LBBB 6. CAD s/p CABG 2008, clinically stable 7. H/o hypertension with present hypotension. off Levophed, remains low end 8. Hyperlipidemia 9. Diabetes, II: per IM 10. LUCÍA; Cr better. hypernatremia 11. Hypothyroidism 12. Thrombocytopenia; PLTs stable Recommendations Hold Lasix therapy with worsening hypernatremia Secondary prevention as able Hold Coreg, lisinopril with hypotension Avoid nephrotoxins Ongoing lung optimization, treatment of COVID as per pulmonary Supportive care Prognosis poor Justicifation of Admission Dx: Justifications for Admission: Justification of Admission Dx: Yes Altered Mental Status: Altered Mental Status REGINALD MAGALLON MD 06/20/21 0933: CARDIO Progress Notes Assessment Assessment Patient seen and examined 06/19/2021. Agree with LOOM OVERHAULER's assessment and plan. Acute on chr systolic HF better compensated. Agree with holding Lasix. CAD status clinically stable. Tele did not show any significant arrhythmias Continue treatment of covid pneumonia per pulm team SALONI DAVIS APRN Jun 19, 2021 13:37 REGINALD MAGALLON MD Jun 20, 2021 09:33
[2021-06-19] MEDS: AA 4.25 %/CALCIUM/LYTES/D5W 1,000 ML IV SCH (14:13)
[2021-06-19] MEDS: IV NORMAL SALINE 1000ML BAG 1,000 ML IV SCH (15:00)
[2021-06-19] MEDS ORDERED: NALOXONE 0.4 MG/ML VIAL. IV PRN (15:00)
--- NOTE | 2021-06-19 16:02 | NUR ---
SS following up with discharge planning. SS reviewed pt chart and discussed with pt RN. Pt is currently on BIPAP at 100%. COVID19 positive. Pt on IV Doxycycline, Clinimix, and IV Lasix. Precedex and Morphine drip. DNR. Not stable. SS will continue to follow for discharge planning.
[2021-06-19] MEDS: MORPHINE SULFATE 30 ML IV PRN (16:07)
[2021-06-19] MEDS: IV NORMAL SALINE 500ML BAG 500 ML IV PRN (20:59)
[2021-06-19] MEDS: ATORVASTATIN CALCIUM 40 MG TABLET. PO SCH (21:00)
[2021-06-19] MEDS: INSULIN GLARGINE SYRINGE. SQ SCH (23:44)
[2021-06-20] VITALS (23 sets, daily range): BP systolic 71–122; BP diastolic 43–63
[2021-06-20] MEDS: IV NORMAL SALINE 500ML BAG 500 ML IV PRN (02:00)
[2021-06-20] MEDS: AA 4.25 %/CALCIUM/LYTES/D5W 1,000 ML IV SCH ×2 (03:07→17:11)
[2021-06-20 06:32] LABS: CALCIUM 8.6 mg/dL (8.5-10.1); CREATININE 1.2 mg/dL (0.7-1.3); GFR 58.4; POTASSIUM 5.3 mmol/L (3.5-5.1)
[2021-06-20] MEDS: INSULIN LISPRO 300 UNITS/3 ML VIAL. SQ SCH ×5 (06:53→17:17)
[2021-06-20] MEDS: LEVOTHYROXINE 88 MCG TABLET PO SCH (07:00)
[2021-06-20] MEDS: MORPHINE SULFATE 30 ML IV PRN ×2 (07:30→19:30)
[2021-06-20] MEDS: SENNOSIDES/DOCUSATE 8.6/50MG TABLET. PO SCH ×2 (07:38→21:00)
[2021-06-20] MEDS: ZINC SULFATE 220 MG CAPSULE. PO SCH (07:38)
[2021-06-20] MEDS: LACTOBACILLUS RHAMNOSUS GG 1 CAPSULE. PO SCH ×2 (07:38→21:00)
[2021-06-20] MEDS: ASCORBIC ACID 500 MG TABLET PO SCH (07:38)
[2021-06-20] MEDS: ASPIRIN ENTERIC COATED 81 MG TABLET.DR. PO SCH (07:38)
[2021-06-20] MEDS: THIAMINE 100 MG TABLET. PO SCH (07:38)
[2021-06-20] MEDS: DEXMEDETOMIDINE 400 MCG in IV NORMAL SALINE 100ML 96 ML IV PRN ×2 (08:30→17:12)
[2021-06-20] MEDS: DEXAMETHASONE SOD PHOS 4 MG/ML VIAL IVP SCH (08:30)
[2021-06-20] MEDS: HEPARIN for SUB-Q USE 5,000 UNIT/ML VIAL. SQ SCH ×2 (08:31→21:18)
--- NOTE | 2021-06-20 09:13 | PDOC ---
PULMONARY PROGRESS NOTES DATE: 06/20/21 TIME: 09:13 Subjective Patient on BiPAP, sedated, appears to be in sync, 100% FiO2 to Vitals Vital Signs Date Time Temp Pulse Resp B/P (MAP) Pulse Ox O2 Delivery O2 Flow Rate FiO2 06/20/21 08:00 21 93 BiPAP/CPAP 06/20/21 06:00 60 120/63 06/20/21 04:00 95.9 95.9 Comments Unable to review systems, currently on BiPAP Lungs: Other (no accessory muscle use) Cardiovascular: S1, S2 Abdomen: Soft Neuro Exam: Alert Extremities: Other (Some edema) Skin: No Rashes Labs Laboratory Tests Test 06/18/21 10:05 06/18/21 12:31 06/18/21 17:28 06/19/21 00:30 White Blood Count 10.1 x10^3/uL (4.0-11.0) Red Blood Count 4.45 x10^6/uL (4.30-5.70) Hemoglobin 14.0 g/dL (13.0-17.5) Hematocrit 42.8 % (39.0-53.0) Mean Corpuscular Volume 96 fL (79-100) Mean Corpuscular Hemoglobin 32 pg (25-35) Mean Corpuscular Hemoglobin Concent 33 g/dL (31-37) Red Cell Distribution Width 15.4 % (11.5-14.5) Platelet Count 151 x10^3/uL (140-400) Neutrophils (%) (Auto) 87 % (31-73) Lymphocytes (%) (Auto) 7 % (24-48) Monocytes (%) (Auto) 5 % (0-9) Eosinophils (%) (Auto) 0 % (0-3) Basophils (%) (Auto) 1 % (0-3) Neutrophils # (Auto) 8.7 x10^3/uL (1.8-7.7) Lymphocytes # (Auto) 0.7 x10^3/uL (1.0-4.8) Monocytes # (Auto) 0.5 x10^3/uL (0.0-1.1) Eosinophils # (Auto) 0.0 x10^3/uL (0.0-0.7) Basophils # (Auto) 0.1 x10^3/uL (0.0-0.2) Sodium Level 151 mmol/L (136-145) Potassium Level 4.1 mmol/L (3.5-5.1) Chloride Level 113 mmol/L (98-107) Carbon Dioxide Level 28 mmol/L (21-32) Anion Gap 10 (6-14) Blood Urea Nitrogen 59 mg/dL (8-26) Creatinine 1.4 mg/dL (0.7-1.3) Estimated GFR (Cockcroft-Gault) 48.9 Glucose Level 315 mg/dL (70-99) Calcium Level 9.1 mg/dL (8.5-10.1) Glucose (Fingerstick) 337 mg/dL (70-99) 363 mg/dL (70-99) 249 mg/dL (70-99) Test 06/19/21 05:00 06/19/21 05:53 06/19/21 12:39 06/19/21 17:43 White Blood Count 9.5 x10^3/uL (4.0-11.0) Red Blood Count 4.11 x10^6/uL (4.30-5.70) Hemoglobin 12.9 g/dL (13.0-17.5) Hematocrit 39.0 % (39.0-53.0) Mean Corpuscular Volume 95 fL (79-100) Mean Corpuscular Hemoglobin 31 pg (25-35) Mean Corpuscular Hemoglobin Concent 33 g/dL (31-37) Red Cell Distribution Width 14.8 % (11.5-14.5) Platelet Count 170 x10^3/uL (140-400) Neutrophils (%) (Auto) 88 % (31-73) Lymphocytes (%) (Auto) 7 % (24-48) Monocytes (%) (Auto) 5 % (0-9) Eosinophils (%) (Auto) 0 % (0-3) Basophils (%) (Auto) 0 % (0-3) Neutrophils # (Auto) 8.4 x10^3/uL (1.8-7.7) Lymphocytes # (Auto) 0.7 x10^3/uL (1.0-4.8) Monocytes # (Auto) 0.5 x10^3/uL (0.0-1.1) Eosinophils # (Auto) 0.0 x10^3/uL (0.0-0.7) Basophils # (Auto) 0.0 x10^3/uL (0.0-0.2) Sodium Level 154 mmol/L (136-145) Potassium Level 4.2 mmol/L (3.5-5.1) Chloride Level 117 mmol/L (98-107) Carbon Dioxide Level 24 mmol/L (21-32) Anion Gap 13 (6-14) Blood Urea Nitrogen 66 mg/dL (8-26) Creatinine 1.2 mg/dL (0.7-1.3) Estimated GFR (Cockcroft-Gault) 58.4 Glucose Level 272 mg/dL (70-99) Calcium Level 8.9 mg/dL (8.5-10.1) Glucose (Fingerstick) 237 mg/dL (70-99) 221 mg/dL (70-99) 296 mg/dL (70-99) Test 06/19/21 23:29 06/20/21 05:30 06/20/21 06:48 Glucose (Fingerstick) 267 mg/dL (70-99) 258 mg/dL (70-99) Sodium Level 148 mmol/L (136-145) Potassium Level 5.3 mmol/L (3.5-5.1) Chloride Level 117 mmol/L (98-107) Carbon Dioxide Level 21 mmol/L (21-32) Anion Gap 10 (6-14) Blood Urea Nitrogen 72 mg/dL (8-26) Creatinine 1.2 mg/dL (0.7-1.3) Estimated GFR (Cockcroft-Gault) 58.4 Glucose Level 290 mg/dL (70-99) Calcium Level 8.6 mg/dL (8.5-10.1) Laboratory Tests Test 06/19/21 12:39 06/19/21 17:43 06/19/21 23:29 06/20/21 05:30 Glucose (Fingerstick) 221 mg/dL (70-99) 296 mg/dL (70-99) 267 mg/dL (70-99) Sodium Level 148 mmol/L (136-145) Potassium Level 5.3 mmol/L (3.5-5.1) Chloride Level 117 mmol/L (98-107) Carbon Dioxide Level 21 mmol/L (21-32) Anion Gap 10 (6-14) Blood Urea Nitrogen 72 mg/dL (8-26) Creatinine 1.2 mg/dL (0.7-1.3) Estimated GFR (Cockcroft-Gault) 58.4 Glucose Level 290 mg/dL (70-99) Calcium Level 8.6 mg/dL (8.5-10.1) Test 06/20/21 06:48 Glucose (Fingerstick) 258 mg/dL (70-99) Medications Active Scripts Medications Dose Route/Sig Max Daily Dose Days Date Category Dose Instructions Lantus Solostar (Insulin Glargine,Hum.rec.anlog) 100 Unit/1 Ml Insuln.pen 15 Unit SQ QHS 30 06/02/20 Rx If glucose > 200 on 2 or more readings, can add 2u for the night Aspirin Ec (Aspirin) 81 Mg Tablet.dr 81 Mg PO DAILYWBKFT 90 06/02/20 Rx Atorvastatin Calcium 40 Mg Tablet 40 Mg PO QHS 90 06/02/20 Rx Novolog (Insulin Aspart) 100 Unit/1 Ml Cartridge 0-9 Unit SQ QID 30 06/02/20 Rx Glucose - Insulin >150mg/dL - 3u 151-200 - 5u 201-250 - 6u 251-300 - 7u 301-350 - 9u >350 - Contact Furosemide 40 Mg Tablet 1 Tab PO DAILY 06/01/20 Reported Spironolactone 25 Mg Tablet 1 Tab PO DAILY 06/01/20 Reported Levothyroxine Sodium 88 Mcg Tablet 1 Tab PO DAILY 06/01/20 Reported Lisinopril 5 Mg Tablet 1 Tab PO DAILY 06/01/20 Reported Carvedilol (Carvedilol) 12.5 Mg Tablet 12.5 Mg PO BIDWMEALS 06/01/20 Reported Impression . IMPRESSION: 1. Acute hypoxemic respiratory failure secondary to acute on chronic systolic heart failure. 2. Abnormal x-ray, compatible more with congestive heart failure and COVID-19. 3. Tested positive for COVID-19. 4. Possible COVID-19 viral pneumonia. 5. Acute on chronic kidney failure. 6. Elevated liver function tests. 7. Severe protein malnutrition, present upon admission. 9. Hypotension, multifactorial, Echo report <Conclusion> The ejection fraction is moderately to severely impaired. EF 25% The distal half of the LV is severely akinetic to hypokinetic. There is global hypokinesis. Plan . Updated 06/20 Continue current support Morphine drip for air hunger Patient DO NOT INTUBATE DO NOT RESUSCITATE Received remdesivir Not expected to survive updated 06/19 Discussed with RN Morphine drip Patient not expected to survive Not in sync with the BiPAP this morning Received remdesivir updated 06/18 cont BiPAP, setting reviewed titrate fio2 to keep sat 90% on precedex avoid oversedation elevate hob DVT prophylaxis Patient DNR status prognosis poor Discussed with RN and RT We will continue current support KAREN ARAYA MD Jun 20, 2021 09:13
[2021-06-20] MEDS: DOXYCYCLINE HYCLATE 100 MG in IV DEXTROSE 5% 100ML 100 ML IV SCH ×2 (09:41→21:17)
[2021-06-20] MEDS ORDERED: DEXTROSE 50% 25 GM / 50ML DISP.SYRIN. IV PRN (10:00)
--- NOTE | 2021-06-20 10:28 | PDOC ---
SALONI DAVIS HERPETOLOGIST 06/20/21 1028: CARDIO Progress Notes Date and Time Date of Service 06/20/21 Time of Evaluation 1245 Subjective Subjective: Other (sedated ) Vitals Vitals Vital Signs Date Time Temp Pulse Resp B/P (MAP) Pulse Ox O2 Delivery O2 Flow Rate FiO2 06/20/21 08:00 21 93 BiPAP/CPAP 06/20/21 06:00 60 120/63 06/20/21 04:00 95.9 95.9 Weight Weight [ ] Input and Output Intake and Output Intake and Output 06/20/21 06:59 Intake Total 3443.8 ml Output Total 1730 ml Balance 1713.8 ml IV Total 3443.8 ml Output Urine Total 1730 ml Laboratory Labs Laboratory Tests Test 06/19/21 12:39 06/19/21 17:43 06/19/21 23:29 06/20/21 05:30 Glucose (Fingerstick) 221 mg/dL (70-99) 296 mg/dL (70-99) 267 mg/dL (70-99) Sodium Level 148 mmol/L (136-145) Potassium Level 5.3 mmol/L (3.5-5.1) Chloride Level 117 mmol/L (98-107) Carbon Dioxide Level 21 mmol/L (21-32) Anion Gap 10 (6-14) Blood Urea Nitrogen 72 mg/dL (8-26) Creatinine 1.2 mg/dL (0.7-1.3) Estimated GFR (Cockcroft-Gault) 58.4 Glucose Level 290 mg/dL (70-99) Calcium Level 8.6 mg/dL (8.5-10.1) Test 06/20/21 06:48 Glucose (Fingerstick) 258 mg/dL (70-99) Microbiology Micro Microbiology 06/11/21 Urine Culture - Final, Complete 06/11/21 Blood Culture - Final, Complete NO GROWTH AFTER 5 DAYS Review of Systems Constitutional: yes: unresponsive Physical Exam HEENT: Neck Supple W Full Motion Chest: Symmetric LUNGS: Other (on BiPAP) Heart: RRR (SR) Abdomen: Other (non-distended ) Extremities: No Edema Neurology: other (on sedation) Assessment Assessment 1. Weakness, falls 2. Acute respiratory failure secondary to COVID PNA, CHF. 3. Acute on chronic systolic CHF; better compensated s/p IV Lasix. 4. Ischemic cardiomyopathy; Echo with LVEF 25% 5. Chronic LBBB 6. CAD s/p CABG 2008, clinically stable 7. H/o hypertension with present hypotension. off Levophed, remains low end 8. Hyperlipidemia 9. Diabetes, II: per IM 10. LUCÍA, hyperkalemia, hypernatremia 11. Hypothyroidism 12. Thrombocytopenia; PLTs stable Recommendations Hold Lasix therapy with hypernatremia Secondary prevention as able Hold Coreg, lisinopril with hypotension Avoid nephrotoxins Ongoing lung optimization, treatment of COVID as per pulmonary Supportive care Prognosis poor Justicifation of Admission Dx: Justifications for Admission: Justification of Admission Dx: Yes Altered Mental Status: Altered Mental Status REGINALD MAGALLON MD 06/21/21 1149: CARDIO Progress Notes Assessment Assessment Patient seen and examined 06/20/2021. Agree with SUPER[employer]MENT's assessment and plan. Acute on chronic systolic heart failure better compensated. Agree with holding Lasix. CAD status clinically stable. Continue current treatment for acute respiratory failure/Covid pneumonia per pulmonary team SALONI DAVIS APRN Jun 20, 2021 10:28 REGINALD MAGALLON MD Jun 21, 2021 11:49
--- NOTE | 2021-06-20 11:44 | PDOC ---
DATE OF SERVICE DATE: 06/20/21 TIME: 11:35 SUBJECTIVE ROS Patient on BiPAP, sedated OBJECTIVE Vital Signs Vital Signs Date Time Temp Pulse Resp B/P (MAP) Pulse Ox O2 Delivery O2 Flow Rate FiO2 06/20/21 08:00 21 93 BiPAP/CPAP 06/20/21 06:00 60 120/63 06/20/21 04:00 95.9 95.9 I & 0 Intake and Output 06/20/21 07:00 Intake Total 3443.8 ml Output Total 1730 ml Balance 1713.8 ml IV Total 3443.8 ml Output Urine Total 1730 ml PHYSICAL EXAM Physical Exam General NAD, HEEN On BiPap Neck Supple Lungs Decreased at bases, Heart S1S2 Abd Soft, NT, BS + Neuro AXO x2 , confused ,No focal deficit Ext No LE edema Jonas + Derm No Rash DIAGNOSIS/ASSESSMENT Assessment & Plan LUCÍA - ATN , Non Oliguric . E-Lytes stable, UA Glucosuria . ; Renal Function improved/stable . Supportive care, Maintain fluid balance , Avoid Nephrotoxins, Strict I/O HyperNatremia - Improving, Continue IV Hypotonic fluid HyperKalemia- Mild, Monitor CKD stage 2 - Baseline Creat 0.9-1.May per [facility] records, No interval labs available to me Acute hypoxemic respiratory failure - Abnormal x-ray, Tested positive for COVID-19.On remdesivir dexamethasone, and O2 Support . Not expected to survive per [place] COVID 19 Pneumonia - Rapid positive ; He is Unvaccinated [place] at home Chronic systolic CHF- ejection fraction is moderately to severely impaired. EF 25%.The distal half of the LV is severely akinetic to hypokinetic. There is global hypokinesis. H/o Ischemic cardiomyopathy LBBB - chronic CAD s/p CABG 2008 Diabetes, II Thrombocytopenia COMMENT/RELEVANT DATA Meds Current Medications Medications (Trade) Dose Ordered Sig/Raj Start Time Stop Time Status Last Admin Dose Admin Acetaminophen (Tylenol) 650 mg PRN Q6HRS PRN 06/11/21 20:30 06/12/21 09:04 650 MG Albumin Human 250 ml @ 62.5 mls/hr PRN DAILY PRN 06/12/21 17:45 06/13/21 04:52 62.5 MLS/HR Albuterol Sulfate (Ventolin Hfa) 2 puff PRN Q4HRS PRN 06/11/21 19:00 06/11/21 21:22 2 PUFF Amino Acids/ Electrolytes/ Dextrose 1,000 ml @ 80 mls/hr [id number] 06/16/21 17:30 06/20/21 03:07 80 MLS/HR Ascorbic Acid (Vitamin C) 500 mg DAILY 06/12/21 09:00 06/16/21 07:34 500 MG Aspirin (Ecotrin) 81 mg [id number] 06/12/21 08:00 06/16/21 07:34 81 MG Atorvastatin Calcium (Lipitor) 40 mg QHS 06/11/21 21:00 06/15/21 20:51 40 MG Atropine Sulfate (ATROPINE 0.5mg SYRINGE) 0.5 mg PRN Q5MIN PRN 06/13/21 18:30 Calcium Carbonate/ Glycine (Tums) 500 mg PRN Q3HRS PRN 06/11/21 20:30 Ceftriaxone Sodium (Rocephin) 1 gm Q24H 06/11/21 21:00 06/17/21 09:27 DC 06/16/21 22:08 1 GM Dexamethasone Sodium Phosphate (Decadron) 6 mg DAILY 06/12/21 09:00 06/20/21 08:30 6 MG Dexmedetomidine HCl 400 mcg/ Sodium Chloride 100 ml @ 0 mls/hr CONT PRN 06/13/21 18:30 06/20/21 08:30 9.1 MLS/HR Dextrose (Dextrose 50%-Water Syringe) 12.5 gm PRN Q15MIN PRN 06/20/21 10:00 Digoxin (Lanoxin) 500 mcg 1X ONCE 06/13/21 16:00 06/13/21 16:02 DC 06/13/21 16:26 500 MCG Dobutamine HCl/ Dextrose 250 ml @ 13.26 mls/ hr CONT PRN 06/12/21 13:00 06/12/21 13:38 13.26 MLS/HR Doxycycline Hyclate (Vibra-Tab) 100 mg BID 06/11/21 21:00 06/18/21 11:05 DC 06/16/21 07:35 100 MG Doxycycline Hyclate 100 mg/ Dextrose 100 ml @ 50 mls/hr Q12HR 06/18/21 21:00 06/20/21 09:41 50 MLS/HR Furosemide (Lasix) 40 mg DAILY 06/16/21 13:00 06/19/21 17:10 DC 06/19/21 09:40 40 MG Guaifenesin/ Codeine Phosphate (Robitussin Ac) 5 ml PRN Q6HRS PRN 06/11/21 20:00 06/14/21 08:43 5 ML Heparin Sodium (Porcine) (Heparin Sodium) 5,000 unit Q12HR 06/13/21 21:00 06/20/21 08:31 5,000 UNIT Info (Non-Icu Electrolyte Protocol) 1 ea PRN DAILY PRN 06/11/21 20:30 Insulin Glargine (Lantus Syringe) 25 unit QHS 06/19/21 21:00 06/19/21 23:44 25 UNIT Insulin Human Lispro (HumaLOG) 5 units TIDAC 06/20/21 11:30 Lactobacillus Rhamnosus (Culturelle) 1 cap BID 06/13/21 09:00 06/16/21 07:34 1 CAP Levothyroxine Sodium (Synthroid) 88 mcg DAILY06 06/12/21 06:00 06/15/21 05:45 88 MCG Morphine Sulfate 30 ml @ 0 mls/hr CONT PRN PRN 06/19/21 15:00 06/20/21 07:30 2 MLS/HR Naloxone HCl (Narcan) 0.4 mg PRN Q2MIN PRN 06/19/21 15:00 Norepinephrine Bitartrate 8 mg/ Dextrose 258 ml @ 17.105 mls/ hr CONT PRN 06/12/21 12:00 06/14/21 15:25 13.684 MLS/HR Ondansetron HCl (Zofran) 4 mg PRN Q6HRS PRN 06/11/21 20:30 Oxycodone HCl (Roxicodone) 5 mg PRN Q3HRS PRN 06/11/21 20:30 Oxycodone/ Acetaminophen (Percocet 5/325) 2 tab PRN Q4HRS PRN 06/11/21 20:30 Remdesivir 100 mg/ Sodium Chloride 230 ml @ 460 mls/hr Q24H 06/12/21 20:00 06/15/21 20:29 DC 06/15/21 20:07 460 MLS/HR Remdesivir 200 mg/ Sodium Chloride 210 ml @ 210 mls/hr 1X ONCE 06/11/21 20:00 06/11/21 20:59 DC 06/11/21 20:33 210 MLS/HR Senna/Docusate Sodium (Senna Plus) 1 tab BID 06/11/21 21:00 06/14/21 08:43 1 TAB Sodium Chloride 1,000 ml @ 25 mls/hr Q24H 06/19/21 15:00 Sterile Water (WATER for RESP) 2,000 ml CONT PRN 06/14/21 09:15 06/14/21 09:42 2,000 ML Thiamine Mononitrate (Vitamin B-1) 100 mg DAILY 06/12/21 09:00 06/16/21 07:34 100 MG Zinc Sulfate (Orazinc) 220 mg DAILY 06/12/21 09:00 06/16/21 07:34 220 MG Lab Laboratory Tests Test 06/19/21 12:39 06/19/21 17:43 06/19/21 23:29 06/20/21 05:30 Glucose (Fingerstick) 221 mg/dL (70-99) 296 mg/dL (70-99) 267 mg/dL (70-99) Sodium Level 148 mmol/L (136-145) Potassium Level 5.3 mmol/L (3.5-5.1) Chloride Level 117 mmol/L (98-107) Carbon Dioxide Level 21 mmol/L (21-32) Anion Gap 10 (6-14) Blood Urea Nitrogen 72 mg/dL (8-26) Creatinine 1.2 mg/dL (0.7-1.3) Estimated GFR (Cockcroft-Gault) 58.4 Glucose Level 290 mg/dL (70-99) Calcium Level 8.6 mg/dL (8.5-10.1) Test 06/20/21 06:48 Glucose (Fingerstick) 258 mg/dL (70-99) Results All relevant outside records, renal labs, imaging studies, telemetry/EKG's were reviewed. Justicifation of Admission Dx: Justifications for Admission: Justification of Admission Dx: Yes Altered Mental Status: Altered Mental Status LUDIVINA MEDLEY MD Jun 20, 2021 11:44
[2021-06-20] MEDS: IV NORMAL SALINE 1000ML BAG 1,000 ML IV SCH (15:00)
--- NOTE | 2021-06-20 15:51 | NUR ---
SS following up with discharge planning. SS reviewed pt chart and discussed with pt RN. Pt is currently on BIPAP at 100%. COVID19 positive. Pt on IV Doxycycline, IV Decadron, and Clinimix. Pt on Morphine drip and Precedex. DNR. Not stable. SS will continue to follow for discharge planning.
--- NOTE | 2021-06-20 16:30 | PDOC ---
[employer] PROGRESS NOTE Date of Service DOS: DATE: 06/20/21 TIME: 16:28 Chief Complaint Chief Complaint A/P: Acute respiratory failure with hypoxia - secondary to COVID PNA. Febrile. Weakness, falls at home - due to hypoxia from COVID 19 Chronic systolic CHF - NT Pro BNP WNL. Cardiology consulted H/o Ischemic cardiomyopathy LBBB - chronic CAD s/p CABG 2008 Hypertension Hyperlipidemia Diabetes, II - sliding scale LUCÍA - likely vasomotor nephropathy. Consulted nephrology Hypothyroidism Thrombocytopenia - likely due to viral illness, will monitor Hyponatremia - likely nutritional FEN - ADA cardiac diet PPX - heparin FULL CODE Dispo - inpatient History of Present Illness History of Present Illness Patient is a 81 year old male w/ PMHx DM2, HTN, CAD s/p CABG, chronic systolic CHF who presents with 4-day history of weakness, nausea, vomiting and confusion. Patient is a poor historian, but his family member at bedside aids in providing history. For 4 days prior to admission has had weakness nausea and vomiting and is followed for twice without strength has had no injury but has been getting more confused. In ED was noted with pulse oximetry 83% on room air. Rapid COVID-19 returned positive. Patient is not vaccinated against COVID-19. Patient and family member deny fever, chills, chest pain, palpitations, shortness of breath, cough, constipation, abdominal pain, diarrhea. Patient has no other complaints at this time Initiated on remdesivir and admitted for further care. 06/12: Up to 12 L facemask O2 overnight still little confused. O2 saturations 91% on this O2. Na133, Cr 3. Having some nausea and diarrhea. No vomiting currently. Plan: Given deteriorating condition will need higher level of care, transfer to ICU for likely vapotherm therapy, consult Pulm 06/13: Afebrile. On 15 L nonrebreather. Transferred to ICU overnight due to hypotension and bradycardia. Currently requiring Levophed and dobutamine. Echocardiogram yesterday showed global hypokinesis severely impaired EF 25%. Continue to hold heart failure medications until stable. Continue remdesivir steroids, empiric antibiotics. Critical care time 30 minutes spent reviewing charts, reviewing labs, reviewing imaging, discussion with RN. 06/14: Afebrile. 15 L nonrebreather and still hypoxic and mid 80s. Discussed with patient if he would be okay with intubation if necessary, he says that would be fine with him. I have some concerns about underlying dementia; reached out to patient's to confirm if she would be okay with intubation, but no answer x2. Remains on pressor support; dobutamine discontinued due to tachycardia. Continue remdesivir; last dose should be tomorrow. Continue sonal roids and empiric antibiotics. Critical care time 30 minutes spent reviewing charts, reviewing labs, reviewing imaging, discussion with RN. 06/15: Afebrile, breathing on BiPAP with improvement in oxygen saturation. Yesterday after patient agreed to full code, RN spoke with ; due to concerns for dementia patient's reiterated that patient would want DNR; CODE STATUS was changed. Last day remdesivir today. Chest x-ray today showed stable multifocal interstitial infiltrate and cardiomegaly with suspected small pleural effusions. We will continue empiric antibiotics. Continue steroids and supportive care. Will follow cardiology recommendations; secondary prevention as able, hold coreg, lisinopril. Critical care time 30 minutes spent reviewing charts, reviewing labs, reviewing imaging, discussion with RN. 06/16: Afebrile, still breathing on BiPAP. S/P remdesivir. Continue empiric antibiotics and Decadron to complete 10-day course. Renal function improving, will try to maintain fluid balance. Follow cardiology recommendations. Continue Levophed as needed. Critical care time 30 minutes spent reviewing charts, reviewing labs, reviewing imaging, discussion with RN. 06/17: Low-grade fever this morning, T-max 99.7 F. Breathing on BiPAP. S/P remdesivir. Continue steroids. Procalcitonin <0.10, will discontinue empiric antibiotics and monitor. Continue to follow cardiology and nephrology recommendations. Critical care time 30 minutes spent reviewing charts, reviewing labs, reviewing imaging, discussion with RN. 06/18: Afebrile, tachypneic on BiPAP. S/P remdesivir. Empiric antibiotics have been held; continue steroids. Continue to follow cardiology recommendations. Donte continue to follow cardiology recommendations; echo with severely impaired EF 25% and global hypokinesis. Critical care time 30 minutes spent reviewing charts, reviewing labs, reviewing imaging, discussion with RN. 06/19 Patient evaluated and examined at bedside. Remains on BiPAP does not awaken easily. Continuing Covid treatment. Continue Rocephin doxy continue O2 supplementation wean as tolerated. Continue to follow subspecialist recommendations. 30 minutes critical care time spent reviewing charts, reviewing labs, reviewing imaging, and discussion with RN 06/20 Patient evaluated and examined at bedside. Still remains on BiPAP 100%. Minimally responsive to any sort of attempts at awakening him. Continue COVID treatment. Continue Rocephin and doxy. Very poor prognosis will try to initiate goals of care with the family in the next day or 2. 30 minutes critical care time spent reviewing charts labs imaging and discussion with subspecialty teams and bedside nurses. Vitals/I&O Vitals/I&O: Vital Signs Date Time Temp Pulse Resp B/P (MAP) Pulse Ox O2 Delivery O2 Flow Rate FiO2 06/20/21 15:30 93 BiPAP/CPAP 06/20/21 08:00 21 06/20/21 06:00 60 120/63 06/20/21 04:00 95.9 95.9 I & O 06/19/21 06/19/21 06/20/21 15:00 23:00 07:00 Intake Total 100 ml 1069.8 ml 2274 ml Output Total 675 ml 775 ml 280 ml Balance -575 ml 294.8 ml 1994 ml Physical Exam General: Alert, Cooperative, No acute distress Heart: Other (tachycardic) Lungs: Other (no accessory muscle use) Abdomen: Normal bowel sounds, Soft Extremities: No edema Skin: No significant lesion Labs Labs: Laboratory Tests Test 06/19/21 17:43 06/19/21 23:29 06/20/21 05:30 06/20/21 06:48 Glucose (Fingerstick) 296 mg/dL (70-99) 267 mg/dL (70-99) 258 mg/dL (70-99) Sodium Level 148 mmol/L (136-145) Potassium Level 5.3 mmol/L (3.5-5.1) Chloride Level 117 mmol/L (98-107) Carbon Dioxide Level 21 mmol/L (21-32) Anion Gap 10 (6-14) Blood Urea Nitrogen 72 mg/dL (8-26) Creatinine 1.2 mg/dL (0.7-1.3) Estimated GFR (Cockcroft-Gault) 58.4 Glucose Level 290 mg/dL (70-99) Calcium Level 8.6 mg/dL (8.5-10.1) Test 06/20/21 13:03 Glucose (Fingerstick) 229 mg/dL (70-99) Assessment and Plan Assessmemt and Plan Problems Medical Problems: (1) Fall in elderly patient Status: Acute (2) Pneumonia due to COVID-19 virus Status: Acute Comment Review of Relevant I have reviewed the following items [place] (where applicable) has been applied. Medications: Current Medications Medications (Trade) Dose Ordered Sig/Raj Route PRN Reason Start Time Stop Time Status Last Admin Dose Admin Insulin Glargine (Lantus Syringe) 25 unit QHS SQ 06/19/21 21:00 06/19/21 23:44 Insulin Human Lispro (HumaLOG) 0-9 UNITS TIDWMEALS SQ 06/20/21 12:00 06/20/21 13:08 Insulin Human Lispro (HumaLOG) 5 units TIDAC SQ 06/20/21 11:30 06/20/21 13:09 Justifications for Admission Other Justification ROSALIA LIN MD Jun 20, 2021 16:30
[2021-06-20] MEDS: ATORVASTATIN CALCIUM 40 MG TABLET. PO SCH (21:00)
[2021-06-20] MEDS: INSULIN GLARGINE SYRINGE. SQ SCH (21:20)
[2021-06-21] VITALS (23 sets, daily range): BP systolic 75–114; BP diastolic 40–64
[2021-06-21 05:06] LABS: CALCIUM 8.7 mg/dL (8.5-10.1); CREATININE 1.5 mg/dL (0.7-1.3); GFR 45.1; POTASSIUM 5.9 mmol/L (3.5-5.1)
[2021-06-21] MEDS: DEXMEDETOMIDINE 400 MCG in IV NORMAL SALINE 100ML 96 ML IV PRN ×2 (05:25→16:52)
[2021-06-21] MEDS: AA 4.25 %/CALCIUM/LYTES/D5W 1,000 ML IV SCH ×3 (05:26→22:31)
[2021-06-21] MEDS: LEVOTHYROXINE 88 MCG TABLET PO SCH (05:36)
[2021-06-21] MEDS: MORPHINE SULFATE 30 ML IV PRN (06:13)
[2021-06-21] MEDS: ASPIRIN ENTERIC COATED 81 MG TABLET.DR. PO SCH (08:00)
[2021-06-21] MEDS: THIAMINE 100 MG TABLET. PO SCH (09:00)
[2021-06-21] MEDS: ASCORBIC ACID 500 MG TABLET PO SCH (09:00)
[2021-06-21] MEDS: SENNOSIDES/DOCUSATE 8.6/50MG TABLET. PO SCH ×2 (09:00→20:53)
[2021-06-21] MEDS: ZINC SULFATE 220 MG CAPSULE. PO SCH (09:00)
[2021-06-21] MEDS: LACTOBACILLUS RHAMNOSUS GG 1 CAPSULE. PO SCH ×2 (09:00→20:52)
[2021-06-21] MEDS: DEXAMETHASONE SOD PHOS 4 MG/ML VIAL IVP SCH (09:03)
[2021-06-21] MEDS: HEPARIN for SUB-Q USE 5,000 UNIT/ML VIAL. SQ SCH ×2 (09:04→20:51)
[2021-06-21] MEDS: DOXYCYCLINE HYCLATE 100 MG in IV DEXTROSE 5% 100ML 100 ML IV SCH ×2 (09:04→20:52)
--- NOTE | 2021-06-21 09:05 | PDOC ---
PULMONARY PROGRESS NOTES DATE: 06/21/21 TIME: 09:05 Subjective Patient on BiPAP, sedated, appears to be in sync, 100% FiO2 to Vitals Vital Signs Date Time Temp Pulse Resp B/P (MAP) Pulse Ox O2 Delivery O2 Flow Rate FiO2 06/21/21 08:13 Bi-pap 06/21/21 08:09 97.7 73 36 78/47 90 97.7 06/21/21 06:43 40.0 Comments Unable to review systems, currently on BiPAP Lungs: Other (no accessory muscle use) Cardiovascular: S1, S2 Abdomen: Soft Neuro Exam: Alert Extremities: Other (Some edema) Skin: No Rashes Labs Laboratory Tests Test 06/19/21 12:39 06/19/21 17:43 06/19/21 23:29 06/20/21 05:30 Glucose (Fingerstick) 221 mg/dL (70-99) 296 mg/dL (70-99) 267 mg/dL (70-99) Sodium Level 148 mmol/L (136-145) Potassium Level 5.3 mmol/L (3.5-5.1) Chloride Level 117 mmol/L (98-107) Carbon Dioxide Level 21 mmol/L (21-32) Anion Gap 10 (6-14) Blood Urea Nitrogen 72 mg/dL (8-26) Creatinine 1.2 mg/dL (0.7-1.3) Estimated GFR (Cockcroft-Gault) 58.4 Glucose Level 290 mg/dL (70-99) Calcium Level 8.6 mg/dL (8.5-10.1) Test 06/20/21 06:48 06/20/21 13:03 06/20/21 17:14 06/21/21 04:30 Glucose (Fingerstick) 258 mg/dL (70-99) 229 mg/dL (70-99) 228 mg/dL (70-99) Sodium Level 153 mmol/L (136-145) Potassium Level 5.9 mmol/L (3.5-5.1) Chloride Level 119 mmol/L (98-107) Carbon Dioxide Level 28 mmol/L (21-32) Anion Gap 6 (6-14) Blood Urea Nitrogen 87 mg/dL (8-26) Creatinine 1.5 mg/dL (0.7-1.3) Estimated GFR (Cockcroft-Gault) 45.1 Glucose Level 186 mg/dL (70-99) Calcium Level 8.7 mg/dL (8.5-10.1) Laboratory Tests Test 06/20/21 13:03 06/20/21 17:14 06/21/21 04:30 Glucose (Fingerstick) 229 mg/dL (70-99) 228 mg/dL (70-99) Sodium Level 153 mmol/L (136-145) Potassium Level 5.9 mmol/L (3.5-5.1) Chloride Level 119 mmol/L (98-107) Carbon Dioxide Level 28 mmol/L (21-32) Anion Gap 6 (6-14) Blood Urea Nitrogen 87 mg/dL (8-26) Creatinine 1.5 mg/dL (0.7-1.3) Estimated GFR (Cockcroft-Gault) 45.1 Glucose Level 186 mg/dL (70-99) Calcium Level 8.7 mg/dL (8.5-10.1) Medications Active Scripts Medications Dose Route/Sig Max Daily Dose Days Date Category Dose Instructions Lantus Solostar (Insulin Glargine,Hum.rec.anlog) 100 Unit/1 Ml Insuln.pen 15 Unit SQ QHS 30 06/02/20 Rx If glucose > 200 on 2 or more readings, can add 2u for the night Aspirin Ec (Aspirin) 81 Mg Tablet.dr 81 Mg PO [id number] 06/02/20 Rx Atorvastatin Calcium 40 Mg Tablet 40 Mg PO QHS 90 06/02/20 Rx Novolog (Insulin Aspart) 100 Unit/1 Ml Cartridge 0-9 Unit SQ QID 30 06/02/20 Rx Glucose - Insulin >150mg/dL - 3u 151-200 - 5u 201-250 - 6u 251-300 - 7u 301-350 - 9u >350 - Contact Furosemide 40 Mg Tablet 1 Tab PO DAILY 06/01/20 Reported Spironolactone 25 Mg Tablet 1 Tab PO DAILY 06/01/20 Reported Levothyroxine Sodium 88 Mcg Tablet 1 Tab PO DAILY 06/01/20 Reported Lisinopril 5 Mg Tablet 1 Tab PO DAILY 06/01/20 Reported Carvedilol (Carvedilol) 12.5 Mg Tablet 12.5 Mg PO BIDWMEALS 06/01/20 Reported Impression . IMPRESSION: 1. Acute hypoxemic respiratory failure secondary to acute on chronic systolic heart failure. 2. Abnormal x-ray, compatible more with congestive heart failure and COVID-19. 3. Tested positive for COVID-19. 4. COVID-19 viral pneumonia. Status post remdesivir 5. Acute on chronic kidney failure. 6. Elevated liver function tests. 7. Severe protein malnutrition, present upon admission. 9. Hypotension, multifactorial, Echo report <Conclusion> The ejection fraction is moderately to severely impaired. EF 25% The distal half of the LV is severely akinetic to hypokinetic. There is global hypokinesis. Plan . Updated 06/21 Patient remains critically ill BUN and creatinine rising Sodium increasing May require free water Monitor blood sugars Patient not expected to survive Continue sedation updated 06/20 Continue current support Morphine drip for air hunger Patient DO NOT INTUBATE DO NOT RESUSCITATE Received remdesivir Not expected to survive KAREN ARAYA MD Jun 21, 2021 09:05
[2021-06-21] MEDS: ALBUMIN HUMAN 5% 250 ML IV PRN (09:38)
--- NOTE | 2021-06-21 10:57 | PDOC ---
[employer] PROGRESS NOTE Date of Service DOS: DATE: 06/21/21 TIME: 10:55 Chief Complaint Chief Complaint A/P: Acute respiratory failure with hypoxia - secondary to COVID PNA. Febrile. Weakness, falls at home - due to hypoxia from COVID 19 Chronic systolic CHF - NT Pro BNP WNL. Cardiology consulted H/o Ischemic cardiomyopathy LBBB - chronic CAD s/p CABG 2008 Hypertension Hyperlipidemia Diabetes, II - sliding scale LUCÍA - likely vasomotor nephropathy. Consulted nephrology Hypothyroidism Thrombocytopenia - likely due to viral illness, will monitor Hyponatremia - likely nutritional FEN - ADA cardiac diet PPX - heparin DNR/DNI Dispo - inpatient History of Present Illness History of Present Illness Patient is a 81 year old male w/ PMHx DM2, HTN, CAD s/p CABG, chronic systolic CHF who presents with 4-day history of weakness, nausea, vomiting and confusion. Patient is a poor historian, but his family member at bedside aids in providing history. For 4 days prior to admission has had weakness nausea and vomiting and is followed for twice without strength has had no injury but has been getting more confused. In ED was noted with pulse oximetry 83% on room air. Rapid COVID-19 returned positive. Patient is not vaccinated against COVID-19. Patient and family member deny fever, chills, chest pain, palpitations, shortness of breath, cough, constipation, abdominal pain, diarrhea. Patient has no other complaints at this time Initiated on remdesivir and admitted for further care. 06/12: Up to 12 L facemask O2 overnight still little confused. O2 saturations 91% on this O2. Na133, Cr 3. Having some nausea and diarrhea. No vomiting currently. Plan: Given deteriorating condition will need higher level of care, transfer to ICU for likely vapotherm therapy, consult Pulm 06/13: Afebrile. On 15 L nonrebreather. Transferred to ICU overnight due to hypotension and bradycardia. Currently requiring Levophed and dobutamine. Echocardiogram yesterday showed global hypokinesis severely impaired EF 25%. Continue to hold heart failure medications until stable. Continue remdesivir steroids, empiric antibiotics. Critical care time 30 minutes spent reviewing charts, reviewing labs, reviewing imaging, discussion with RN. 06/14: Afebrile. 15 L nonrebreather and still hypoxic and mid 80s. Discussed wi patient if he would be okay with intubation if necessary, he says that would be fine with him. I have some concerns about underlying dementia; reached out to patient's to confirm if she would be okay with intubation, but no answer x2. Remains on pressor support; dobutamine discontinued due to tachycardia. Continue remdesivir; last dose should be tomorrow. Continue steroids and empiric antibiotics. Critical care time 30 minutes spent reviewing charts, reviewing labs, reviewing imaging, discussion with RN. 06/15: Afebrile, breathing on BiPAP with improvement in oxygen saturation. Yesterday after patient agreed to full code, RN spoke with ; due to concerns for dementia patient's reiterated that patient would want DNR; CODE STATUS was changed. Last day remdesivir today. Chest x-ray today showed stable multifocal interstitial infiltrate and cardiomegaly with suspected small pleural effusions. We will continue empiric antibiotics. Continue steroids and supportive care. Will follow cardiology recommendations; secondary prevention as able, hold coreg, lisinopril. Critical care time 30 minutes spent reviewing charts, reviewing labs, reviewing imaging, discussion with RN. 06/16: Afebrile, still breathing on BiPAP. S/P remdesivir. Continue empiric antibiotics and Decadron to complete 10-day course. Renal function improving, will try to maintain fluid balance. Follow cardiology recommendations. Continue Levophed as needed. Critical care time 30 minutes spent reviewing charts, reviewing labs, reviewing imaging, discussion with RN. 06/17: Low-grade fever this morning, T-max 99.7 F. Breathing on BiPAP. S/P remdesivir. Continue steroids. Procalcitonin <0.10, will discontinue empiric antibiotics and monitor. Continue to follow cardiology and nephrology recommendations. Critical care time 30 minutes spent reviewing charts, reviewing labs, reviewing imaging, discussion with RN. 06/18: Afebrile, tachypneic on BiPAP. S/P remdesivir. Empiric antibiotics have been held; continue steroids. Continue to follow cardiology recommendations. Donte continue to follow cardiology recommendations; echo with severely impaired EF 25% and global hypokinesis. Critical care time 30 minutes spent reviewing charts, reviewing labs, reviewing imaging, discussion with RN. 06/19 Patient evaluated and examined at bedside. Remains on BiPAP does not awaken easily. Continuing Covid treatment. Continue Rocephin doxy continue O2 supplementation wean as tolerated. Continue to follow subspecialist recommendations. 30 minutes critical care time spent reviewing charts, reviewing labs, reviewing imaging, and discussion with RN 06/20 Patient evaluated and examined at bedside. Still remains on BiPAP 100%. Minimally responsive to any sort of attempts at awakening him. Continue COVID treatment. Continue Rocephin and doxy. Very poor prognosis will try to initiate goals of care with the family in the next day or 2. 30 minutes critical care time spent reviewing charts labs imaging and discussion with subspecialty teams and bedside nurses. 06/21 Patient evaluated examined at bedside. Still on high settings BiPAP. Is sedated. Continuing Covid treatment. Very poor prognosis will try to contact family this afternoon. 0 minutes critical care time spent reviewing charts labs imaging and discussion with subspecialty teams and bedside nurses Vitals/I&O Vitals/I&O: Vital Signs Date Time Temp Pulse Resp B/P (MAP) Pulse Ox O2 Delivery O2 Flow Rate FiO2 06/21/21 09:47 81 24 80/47 93 BiPAP/CPAP 06/21/21 08:09 97.7 97.7 06/21/21 06:43 40.0 I & O 06/20/21 06/20/21 06/21/21 15:00 23:00 07:00 Intake Total 1792.41 ml 1396.1 ml Output Total 500 ml 400 ml 475 ml Balance -500 ml 1392.41 ml 921.1 ml Physical Exam General: Alert, Cooperative, No acute distress Heart: Other (tachycardic) Lungs: Other (no accessory muscle use) Abdomen: Normal bowel sounds, Soft Extremities: No edema Skin: No significant lesion Labs Labs: Laboratory Tests Test 06/20/21 13:03 06/20/21 17:14 06/21/21 04:30 Glucose (Fingerstick) 229 mg/dL (70-99) 228 mg/dL (70-99) Sodium Level 153 mmol/L (136-145) Potassium Level 5.9 mmol/L (3.5-5.1) Chloride Level 119 mmol/L (98-107) Carbon Dioxide Level 28 mmol/L (21-32) Anion Gap 6 (6-14) Blood Urea Nitrogen 87 mg/dL (8-26) Creatinine 1.5 mg/dL (0.7-1.3) Estimated GFR (Cockcroft-Gault) 45.1 Glucose Level 186 mg/dL (70-99) Calcium Level 8.7 mg/dL (8.5-10.1) Assessment and Plan Assessmemt and Plan Problems Medical Problems: (1) Fall in elderly patient Status: Acute (2) Pneumonia due to COVID-19 virus Status: Acute Comment Review of Relevant I have reviewed the following items [place] (where applicable) has been applied. Medications: Current Medications Medications (Trade) Dose Ordered Sig/Raj Route PRN Reason Start Time Stop Time Status Last Admin Dose Admin Insulin Human Lispro (HumaLOG) 0-9 UNITS TIDWMEALS SQ 06/20/21 12:00 06/21/21 08:42 DC 06/20/21 17:17 Insulin Human Lispro (HumaLOG) 5 units TIDAC SQ 06/20/21 11:30 06/21/21 08:43 DC 06/20/21 17:17 Justifications for Admission Other Justification ROSALIA LIN MD Jun 21, 2021 10:57
--- NOTE | 2021-06-21 11:00 | PDOC ---
DATE OF SERVICE DATE: 06/21/21 TIME: 10:50 SUBJECTIVE ROS Remains on BiPAP, Decline in Mental status overnight OBJECTIVE Vital Signs Vital Signs Date Time Temp Pulse Resp B/P (MAP) Pulse Ox O2 Delivery O2 Flow Rate FiO2 06/21/21 09:47 81 24 80/47 93 BiPAP/CPAP 06/21/21 08:09 97.7 97.7 06/21/21 06:43 40.0 I & 0 Intake and Output 06/21/21 07:00 Intake Total 3188.51 ml Output Total 1375 ml Balance 1813.51 ml IV Total 2938.51 ml Other 250 ml Output Urine Total 1375 ml PHYSICAL EXAM Physical Exam General Decline in MS, Not responsive HEEN On BiPap Neck Supple Lungs Decreased at bases, Heart S1S2 Abd Soft, NT, BS + Neuro Not responsive , opens eyes Ext No LE edema Jonas + Derm No Rash DIAGNOSIS/ASSESSMENT Assessment & Plan LUCÍA - ATN , Non Oliguric . 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 Dialysis will not change the outcome of his declining Pulm status CKD stage 2 - Baseline Creat 0.9-1.May per [facility] records, No interval labs available to me Acute hypoxemic respiratory failure - Abnormal x-ray, Tested positive for COVID-19.On remdesivir dexamethasone, and O2 Support . Not expected to survive per [place] COVID 19 Pneumonia - Rapid positive ; He is Unvaccinated [place] at home Chronic systolic CHF- ejection fraction is moderately to severely impaired. EF 25%.The distal half of the LV is severely akinetic to hypokinetic. There is global hypokinesis. H/o Ischemic cardiomyopathy LBBB - chronic CAD s/p CABG 2008 Diabetes, II Thrombocytopenia COMMENT/RELEVANT DATA Meds Current Medications Medications (Trade) Dose Ordered Sig/Raj Start Time Stop Time Status Last Admin Dose Admin Acetaminophen (Tylenol) 650 mg PRN Q6HRS PRN 06/11/21 20:30 06/12/21 09:04 650 MG Albumin Human 250 ml @ 62.5 mls/hr PRN DAILY PRN 06/12/21 17:45 06/21/21 09:38 62.5 MLS/HR Albuterol Sulfate (Ventolin Hfa) 2 puff PRN Q4HRS PRN 06/11/21 19:00 06/11/21 21:22 2 PUFF Amino Acids/ Electrolytes/ Dextrose 1,000 ml @ 80 mls/hr [id number] 06/16/21 17:30 06/21/21 05:26 80 MLS/HR Ascorbic Acid (Vitamin C) 500 mg DAILY 06/12/21 09:00 06/16/21 07:34 500 MG Aspirin (Ecotrin) 81 mg [id number] 06/12/21 08:00 06/16/21 07:34 81 MG Atorvastatin Calcium (Lipitor) 40 mg QHS 06/11/21 21:00 06/15/21 20:51 40 MG Atropine Sulfate (ATROPINE 0.5mg SYRINGE) 0.5 mg PRN Q5MIN PRN 06/13/21 18:30 Calcium Carbonate/ Glycine (Tums) 500 mg PRN Q3HRS PRN 06/11/21 20:30 Ceftriaxone Sodium (Rocephin) 1 gm Q24H 06/11/21 21:00 06/17/21 09:27 DC 06/16/21 22:08 1 GM Dexamethasone Sodium Phosphate (Decadron) 6 mg DAILY 06/12/21 09:00 06/21/21 09:03 6 MG Dexmedetomidine HCl 400 mcg/ Sodium Chloride 100 ml @ 0 mls/hr CONT PRN 06/13/21 18:30 06/21/21 05:25 9.1 MLS/HR Dextrose (Dextrose 50%-Water Syringe) 12.5 gm PRN Q15MIN PRN 06/20/21 10:00 Digoxin (Lanoxin) 500 mcg 1X ONCE 06/13/21 16:00 06/13/21 16:02 DC 06/13/21 16:26 500 MCG Dobutamine HCl/ Dextrose 250 ml @ 13.26 mls/ hr CONT PRN 06/12/21 13:00 06/12/21 13:38 13.26 MLS/HR Doxycycline Hyclate (Vibra-Tab) 100 mg BID 06/11/21 21:00 06/18/21 11:05 DC 06/16/21 07:35 100 MG Doxycycline Hyclate 100 mg/ Dextrose 100 ml @ 50 mls/hr Q12HR 06/18/21 21:00 06/21/21 09:04 50 MLS/HR Furosemide (Lasix) 40 mg DAILY 06/16/21 13:00 06/19/21 17:10 DC 06/19/21 09:40 40 MG Guaifenesin/ Codeine Phosphate (Robitussin Ac) 5 ml PRN Q6HRS PRN 06/11/21 20:00 06/14/21 08:43 5 ML Heparin Sodium (Porcine) (Heparin Sodium) 5,000 unit Q12HR 06/13/21 21:00 06/21/21 09:04 5,000 UNIT Info (Non-Icu Electrolyte Protocol) 1 ea PRN DAILY PRN 06/11/21 20:30 Insulin Glargine (Lantus Syringe) 25 unit QHS 06/19/21 21:00 06/20/21 21:20 25 UNIT Insulin Human Lispro (HumaLOG) 0-9 UNITS Q6HRS 06/21/21 12:00 Lactobacillus Rhamnosus (Culturelle) 1 cap BID 06/13/21 09:00 06/16/21 07:34 1 CAP Levothyroxine Sodium (Synthroid) 88 mcg DAILY06 06/12/21 06:00 06/15/21 05:45 88 MCG Morphine Sulfate 30 ml @ 0 mls/hr CONT PRN PRN 06/19/21 15:00 06/21/21 06:13 3 MLS/HR Naloxone HCl (Narcan) 0.4 mg PRN Q2MIN PRN 06/19/21 15:00 Norepinephrine Bitartrate 8 mg/ Dextrose 258 ml @ 17.105 mls/ hr CONT PRN 06/12/21 12:00 06/14/21 15:25 13.684 MLS/HR Ondansetron HCl (Zofran) 4 mg PRN Q6HRS PRN 06/11/21 20:30 Oxycodone HCl (Roxicodone) 5 mg PRN Q3HRS PRN 06/11/21 20:30 Oxycodone/ Acetaminophen (Percocet 5/325) 2 tab PRN Q4HRS PRN 06/11/21 20:30 Remdesivir 100 mg/ Sodium Chloride 230 ml @ 460 mls/hr Q24H 06/12/21 20:00 06/15/21 20:29 DC 06/15/21 20:07 460 MLS/HR Remdesivir 200 mg/ Sodium Chloride 210 ml @ 210 mls/hr 1X ONCE 06/11/21 20:00 06/11/21 20:59 DC 06/11/21 20:33 210 MLS/HR Senna/Docusate Sodium (Senna Plus) 1 tab BID 06/11/21 21:00 06/14/21 08:43 1 TAB Sodium Chloride 1,000 ml @ 25 mls/hr Q24H 06/19/21 15:00 Sterile Water (WATER for RESP) 2,000 ml CONT PRN 06/14/21 09:15 06/14/21 09:42 2,000 ML Thiamine Mononitrate (Vitamin B-1) 100 mg DAILY 06/12/21 09:00 06/16/21 07:34 100 MG Zinc Sulfate (Orazinc) 220 mg DAILY 06/12/21 09:00 06/16/21 07:34 220 MG Lab Laboratory Tests Test 06/20/21 13:03 06/20/21 17:14 06/21/21 04:30 Glucose (Fingerstick) 229 mg/dL (70-99) 228 mg/dL (70-99) Sodium Level 153 mmol/L (136-145) Potassium Level 5.9 mmol/L (3.5-5.1) Chloride Level 119 mmol/L (98-107) Carbon Dioxide Level 28 mmol/L (21-32) Anion Gap 6 (6-14) Blood Urea Nitrogen 87 mg/dL (8-26) Creatinine 1.5 mg/dL (0.7-1.3) Estimated GFR (Cockcroft-Gault) 45.1 Glucose Level 186 mg/dL (70-99) Calcium Level 8.7 mg/dL (8.5-10.1) Results All relevant outside records, renal labs, imaging studies, telemetry/EKG's were reviewed. Justicifation of Admission Dx: Justifications for Admission: Justification of Admission Dx: Yes Altered Mental Status: Altered Mental Status LUDIVINA MEDLEY MD Jun 21, 2021 11:00
[2021-06-21] MEDS: IV DEXTROSE 5% 1,000 ML IV SCH (11:17)
[2021-06-21] MEDS: INSULIN LISPRO 300 UNITS/3 ML VIAL. SQ SCH ×4 (11:25→16:53)
--- NOTE | 2021-06-21 12:00 | PDOC ---
SALONI DAVIS PARKING ATTENDANT 06/21/21 1200: CARDIO Progress Notes Date and Time Date of Service 06/21/21 Time of Evaluation 1154 Subjective Subjective: Other (sedated ) Vitals Vitals Vital Signs Date Time Temp Pulse Resp B/P (MAP) Pulse Ox O2 Delivery O2 Flow Rate FiO2 06/21/21 11:09 81 22 86/57 98 BiPAP/CPAP 06/21/21 08:09 97.7 97.7 06/21/21 06:43 40.0 Weight Weight [ ] Input and Output Intake and Output Intake and Output 06/21/21 07:00 Intake Total 3188.51 ml Output Total 1375 ml Balance 1813.51 ml IV Total 2938.51 ml Other 250 ml Output Urine Total 1375 ml Laboratory Labs Laboratory Tests Test 06/20/21 13:03 06/20/21 17:14 06/21/21 04:30 06/21/21 11:15 Glucose (Fingerstick) 229 mg/dL (70-99) 228 mg/dL (70-99) 124 mg/dL (70-99) Sodium Level 153 mmol/L (136-145) Potassium Level 5.9 mmol/L (3.5-5.1) Chloride Level 119 mmol/L (98-107) Carbon Dioxide Level 28 mmol/L (21-32) Anion Gap 6 (6-14) Blood Urea Nitrogen 87 mg/dL (8-26) Creatinine 1.5 mg/dL (0.7-1.3) Estimated GFR (Cockcroft-Gault) 45.1 Glucose Level 186 mg/dL (70-99) Calcium Level 8.7 mg/dL (8.5-10.1) Microbiology Micro Microbiology 06/11/21 Urine Culture - Final, Complete 06/11/21 Blood Culture - Final, Complete NO GROWTH AFTER 5 DAYS Review of Systems Constitutional: yes: unresponsive Physical Exam HEENT: Neck Supple W Full Motion Chest: Symmetric LUNGS: Other (on BiPAP) Heart: RRR (SR) Abdomen: Other (non-distended ) Extremities: No Edema Neurology: other (somnolent ) Assessment Assessment 1. Weakness, falls 2. Acute respiratory failure secondary to COVID PNA, CHF. 3. Acute on chronic systolic CHF; better compensated s/p IV Lasix. 4. Ischemic cardiomyopathy; Echo with LVEF 25% 5. Chronic LBBB 6. CAD s/p CABG 2008, clinically stable 7. H/o hypertension with present hypotension. off Levophed, remains low end 8. Hyperlipidemia 9. Diabetes, II: per IM 10. LUCÍA, hyperkalemia, hypernatremia 11. Hypothyroidism 12. Thrombocytopenia; PLTs stable Recommendations Secondary prevention as able Hold Coreg, lisinopril with hypotension Avoid nephrotoxins Ongoing lung optimization, treatment of COVID as per pulmonary Supportive care Prognosis poor Justicifation of Admission Dx: Justifications for Admission: Justification of Admission Dx: Yes Altered Mental Status: Altered Mental Status REGINALD MAGALLON MD 06/21/212021: CARDIO Progress Notes Assessment Assessment Patient seen and examined. Agree with ASSISTED LIVING NURSING DIRECTOR's assessment and plan. Acute on chronic systolic heart failure better compensated CAD status clinically stable. Continue current treatment for acute respiratory failure/Covid pneumonia per pulmonary team SALONI DAVIS APRN Jun 21, 2021 12:00 REGINALD MAGALLON MD Jun 21, 2021 20:22
[2021-06-21] MEDS: INSULIN GLARGINE SYRINGE. SQ SCH (20:52)
[2021-06-21] MEDS: ATORVASTATIN CALCIUM 40 MG TABLET. PO SCH (20:52)
[2021-06-22] VITALS (12 sets, daily range): BP systolic 59–130; BP diastolic 32–61
[2021-06-22] MEDS: INSULIN LISPRO 300 UNITS/3 ML VIAL. SQ SCH ×4 (00:29→06:21)
[2021-06-22 04:35] LABS: CALCIUM 8.6 mg/dL (8.5-10.1); CREATININE 1.2 mg/dL (0.7-1.3); GFR 58.4; POTASSIUM 5.8 mmol/L (3.5-5.1)
[2021-06-22] MEDS: LEVOTHYROXINE 88 MCG TABLET PO SCH (05:33)
[2021-06-22] MEDS: MORPHINE SULFATE 30 ML IV PRN ×2 (05:35→14:43)
[2021-06-22] MEDS: DEXMEDETOMIDINE 400 MCG in IV NORMAL SALINE 100ML 96 ML IV PRN (06:24)
[2021-06-22] MEDS: ZINC SULFATE 220 MG CAPSULE. PO SCH (07:18)
[2021-06-22] MEDS: SENNOSIDES/DOCUSATE 8.6/50MG TABLET. PO SCH (07:18)
[2021-06-22] MEDS: ASPIRIN ENTERIC COATED 81 MG TABLET.DR. PO SCH (07:18)
[2021-06-22] MEDS: LACTOBACILLUS RHAMNOSUS GG 1 CAPSULE. PO SCH (07:18)
[2021-06-22] MEDS: THIAMINE 100 MG TABLET. PO SCH (07:18)
[2021-06-22] MEDS: ASCORBIC ACID 500 MG TABLET PO SCH (07:18)
[2021-06-22] MEDS: IV DEXTROSE 5% 1,000 ML IV SCH (08:29)
[2021-06-22] MEDS: DEXAMETHASONE SOD PHOS 4 MG/ML VIAL IVP SCH (08:29)
[2021-06-22] MEDS: DOXYCYCLINE HYCLATE 100 MG in IV DEXTROSE 5% 100ML 100 ML IV SCH (08:30)
[2021-06-22] MEDS: HEPARIN for SUB-Q USE 5,000 UNIT/ML VIAL. SQ SCH (08:30)
--- NOTE | 2021-06-22 09:10 | PDOC ---
PULMONARY PROGRESS NOTES DATE: 06/22/21 TIME: 09:10 Subjective Patient remains unresponsive patient on BiPAP, sedated, appears to be in sync, 100% FiO2 to Vitals Vital Signs Date Time Temp Pulse Resp B/P (MAP) Pulse Ox O2 Delivery O2 Flow Rate FiO2 06/22/21 08:11 98 24 73/53 92 BiPAP/CPAP 06/22/21 07:09 99.9 99.9 06/22/21 06:05 40.0 Comments Unable to review systems, currently on BiPAP Lungs: Other (no accessory muscle use) Cardiovascular: S1, S2 Abdomen: Soft Neuro Exam: Alert Extremities: Other (Some edema) Skin: No Rashes Labs Laboratory Tests Test 06/20/21 13:03 06/20/21 17:14 06/21/21 04:30 06/21/21 11:15 Glucose (Fingerstick) 229 mg/dL (70-99) 228 mg/dL (70-99) 124 mg/dL (70-99) Sodium Level 153 mmol/L (136-145) Potassium Level 5.9 mmol/L (3.5-5.1) Chloride Level 119 mmol/L (98-107) Carbon Dioxide Level 28 mmol/L (21-32) Anion Gap 6 (6-14) Blood Urea Nitrogen 87 mg/dL (8-26) Creatinine 1.5 mg/dL (0.7-1.3) Estimated GFR (Cockcroft-Gault) 45.1 Glucose Level 186 mg/dL (70-99) Calcium Level 8.7 mg/dL (8.5-10.1) Test 06/21/21 16:50 06/22/21 00:24 06/22/21 03:45 06/22/21 06:18 Glucose (Fingerstick) 220 mg/dL (70-99) 220 mg/dL (70-99) 153 mg/dL (70-99) Sodium Level 150 mmol/L (136-145) Potassium Level 5.8 mmol/L (3.5-5.1) Chloride Level 118 mmol/L (98-107) Carbon Dioxide Level 25 mmol/L (21-32) Anion Gap 7 (6-14) Blood Urea Nitrogen 77 mg/dL (8-26) Creatinine 1.2 mg/dL (0.7-1.3) Estimated GFR (Cockcroft-Gault) 58.4 Glucose Level 195 mg/dL (70-99) Calcium Level 8.6 mg/dL (8.5-10.1) Laboratory Tests Test 06/21/21 11:15 06/21/21 16:50 06/22/21 00:24 06/22/21 03:45 Glucose (Fingerstick) 124 mg/dL (70-99) 220 mg/dL (70-99) 220 mg/dL (70-99) Sodium Level 150 mmol/L (136-145) Potassium Level 5.8 mmol/L (3.5-5.1) Chloride Level 118 mmol/L (98-107) Carbon Dioxide Level 25 mmol/L (21-32) Anion Gap 7 (6-14) Blood Urea Nitrogen 77 mg/dL (8-26) Creatinine 1.2 mg/dL (0.7-1.3) Estimated GFR (Cockcroft-Gault) 58.4 Glucose Level 195 mg/dL (70-99) Calcium Level 8.6 mg/dL (8.5-10.1) Test 06/22/21 06:18 Glucose (Fingerstick) 153 mg/dL (70-99) Medications Active Scripts Medications Dose Route/Sig Max Daily Dose Days Date Category Dose Instructions Lantus Solostar (Insulin Glargine,Hum.rec.anlog) 100 Unit/1 Ml Insuln.pen 15 Unit SQ QHS 30 06/02/20 Rx If glucose > 200 on 2 or more readings, can add 2u for the night Aspirin Ec (Aspirin) 81 Mg Tablet.dr 81 Mg PO [id number] 06/02/20 Rx Atorvastatin Calcium 40 Mg Tablet 40 Mg PO QHS 06/02/20 Rx Novolog (Insulin Aspart) 100 Unit/1 Ml Cartridge 0-9 Unit SQ QID 30 06/02/20 Rx Glucose - Insulin >150mg/dL - 3u 151-200 - 5u 201-250 - 6u 251-300 - 7u 301-350 - 9u >350 - Contact Furosemide 40 Mg Tablet 1 Tab PO DAILY 06/01/20 Reported Spironolactone 25 Mg Tablet 1 Tab PO DAILY 06/01/20 Reported Levothyroxine Sodium 88 Mcg Tablet 1 Tab PO DAILY 06/01/20 Reported Lisinopril 5 Mg Tablet 1 Tab PO DAILY 06/01/20 Reported Carvedilol (Carvedilol) 12.5 Mg Tablet 12.5 Mg PO BIDWMEALS 06/01/20 Reported Impression . IMPRESSION: 1. Acute hypoxemic respiratory failure secondary to acute on chronic systolic heart failure. 2. Abnormal x-ray, compatible more with congestive heart failure and COVID-19. 3. Tested positive for COVID-19. 4. COVID-19 viral pneumonia. Status post remdesivir 5. Acute on chronic kidney failure. 6. Elevated liver function tests. 7. Severe protein malnutrition, present upon admission. 9. Hypotension, multifactorial, Echo report <Conclusion> The ejection fraction is moderately to severely impaired. EF 25% The distal half of the LV is severely akinetic to hypokinetic. There is global hypokinesis. Plan . Updated 06/22 Continue current support Potassium 5.8 Blood sugar is elevated Patient not expected to survive updated 06/21 Patient remains critically ill BUN and creatinine rising Sodium increasing May require free water Monitor blood sugars Patient not expected to survive Continue sedation updated 06/20 Continue current support Morphine drip for air hunger Patient DO NOT INTUBATE DO NOT RESUSCITATE Received remdesivir Not expected to survive KAREN ARAYA MD Jun 22, 2021 09:10
--- NOTE | 2021-06-22 09:15 | PDOC ---
DATE OF SERVICE DATE: 06/22/21 TIME: 09:14 SUBJECTIVE ROS Remains on BiPAP, OBJECTIVE Vital Signs Vital Signs Date Time Temp Pulse Resp B/P (MAP) Pulse Ox O2 Delivery O2 Flow Rate FiO2 06/22/21 08:11 98 24 73/53 92 BiPAP/CPAP 06/22/21 07:09 99.9 99.9 06/22/21 06:05 40.0 I & 0 Intake and Output 06/22/21 07:00 Intake Total 2404 ml Output Total 2125 ml Balance 279 ml IV Total 2404 ml Output Urine Total 2125 ml PHYSICAL EXAM Physical Exam General Not responsive HEEN On BiPap Neck Supple Lungs Decreased at bases, Heart S1S2 Abd Soft, NT, BS + Neuro Not responsive , opens eyes Ext No LE edema Jonas + Derm No Rash DIAGNOSIS/ASSESSMENT Assessment & Plan LUCÍA - ATN , Non Oliguric . Renal Function improved; , Poor Prognosis 2/2 his Resp status Supportive care, Maintain fluid balance , Avoid Nephrotoxins, Strict I/O HyperNatremia -continue IV hypotonic fluid , shortage of clinimix, agree to switch to TPN - decrease Na load in TPN . Will need Central line HyperKalemia- HyperKalemia Protocol ; Kayexalate prn . Dialysis will not change the outcome of his declining Pulm status . Adjust K in TPN CKD stage 2 - Baseline Creat 0.9-1.May per [facility] records, No interval labs available to me Acute hypoxemic respiratory failure - Abnormal x-ray, Tested positive for COVID-19.On remdesivir dexamethasone, and O2 Support . Not expected to survive per [place] COVID 19 Pneumonia - Rapid positive ; He is Unvaccinated [place] at home Chronic systolic CHF- ejection fraction is moderately to severely impaired. EF 25%.The distal half of the LV is severely akinetic to hypokinetic. There is global hypokinesis. H/o Ischemic cardiomyopathy LBBB - chronic CAD s/p CABG 2009 Diabetes, II Thrombocytopenia COMMENT/RELEVANT DATA Meds Current Medications Medications (Trade) Dose Ordered Sig/Raj Start Time Stop Time Status Last Admin Dose Admin Acetaminophen (Tylenol) 650 mg PRN Q6HRS PRN 06/11/21 20:30 06/12/21 09:04 650 MG Albumin Human 250 ml @ 62.5 mls/hr PRN DAILY PRN 06/12/21 17:45 11/21 09:38 62.5 MLS/HR Albuterol Sulfate (Ventolin Hfa) 2 puff PRN Q4HRS PRN 06/11/21 19:00 06/11/21 21:22 2 PUFF Amino Acids/ Electrolytes/ Dextrose 1,000 ml @ 80 mls/hr [id number] 06/16/21 17:30 06/21/21 22:31 80 MLS/HR Ascorbic Acid (Vitamin C) 500 mg DAILY 06/12/21 09:00 06/16/21 07:34 500 MG Aspirin (Ecotrin) 81 mg [id number] 06/12/21 08:00 06/16/21 07:34 81 MG Atorvastatin Calcium (Lipitor) 40 mg QHS 06/11/21 21:00 06/15/21 20:51 40 MG Atropine Sulfate (ATROPINE 0.5mg SYRINGE) 0.5 mg PRN Q5MIN PRN 06/13/21 18:30 Calcium Carbonate/ Glycine (Tums) 500 mg PRN Q3HRS PRN 06/11/21 20:30 Ceftriaxone Sodium (Rocephin) 1 gm Q24H 06/11/21 21:00 06/17/21 09:27 DC 06/16/21 22:08 1 GM Dexamethasone Sodium Phosphate (Decadron) 6 mg DAILY 06/12/21 09:00 06/22/21 08:29 6 MG Dexmedetomidine HCl 400 mcg/ Sodium Chloride 100 ml @ 0 mls/hr CONT PRN 06/13/21 18:30 06/22/21 06:24 9.1 MLS/HR Dextrose 1,000 ml @ 50 mls/hr Q20H 06/21/21 11:00 06/22/21 08:29 50 MLS/HR Dextrose (Dextrose 50%-Water Syringe) 12.5 gm PRN Q15MIN PRN 06/20/21 10:00 Digoxin (Lanoxin) 500 mcg 1X ONCE 06/13/21 16:00 06/13/21 16:02 DC 06/13/21 16:26 500 MCG Dobutamine HCl/ Dextrose 250 ml @ 13.26 mls/ hr CONT PRN 06/12/21 13:00 06/12/21 13:38 13.26 MLS/HR Doxycycline Hyclate (Vibra-Tab) 100 mg BID 06/11/21 21:00 06/18/21 11:05 DC 06/16/21 07:35 100 MG Doxycycline Hyclate 100 mg/ Dextrose 100 ml @ 50 mls/hr Q12HR 06/18/21 21:00 06/22/21 08:30 50 MLS/HR Furosemide (Lasix) 40 mg DAILY 06/16/21 13:00 06/19/21 17:10 DC 06/19/21 09:40 40 MG Guaifenesin/ Codeine Phosphate (Robitussin Ac) 5 ml PRN Q6HRS PRN 06/11/21 20:00 06/14/21 08:43 5 ML Heparin Sodium (Porcine) (Heparin Sodium) 5,000 unit Q12HR 06/13/21 21:00 06/22/21 08:30 5,000 UNIT Info (Non-Icu Electrolyte Protocol) 1 ea PRN DAILY PRN 06/11/21 20:30 Insulin Glargine (Lantus Syringe) 25 unit QHS 06/19/21 21:00 06/21/21 20:52 25 UNIT Insulin Human Lispro (HumaLOG) 0-9 UNITS Q6HRS 06/21/21 12:00 06/22/21 06:00 4 UNITS Lactobacillus Rhamnosus (Culturelle) 1 cap BID 06/13/21 09:00 06/16/21 07:34 1 CAP Levothyroxine Sodium (Synthroid) 88 mcg DAILY06 06/12/21 06:00 06/15/21 05:45 88 MCG Morphine Sulfate 30 ml @ 0 mls/hr CONT PRN PRN 06/19/21 15:00 06/22/21 05:35 3 MLS/HR Naloxone HCl (Narcan) 0.4 mg PRN Q2MIN PRN 06/19/21 15:00 Norepinephrine Bitartrate 8 mg/ Dextrose 258 ml @ 17.105 mls/ hr CONT PRN 06/12/21 12:00 06/14/21 15:25 13.684 MLS/HR Ondansetron HCl (Zofran) 4 mg PRN Q6HRS PRN 06/11/21 20:30 Oxycodone HCl (Roxicodone) 5 mg PRN Q3HRS PRN 06/11/21 20:30 Oxycodone/ Acetaminophen (Percocet 5/325) 2 tab PRN Q4HRS PRN 06/11/21 20:30 Remdesivir 100 mg/ Sodium Chloride 230 ml @ 460 mls/hr Q24H 06/12/21 20:00 06/15/21 20:29 DC 06/15/21 20:07 460 MLS/HR Remdesivir 200 mg/ Sodium Chloride 210 ml @ 210 mls/hr 1X ONCE 06/11/21 20:00 06/11/21 20:59 DC 06/11/21 20:33 210 MLS/HR Senna/Docusate Sodium (Senna Plus) 1 tab BID 06/11/21 21:00 06/14/21 08:43 1 TAB Sodium Chloride 1,000 ml @ 25 mls/hr Q24H 06/19/21 15:00 06/21/21 10:59 DC Sterile Water (WATER for RESP) 2,000 ml CONT PRN 06/14/21 09:15 06/14/21 09:42 2,000 ML Thiamine Mononitrate (Vitamin B-1) 100 mg DAILY 06/12/21 09:00 06/16/21 07:34 100 MG Zinc Sulfate (Orazinc) 220 mg DAILY 06/12/21 09:00 06/16/21 07:34 220 MG Lab Laboratory Tests Test 06/21/21 11:15 06/21/21 16:50 06/22/21 00:24 06/22/21 03:45 Glucose (Fingerstick) 124 mg/dL (70-99) 220 mg/dL (70-99) 220 mg/dL (70-99) Sodium Level 150 mmol/L (136-145) Potassium Level 5.8 mmol/L (3.5-5.1) Chloride Level 118 mmol/L (98-107) Carbon Dioxide Level 25 mmol/L (21-32) Anion Gap 7 (6-14) Blood Urea Nitrogen 77 mg/dL (8-26) Creatinine 1.2 mg/dL (0.7-1.3) Estimated GFR (Cockcroft-Gault) 58.4 Glucose Level 195 mg/dL (70-99) Calcium Level 8.6 mg/dL (8.5-10.1) Test 06/22/21 06:18 Glucose (Fingerstick) 153 mg/dL (70-99) Results All relevant outside records, renal labs, imaging studies, telemetry/EKG's were reviewed. Justicifation of Admission Dx: Justifications for Admission: Justification of Admission Dx: Yes Altered Mental Status: Altered Mental Status LUDIVINA MEDLEY MD Jun 22, 2021 09:15
[2021-06-22] MEDS: TPN PER PHARMACY MC PRN ×2 (10:16→12:32)
[2021-06-22] MEDS: ALBUMIN HUMAN 5% 250 ML IV PRN (10:26)
[2021-06-22 11:04] LABS: PHOSPHORUS 4.4 mg/dL (2.6-4.7)
[2021-06-22] MEDS: NOREPINEPHRINE VIAL 8 MG in IV DEXTROSE 5% 250 ML IV PRN (11:10)
--- NOTE | 2021-06-22 11:30 | PDOC ---
SALONI DAVIS MOLD PRESSER 06/22/21 1130: CARDIO Progress Notes Date and Time Date of Service 06/22/21 Time of Evaluation 1120 Subjective Subjective: Other (sedated ) Vitals Vitals Vital Signs Date Time Temp Pulse Resp B/P (MAP) Pulse Ox O2 Delivery O2 Flow Rate FiO2 06/22/21 11:15 130/59 06/22/21 11:09 105 34 94 BiPAP/CPAP 06/22/21 07:09 99.9 99.9 06/22/21 06:05 40.0 Weight Weight [ ] Input and Output Intake and Output Intake and Output 06/22/21 07:00 Intake Total 2404 ml Output Total 2125 ml Balance 279 ml IV Total 2404 ml Output Urine Total 2125 ml Laboratory Labs Laboratory Tests Test 06/21/21 16:50 06/22/21 00:24 06/22/21 03:45 06/22/21 06:18 Glucose (Fingerstick) 220 mg/dL (70-99) 220 mg/dL (70-99) 153 mg/dL (70-99) Sodium Level 150 mmol/L (136-145) Potassium Level 5.8 mmol/L (3.5-5.1) Chloride Level 118 mmol/L (98-107) Carbon Dioxide Level 25 mmol/L (21-32) Anion Gap 7 (6-14) Blood Urea Nitrogen 77 mg/dL (8-26) Creatinine 1.2 mg/dL (0.7-1.3) Estimated GFR (Cockcroft-Gault) 58.4 Glucose Level 195 mg/dL (70-99) Calcium Level 8.6 mg/dL (8.5-10.1) Phosphorus Level 4.4 mg/dL (2.6-4.7) Magnesium Level 3.0 mg/dL (1.8-2.4) Microbiology Micro Microbiology 06/11/21 Urine Culture - Final, Complete 06/11/21 Blood Culture - Final, Complete NO GROWTH AFTER 5 DAYS Review of Systems Constitutional: yes: unresponsive Physical Exam HEENT: Neck Supple W Full Motion Chest: Symmetric LUNGS: Other (on BiPAP) Heart: RRR (SR/ST) Abdomen: Other (non-distended ) Extremities: No Edema Neurology: other (somnolent ) Assessment Assessment 1. Weakness, falls 2. Acute respiratory failure secondary to COVID PNA, CHF. 3. Acute on chronic systolic CHF; improved s/p IV Lasix. 4. Ischemic cardiomyopathy; Echo with LVEF 25% 5. Chronic LBBB 6. CAD s/p CABG 2008, clinically stable 7. H/o hypertension with present hypotension. remains low end 8. Hyperlipidemia 9. Diabetes, II: per IM 10. LUCÍA, hyperkalemia, hypernatremia 11. Hypothyroidism 12. Thrombocytopenia; PLTs stable Recommendations Pressor support as warranted Ongoing lung optimization, treatment of COVID as per pulmonary Supportive care Justicifation of Admission Dx: Justifications for Admission: Justification of Admission Dx: Yes Altered Mental Status: Altered Mental Status REGINALD MAGALLON MD 06/23/21 0817: CARDIO Progress Notes Assessment Assessment Patient seen and examined 06/22/2021. Agree with PRESS SECRETARY's assessment and plan. Acute on chronic systolic heart failure better compensated Continues to need pressor support CAD status clinically stable. Continue current treatment for acute respiratory failure/Covid pneumonia per pulmonary team SALONI DAVIS APRN Jun 22, 2021 11:30 REGINALD MAGALLON MD Jun 23, 2021 08:17
--- NOTE | 2021-06-22 12:34 | NUR ---
Pharmacy TPN Dosing Note S: KAYLA QUESADA is a 81 year old M Currently receiving Central Continuous TPN started 06/22/21 B:Pertinent PMH: Covid 19 Height: 5 feet, 6 inches Weight: 88.3 kg Current diet: npo LABS: Sodium: 150 Potassium: 5.8 Chloride: 118 Calcium: 8.6 Corrected Calcium: 9.88 Magnesium: 3.0 CO2: 25 SCr: 1.2 Glucose: 124-220 Albumin: 2.4 AST: 52 ALT: 30 TPN FORMULA: TPN TYPE: Central Continuous AMINO ACIDS: 85 gm DEXTROSE: 295 gm LIPIDS: 30 gm SODIUM CHLORIDE: mEq SODIUM ACETATE: mEq SODIUM PHOSPHATE: mmol POTASSIUM CHLORIDE: mEq POTASSIUM ACETATE: mEq POTASSIUM PHOSPHATE: mmol MAGNESIUM: mEq CALCIUM: 5 mEq INSULIN: units MULTIPLE VITAMIN: 10 ml TRACE ELEMENTS: 1 ml ml(s) TPN PLAN: Macros per dietitian. Labs ordered for am. R: Begin TPN as ordered Will monitor electrolytes, glucose, and tolerance to TPN. RADHA SALAS, [facility], 06/22/21 1242
--- NOTE | 2021-06-22 13:01 | RAD ---
AP chest. HISTORY: Central line placement AP view was taken of the chest. There is a right jugular central line which extends well into the atr ium but not into the ventricle. There are diffuse infiltrates without change from recent studies. The re is no pneumothorax. IMPRESSION: 1. Right central line extends well into the right atrium. 2. Persistent interstitial bilateral infiltrates. Electronically signed by: Silas Huston MD (06/22/2021 12:59 PM) [id number]
--- NOTE | 2021-06-22 13:24 | PDOC ---
[employer] PROGRESS NOTE Date of Service DOS: DATE: 06/22/21 TIME: 13:24 Chief Complaint Chief Complaint A/P: Acute respiratory failure with hypoxia - secondary to COVID PNA. Febrile. Weakness, falls at home - due to hypoxia from COVID 19 Chronic systolic CHF - NT Pro BNP WNL. Cardiology consulted H/o Ischemic cardiomyopathy LBBB - chronic CAD s/p CABG 2008 Hypertension Hyperlipidemia Diabetes, II - sliding scale LUCÍA - likely vasomotor nephropathy. Consulted nephrology Hypothyroidism Thrombocytopenia - likely due to viral illness, will monitor Hyponatremia - likely nutritional FEN - ADA cardiac diet PPX - heparin DNR/DNI Dispo - inpatient History of Present Illness History of Present Illness Patient is a 81 year old male w/ PMHx DM2, HTN, CAD s/p CABG, chronic systolic CHF who presents with 4-day history of weakness, nausea, vomiting and confusion. Patient is a poor historian, but his family member at bedside aids in providing history. For 4 days prior to admission has had weakness nausea and vomiting and is followed for twice without strength has had no injury but has been getting more confused. In ED was noted with pulse oximetry 83% on room air. Rapid COVID-19 returned positive. Patient is not vaccinated against COVID-19. Patient and family member deny fever, chills, chest pain, palpitations, shortness of breath, cough, constipation, abdominal pain, diarrhea. Patient has no other complaints at this time Initiated on remdesivir and admitted for further care. 06/12: Up to 12 L facemask O2 overnight still little confused. O2 saturations 91% on this O2. Na133, Cr 3. Having some nausea and diarrhea. No vomiting currently. Plan: Given deteriorating condition will need higher level of care, transfer to ICU for likely vapotherm therapy, consult Pulm 06/13: Afebrile. On 15 L nonrebreather. Transferred to ICU overnight due to hypotension and bradycardia. Currently requiring Levophed and dobutamine. Echocardiogram yesterday showed global hypokinesis severely impaired EF 25%. Continue to hold heart failure medications until stable. Continue remdesivir steroids, empiric antibiotics. Critical care time 30 minutes spent reviewing charts, reviewing labs, reviewing imaging, discussion with RN. 06/14: Afebrile. 15 L nonrebreather and still hypoxic and mid 80s. Discussed wi patient if he would be okay with intubation if necessary, he says that would be fine with him. I have some concerns about underlying dementia; reached out to patient's to confirm if she would be okay with intubation, but no answer x2. Remains on pressor support; dobutamine discontinued due to tachycardia. Continue remdesivir; last dose should be tomorrow. Continue steroids and empiric antibiotics. Critical care time 30 minutes spent reviewing charts, reviewing labs, reviewing imaging, discussion with RN. 06/15: Afebrile, breathing on BiPAP with improvement in oxygen saturation. Yesterday after patient agreed to full code, RN spoke with ; due to concerns for dementia patient's reiterated that patient would want DNR; CODE STATUS was changed. Last day remdesivir today. Chest x-ray today showed stable multifocal interstitial infiltrate and cardiomegaly with suspected small pleural effusions. We will continue empiric antibiotics. Continue steroids and supportive care. Will follow cardiology recommendations; secondary prevention as able, hold coreg, lisinopril. Critical care time 30 minutes spent reviewing charts, reviewing labs, reviewing imaging, discussion with RN. 06/16: Afebrile, still breathing on BiPAP. S/P remdesivir. Continue empiric antibiotics and Decadron to complete 10-day course. Renal function improving, will try to maintain fluid balance. Follow cardiology recommendations. Continue Levophed as needed. Critical care time 30 minutes spent reviewing charts, reviewing labs, reviewing imaging, discussion with RN. 06/17: Low-grade fever this morning, T-max 99.7 F. Breathing on BiPAP. S/P remdesivir. Continue steroids. Procalcitonin <0.10, will discontinue empiric antibiotics and monitor. Continue to follow cardiology and nephrology recommendations. Critical care time 30 minutes spent reviewing charts, reviewing labs, reviewing imaging, discussion with RN. 06/18: Afebrile, tachypneic on BiPAP. S/P remdesivir. Empiric antibiotics have been held; continue steroids. Continue to follow cardiology recommendations. Donte continue to follow cardiology recommendations; echo with severely impaired EF 25% and global hypokinesis. Critical care time 30 minutes spent reviewing charts, reviewing labs, reviewing imaging, discussion with RN. 06/19 Patient evaluated and examined at bedside. Remains on BiPAP does not awaken easily. Continuing Covid treatment. Continue Rocephin doxy continue O2 supplementation wean as tolerated. Continue to follow subspecialist recommendations. 30 minutes critical care time spent reviewing charts, reviewing labs, reviewing imaging, and discussion with RN 06/20 Patient evaluated and examined at bedside. Still remains on BiPAP 100%. Minimally responsive to any sort of attempts at awakening him. Continue COVID treatment. Continue Rocephin and doxy. Very poor prognosis will try to initiate goals of care with the family in the next day or 2. 30 minutes critical care time spent reviewing charts labs imaging and discussion with subspecialty teams and bedside nurses. 06/21 Patient evaluated examined at bedside. Still on high settings BiPAP. Is sedated. Continuing Covid treatment. Very poor prognosis will try to contact family this afternoon. 0 minutes critical care time spent reviewing charts labs imaging and discussion with subspecialty teams and bedside nurses 06/22 Patient evaluated examined at bedside. Still remains on BiPAP really not responsive at all. Continue COVID treatment continue to biotics cards pulmonary following. Not expected to survive this admission. Discussed with the patient's this morning over the phone for approximately 20 minutes. Explained the severity of patient's condition and that he is very unlikely to survive. I recommended to her that her and her family start seriously considering withdrawal of care and comfort measures as patient really has not had any improvement over his stay. She says she has thought about it but not very much. She is still hoping for "a miracle." We will continue communication with her. 35 minutes critical care time. Vitals/I&O Vitals/I&O: Vital Signs Date Time Temp Pulse Resp B/P (MAP) Pulse Ox O2 Delivery O2 Flow Rate FiO2 06/22/21 12:10 Bi-pap 06/22/21 11:28 87 06/22/21 11:15 130/59 06/22/21 11:09 105 34 06/22/21 07:09 99.9 99.9 06/22/21 06:05 40.0 I & O 06/21/21 06/21/21 06/22/21 15:00 23:00 07:00 Intake Total 100 ml 2304 ml Output Total 375 ml 775 ml 975 ml Balance -375 ml -675 ml 1329 ml Physical Exam General: Alert, Cooperative, No acute distress Heart: Other (tachycardic) Lungs: Other (no accessory muscle use) Abdomen: Normal bowel sounds, Soft Extremities: No edema Skin: No significant lesion Labs Labs: Laboratory Tests Test 06/21/21 16:50 06/22/21 00:24 06/22/21 03:45 06/22/21 06:18 Glucose (Fingerstick) 220 mg/dL (70-99) 220 mg/dL (70-99) 153 mg/dL (70-99) Sodium Level 150 mmol/L (136-145) Potassium Level 5.8 mmol/L (3.5-5.1) Chloride Level 118 mmol/L (98-107) Carbon Dioxide Level 25 mmol/L (21-32) Anion Gap 7 (6-14) Blood Urea Nitrogen 77 mg/dL (8-26) Creatinine 1.2 mg/dL (0.7-1.3) Estimated GFR (Cockcroft-Gault) 58.4 Glucose Level 195 mg/dL (70-99) Calcium Level 8.6 mg/dL (8.5-10.1) Phosphorus Level 4.4 mg/dL (2.6-4.7) Magnesium Level 3.0 mg/dL (1.8-2.4) Assessment and Plan Assessmemt and Plan Problems Medical Problems: (1) Fall in elderly patient Status: Acute (2) Pneumonia due to COVID-19 virus Status: Acute Comment Review of Relevant I have reviewed the following items [place] (where applicable) has been applied. Medications: Current Medications Medications (Trade) Dose Ordered Sig/Raj Route PRN Reason Start Time Stop Time Status Last Admin Dose Admin Info (Tpn Per Pharmacy) 1 each PRN DAILY PRN MC SEE COMMENTS 06/22/21 10:00 06/22/21 12:32 Justifications for Admission Other Justification ORSALIA LIN MD Jun 22, 2021 13:24
--- NOTE | 2021-06-22 13:29 | RAD ---
EXAM: AP View of the chest DATE: 06/22/2021 12:56 PM INDICATION: recheck central line placement COMPARISON: 06/22/2021 06/15/2021 FINDINGS: Right IJ vascular catheter projects over the right superior cavoatrial junction/proximal right atrium . Cardiomegaly. Aorta is tortuous. Atherosclerotic calcifications. Diffuse bilateral parenchymal airs pace opacities and interstitial prominence may represent pulmonary edema. Atypical infection/anteropo sterior curves appearance.. Trace pleural effusions. No pneumothorax. Electronically signed by: Henrik Madrid MD (06/22/2021 1:27 PM) MALACHI
--- NOTE | 2021-06-22 14:22 | EKG ---
[facility] [address] [place] [address] Test Date: 2021-06-22 Test Time: 14:09:20 Pat Name: KAYLA QUESADA Department: Room: 105 1 Gender: M Commercial Real Estate Associate: LATANYA : 1940 Requested By: SALONI DAVIS Order Number: [id number] Reading MD: Bowen Cole Measurements Intervals [place] Rate: 128 P: WI: QRS: -62 QRSD: 212 T: 89 QT: 348 QTc: 512 Interpretive Statements WIDE COMPLEX TACHYCARDIA RATE 128 Electronically Signed On 06-26-2021 9:52:27 PATIENT ACCOUNT ANALYST by Bowen Cole
--- NOTE | 2021-06-22 16:09 | NUR ---
Patient's TOD 15[address] with family at bedside. Dr. Nice, Dr. Gamboa, and Nursing Aircraft Motor Mechanic were notified. This RN notified MTN and patient is not a donating candidate.
[2021-06-22] MEDS ORDERED: DEXTROSE 70% IV SCH (22:00)
[2021-06-22] MEDS ORDERED: [UNRECOGNIZED DRUG - OTHER] IV SCH (22:00)
[2021-06-22] MEDS ORDERED: AMINO ACID IV SCH (22:00)
[2021-06-22] MEDS ORDERED: TOTAL PARENTERAL NUTRITION IV SCH (22:00)
--- NOTE | 2021-07-09 20:51 | PDOC3 ---
[facility]-Discharge Summary Date of Admission: Date of Admission: Jun 11, 2021 Date of Discharge: Date of Discharge: Jun 22, 2021 Admission Diagnosis: Admitting Diagnosis: Covid pneumonia Discharge Diagnosis: Discharge Diagnosis: Same Consults: Consults: Cardiology, pulmonary Hospital Course: Hospital Course: Chief Complaint A/P: Acute respiratory failure with hypoxia - secondary to COVID PNA. Febrile. Weakness, falls at home - due to hypoxia from COVID 19 Chronic systolic CHF - NT Pro BNP WNL. Cardiology consulted H/o Ischemic cardiomyopathy LBBB - chronic CAD s/p CABG 2008 Hypertension Hyperlipidemia Diabetes, II - sliding scale LUCÍA - likely vasomotor nephropathy. Consulted nephrology Hypothyroidism Thrombocytopenia - likely due to viral illness, will monitor Hyponatremia - likely nutritional FEN - ADA cardiac diet PPX - heparin DNR/DNI Dispo - inpatient History of Present Illness History of Present Illness Patient is a 81 year old male w/ PMHx DM2, HTN, CAD s/p CABG, chronic systolic CHF who presents with 4-day history of weakness, nausea, vomiting and confusion. Patient is a poor historian, but his family member at bedside aids in providing history. For 4 days prior to admission has had weakness nausea and vomiting and is followed for twice without strength has had no injury but has been getting more confused. In ED was noted with pulse oximetry 83% on room air. Rapid COVID-19 returned positive. Patient is not vaccinated against COVID-19. Patient and family member deny fever, chills, chest pain, palpitations, shortness of breath, cough, constipation, abdominal pain, diarrhea. Patient has no other complaints at this time Initiated on remdesivir and admitted for further care. 06/12: Up to 12 L facemask O2 overnight still little confused. O2 saturations 91% on this O2. Na133, Cr 3. Having some nausea and diarrhea. No vomiting currently. Plan: Given deteriorating condition will need higher level of care, transfer to ICU for likely vapotherm therapy, consult Pulm 06/13: Afebrile. On 15 L nonrebreather. Transferred to ICU overnight due to hypotension and bradycardia. Currently requiring Levophed and dobutamine. Echocardiogram yesterday showed global hypokinesis severely impaired EF 25%. Continue to hold heart failure medications until stable. Continue remdesivir steroids, empiric antibiotics. Critical care time 30 minutes spent reviewing charts, reviewing labs, reviewing imaging, discussion with RN. 06/14: Afebrile. 15 L nonrebreather and still hypoxic and mid 80s. Discussed with patient if he would be okay with intubation if necessary, he says that would be fine with him. I have some concerns about underlying dementia; reached out to patient's to confirm if she would be okay with intubation, but no answer x2. Remains on pressor support; dobutamine discontinued due to tachycardia. Continue remdesivir; last dose should be tomorrow. Continue steroids and empiric antibiotics. Critical care time 30 minutes spent reviewing charts, reviewing labs, reviewing imaging, discussion with RN. 06/15: Afebrile, breathing on BiPAP with improvement in oxygen saturation. Yesterday after patient agreed to full code, RN spoke with ; due to concerns for dementia patient's reiterated that patient would want DNR; CODE STATUS was changed. Last day remdesivir today. Chest x-ray today showed stable multifocal interstitial infiltrate and cardiomegaly with suspected small pleural effusions. We will continue empiric antibiotics. Continue steroids and supportive care. Will follow cardiology recommendations; secondary prevention as able, hold coreg, lisinopril. Critical care time 30 minutes spent reviewing charts, reviewing labs, reviewing imaging, discussion with RN. 06/16: Afebrile, still breathing on BiPAP. S/P remdesivir. Continue empiric antibiotics and Decadron to complete 10-day course. Renal function improving, will try to maintain fluid balance. Follow cardiology recommendations. Continue Levophed as needed. Critical care time 30 minutes spent reviewing charts, reviewing labs, reviewing imaging, discussion with RN. 06/17: Low-grade fever this morning, T-max 99.7 F. Breathing on BiPAP. S/P remdesivir. Continue steroids. Procalcitonin <0.10, will discontinue empiric antibiotics and monitor. Continue to follow cardiology and nephrology recommendations. Critical care time 30 minutes spent reviewing charts, reviewing labs, reviewing imaging, discussion with RN. 06/18: Afebrile, tachypneic on BiPAP. S/P remdesivir. Empiric antibiotics have been held; continue steroids. Continue to follow cardiology recommendations. Donte continue to follow cardiology recommendations; echo with severely impaired EF 25% and global hypokinesis. Critical care time 30 minutes spent reviewing charts, reviewing labs, reviewing imaging, discussion with RN. 06/19 Patient evaluated and examined at bedside. Remains on BiPAP does not awaken easily. Continuing Covid treatment. Continue Rocephin doxy continue O2 supplementation wean as tolerated. Continue to follow subspecialist recommendations. 30 minutes critical care time spent reviewing charts, reviewing labs, reviewing imaging, and discussion with RN 06/20 Patient evaluated and examined at bedside. Still remains on BiPAP 100%. Minimally responsive to any sort of attempts at awakening him. Continue COVID treatment. Continue Rocephin and doxy. Very poor prognosis will try to initiate goals of care with the family in the next day or 2. 30 minutes critical care time spent reviewing charts labs imaging and discussion with subspecialty teams and bedside nurses. 06/21 Patient evaluated examined at bedside. Still on high settings BiPAP. Is sedated. Continuing Covid treatment. Very poor prognosis will try to contact family this afternoon. 0 minutes critical care time spent reviewing charts labs imaging and discussion with subspecialty teams and bedside nurses 06/22 Patient evaluated examined at bedside. Still remains on BiPAP really not responsive at all. Continue COVID treatment continue to biotics cards pulmonary following. Not expected to survive this admission. Discussed with the patient's this morning over the phone for approximately 20 minutes. Explained the severity of patient's condition and that he is very unlikely to survive. I recommended to her that her and her family start seriously considering withdrawal of care and comfort measures as patient really has not had any improvement over his stay. She says she has thought about it but not very much. She is still hoping for "a miracle." We will continue communication with her. 35 minutes critical care time. Patient at 1537 after w/d of care Disposition: Disposition/Orders: Activity: Activity: Resume previous activity Medications: Home Meds Active Scripts Insulin Glargine,Hum.rec.anlog (LANTUS SOLOSTAR) 100 Unit/1 Ml Insuln.pen, 15 UNIT SQ QHS for Diabetes for 30 Days, #15 ML 3 Refills If glucose > 200 on 2 or more readings, can add 2u for the night Prov:ROSALIA ROSAS MD 06/02/20 Aspirin (ASPIRIN EC) 81 Mg Tablet., 81 MG PO DAILYWBKFT for CAD for 90 Days, #90 TAB.SR 3 Refills Prov:ROSLAIA ROSAS MD 06/02/20 Atorvastatin Calcium (ATORVASTATIN CALCIUM) 40 Mg Tablet, 40 MG PO QHS for HLD for 90 Days, #90 TAB 1 Refill Prov:ROSALIA ROSAS MD 06/02/20 Insulin Aspart (NOVOLOG) 100 Unit/1 Ml Cartridge, 0-9 UNIT SQ QID for Diabetes for 30 Days, #1 EACH Glucose - Insulin >150mg/dL - 3u 151-200 - 5u 201-250 - 6u 251-300 - 7u 301-350 - 9u >350 - Contact Prov:ROSALIA ROSAS MD 06/02/20 Reported Medications Furosemide (FUROSEMIDE) 40 Mg Tablet, 1 TAB PO DAILY for HTN, #30 TAB 5 Refills 06/01/20 Spironolactone (SPIRONOLACTONE) 25 Mg Tablet, 1 TAB PO DAILY for HTN, #90 TAB 1 Refill 06/01/20 Levothyroxine Sodium (LEVOTHYROXINE SODIUM) 88 Mcg Tablet, 1 TAB PO DAILY for hypothyroidism, #30 TAB 5 Refills 06/01/20 Lisinopril (LISINOPRIL) 5 Mg Tablet, 1 TAB PO DAILY for HTN, #30 TAB 5 Refills 06/01/20 Carvedilol (CARVEDILOL ) 12.5 Mg Tablet, 12.5 MG PO BIDWMEALS for CARDIAC, TAB 06/01/20 Scheduled Aspirin (Aspirin Ec), 81 MG PO DAILYWBKFT Atorvastatin Calcium (Atorvastatin Calcium), 40 MG PO QHS Carvedilol (Carvedilol ), 12.5 MG PO BIDWMEALS, (Reported) Furosemide (Furosemide), 1 TAB PO DAILY, (Reported) Insulin Aspart (Novolog), 0-9 UNIT SQ QID Insulin Glargine,Hum.rec.anlog (Lantus Solostar), 15 UNIT SQ QHS Levothyroxine Sodium (Levothyroxine Sodium), 1 TAB PO DAILY, (Reported) Lisinopril (Lisinopril), 1 TAB PO DAILY, (Reported) Spironolactone (Spironolactone), 1 TAB PO DAILY, (Reported) Justicifation of Admission Dx: Justifications for Admission: Justification of Admission Dx: Yes Altered Mental Status: Altered Mental Status ROSALIA LIN MD Jul 09, 2021 20:51
== END 2021-06-22 17:37 | DRG 177 ==
LOC: ER 15:38 → 5 SOUTH 19:00 → 1 WEST ICU 19:45
PROVIDERS: ADMIT Student in an Organized Health Care Education/Training Program; ATTEND Student in an Organized Health Care Education/Training Program
PROC: XW033E5 Introduction of Remdesivir Anti-infective into Peripheral Vein, Percutaneous Approach, New Technology Group 5 (ICD-10-PCS; 2021-06-12)
PROC: 02HV33Z Insertion of Infusion Device into Superior Vena Cava, Percutaneous Approach (ICD-10-PCS; 2021-06-13)
PROC: 5A09557 Assistance with Respiratory Ventilation, Greater than 96 Consecutive Hours, Continuous Positive Airway Pressure (ICD-10-PCS; principal; 2021-06-14)
DX: U07.1 COVID-19 (principal); N17.0 Acute kidney failure with tubular necrosis; J96.01 Acute respiratory failure with hypoxia; E43 Unspecified severe protein-calorie malnutrition; I50.23 Acute on chronic systolic (congestive) heart failure; J12.82 Pneumonia due to coronavirus disease 2019; E87.0 Hyperosmolality and hypernatremia; E87.1 Hypo-osmolality and hyponatremia; G93.40 Encephalopathy, unspecified; I13.0 Hypertensive heart and chronic kidney disease with heart failure and stage 1 through stage 4 chronic kidney disease, or unspecified chronic kidney disease; D69.59 Other secondary thrombocytopenia; E03.9 Hypothyroidism, unspecified; E11.22 Type 2 diabetes mellitus with diabetic chronic kidney disease; E78.5 Hyperlipidemia, unspecified; E87.5 Hyperkalemia; I25.10 Atherosclerotic heart disease of native coronary artery without angina pectoris; I25.2 Old myocardial infarction; I25.5 Ischemic cardiomyopathy; I44.7 Left bundle-branch block, unspecified; N18.9 Chronic kidney disease, unspecified; N40.0 Benign prostatic hyperplasia without lower urinary tract symptoms; Z88.0 Allergy status to penicillin; Z66 Do not resuscitate; Z95.1 Presence of aortocoronary bypass graft; G47.33 Obstructive sleep apnea (adult) (pediatric); K21.9 Gastro-esophageal reflux disease without esophagitis; M19.90 Unspecified osteoarthritis, unspecified site; Z88.2 Allergy status to sulfonamides; Z90.49 Acquired absence of other specified parts of digestive tract; Z68.31 Body mass index [BMI] 31.0-31.9, adult
CPT/HCPCS: 36415; 36569; 36600; 51702; 71045; 80048; 80053; 81001; 82550; 82805; 82962; 83605; 83735; 83880; 84100; 84145; 85007; 85025; 86140; 87040; 87086; 87426; 87804; 93005; 93306; 94660; 94760; J0696; J1100; J1160; J1250; J1644; J1815; J1940; J2270; J3490; J7040; J7050; J7060; P9041; 99285-25; G0378; J7030